=== PATIENT | male | born 1965 | race Caucasian/White ===

== ENCOUNTER 2017-01-03 06:55 | Outpatient (CLI) | payer MEDICARE ==
[~2017-01-03] VITALS: Ht 175.3 cm; Wt 95.7 kg
[2017-01-03] VITALS (10 sets, daily range): BP systolic 66–115; BP diastolic 39–63
[~2017-01-03 06:55] MED LIST: AMIT100T PO; AMIT150T PO; BACL20TA PO; EXEN10PE3 SQ; GABA600T2 PO; HYDR-971 PO; INSU100I27 SQ; INSU100V8 SQ; METF-620 PO; METO100T11 PO; METO25TA4 PO; OMEP20CA9 PO; PRED2.5T PO; PRED5TAB PO; PREG50CA PO; SULF1TAB24 PO; TRAZ100T12 PO
[2017-01-03 07:24] LABS: BASO % 1 % (0-3); EOS % 3 % (0-3); HEMATOCRIT 35.8 % (39.0-53.0); HEMOGLOBIN 11.7 g/dL (13.0-17.5); LYMPH # 0.6 x10^3/uL (1.0-4.8); LYMPH % 13 % (24-48); MEAN CORPUSCULAR HEMOGLOBIN 32 pg (25-35); MEAN CORPUSCULAR HGB CONC 33 g/dL (31-37); MEAN CORPUSCULAR VOLUME 97 fL (79-100); MONO % 9 % (0-9); NEUT % 74 % (31-73); PLATELET COUNT 90 x10^3/uL (140-400); RED BLOOD COUNT 3.71 x10^6/uL (4.30-5.70); RED CELL DISTRIBUTION WIDTH 15.2 % (11.5-14.5); WHITE BLOOD COUNT 4.7 x10^3/uL (4.0-11.0)
[2017-01-03] MEDS ORDERED: OXYC15TA PO (07:31)
[2017-01-03] MEDS ORDERED: DIPH25CA58 PO (07:31)
[2017-01-03] MEDS ORDERED: POTA20TA82 PO (07:31)
[2017-01-03] MEDS ORDERED: APRE30TA2 PO (07:31)
[2017-01-03] MEDS ORDERED: LISI40TA PO (07:31)
[2017-01-03] MEDS ORDERED: CRAN450C PO (07:31)
[2017-01-03] MEDS ORDERED: OXYC30TA PO (07:31)
[2017-01-03] MEDS ORDERED: INSU100I17 SQ (07:31)
[2017-01-03] MEDS ORDERED: HYDR25TA9 PO (07:31)
[2017-01-03] MEDS ORDERED: GRIS500T5 PO (07:31)
[2017-01-03] MEDS ORDERED: RANI150T6 PO (07:31)
[2017-01-03] MEDS ORDERED: MULT-496 PO (07:31)
[2017-01-03] MEDS ORDERED: LEXAPRO20 MG PO (07:31)
[2017-01-03] MEDS ORDERED: CARV6.252 PO (07:31)
[2017-01-03 07:42] LABS: INR 1.1 (0.8-1.1); PROTHROMBIN TIME PATIENT 13.7 SEC (11.7-14.0)
[2017-01-03] MEDS ORDERED: LIDOCAINE 1% / SOD BICARB 8.4% 20 ML VIAL. IJ ONE ×2 (08:20→09:00)
[2017-01-03] MEDS ORDERED: ONDANSETRON PF 4 MG/2 ML VIAL. ONE (08:21)
[2017-01-03] MEDS ORDERED: MIDAZOLAM HCL/PF 5 MG/5 ML VIAL. ONE (08:21)
[2017-01-03] MEDS ORDERED: fentaNYL PF VIAL 250 MCG/5 ML VIAL ONE (08:21)
[2017-01-03] MEDS ORDERED: fentaNYL PF VIAL 250 MCG/5 ML VIAL IV ONE (09:00)
[2017-01-03] MEDS ORDERED: MIDAZOLAM HCL/PF 5 MG/5 ML VIAL. IV ONE (09:00)
[2017-01-03] MEDS ORDERED: ONDANSETRON PF 4 MG/2 ML VIAL. IV ONE (09:00)
--- NOTE | 2017-01-03 10:12 | RAD ---
CT-guided bone marrow biopsy. 01/03/2017 Indication: Splenomegaly Discussion: The risks and benefits of the procedure, including but not limited to, bleeding and infection were discussed patient. Informed consent was obtained. The patient was brought to the CT scanner and placed in the prone position. A timeout procedure was performed. [employer] CT imaging of the pelvis demonstrated left ilium amenable to bone marrow biopsy. The overlying soft tissues were prepped and draped using maximum sterile barrier technique. 1% lidocaine without epinephrine was administered for local anesthesia. An OncControl needle was advanced into the bone marrow of the left iliac crest. 2 Aspirates and 1 core biopsy samples were obtained. Samples were delivered to pathology was present at the time of procedure. The needle was removed and manual pressure held to achieve hemostasis. No immediate complications were identified. The procedure was performed under conscious sedation including continuous cardiopulmonary monitoring via dedicated sedation nurse. Sedation time: 20 minutes Impression: Successful CT-guided bone marrow biopsy of the left iliac crest PQRS Compliance Statement: One or more of the following individualized dose reduction techniques were utilized for this examination: 1. Automated exposure control 2. Adjustment of the mA and/or kV according to patient size 3. Use of iterative reconstruction technique
[2017-01-03] MEDS ORDERED: IV 1/2 NORMAL SALINE 1,000 ML IV ONE (10:15)
== END 2017-01-03 10:45 ==
LOC: INTRAD 06:55
PROVIDERS: ATTEND Internal Medicine Hematology & Oncology
DX: D61.818 Other pancytopenia (principal); E78.00 Pure hypercholesterolemia, unspecified; I10 Essential (primary) hypertension; J44.9 Chronic obstructive pulmonary disease, unspecified; E66.9 Obesity, unspecified; Z68.43 Body mass index [BMI] 50.0-59.9, adult; M19.90 Unspecified osteoarthritis, unspecified site; E11.9 Type 2 diabetes mellitus without complications; F32.9 Major depressive disorder, single episode, unspecified; Z79.01 Long term (current) use of anticoagulants; Z86.69 Personal history of other diseases of the nervous system and sense organs; Z87.442 Personal history of urinary calculi; Z86.39 Personal history of other endocrine, nutritional and metabolic disease; Z72.0 Tobacco use; Z88.3 Allergy status to other anti-infective agents
CPT/HCPCS: 36415; 38221; 77012; 85027; 85610; 88184; 88185; 88237; 99152; G0364; J2250; J2405; J3010; 99153

== ENCOUNTER → 2018-04-03 | Outpatient (CLI) | payer MEDICARE, OTHER ==
[2017-01-03 10:30] VITALS: BP 94/56
[~2018-04-03] MED LIST changes: +APRE30TA2 PO; +CARV6.252 PO; +CRAN450C PO; +DIPH25CA58 PO; +GRIS500T5 PO; +HYDR25TA9 PO; +INSU100I17 SQ; +LEXAPRO20 MG PO; +LISI-130 PO; -METF-620 PO; +METF10007 PO; +METO-247 PO; -METO100T11 PO; +MULT-496 PO; +OXYC15TA PO; +OXYC30TA PO; +POTA20TA82 PO; +RANI150T21 PO; +TRAZ-86 PO; -TRAZ100T12 PO
--- NOTE | 2018-04-03 13:53 | RAD ---
Single AP abdomen 04/03/2018 Clinical indications: Kidney stone follow-up. COMPARISON: CT 05/16/2014 FINDINGS: Examination is markedly limited due to body habitus and overlying bowel contents. No definitive urolithiasis. IMPRESSION: Markedly limited examination due to body habitus. If there is concern for urolithiasis, CT is recommended as it is more sensitive. Electronically signed by: Hermilo Hernández MD (04/03/2018 1:50 PM) [id number]
== END | disposition home or self-care (01) ==
LOC: RAD 10:06
PROVIDERS: ATTEND Urology
DX: Z09 Encounter for follow-up examination after completed treatment for conditions other than malignant neoplasm (principal); Z87.442 Personal history of urinary calculi
CPT/HCPCS: 74018

== ENCOUNTER 2019-08-07 16:44 | Emergency (ER) | payer MEDICARE, OTHER ==
[~2019-08-07] VITALS: Ht 175.3 cm; Wt 100.0 kg
[~2019-08-07 16:44] MED LIST changes: +ARIP1SOL2 PO; +BUSP10TA PO; +CARV6.2511 PO; -CARV6.252 PO; +CITA20TA6 PO; +DULO60CA45 PO; -GABA600T2 PO; +GABA600T7 PO; +HYDR-2145 PO; +HYDR-3164 PO; -HYDR-971 PO; -HYDR25TA9 PO; +LORA0.5T96 PO; +OMEP20CA16 PO; -OMEP20CA9 PO; -OXYC30TA PO; +OXYC30TA3 PO; +PANT40TA77 PO; +POTA20TA4 PO; -POTA20TA82 PO; +RANI-376 PO; -RANI150T21 PO; +TAMS0.4C97 PO; +TRAZ-123 PO; -TRAZ-86 PO
[2019-08-07 16:45] VITALS: BP 180/86
[2019-08-07] MEDS ORDERED: IV NORMAL SALINE 1000ML BAG 1,000 ML IV ONE (17:00)
--- NOTE | 2019-08-07 17:03 | PHYS DOC ---
Past Medical History Past Medical History: Arthritis, Fibromyalgia Additional Past Medical Histor: RA, sleep apnea Past Surgical History: Tonsillectomy, Other Smoking Status: Never Smoker Alcohol Use: Occasionally Drug Use: None Adult General Chief Complaint Chief Complaint: DRUG ABUSE [facility] HPI Patient is a 54 year old male who was brought here by EMS from home with concern that he took too much of it pain medications. His home health nurse checked on him today at his house and found that there were large amount of narcotic missing from his bottles. Patient was acting confused. He said he cannot remember much. Patient denied suicidal ideation or homicidal ideation. Patient said he is on narcotics due to chronic arthritis and fibromyalgia. There are two bottles of narcotics with him. One is 15 mg oxycodone, take 1 by mouth every six hours as needed for pain, filled on 07/29/19, total of 112 tablets was dispensed. There are only 22 tablets left in the bottle. Another bottle labelled as 30 mg oxycodone, take one pill daily as needed for pain, filled on 07/29/19, total of 30 tablets dispensed but all gone. At this time patient denies any chest pain, no abdominal pain, no nausea or vomiting, no headache. Patient felt very foggy right now. Review of Systems Review of Systems Constitutional: Denies fever or chills [] Eyes: Denies change in visual acuity, redness, or eye pain [] HENT: Denies nasal congestion or sore throat [] Respiratory: Denies cough or shortness of breath [] Cardiovascular: No additional information not addressed in HPI [] GI: Denies abdominal pain, nausea, vomiting, bloody stools or diarrhea [] : Denies dysuria or hematuria [] Musculoskeletal: Denies back pain or joint pain [] Integument: Denies rash or skin lesions [] Neurologic: Denies headache, focal weakness or sensory changes [] Endocrine: Denies polyuria or polydipsia [] All other systems were reviewed and found to be within normal limits, except as documented in this note. Current Medications Current Medications Current Medications Medications (Trade) Dose Ordered Sig/Sb Start Time Stop Time Status Last Admin Dose Admin Magnesium Sulfate 50 ml @ 25 mls/hr 1X ONCE 08/07/19 18:00 08/07/19 19:59 Sodium Chloride 1,000 ml @ 1,000 mls/hr 1X ONCE 08/07/19 17:00 08/07/19 17:59 08/07/19 17:00 1,000 MLS/HR Allergies Allergies Allergies Coded Allergies Type Severity Reaction Last Updated Verified povidone-iodine Allergy Intermediate Rash 01/23/15 Yes pregabalin Allergy Intermediate bullae 01/24/15 Yes Physical Exam Physical Exam Constitutional: Well developed, well nourished, no acute distress, non-toxic appearance. [] HENT: Normocephalic, atraumatic, bilateral external ears normal, oropharynx moist, no oral exudates, nose normal. [] Eyes: PERRLA, EOMI, conjunctiva normal, no discharge. [] Neck: Normal range of motion, no tenderness, supple, no stridor. [] Cardiovascular:Heart rate regular rhythm, no murmur [] Lungs & Thorax: Bilateral breath sounds clear to auscultation [] Abdomen: Bowel sounds normal, soft, no tenderness, no masses, no pulsatile masses. [] Skin: Warm, dry, no erythema, no rash. [] Back: No tenderness, no CVA tenderness. [] Extremities: No tenderness, no cyanosis, no clubbing, ROM intact, no edema. [] Neurologic: Alert and oriented X 3, normal motor function, normal sensory function, no focal deficits noted. [] Psychologic: Affect normal, judgement normal, mood normal. [] Current Patient Data Lab Values Laboratory Tests Test 08/07/19 17:00 08/07/19 17:20 White Blood Count 3.1 x10^3/uL (4.0-11.0) L Red Blood Count 4.32 x10^6/uL (4.30-5.70) Hemoglobin 12.3 g/dL (13.0-17.5) L Hematocrit 37.7 % (39.0-53.0) L Mean Corpuscular Volume 87 fL (79-100) Mean Corpuscular Hemoglobin 28 pg (25-35) Mean Corpuscular Hemoglobin Concent 33 g/dL (31-37) Red Cell Distribution Width 16.1 % (11.5-14.5) H Platelet Count 60 x10^3/uL (140-400) L Neutrophils (%) (Auto) 66 % (31-73) Lymphocytes (%) (Auto) 21 % (24-48) L Monocytes (%) (Auto) 7 % (0-9) Eosinophils (%) (Auto) 5 % (0-3) H Basophils (%) (Auto) 1 % (0-3) Neutrophils # (Auto) 2.0 x10^3/uL (1.8-7.7) Lymphocytes # (Auto) 0.7 x10^3/uL (1.0-4.8) L Monocytes # (Auto) 0.2 x10^3/uL (0.0-1.1) Eosinophils # (Auto) 0.2 x10^3/uL (0.0-0.7) Basophils # (Auto) 0.0 x10^3/uL (0.0-0.2) Prothrombin Time 14.4 SEC (11.7-14.0) H Prothrombin Time INR 1.2 (0.8-1.1) H Activated Partial Thromboplast Time 31 SEC (24-38) Sodium Level 143 mmol/L (136-145) Potassium Level 4.7 mmol/L (3.5-5.1) Chloride Level 105 mmol/L (98-107) Carbon Dioxide Level 30 mmol/L (21-32) Anion Gap 8 (6-14) Blood Urea Nitrogen 10 mg/dL (8-26) Creatinine 1.1 mg/dL (0.7-1.3) Estimated GFR (Cockcroft-Gault) 69.2 BUN/Creatinine Ratio 9 (6-20) Glucose Level 316 mg/dL (70-99) H Calcium Level 8.9 mg/dL (8.5-10.1) Magnesium Level 1.4 mg/dL (1.8-2.4) L Total Bilirubin 1.0 mg/dL (0.2-1.0) Aspartate Amino Transferase (AST) 52 U/L (15-37) H Alanine Aminotransferase (ALT) 49 U/L (16-63) Alkaline Phosphatase 129 U/L (46-116) H Total Protein 6.8 g/dL (6.4-8.2) Albumin 3.4 g/dL (3.4-5.0) Albumin/Globulin Ratio 1.0 (1.0-1.7) Salicylates Level < 2.8 mg/dL (2.8-20.0) L Salicylate Last Dose Date Unknown Salicylate Last Dose Time Unknown Acetaminophen Level < 2 mcg/ml (10-30) L Acetaminophen Last Dose Date Unknown Acetaminophen Last Dose Time Unknown Ethyl Alcohol Level < 10 mg/dL (0-10) Urine Opiates Screen Pos (NEG) Urine Methadone Screen Neg (NEG) Urine Barbiturates Neg (NEG) Urine Phencyclidine Screen Neg (NEG) Urine Amphetamine/Methamphetamine Neg (NEG) Urine Benzodiazepines Screen Neg (NEG) Urine Cocaine Screen Neg (NEG) Urine Cannabinoids Screen Neg (NEG) Urine Ethyl Alcohol Neg (NEG) Laboratory Tests 08/07/19 17:00 Laboratory Tests 08/07/19 17:00 EKG EKG [] Radiology/Procedures Radiology/Procedures [] Course & Med Decision Making Course & Med Decision Making Pertinent Labs and Imaging studies reviewed. (See chart for details) [Patient is a 54-year-old male who was evaluated in the ER due to narcotic abuse. Patient was awake alert oriented, oxygen saturation is 100% on room air., his GCS was 15. His blood pressure was elevated. Patient denies any headache, no chest pain, no abdominal pain. Patient would like to go home. His blood work showed that his magnesium level was low, patient was given 2 g of magnesium IV in the ER, patient will be checked discharge home. Patient was instructed not to take more narcotics than he prescribed for. Dragon Disclaimer Dragon Disclaimer This electronic medical record was generated, in whole or in part, using a voice recognition dictation system. Departure Departure Impression: Primary Impression: Hypomagnesemia syndrome Additional Impression: Narcotic dependence Disposition: 01 HOME, SELF-CARE Condition: STABLE Referrals: ALY OLIVARES MD (PCP) PLEASE FOLLOW UP WITH YOUR DOCTOR NEXT WEEK. Patient Instructions: Hypomagnesemia, Narcotic Overdose Additional Instructions: Thank you for visiting our Emergency Department. We appreciate you trusting us with your care. If any additional problems come up don't hesitate to return to visit us. Please follow up with your primary care provider so they can plan additional care if needed and know about the problem that you had. If symptoms worsen come back to the Emergency Department. Any concerning symptoms that start such as chest pain, shortness of air, weakness or numbness on one side of the body, running high fevers or any other concerning symptoms return to the ER. Problem Qualifiers ARCHIE OAKES DO Aug 07, 2019 17:03
[2019-08-07 17:07] LABS: BASO % 1 % (0-3); EOS # 0.2 x10^3/uL (0.0-0.7); EOS % 5 % (0-3); HEMATOCRIT 37.7 % (39.0-53.0); HEMOGLOBIN 12.3 g/dL (13.0-17.5); LYMPH # 0.7 x10^3/uL (1.0-4.8); LYMPH % 21 % (24-48); MEAN CORPUSCULAR HEMOGLOBIN 28 pg (25-35); MEAN CORPUSCULAR HGB CONC 33 g/dL (31-37); MEAN CORPUSCULAR VOLUME 87 fL (79-100); MONO # 0.2 x10^3/uL (0.0-1.1); MONO % 7 % (0-9); NEUT % 66 % (31-73); PLATELET COUNT 60 x10^3/uL (140-400); RED BLOOD COUNT 4.32 x10^6/uL (4.30-5.70); RED CELL DISTRIBUTION WIDTH 16.1 % (11.5-14.5); WHITE BLOOD COUNT 3.1 x10^3/uL (4.0-11.0)
[2019-08-07 17:16] LABS: CALCIUM 8.9 mg/dL (8.5-10.1); CREATININE 1.1 mg/dL (0.7-1.3); GFR 69.2; POTASSIUM 4.7 mmol/L (3.5-5.1)
[2019-08-07 17:19] LABS: PROTHROMBIN TIME PATIENT 14.4 SEC (11.7-14.0)
[2019-08-07 17:29] LABS: ALBUMIN 3.4 g/dL (3.4-5.0); MAGNESIUM 1.4 mg/dL (1.8-2.4); TOTAL PROTEIN 6.8 g/dL (6.4-8.2)
[2019-08-07 17:31] LABS: ACETAMIN < 2 mcg/ml (10-30); ETHANOL < 10 mg/dL (0-10); SALIC < 2.8 mg/dL (2.8-20.0)
[2019-08-07 17:36] LABS: AMPHETAMINE/METHAMPHETAMINE NEG (NEG); BARBITURATES NEG (NEG); BENZODIAZEPINES NEG (NEG); CANNABINOIDS NEG (NEG); COCAINE NEG (NEG); METHADONE NEG (NEG); OPIATES POS (NEG); PHENCYCLIDINE NEG (NEG)
[2019-08-07] MEDS ORDERED: MAGNESIUM SULFATE 2GM 50 ML IV ONE (18:00)
== END 2019-08-07 18:40 | disposition home or self-care (01) ==
LOC: ER 16:44
DX: E83.42 Hypomagnesemia (principal); F11.20 Opioid dependence, uncomplicated; R41.0 Disorientation, unspecified; Z88.8 Allergy status to other drugs, medicaments and biological substances
CPT/HCPCS: 36415; 80053; 80307; 80329; 83735; 85025; 85610; 85730; 96361; 96365; 99284; G0480; J3475; J7030

== ENCOUNTER 2019-10-03 13:09 | Emergency (ER) | payer MEDICARE, OTHER ==
[~2019-10-03] VITALS: Ht 175.3 cm; Wt 96.0 kg
[~2019-10-03 13:09] MED LIST changes: -OXYC15TA PO; +OXYC15TA3 PO; -PREG50CA PO; +PREG50CA91 PO
--- NOTE | 2019-10-03 13:40 | EKG ---
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
[2019-10-03 13:58] LABS: BASO % 1 % (0-3); EOS # 0.1 x10^3/uL (0.0-0.7); EOS % 4 % (0-3); HEMATOCRIT 37.6 % (39.0-53.0); HEMOGLOBIN 12.2 g/dL (13.0-17.5); LYMPH # 0.7 x10^3/uL (1.0-4.8); LYMPH % 19 % (24-48); MEAN CORPUSCULAR HEMOGLOBIN 29 pg (25-35); MEAN CORPUSCULAR HGB CONC 32 g/dL (31-37); MEAN CORPUSCULAR VOLUME 90 fL (79-100); MONO # 0.2 x10^3/uL (0.0-1.1); MONO % 7 % (0-9); NEUT # 2.5 x10^3/uL (1.8-7.7); NEUT % 71 % (31-73); PLATELET COUNT 65 x10^3/uL (140-400); RED CELL DISTRIBUTION WIDTH 17.4 % (11.5-14.5); WHITE BLOOD COUNT 3.5 x10^3/uL (4.0-11.0)
[2019-10-03 14:07] LABS: CALCIUM 9.1 mg/dL (8.5-10.1); GFR 77.3
[2019-10-03 14:10] LABS: PROTHROMBIN TIME PATIENT 14.6 SEC (11.7-14.0)
[2019-10-03 14:14] LABS: ALBUMIN 3.1 g/dL (3.4-5.0); ALBUMIN/GLOBULIN RATIO 0.9 (1.0-1.7); MAGNESIUM 1.3 mg/dL (1.8-2.4); TOTAL PROTEIN 6.6 g/dL (6.4-8.2)
[2019-10-03 14:19] LABS: PLT ESTIMATE DECREASED (ADEQUATE)
[2019-10-03 14:20] LABS: ANISOCYTOSIS SLIGHT
--- NOTE | 2019-10-03 15:16 | RAD ---
EXAM: CT HEAD WITHOUT IV CONTRAST CLINICAL HISTORY: Trauma, head injury COMPARISON: None. TECHNIQUE: Routine CT of the head without contrast. Soft tissues and bone windows were reviewed. PQRS compliance statement - One or more of the following individualized dose reduction techniques were utilized for this study: 1. Automated exposure control 2. Adjustment of the mA and/or kV according to patient size 3. Use of iterative reconstruction technique FINDINGS: A right subdural hematoma is seen measuring up to 7 mm in thickness. In addition there is a left subdural hematoma measuring approximately 6 mm in thickness. Trace right subarachnoid hemorrhage is seen in the bilateral frontal region. There is no mass effect or shift of the intracranial structures. Bailey-white differentiation is maintained with no evidence of edema. The ventricles, basilar cisterns and cortical sulci are normal in size and configuration for the patients stated age. The cerebellum and brainstem are unremarkable. The calvarium demonstrates no evidence of fracture or focal lesion. Mild thickening left maxillary sinus. Nodular thickening right maxillary sinus. Mastoid air cells are clear. The visualized portions of the orbits are normal. Atherosclerotic calcifications of the intracranial internal carotid and vertebral arteries is seen. IMPRESSION: 1. Bilateral subdural hematomas are seen without significant mass effect or midline shift. 2. Small foci of subarachnoid hemorrhage in the bilateral frontal regions. 3. Multifocal paranasal sinus disease. EXAM: CT CERVICAL SPINE WITHOUT IV CONTRAST CLINICAL HISTORY: COMPARISON: None available. TECHNIQUE: Helical CT of the cervical spine was performed. Axial, coronal and sagittal reformatted images were also performed. PQRS compliance statement - One or more of the following individualized dose reduction techniques were utilized for this study: 1. Automated exposure control 2. Adjustment of the mA and/or kV according to patient size 3. Use of iterative reconstruction technique FINDINGS: Vertebral body heights are preserved. Mild C2-3 and C6-7 disc height loss. No spondylolisthesis. Small anterior posterior endplate osteophytes are seen. Atlantodental degenerative changes are seen. Bilateral TMJ degenerative changes are also partially profiled. No acute fracture. IMPRESSION: 1. Multilevel spondylosis as above 2. Negative acute fracture or subluxation. Findings of bilateral subarachnoid and subdural hematomas discussed with JAYMIE BROCK at 10/03/2019 3:11 PM. FOR INTERNAL CODING PURPOSES RESULT CODE: (C) Electronically signed by: Noé Wilde MD (10/03/2019 3:13 PM) WILLIAMSHIREN
[2019-10-03] MEDS ORDERED: ONDANSETRON PF 4 MG/2 ML VIAL. ONE (15:24)
--- NOTE | 2019-10-03 15:24 | PHYS DOC ---
Past Medical History Past Medical History: COPD, Dementia, Diabetes-Type II, Heart Disease, [place], Unknown Additional Past Medical Histor: RA, sleep apnea Past Surgical History: Tonsillectomy, Other Additional Past Surgical Histo: vasectomy Smoking Status: Never Smoker Alcohol Use: None Drug Use: None General Adult EDM: Chief Complaint: MECHANICAL FALL HPI: HPI: Patient is a 54-year-old male with multiple medical problems who presents via EMS with altered mental status today. Patient states that he was walking in the street yesterday a car was coming so he tried to get up over the curb he tripped fell backwards and hit his head. A bystander called the ambulance at that time and they took him to [facility]. At that time he had a CT scan of his head that was reportedly negative he also had 3 nav placed. Today he was complaining of a severe headache, nausea and some altered mental status and EMS again was called and brought him here for further evaluation. Patient states other than the back of his head and neck he has no other injuries or pain. He has not had any upper respiratory symptoms such as a cough or congestion. No f ever chills or sweats. He does not know of being around anybody with COVID 19 [] Review of Systems: Review of Systems: Constitutional: Denies fever or chills. [] Eyes: Denies change in visual acuity. [] HENT: Denies nasal congestion or sore throat. [] Respiratory: Denies cough or shortness of breath. [] Cardiovascular: Denies chest pain or edema. [] GI: Reports nausea and vomiting. [] : Denies dysuria. [] Musculoskeletal: Reports upper back and neck pain. [] Integument: Denies rash. [] Neurologic: Reports headache [] Endocrine: Denies polyuria or polydipsia. [] Lymphatic: Denies swollen glands. [] Psychiatric: Denies depression or anxiety. [] Heart Score: Risk Factors: Risk Factors: DM, Current or recent (<one month) smoker, HTN, HLP, family history of CAD, obesity. Risk Scores: Score 0 - 3: 2.5% MACE over next 6 weeks - Discharge Home Score 4 - 6: 20.3% MACE over next 6 weeks - Admit for Clinical Observation Score 7 - 10: 72.7% MACE over next 6 weeks - Early Invasive Strategies Allergies: Allergies: Allergies Coded Allergies Type Severity Reaction Last Updated Verified povidone-iodine Allergy Intermediate Rash 01/23/15 Yes pregabalin Allergy Intermediate bullae 01/24/15 Yes Physical Exam: PE: Constitutional: Well developed, well nourished, moderate distress, non-toxic appearance. [] HENT: Normocephalic, atraumatic, bilateral external ears normal, oropharynx moist, no oral exudates, nose normal. [] Eyes: PERRLA, EOMI, conjunctiva normal, no discharge. [] Neck: Some paraspinal muscle spasm no midline vertebral tenderness [] Cardiovascular:Heart rate regular rhythm, no murmur [] Lungs & Thorax: Bilateral breath sounds clear to auscultation [] Abdomen: Bowel sounds normal, soft, no tenderness, no masses, no pulsatile masses. [] Skin: Has a wound that is been repaired to the posterior scalp it looks as if there are [address] [] Back: No tenderness, no CVA tenderness. [] Extremities: No tenderness, no cyanosis, no clubbing, ROM intact, no edema. [] Neurologic: Alert but confused to events over the last 24 hours, normal motor function, normal sensory function, no focal deficits noted. [] Psychologic: Anxious and uncomfortable. [] Current Patient Data: Labs: Laboratory Tests Test 10/03/19 13:20 White Blood Count 3.5 x10^3/uL (4.0-11.0) L Red Blood Count 4.20 x10^6/uL (4.30-5.70) L Hemoglobin 12.2 g/dL (13.0-17.5) L Hematocrit 37.6 % (39.0-53.0) L Mean Corpuscular Volume 90 fL (79-100) Mean Corpuscular Hemoglobin 29 pg (25-35) Mean Corpuscular Hemoglobin Concent 32 g/dL (31-37) Red Cell Distribution Width 17.4 % (11.5-14.5) H Platelet Count 65 x10^3/uL (140-400) L Neutrophils (%) (Auto) 71 % (31-73) Lymphocytes (%) (Auto) 19 % (24-48) L Monocytes (%) (Auto) 7 % (0-9) Eosinophils (%) (Auto) 4 % (0-3) H Basophils (%) (Auto) 1 % (0-3) Neutrophils # (Auto) 2.5 x10^3/uL (1.8-7.7) Lymphocytes # (Auto) 0.7 x10^3/uL (1.0-4.8) L Monocytes # (Auto) 0.2 x10^3/uL (0.0-1.1) Eosinophils # (Auto) 0.1 x10^3/uL (0.0-0.7) Basophils # (Auto) 0.0 x10^3/uL (0.0-0.2) Platelet Estimate Decreased (ADEQUATE) Anisocytosis Slight Prothrombin Time 14.6 SEC (11.7-14.0) H Prothrombin Time INR 1.2 (0.8-1.1) H Sodium Level 139 mmol/L (136-145) Potassium Level 5.0 mmol/L (3.5-5.1) Chloride Level 105 mmol/L (98-107) Carbon Dioxide Level 29 mmol/L (21-32) Anion Gap 5 (6-14) L Blood Urea Nitrogen 15 mg/dL (8-26) Creatinine 1.0 mg/dL (0.7-1.3) Estimated GFR (Cockcroft-Gault) 77.3 BUN/Creatinine Ratio 15 (6-20) Glucose Level 165 mg/dL (70-99) H Calcium Level 9.1 mg/dL (8.5-10.1) Magnesium Level 1.3 mg/dL (1.8-2.4) L Total Bilirubin 1.0 mg/dL (0.2-1.0) Aspartate Amino Transferase (AST) 52 U/L (15-37) H Alanine Aminotransferase (ALT) 44 U/L (16-63) Alkaline Phosphatase 125 U/L (46-116) H Creatine Kinase 195 U/L (39-308) Troponin I Quantitative < 0.017 ng/mL (0.000-0.055) Total Protein 6.6 g/dL (6.4-8.2) Albumin 3.1 g/dL (3.4-5.0) L Albumin/Globulin Ratio 0.9 (1.0-1.7) L Ethyl Alcohol Level < 10 mg/dL (0-10) Laboratory Tests 10/03/19 13:20 Laboratory Tests 10/03/19 13:20 Vital Signs: Vital Signs Date Time Temp Pulse Resp B/P (MAP) Pulse Ox O2 Delivery O2 Flow Rate FiO2 10/03/19 14:55 72 98 10/03/19 13:13 98.4 16 164/62 (96) Room Air 98.4 EKG: EKG: [] Radiology/Procedures: Radiology/Procedures: [] Impression: CLINICAL HISTORY: Trauma, head injury COMPARISON: None. TECHNIQUE: Routine CT of the head without contrast. Soft tissues and bone windows were reviewed. PQRS compliance statement - One or more of the following individualized dose reduction techniques were utilized for this study: 1. Automated exposure control 2. Adjustment of the mA and/or kV according to patient size 3. Use of iterative reconstruction technique FINDINGS: A right subdural hematoma is seen measuring up to 7 mm in thickness. In addition there is a left subdural hematoma measuring approximately 6 mm in thickness. Trace right subarachnoid hemorrhage is seen in the bilateral frontal region. There is no mass effect or shift of the intracranial structures. Bailey-white differentiation is maintained with no evidence of edema. The ventricles, basilar cisterns and cortical sulci are normal in size and configuration for the patients stated age. The cerebellum and brainstem are unremarkable. The calvarium demonstrates no evidence of fracture or focal lesion. Mild thickening left maxillary sinus. Nodular thickening right maxillary sinus. Mastoid air cells are clear. The visualized portions of the orbits are normal. Atherosclerotic calcifications of the intracranial internal carotid and vertebral arteries is seen. IMPRESSION: 1. Bilateral subdural hematomas are seen without significant mass effect or midline shift. 2. Small foci of subarachnoid hemorrhage in the bilateral frontal regions. 3. Multifocal paranasal sinus disease. Course & Med Decision Making: Course & Med Decision Making Pertinent Labs and Imaging studies reviewed. (See chart for details) [ED course: Evaluation reveals a 54-year-old male with a head injury that has worsened over the last 24 hours. I am really unable to get good information around exactly what happened today to cause him to come back into the hospital. Nonetheless, he has had severe headache and nausea while he has been here and it was determined that he has both subdural and a subarachnoid hemorrhage. We do not have neurosurgical coverage at this time so he will be transferred to [facility].] CRITICAL CARE: Time spent was 35 minutes. This includes medical management, evaluation, reevaluation, discussion with consultants and family. Critical Care does NOT include time spent on separately billed procedures. Dragon Disclaimer: Dragon Disclaimer: This electronic medical record was generated, in whole or in part, using a voice recognition dictation system. Departure Departure Impression: Primary Impression: Bilateral subdural hematomas Additional Impression: Subarachnoid hemorrhage Disposition: 05 TRANSFER OTHER Condition: GUARDED Referrals: ALY OLIVARES MD (PCP) JAYMIE BROCK DO October 03, 2019 15:24
[2019-10-03] MEDS ORDERED: ONDANSETRON PF 4 MG/2 ML VIAL. IV ONE (15:30)
[2019-10-03 15:40] VITALS: BP 166/68
[2019-10-03] MEDS ORDERED: fentaNYL PF VIAL 100 MCG/2 ML VIAL IV ONE (15:45)
[2019-10-03 15:47] LABS: BILIRUBIN,URINE SMALL (NEG); CLARITY,URINE CLEAR; COLOR,URINE YELLOW; NITRITE,URINE NEGATIVE (NEG); PROTEIN,URINE NEGATIVE (NEG-TRACE)
[2019-10-03 15:53] LABS: BARBITURATES NEG (NEG); BENZODIAZEPINES NEG (NEG); CANNABINOIDS NEG (NEG); COCAINE NEG (NEG); METHADONE NEG (NEG); OPIATES POS (NEG); PHENCYCLIDINE NEG (NEG)
[2019-10-03 15:55] LABS: AMPHETAMINE/METHAMPHETAMINE NEG (NEG)
[2019-10-03 15:56] LABS: RBC,URINE RARE /HPF (0-2)
[2019-10-03 15:57] LABS: AMORPHOUS SEDIMENT,UR PRESENT /HPF; BACTERIA,URINE 0 /HPF (0-FEW); SQUAMOUS EPITHELIAL CELL,UR MOD /LPF
== END 2019-10-03 16:10 | disposition short-term general hospital (02) ==
LOC: ER 13:09
DX: S06.6X9A Traumatic subarachnoid hemorrhage with loss of consciousness of unspecified duration, initial encounter (principal); S06.5X9A Traumatic subdural hemorrhage with loss of consciousness of unspecified duration, initial encounter; J44.9 Chronic obstructive pulmonary disease, unspecified; F03.90 Unspecified dementia, unspecified severity, without behavioral disturbance, psychotic disturbance, mood disturbance, and anxiety; E11.9 Type 2 diabetes mellitus without complications; I25.2 Old myocardial infarction; Z86.79 Personal history of other diseases of the circulatory system; Z88.8 Allergy status to other drugs, medicaments and biological substances; W01.198A Fall on same level from slipping, tripping and stumbling with subsequent striking against other object, initial encounter; Y93.89 Activity, other specified; Y92.89 Other specified places as the place of occurrence of the external cause; Y99.8 Other external cause status
CPT/HCPCS: 36415; 70450; 72125; 80053; 80307; 81001; 82550; 83735; 84484; 85025; 85610; 87086; 93005; 96374; 99291; G0480; J2405; P9612

== ENCOUNTER 2019-10-26 08:09 | Emergency (ER) | payer MEDICARE, OTHER ==
[~2019-10-26] VITALS: Ht 182.9 cm; Wt 110.0 kg
[~2019-10-26 08:09] MED LIST changes: -GRIS500T5 PO; +GRIS500T6 PO
--- NOTE | 2019-10-26 08:38 | PHYS DOC ---
Past Medical History Past Medical History: COPD, Dementia, Diabetes-Type II, Heart Disease, [place], Unknown Additional Past Medical Histor: RA, sleep apnea, SUBDURAL HEMATOMA 10/03/19 Past Surgical History: Tonsillectomy, Other Additional Past Surgical Histo: vasectomy Smoking Status: Never Smoker Alcohol Use: None Drug Use: None General Adult EDM: Chief Complaint: MECHANICAL FALL HPI: HPI: Patient is a 54 year old male presenting to the ED with a chief complaint of multiple falls. Patient was recently seen and on 03 Oct 2019 when he was found to have a subdural hematoma and was transferred to [facility]. Patient states that he was recently discharged home but had 2 falls in the last 2 days. Patient had repeatedly called EMS about 5 times to help him for various complaints. This morning EMS state that they noticed that patient was more confused than usual and so they brought him into the ER. Patient was also seen in July 30, 2019 altered mental status and at that time was found to have opiate toxicity. This morning patient states that he did not take his blood pressure medication. Review of Systems: Review of Systems: Constitutional: Denies fever or chills. [] Eyes: Denies change in visual acuity. [] HENT: Denies nasal congestion or sore throat. [] Respiratory: Denies cough or shortness of breath. [] Cardiovascular: Denies chest pain or edema. [] GI: Denies abdominal pain, nausea : Denies dysuria. [] Musculoskeletal: Planes of bilateral paraspinal thoracic pain Neurologic: Denies headache, focal weakness or sensory changes. [] Heart Score: Risk Factors: Risk Factors: DM, Current or recent (<one month) smoker, HTN, HLP, family history of CAD, obesity. Risk Scores: Score 0 - 3: 2.5% MACE over next 6 weeks - Discharge Home Score 4 - 6: 20.3% MACE over next 6 weeks - Admit for Clinical Observation Score 7 - 10: 72.7% MACE over next 6 weeks - Early Invasive Strategies Allergies: Allergies: Allergies Coded Allergies Type Severity Reaction Last Updated Verified povidone-iodine Allergy Intermediate Rash 01/23/15 Yes pregabalin Allergy Intermediate bullae 01/24/15 Yes Physical Exam: PE: Constitutional: Well developed, well nourished, no acute distress, non-toxic appearance. [] HENT: Normocephalic, atraumatic Eyes: EOMI Neck: Normal range of motion, Supple Cardiovascular:Heart rate regular rhythm Lungs & Thorax: Bilateral breath sounds clear to auscultation [] Abdomen: Bowel sounds normal, soft, no tenderness Extremities: No tenderness, ROM intact Neurologic: Alert and oriented X 2 Current Patient Data: Vital Signs: Vital Signs Date Time Temp Pulse Resp B/P (MAP) Pulse Ox O2 Delivery O2 Flow Rate FiO2 10/26/19 08:12 98.0 99 18 194/95 (128) 97 Room Air 98.0 EKG: EKG: EKG interpretation: 8: 21 on 10/26/2019 HR: 83 Sinus rhythm Regular intervals Left axis deviation Nonspecific ST changes [] Radiology/Procedures: Radiology/Procedures: [] Impression: CT Head Impression: 1. Evolving small chronic bilateral subdural hematomas, decreased compared to prior. No new hemorrhage. 2. Retained skin staple within the right posterior scalp soft tissues. 3. Interval apparent coil embolization. Recommend correlation with surgical history. CXR Impression: No acute radiographic abnormality is seen. Course & Med Decision Making: Course & Med Decision Making Pertinent Labs and Imaging studies reviewed. (See chart for details) Ordered CT head, chest x-ray, labs, UA, EKG, troponin, UDS. EKG does not show any acute changes. CT head did not show any new hemorrhages. They do show resolving subdural hematomas which was seen in the prior images. Labs are within normal limits. Ammonia is mildly elevated at 45. Patient does have a history of altered mental status and patient is at baseline today. Patient would like to be discharged home. During the coronavirus pandemic, it is best that patient is now admitted to the hospital and can be followed up as an outpatient. Patient was to be discharged home Patient can be followed up as an outpatient. Discussed results and plan of care with patient. Patient is instructed to follow up with PCP in one to 2 days. Appropriate discharge instructions given to patient to return to the ED or to seek immediate medical evaluation. Patient is instructed to return to the ED if symptoms worsen or if any concerns. Dragon Disclaimer: Dragon Disclaimer: This electronic medical record was generated, in whole or in part, using a voice recognition dictation system. Departure Departure Impression: Primary Impression: Back pain Disposition: HOME, SELF-CARE Condition: STABLE Referrals: ALY OLIVARES MD (PCP) Patient Instructions: Back Pain, Adult Additional Instructions: Please return to the ED if symptoms worsen or any concerns. Please follow-up with your PCP in 1 to 2 days. ELOY PANDEY DO October 26, 2019 08:38
[2019-10-26 08:40] LABS: BASO % 1 % (0-3); EOS # 0.2 x10^3/uL (0.0-0.7); EOS % 3 % (0-3); HEMATOCRIT 40.6 % (39.0-53.0); HEMOGLOBIN 13.4 g/dL (13.0-17.5); LYMPH # 1.2 x10^3/uL (1.0-4.8); LYMPH % 21 % (24-48); MEAN CORPUSCULAR HEMOGLOBIN 29 pg (25-35); MEAN CORPUSCULAR HGB CONC 33 g/dL (31-37); MEAN CORPUSCULAR VOLUME 88 fL (79-100); MONO # 0.4 x10^3/uL (0.0-1.1); MONO % 8 % (0-9); NEUT % 68 % (31-73); PLATELET COUNT 112 x10^3/uL (140-400); RED CELL DISTRIBUTION WIDTH 16.1 % (11.5-14.5); WHITE BLOOD COUNT 5.9 x10^3/uL (4.0-11.0)
[2019-10-26] MEDS ORDERED: HYDROcodone/APAP 5/325MG 1 TAB TABLET PO ONE (08:45)
[2019-10-26 08:49] LABS: GFR 77.3; POTASSIUM 4.4 mmol/L (3.5-5.1)
[2019-10-26 08:55] LABS: ALBUMIN 3.7 g/dL (3.4-5.0); ALBUMIN/GLOBULIN RATIO 0.9 (1.0-1.7); TOTAL BILIRUBIN 1.7 mg/dL (0.2-1.0); TOTAL PROTEIN 7.6 g/dL (6.4-8.2)
--- NOTE | 2019-10-26 09:15 | RAD ---
CT HEAD WO CONTRAST History: Pain. Reason: trauma / Spl. Instructions: / History: Comparison: October 03, 2019 Technique: Noncontrast CT imaging was performed of the head. Exposure: One or more of the following individualized dose reduction techniques were utilized for this examination: 1. Automated exposure control 2. Adjustment of the mA and/or kV according to patient size 3. Use of iterative reconstruction technique. Findings: Evolving chronic small bilateral subdural hematomas, decreased compared to prior. Resolved subarachnoid hemorrhage. No new hemorrhage. Minimal mass effect. No midline shift. No hydrocephalus. Stable appears retained within the right posterior scalp soft tissues. Interval apparent placement of embolization coils noted within the bilateral middle cranial fossa. Mild foci of decreased attenuation within the hemispheric white matter, most often due to chronic microvascular ischemia, unchanged. Imaged orbits are unremarkable. Right maxillary sinus because retention cyst or polyp. Mild scattered paranasal sinus because of thickening. Mastoid air cells are clear. TMJ arthropathy. No acute calvarial fracture. Impression: 1. Evolving small chronic bilateral subdural hematomas, decreased compared to prior. No new hemorrhage. 2. Retained skin staple within the right posterior scalp soft tissues. 3. Interval apparent coil embolization. Recommend correlation with surgical history. Electronically signed by: Nick Lees DO (10/26/2019 9:12 AM) [id number]
[2019-10-26 09:22] LABS: BILIRUBIN,URINE NEGATIVE (NEG); CLARITY,URINE CLEAR; COLOR,URINE AMBER; NITRITE,URINE NEGATIVE (NEG); PROTEIN,URINE 100 mg/dL (NEG-TRACE); UROBILINOGEN,URINE 0.2 mg/dL (0.2 mg/dL)
--- NOTE | 2019-10-26 09:25 | RAD ---
CHEST AP ONLY Clinical indications: Chest pain. COMPARISON: July 30, 2019. Findings: No acute lung infiltrate or pleural effusion or pulmonary edema or lung mass or pneumothorax is seen. Heart size is prominent but stable. The pulmonary vasculature, mediastinum and both franck are stable. Impression: No acute radiographic abnormality is seen. Electronically signed by: Raymundo Gonzáles MD (10/26/2019 9:22 AM) [id number]
[2019-10-26 09:29] LABS: BARBITURATES NEG (NEG); BENZODIAZEPINES NEG (NEG); CANNABINOIDS NEG (NEG); COCAINE NEG (NEG); METHADONE NEG (NEG); OPIATES POS (NEG); PHENCYCLIDINE NEG (NEG)
[2019-10-26 09:30] LABS: AMPHETAMINE/METHAMPHETAMINE NEG (NEG)
[2019-10-26 09:34] LABS: AMORPHOUS SEDIMENT,UR PRESENT /HPF; BACTERIA,URINE FEW /HPF (0-FEW); HYALINE CASTS, URINE MODERATE /HPF; RBC,URINE OCC /HPF (0-2); SQUAMOUS EPITHELIAL CELL,UR MANY /LPF
[2019-10-26 10:00] VITALS: BP 136/79
--- NOTE | 2019-10-27 07:24 | EKG ---
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
== END 2019-10-26 10:24 | disposition home or self-care (01) ==
LOC: ER 08:09
DX: M54.6 Pain in thoracic spine (principal); R41.0 Disorientation, unspecified; R51 Headache; R07.89 Other chest pain; J44.9 Chronic obstructive pulmonary disease, unspecified; F03.90 Unspecified dementia, unspecified severity, without behavioral disturbance, psychotic disturbance, mood disturbance, and anxiety; E11.9 Type 2 diabetes mellitus without complications; I25.2 Old myocardial infarction; Z86.79 Personal history of other diseases of the circulatory system
CPT/HCPCS: 36415; 70450; 71045; 80053; 80307; 81001; 82140; 82962; 83605; 84443; 84484; 85025; 87086; 93005; 99285-25

== ENCOUNTER 2019-12-15 15:33 | Inpatient (IN) | payer MEDICARE, OTHER ==
[~2019-12-15] VITALS: Ht 175.3 cm; Wt 101.0 kg
[2019-12-15] MEDS ORDERED: ONDANSETRON PF 4 MG/2 ML VIAL. IV ONE (16:45)
[2019-12-15] MEDS ORDERED: fentaNYL PF VIAL 100 MCG/2 ML VIAL IV ONE (16:45)
--- NOTE | 2019-12-15 17:11 | PHYS DOC ---
Past Medical History Past Medical History: COPD, Dementia, Diabetes-Type II, Heart Disease, [place], Unknown Additional Past Medical Histor: RA, sleep apnea, SUBDURAL HEMATOMA 10/03/19 (JAYMIE BROCK DO) Past Surgical History: Tonsillectomy, Other Additional Past Surgical Histo: vasectomy (JAYMIE BROCK DO) Smoking Status: Never Smoker Alcohol Use: None Drug Use: None (JAYMIE BROCK DO) General Adult EDM: Chief Complaint: ABDOMINAL PAIN HPI: HPI: Patient is a 54-year-old male who presents to the emergency department secondary to increasing abdominal swelling/distention and associated severe pain. He denies any fever chills or sweats. He denies any nausea or vomiting. 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 Today he states the pain is so severe and the abdomen is so swollen that he just could not take it any longer. He states that he does drink some but he says a sixpack may last him a month. He has not been an IV drug user he does not know of any infectious hepatitis diagnosis.] (JAYMIE BROCK DO) Review of Systems: Review of Systems: Constitutional: Denies fever or chills. [] Eyes: Denies change in visual acuity. [] HENT: Denies nasal congestion or sore throat. [] Respiratory: Denies cough or shortness of breath. [] Cardiovascular: Denies chest pain or edema. [] GI: Per HPI [] : Denies dysuria. [] Musculoskeletal: Denies back pain or joint pain. [] Integument: Denies rash. [] Neurologic: Denies headache, focal weakness or sensory changes. [] Endocrine: Denies polyuria or polydipsia. [] Lymphatic: Denies swollen glands. [] Psychiatric: Denies depression or anxiety. [] (JAYMIE BROCK DO) Heart Score: Risk Factors: Risk Factors: DM, Current or recent (<one month) smoker, HTN, HLP, family history of CAD, obesity. Risk Scores: Score 0 - 3: 2.5% MACE over next 6 weeks - Discharge Home Score 4 - 6: 20.3% MACE over next 6 weeks - Admit for Clinical Observation Score 7 - 10: 72.7% MACE over next 6 weeks - Early Invasive Strategies (JAYMIE BROCK DO) Current Medications: Current Medications Medications (Trade) Dose Ordered Sig/Sb Start Time Stop Time Status Last Admin Dose Admin Fentanyl Citrate (Fentanyl 2ml Vial) 50 mcg 1X ONCE 12/15/19 16:45 12/15/19 16:46 DC Ondansetron HCl (Zofran) 4 mg 1X ONCE 12/15/19 16:45 12/15/19 16:46 DC (JAYMIE BROCK DO) Allergies: Allergies: Allergies Coded Allergies Type Severity Reaction Last Updated Verified povidone-iodine Allergy Intermediate Rash 01/23/15 Yes pregabalin Allergy Intermediate bullae 01/24/15 Yes (JAYMIE BROCK DO) Physical Exam: PE: Constitutional: Well developed, well nourished, appears acute on chronically ill [] HENT: Normocephalic, atraumatic, bilateral external ears normal, oropharynx moist, no oral exudates, nose normal. [] Eyes: PERRLA, EOMI, no obvious scleral icterus [] Neck: Normal range of motion, no tenderness, supple, no stridor. [] Cardiovascular:Heart rate regular rhythm, no murmur [] Lungs & Thorax: Bilateral breath sounds clear to auscultation [] Abdomen: Abdomen is significantly distended diffusely tender with a positive fluid wave. [] Skin: Warm, dry, no erythema, no rash. [] Back: No tenderness, no CVA tenderness. [] Extremities: No tenderness, no cyanosis, no clubbing, ROM intact, no edema. [] Neurologic: Alert and oriented X 3, normal motor function, normal sensory function, no focal deficits noted. [] Psychologic: Anxious [] (JAYMIE BROCK DO) PE: Abdomen distended with diffuse tenderness to palpation (LIANE CHAVIRA MD) Current Patient Data: Vital Signs: Vital Signs Date Time Temp Pulse Resp B/P (MAP) Pulse Ox O2 Delivery O2 Flow Rate FiO2 12/15/19 16:43 97.8 78 22 168/79 (108) 96 Room Air 97.8 (JAYMIE BROCK DO) Labs: Laboratory Tests Test 12/15/19 17:25 12/15/19 17:32 White Blood Count 3.7 x10^3/uL Red Blood Count 3.95 x10^6/uL Hemoglobin 11.9 g/dL Hematocrit 35.8 % Mean Corpuscular Volume 91 fL Mean Corpuscular Hemoglobin 30 pg Mean Corpuscular Hemoglobin Concent 33 g/dL Red Cell Distribution Width 16.2 % Platelet Count 78 x10^3/uL Neutrophils (%) (Auto) 73 % Lymphocytes (%) (Auto) 16 % Monocytes (%) (Auto) 6 % Eosinophils (%) (Auto) 4 % Basophils (%) (Auto) 1 % Neutrophils # (Auto) 2.7 x10^3/uL Lymphocytes # (Auto) 0.6 x10^3/uL Monocytes # (Auto) 0.2 x10^3/uL Eosinophils # (Auto) 0.2 x10^3/uL Basophils # (Auto) 0.0 x10^3/uL Sodium Level 144 mmol/L Potassium Level 3.5 mmol/L Chloride Level 107 mmol/L Carbon Dioxide Level 25 mmol/L Anion Gap 12 Blood Urea Nitrogen 12 mg/dL Creatinine 1.0 mg/dL Estimated GFR (Cockcroft-Gault) 77.3 BUN/Creatinine Ratio 12 Glucose Level 241 mg/dL Calcium Level 8.4 mg/dL Magnesium Level 1.4 mg/dL Total Bilirubin 0.7 mg/dL Aspartate Amino Transf (AST/SGOT) 43 U/L Alanine Aminotransferase (ALT/SGPT) 36 U/L Alkaline Phosphatase 152 U/L Ammonia 50 mcmol/L Total Protein 6.4 g/dL Albumin 2.7 g/dL Albumin/Globulin Ratio 0.7 Lipase 109 U/L Urine Collection Type Unknown Urine Color Zenia Urine Clarity Clear Urine pH 5.5 Urine Specific [place] >=1.030 Urine Protein 30 mg/dL Urine Glucose (UA) 100 mg/dL Urine Ketones (Stick) Trace mg/dL Urine Blood Negative Urine Nitrite Negative Urine Bilirubin Small Urine Urobilinogen Dipstick 0.2 mg/dL Urine Leukocyte Esterase Negative Urine RBC Occ /HPF Urine WBC 1-4 /HPF Urine Squamous Epithelial Cells Few /LPF Urine Bacteria Few /HPF Urine Mucus Marked /LPF Current Medications Medications (Trade) Dose Ordered Sig/Sb Route PRN Reason Start Time Stop Time Status Last Admin Dose Admin Fentanyl Citrate (Fentanyl 2ml Vial) 50 mcg 1X ONCE IV 12/15/19 16:45 12/15/19 16:46 DC 12/15/19 17:42 Ondansetron HCl (Zofran) 4 mg 1X ONCE IV 12/15/19 16:45 12/15/19 16:46 DC 12/15/19 17:37 Laboratory Tests Test 12/15/19 17:25 12/15/19 17:32 White Blood Count 3.7 x10^3/uL Red Blood Count 3.95 x10^6/uL Hemoglobin 11.9 g/dL Hematocrit 35.8 % Mean Corpuscular Volume 91 fL Mean Corpuscular Hemoglobin 30 pg Mean Corpuscular Hemoglobin Concent 33 g/dL Red Cell Distribution Width 16.2 % Platelet Count 78 x10^3/uL Neutrophils (%) (Auto) 73 % Lymphocytes (%) (Auto) 16 % Monocytes (%) (Auto) 6 % Eosinophils (%) (Auto) 4 % Basophils (%) (Auto) 1 % Neutrophils # (Auto) 2.7 x10^3/uL Lymphocytes # (Auto) 0.6 x10^3/uL Monocytes # (Auto) 0.2 x10^3/uL Eosinophils # (Auto) 0.2 x10^3/uL Basophils # (Auto) 0.0 x10^3/uL Sodium Level 144 mmol/L Potassium Level 3.5 mmol/L Chloride Level 107 mmol/L Carbon Dioxide Level 25 mmol/L Anion Gap 12 Blood Urea Nitrogen 12 mg/dL Creatinine 1.0 mg/dL Estimated GFR (Cockcroft-Gault) 77.3 BUN/Creatinine Ratio 12 Glucose Level 241 mg/dL Calcium Level 8.4 mg/dL Magnesium Level Pending Total Bilirubin Pending Aspartate Amino Transf (AST/SGOT) Pending Alanine Aminotransferase (ALT/SGPT) Pending Alkaline Phosphatase Pending Total Protein Pending Albumin Pending Albumin/Globulin Ratio Pending Lipase Pending Urine Collection Type Unknown Urine Color Zenia Urine Clarity Clear Urine pH 5.5 Urine Specific [place] >=1.030 Urine Protein 30 mg/dL Urine Glucose (UA) 100 mg/dL Urine Ketones (Stick) Trace mg/dL Urine Blood Negative Urine Nitrite Negative Urine Bilirubin Small Urine Urobilinogen Dipstick 0.2 mg/dL Urine Leukocyte Esterase Negative Urine RBC Occ /HPF Urine WBC 1-4 /HPF Urine Squamous Epithelial Cells Few /LPF Urine Bacteria Few /HPF Urine Mucus Marked /LPF Current Medications Medications (Trade) Dose Ordered Sig/Sb Route PRN Reason Start Time Stop Time Status Last Admin Dose Admin Fentanyl Citrate (Fentanyl 2ml Vial) 50 mcg 1X ONCE IV 12/15/19 16:45 12/15/19 16:46 DC 12/15/19 17:42 Ondansetron HCl (Zofran) 4 mg 1X ONCE IV 12/15/19 16:45 12/15/19 16:46 DC 12/15/19 17:37 (LIANE CHAVIRA MD) EKG: EKG: EKG: Normal sinus rhythm rate of [address]-T changes [] (JAYMIE BROCK DO) Radiology/Procedures: Radiology/Procedures: []PROCEDURE: ABDOMEN COMPLETE Ultrasound abdomen complete HISTORY: Abdominal pain Sonographic examination of the abdomen was performed and multiple static images were obtained. There is moderate ascites. The majority of the liver is visualized and has a nodular surface and is heterogeneous. There is no solid liver lesion seen. Common bile duct appears normal measures 3 mm in diameter. The gallbladder is contracted and not well evaluated. The right kidney is lobulated but has no hydronephrosis and measures 10.5 cm in length. The left kidney appears normal measures 10.6 cm in length. The spleen is moderately enlarged and measures 19 cm in length. The pancreas abdominal aorta and IVC are not seen due to overlying bowel gas. Impression: 1. Moderate ascites. 2. Cirrhosis of the liver. 3. Splenomegaly likely secondary to portal hypertension. (JAYMIE BROCK DO) Radiology/Procedures: [facility] [address] [place] [address] IMAGING REPORT Signed PATIENT: TERRELL MANJARREZ ACCOUNT: [id number] : 1965 LOCATION: ER AGE: 54 SEX: M EXAM STATUS: REG ER ORD. PHYSICIAN: JAYMIE BROCK DO REASON: abdominal pain - massive ascites PROCEDURE: ABDOMEN COMPLETE Ultrasound abdomen complete HISTORY: Abdominal pain Sonographic examination of the abdomen was performed and multiple static images were obtained. There is moderate ascites. The majority of the liver is visualized and has a nodular surface and is heterogeneous. There is no solid liver lesion seen. Common bile duct appears normal measures 3 mm in diameter. The gallbladder is contracted and not well evaluated. The right kidney is lobulated but has no hydronephrosis and measures 10.5 cm in length. The left kidney appears normal measures 10.6 cm in length. The spleen is moderately enlarged and measures 19 cm in length. The pancreas abdominal aorta and IVC are not seen due to overlying bowel gas. Impression: 1. Moderate ascites. 2. Cirrhosis of the liver. 3. Splenomegaly likely secondary to portal hypertension. Electronically signed by: Iveth Hill III, MD (12/15/2019 5:22 PM) [id number] DICTATED and SIGNED BY: IVETH HILL III, MD DATE: 12/15/191721 (LIANE CHAVIRA MD) Course & Med Decision Making: Course & Med Decision Making Pertinent Labs and Imaging studies reviewed. (See chart for details) [] (JAYMIE BROCK DO) Course & Med Decision Making Received signout from Dr. Almendarez. Patient with new onset cirrhosis and abdominal pain and distention. On exam patient has a distended abdomen. Patient will need a paracentesis. Patient will be admitted. Discussed the case with who will admit (LIANE CHAVIRA MD) Dragon Disclaimer: [place] Disclaimer: This electronic medical record was generated, in whole or in part, using a voice recognition dictation system. (JAYMIE BROCK DO) Departure Departure Impression: Primary Impression: Ascites Additional Impression: Abdominal pain Disposition: ADMITTED INPATIENT Admitting Physician: ALEXIS rivera) (LIANE CHAVIRA MD) Condition: STABLE Referrals: UNKNOWN PCP NAME (PCP) Justicifation of Admission Dx: Justifications for Admission: Justification of Admission Dx: Yes Comments: Abdominal pain with associated massive ascites (JAYMIE BROCK DO) JAYMIE BROCK DO Dec 15, 2019 17:11 LIANE CHAVIRA MD Dec 15, 2019 18:15
--- NOTE | 2019-12-15 17:25 | RAD ---
Ultrasound abdomen complete HISTORY: Abdominal pain Sonographic examination of the abdomen was performed and multiple static images were obtained. There is moderate ascites. The majority of the liver is visualized and has a nodular surface and is heterogeneous. There is no solid liver lesion seen. Common bile duct appears normal measures 3 mm in diameter. The gallbladder is contracted and not well evaluated. The right kidney is lobulated but has no hydronephrosis and measures 10.5 cm in length. The left kidney appears normal measures 10.6 cm in length. The spleen is moderately enlarged and measures 19 cm in length. The pancreas abdominal aorta and IVC are not seen due to overlying bowel gas. Impression: 1. Moderate ascites. 2. Cirrhosis of the liver. 3. Splenomegaly likely secondary to portal hypertension. Electronically signed by: Nilay Pierre III, MD (12/15/2019 5:22 PM) [id number]
[2019-12-15 17:43] LABS: BASO % 1 % (0-3); EOS # 0.2 x10^3/uL (0.0-0.7); EOS % 4 % (0-3); HEMATOCRIT 35.8 % (39.0-53.0); HEMOGLOBIN 11.9 g/dL (13.0-17.5); LYMPH # 0.6 x10^3/uL (1.0-4.8); LYMPH % 16 % (24-48); MEAN CORPUSCULAR HEMOGLOBIN 30 pg (25-35); MEAN CORPUSCULAR HGB CONC 33 g/dL (31-37); MEAN CORPUSCULAR VOLUME 91 fL (79-100); MONO # 0.2 x10^3/uL (0.0-1.1); MONO % 6 % (0-9); NEUT # 2.7 x10^3/uL (1.8-7.7); NEUT % 73 % (31-73); PLATELET COUNT 78 x10^3/uL (140-400); RED BLOOD COUNT 3.95 x10^6/uL (4.30-5.70); RED CELL DISTRIBUTION WIDTH 16.2 % (11.5-14.5); WHITE BLOOD COUNT 3.7 x10^3/uL (4.0-11.0)
[2019-12-15 17:43] LABS: BILIRUBIN,URINE SMALL (NEG); CLARITY,URINE CLEAR; COLOR,URINE AMBER; NITRITE,URINE NEGATIVE (NEG); PH,URINE 5.5 (<5.0-8.0); PROTEIN,URINE 30 mg/dL (NEG-TRACE); UROBILINOGEN,URINE 0.2 mg/dL (0.2 mg/dL)
[2019-12-15 17:58] LABS: BACTERIA,URINE FEW /HPF (0-FEW); RBC,URINE OCC /HPF (0-2); SQUAMOUS EPITHELIAL CELL,UR FEW /LPF
[2019-12-15 18:11] LABS: CALCIUM 8.4 mg/dL (8.5-10.1); GFR 77.3; POTASSIUM 3.5 mmol/L (3.5-5.1)
[2019-12-15 18:21] LABS: ALBUMIN 2.7 g/dL (3.4-5.0); ALBUMIN/GLOBULIN RATIO 0.7 (1.0-1.7); MAGNESIUM 1.4 mg/dL (1.8-2.4); TOTAL BILIRUBIN 0.7 mg/dL (0.2-1.0); TOTAL PROTEIN 6.4 g/dL (6.4-8.2)
[2019-12-15 18:41] LABS: PROTHROMBIN TIME PATIENT 14.8 SEC (11.7-14.0)
[2019-12-15] MEDS ORDERED: IV DEXTROSE 5 %-0.45 % NACL 1,000 ML IV ONE (19:00)
[2019-12-15] MEDS ORDERED: DOCUSATE SODIUM 100 MG CAPSULE. PO PRN (21:15)
[2019-12-15] MEDS ORDERED: ONDANSETRON PF 4 MG/2 ML VIAL. IV PRN (21:15)
[2019-12-15] MEDS ORDERED: DEXTROSE 50% 25 GM / 50ML DISP.SYRIN. IV PRN (21:15)
[2019-12-15] MEDS ORDERED: ACETAMINOPHEN 325 MG TABLET. PO PRN (21:15)
[2019-12-15] MEDS ORDERED: LORazepam 0.5 MG TABLET PO PRN (21:15)
[2019-12-15] MEDS ORDERED: MORPHINE SULFATE 4 MG/ML VIAL. IV ONE (21:30)
[2019-12-15] MEDS: INSULIN GLARGINE SYRINGE. SQ SCH (21:39)
[2019-12-15] MEDS: busPIRone 10 MG TABLET. PO SCH (21:42)
[2019-12-15] MEDS: HEPARIN for SUB-Q USE 5,000 UNIT/ML VIAL. SQ SCH (21:53)
[2019-12-15] MEDS ORDERED: MAGNESIUM SULFATE 4GM 100 ML IV ONE (22:00)
[2019-12-15 22:45] VITALS: BP 132/69
[2019-12-16] VITALS (10 sets, daily range): BP systolic 113–153; BP diastolic 51–72
[2019-12-16] MEDS: MORPHINE SULFATE 2 MG/ML VIAL. IV PRN ×6 (00:58→21:47)
--- NOTE | 2019-12-16 04:32 | EKG ---
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
[2019-12-16] MEDS: HEPARIN for SUB-Q USE 5,000 UNIT/ML VIAL. SQ SCH (05:36)
[2019-12-16 06:50] LABS: BASO % 1 % (0-3); EOS # 0.2 x10^3/uL (0.0-0.7); EOS % 5 % (0-3); HEMATOCRIT 32.3 % (39.0-53.0); HEMOGLOBIN 10.8 g/dL (13.0-17.5); LYMPH # 0.9 x10^3/uL (1.0-4.8); LYMPH % 25 % (24-48); MEAN CORPUSCULAR HEMOGLOBIN 30 pg (25-35); MEAN CORPUSCULAR HGB CONC 33 g/dL (31-37); MEAN CORPUSCULAR VOLUME 91 fL (79-100); MONO # 0.3 x10^3/uL (0.0-1.1); MONO % 8 % (0-9); NEUT # 2.3 x10^3/uL (1.8-7.7); NEUT % 61 % (31-73); PLATELET COUNT 73 x10^3/uL (140-400); RED BLOOD COUNT 3.54 x10^6/uL (4.30-5.70); WHITE BLOOD COUNT 3.8 x10^3/uL (4.0-11.0)
[2019-12-16 07:12] LABS: ALBUMIN 2.4 g/dL (3.4-5.0); ALBUMIN/GLOBULIN RATIO 0.7 (1.0-1.7); CALCIUM 8.1 mg/dL (8.5-10.1); CREATININE 0.8 mg/dL (0.7-1.3); POTASSIUM 3.2 mmol/L (3.5-5.1); TOTAL BILIRUBIN 0.7 mg/dL (0.2-1.0); TOTAL PROTEIN 5.7 g/dL (6.4-8.2)
[2019-12-16] MEDS: INSULIN LISPRO 300 UNITS/3 ML VIAL. SQ SCH ×4 (07:30→21:00)
[2019-12-16] MEDS: PANTOPRAZOLE 40 MG TABLET.DR. PO SCH (08:16)
[2019-12-16] MEDS: busPIRone 10 MG TABLET. PO SCH ×2 (08:17→21:38)
[2019-12-16] MEDS: CITALOPRAM 20 MG TABLET. PO SCH (08:17)
[2019-12-16] MEDS: CARVEDILOL 6.25 MG TABLET. PO SCH ×2 (08:17→16:39)
[2019-12-16] MEDS: TAMSULOSIN 0.4 MG CAP.ER.24H. PO SCH (08:17)
--- NOTE | 2019-12-16 08:21 | PDOC1 ---
History and Physical Date of Admission Date of Admission DATE: 12/16/19 TIME: 08:20 Identification/Chief Complaint Chief Complaint SEEN IN ER WITH ASCITES , 54-year-old male who presents to the emergency department secondary to increasing abdominal swelling/distention and associated severe pain. He denies any fever chills or sweats. He denies any nausea or vomiting. 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 states the pain is so severe and the abdomen is so swollen that he just could not take it any longer. He states that he does drink some but he says a sixpack may last him a month. He has not been an IV drug user he does not know of any infectious hepatitis diagnosis.] Past Medical History Past Medical History Past Medical History Past Medical History: COPD, Dementia, Diabetes-Type II, Heart Disease, [place], Unknown Additional Past Medical Histor: RA, sleep apnea, SUBDURAL HEMATOMA 10/03/19 Past Surgical History: Tonsillectomy, Other Additional Past Surgical Histo: vasectomy Smoking Status: Never Smoker Alcohol Use: None Drug Use: None FHX OBESITY Cardiovascular: HTN, [place] Pulmonary: COPD CENTRAL NERVOUS SYSTEM: Other (hx subdural) GI: GERD Psych: Addictions Musculoskeletal: low back pain, Osteoarthritis, Other Rheumatologic: Rheumatoid arthritis Renal/: Other Endocrine: Diabetes Past Surgical History Past Surgical History: Tonsillectomy, Other Family History Family History: Alcohol Abuse, High Cholestrol, Hypertension, Family History Unknown Social History Smoke: <1 pack per day ALCOHOL: heavy Drugs: None, Other Current Problem List Problem List Problems Medical Problems: (1) Abdominal pain Status: Acute (2) Ascites Status: Acute Current Medications Current Medications Current Medications Fentanyl Citrate (Fentanyl 2ml Vial) 50 mcg 1X ONCE IV Last administered on 12/15/19at 17:42; Start 12/15/19 at 16:45; Stop 12/15/19 at 16:46; Status DC Ondansetron HCl (Zofran) 4 mg 1X ONCE IV Last administered on 12/15/19at 17:37; Start 12/15/19 at 16:45; Stop 12/15/19 at 16:46; Status DC Dextrose/Sodium Chloride 1,000 ml @ 75 mls/hr 1X ONCE IV Last administered on 12/15/19at 19:39; Start 12/15/19 at 19:00; Stop 12/16/19 at 08:19; Status DC Morphine Sulfate (Morphine Sulfate) 4 mg 1X ONCE IV Last administered on 12/15/19at 21:42; Start 12/15/19 at 21:30; Stop 12/15/19 at 21:31; Status DC Ondansetron HCl (Zofran) 4 mg PRN Q4HRS PRN IV NAUSEA/VOMITING; Start 12/15/19 at 21:15 Acetaminophen (Tylenol) 650 mg PRN Q4HRS PRN PO TEMP OVER 100.4F OR MILD PAIN; Start 12/15/19 at 21:15 Docusate Sodium (Colace) 100 mg PRN BID PRN PO HARD STOOLS; Start 12/15/19 at 21:15 Lorazepam (Ativan) 0.5 mg PRN Q4HRS PRN PO ANXIETY / AGITATION; Start 12/15/19 at 21:15 Heparin Sodium (Porcine) (Heparin Sodium) 5,000 unit Q8HRS SQ Last administered on 12/16/19at 05:36; Start 12/15/19 at 22:00 Insulin Human Lispro (HumaLOG) 0-9 UNITS TIDACHC SQ ; Start 12/16/19 at 07:30 Dextrose (Dextrose 50%-Water Syringe) 12.5 gm PRN Q15MIN PRN IV SEE COMMENTS; Start 12/15/19 at 21:15 Buspirone HCl (Buspar) 10 mg BID PO Last administered on 12/16/19at 08:17; Start 12/15/19 at 21:00 Carvedilol (Coreg) 6.25 mg BIDWMEALS PO Last administered on 12/16/19at 08:17; Start 12/16/19 at 08:00 Citalopram Hydrobromide (CeleXA) 20 mg DAILY PO Last administered on 12/16/19at 08:17; Start 12/16/19 at 09:00 Pantoprazole Sodium (Protonix) 40 mg DAILYAC PO Last administered on 12/16/19at 08:16; Start 12/16/19 at 07:30 Tamsulosin HCl (Flomax) 0.8 mg DAILY PO Last administered on 12/16/19at 08:17; Start 12/16/19 at 09:00 Trazodone HCl (Desyrel) 300 mg HS PO ; Start 12/16/19 at 21:00 Insulin Glargine (Lantus Syringe) 20 unit QHS SQ Last administered on 12/15/19at 21:39; Start 12/15/19 at 21:00 Magnesium Sulfate 100 ml @ 25 mls/hr 1X ONCE IV Last administered on 12/15/19at 21:44; Start 12/15/19 at 22:00; Stop 12/16/19 at 01:59; Status DC Morphine Sulfate (Morphine Sulfate) 2 mg PRN Q3HRS PRN IV SEVERE PAIN 7-10 Last administered on 12/16/19at 04:11; Start 12/15/19 at 23:30 Active Scripts Active Levemir Flextouch (Insulin Detemir) 300 Units/3 Ml Insuln.pen 20 Units SQ QHS Reported Duloxetine Hcl 60 Mg Capsule.dr 60 Mg PO DAILY Ativan (Lorazepam) 0.5 Mg Tablet 0.5 Mg PO BID Citalopram Hbr (Citalopram Hydrobromide) 20 Mg Tablet 1 Tab PO DAILY Aripiprazole 1 Mg/1 Ml Solution 15 Ml PO DAILY 30 Days Pantoprazole Sodium (Pantoprazole Sodium) 40 Mg Tablet.dr 40 Mg PO DAILYAC Flomax (Tamsulosin Hcl) 0.4 Mg Cap.er.24h 2 Cap PO DAILY Buspirone Hcl 10 Mg Tablet 1 Tab PO BID Zantac (Ranitidine Hcl) 150 Mg Tablet 150 Mg PO HS Potassium Chloride (Potassium Chloride) 20 Meq Tablet.er 20 Meq PO DAILY Oxycodone Hcl Immed.release (Oxycodone Hcl) 30 Mg Tablet 30 Mg PO HS PRN Oxycodone Hcl Immed.release (Oxycodone Hcl) 15 Mg Tablet 15 Mg PO Q6HRS PRN Otezla (Apremilast) 30 Mg Tablet 30 Mg PO BID Daily Value (Multivitamin) 1 Each Tablet 1 Each PO DAILY Lisinopril 40 Mg Tablet 40 Mg PO DAILY Lexapro (Escitalopram Oxalate) 20 Mg Tablet 20 Mg PO DAILY Novolog Flexpen (Insulin Aspart) 100 Unit/1 Ml Insuln.pen 0-7 Unit SQ QID Hydrochlorothiazide Tablet (Hydrochlorothiazide) 25 Mg Tablet 25 Mg PO DAILY Griseofulvin (Griseofulvin,Microsize) 500 Mg Tablet 500 Mg PO BID Cranberry (Cranberry Fruit Concentrate) 450 Mg Capsule 450 Mg PO DAILY Carvedilol (Carvedilol) 6.25 Mg Tablet 6.25 Mg PO BIDWMEALS Benadryl (Diphenhydramine Hcl) 25 Mg Capsule 25 Mg PO Q6HRS PRN Amitriptyline Hcl 150 Mg Tablet 150 Mg PO HS Baclofen 20 Mg Tablet 30 Mg PO HS Gabapentin 600 Mg Tablet 300 Mg PO TID Trazodone Hcl 100 Mg Tablet 300 Mg PO HS Metformin Hcl 1,000 Mg Tablet 1,000 Mg PO BID Allergies Allergies: Coded Allergies: povidone-iodine (Verified Allergy, Intermediate, Rash, 01/23/15) pregabalin (Verified Allergy, Intermediate, bullae, 01/24/15) blisters ROS Review of System Constitutional: Denies fever or chills. [] Eyes: Denies change in visual acuity. [] HENT: Denies nasal congestion or sore throat. [] Respiratory: Denies cough or shortness of breath. [] Cardiovascular: Denies chest pain or edema. [] GI: Per HPI [] : Denies dysuria. [] Musculoskeletal: Denies back pain or joint pain. [] Integument: Denies rash. [] Neurologic: Denies headache, focal weakness or sensory changes. [] Endocrine: Denies polyuria or polydipsia. [] Lymphatic: Denies swollen glands. [] Psychiatric: Denies depression or anxiety. [] 14 pt ros otherwise normal General: YES: Fatigue PSYCHOLOGICAL ROS: YES: Anxiety, Concentration difficultie Hematological and Lymphatic: No: Bleeding Problems, Blood Clots, Blood Transfusions, Brusing, Night Sweats, Pallor, Swollen Lymph Nodes, Other Respiratory: No: Cough, Hemoptysis, Orthopnea, Pleuritic Pain, Shortness of breath, SOB with excertion, Sputum Changes, Stridor, Tachypnea, Wheezing, Other Cardiovascular: No Chest Pain, No Palpitations, No Orthopnea, No Paroxysmal Noc. Dyspnea, No Edema, No Lt Headedness, No Other Gastrointestinal: Yes Abdominal Pain Physical Exam Physical Exam Constitutional: Well developed, well nourished, appears acute on chronically ill [] HENT: Normocephalic, atraumatic, bilateral external ears normal, oropharynx moist, no oral exudates, nose normal. [] Eyes: PERRLA, EOMI, no obvious scleral icterus [] Neck: Normal range of motion, no tenderness, supple, no stridor. [] Cardiovascular:Heart rate regular rhythm, no murmur [] Lungs & Thorax: Bilateral breath sounds clear to auscultation [] Abdomen: Abdomen is significantly distended diffusely tender with a positive fluid wave. [] Skin: Warm, dry, no erythema, no rash. [] Back: No tenderness, no CVA tenderness. [] Extremities: No tenderness, no cyanosis, no clubbing, ROM intact, no edema. [] Neurologic: Alert and oriented X 3, normal motor function, normal sensory function, no focal deficits noted. [] Psychologic: Anxious [] General: Alert, Oriented X3, Cooperative, No acute distress HEENT: EOMI, Mucous membr. moist/pink Lungs: Clear to auscultation, Normal air movement Heart: RRR Abdomen: Other (ascitic fluid wave) Rectal Exam: not examined PELVIC: Examination not indicated Extremities: No cyanosis Skin: No significant lesion Neuro: Normal speech, Sensation intact, Cranial nerves 3-12 NL Psych/Mental Status: Mental status NL, Mood NL Vitals Vitals Vital Signs Date Time Temp Pulse Resp B/P (MAP) Pulse Ox O2 Delivery O2 Flow Rate FiO2 12/16/19 08:17 72 125/71 12/16/19 07:00 98.2 18 89 Room Air 98.2 Labs Labs Laboratory Tests Test 12/15/19 17:25 12/15/19 17:32 12/15/19 21:37 12/16/19 05:22 White Blood Count 3.7 x10^3/uL (4.0-11.0) 3.8 x10^3/uL (4.0-11.0) Red Blood Count 3.95 x10^6/uL (4.30-5.70) 3.54 x10^6/uL (4.30-5.70) Hemoglobin 11.9 g/dL (13.0-17.5) 10.8 g/dL (13.0-17.5) Hematocrit 35.8 % (39.0-53.0) 32.3 % (39.0-53.0) Mean Corpuscular Volume 91 fL (79-100) 91 fL (79-100) Mean Corpuscular Hemoglobin 30 pg (25-35) 30 pg (25-35) Mean Corpuscular Hemoglobin Concent 33 g/dL (31-37) 33 g/dL (31-37) Red Cell Distribution Width 16.2 % (11.5-14.5) 16.0 % (11.5-14.5) Platelet Count 78 x10^3/uL (140-400) 73 x10^3/uL (140-400) Neutrophils (%) (Auto) 73 % (31-73) 61 % (31-73) Lymphocytes (%) (Auto) 16 % (24-48) 25 % (24-48) Monocytes (%) (Auto) 6 % (0-9) 8 % (0-9) Eosinophils (%) (Auto) 4 % (0-3) 5 % (0-3) Basophils (%) (Auto) 1 % (0-3) 1 % (0-3) Neutrophils # (Auto) 2.7 x10^3/uL (1.8-7.7) 2.3 x10^3/uL (1.8-7.7) Lymphocytes # (Auto) 0.6 x10^3/uL (1.0-4.8) 0.9 x10^3/uL (1.0-4.8) Monocytes # (Auto) 0.2 x10^3/uL (0.0-1.1) 0.3 x10^3/uL (0.0-1.1) Eosinophils # (Auto) 0.2 x10^3/uL (0.0-0.7) 0.2 x10^3/uL (0.0-0.7) Basophils # (Auto) 0.0 x10^3/uL (0.0-0.2) 0.0 x10^3/uL (0.0-0.2) Prothrombin Time 14.8 SEC (11.7-14.0) Prothromb Time International Ratio 1.2 (0.8-1.1) Activated Partial Thromboplast Time 28 SEC (24-38) Sodium Level 144 mmol/L (136-145) 144 mmol/L (136-145) Potassium Level 3.5 mmol/L (3.5-5.1) 3.2 mmol/L (3.5-5.1) Chloride Level 107 mmol/L (98-107) 110 mmol/L (98-107) Carbon Dioxide Level 25 mmol/L (21-32) 28 mmol/L (21-32) Anion Gap 12 (6-14) 6 (6-14) Blood Urea Nitrogen 12 mg/dL (8-26) 9 mg/dL (8-26) Creatinine 1.0 mg/dL (0.7-1.3) 0.8 mg/dL (0.7-1.3) Estimated GFR (Cockcroft-Gault) 77.3 100.0 BUN/Creatinine Ratio 12 (6-20) 11 (6-20) Glucose Level 241 mg/dL (70-99) 167 mg/dL (70-99) Calcium Level 8.4 mg/dL (8.5-10.1) 8.1 mg/dL (8.5-10.1) Magnesium Level 1.4 mg/dL (1.8-2.4) 2.0 mg/dL (1.8-2.4) Total Bilirubin 0.7 mg/dL (0.2-1.0) 0.7 mg/dL (0.2-1.0) Aspartate Amino Transf (AST/SGOT) 43 U/L (15-37) 37 U/L (15-37) Alanine Aminotransferase (ALT/SGPT) 36 U/L (16-63) 32 U/L (16-63) Alkaline Phosphatase 152 U/L (46-116) 123 U/L (46-116) Ammonia 50 mcmol/L (11-34) Total Protein 6.4 g/dL (6.4-8.2) 5.7 g/dL (6.4-8.2) Albumin 2.7 g/dL (3.4-5.0) 2.4 g/dL (3.4-5.0) Albumin/Globulin Ratio 0.7 (1.0-1.7) 0.7 (1.0-1.7) Lipase 109 U/L (73-393) Urine Collection Type Unknown Urine Color Zenia Urine Clarity Clear Urine pH 5.5 (<5.0-8.0) Urine Specific [place] >=1.030 (1.000-1.030) Urine Protein 30 mg/dL (NEG-TRACE) Urine Glucose (UA) 100 mg/dL (NEG) Urine Ketones (Stick) Trace mg/dL (NEG) Urine Blood Negative (NEG) Urine Nitrite Negative (NEG) Urine Bilirubin Small (NEG) Urine Urobilinogen Dipstick 0.2 mg/dL (0.2 mg/dL) Urine Leukocyte Esterase Negative (NEG) Urine RBC Occ /HPF (0-2) Urine WBC 1-4 /HPF (0-4) Urine Squamous Epithelial Cells Few /LPF Urine Bacteria Few /HPF (0-FEW) Urine Mucus Marked /LPF Glucose (Fingerstick) 170 mg/dL (70-99) Test 12/16/19 07:10 Glucose (Fingerstick) 146 mg/dL (70-99) Laboratory Tests Test 12/15/19 17:25 12/15/19 17:32 12/15/19 21:37 12/16/19 05:22 White Blood Count 3.7 x10^3/uL (4.0-11.0) 3.8 x10^3/uL (4.0-11.0) Red Blood Count 3.95 x10^6/uL (4.30-5.70) 3.54 x10^6/uL (4.30-5.70) Hemoglobin 11.9 g/dL (13.0-17.5) 10.8 g/dL (13.0-17.5) Hematocrit 35.8 % (39.0-53.0) 32.3 % (39.0-53.0) Mean Corpuscular Volume 91 fL (79-100) 91 fL (79-100) Mean Corpuscular Hemoglobin 30 pg (25-35) 30 pg (25-35) Mean Corpuscular Hemoglobin Concent 33 g/dL (31-37) 33 g/dL (31-37) Red Cell Distribution Width 16.2 % (11.5-14.5) 16.0 % (11.5-14.5) Platelet Count 78 x10^3/uL (140-400) 73 x10^3/uL (140-400) Neutrophils (%) (Auto) 73 % (31-73) 61 % (31-73) Lymphocytes (%) (Auto) 16 % (24-48) 25 % (24-48) Monocytes (%) (Auto) 6 % (0-9) 8 % (0-9) Eosinophils (%) (Auto) 4 % (0-3) 5 % (0-3) Basophils (%) (Auto) 1 % (0-3) 1 % (0-3) Neutrophils # (Auto) 2.7 x10^3/uL (1.8-7.7) 2.3 x10^3/uL (1.8-7.7) Lymphocytes # (Auto) 0.6 x10^3/uL (1.0-4.8) 0.9 x10^3/uL (1.0-4.8) Monocytes # (Auto) 0.2 x10^3/uL (0.0-1.1) 0.3 x10^3/uL (0.0-1.1) Eosinophils # (Auto) 0.2 x10^3/uL (0.0-0.7) 0.2 x10^3/uL (0.0-0.7) Basophils # (Auto) 0.0 x10^3/uL (0.0-0.2) 0.0 x10^3/uL (0.0-0.2) Prothrombin Time 14.8 SEC (11.7-14.0) Prothromb Time International Ratio 1.2 (0.8-1.1) Activated Partial Thromboplast Time 28 SEC (24-38) Sodium Level 144 mmol/L (136-145) 144 mmol/L (136-145) Potassium Level 3.5 mmol/L (3.5-5.1) 3.2 mmol/L (3.5-5.1) Chloride Level 107 mmol/L (98-107) 110 mmol/L (98-107) Carbon Dioxide Level 25 mmol/L (21-32) 28 mmol/L (21-32) Anion Gap 12 (6-14) 6 (6-14) Blood Urea Nitrogen 12 mg/dL (8-26) 9 mg/dL (8-26) Creatinine 1.0 mg/dL (0.7-1.3) 0.8 mg/dL (0.7-1.3) Estimated GFR (Cockcroft-Gault) 77.3 100.0 BUN/Creatinine Ratio 12 (6-20) 11 (6-20) Glucose Level 241 mg/dL (70-99) 167 mg/dL (70-99) Calcium Level 8.4 mg/dL (8.5-10.1) 8.1 mg/dL (8.5-10.1) Magnesium Level 1.4 mg/dL (1.8-2.4) 2.0 mg/dL (1.8-2.4) Total Bilirubin 0.7 mg/dL (0.2-1.0) 0.7 mg/dL (0.2-1.0) Aspartate Amino Transf (AST/SGOT) 43 U/L (15-37) 37 U/L (15-37) Alanine Aminotransferase (ALT/SGPT) 36 U/L (16-63) 32 U/L (16-63) Alkaline Phosphatase 152 U/L (46-116) 123 U/L (46-116) Ammonia 50 mcmol/L (11-34) Total Protein 6.4 g/dL (6.4-8.2) 5.7 g/dL (6.4-8.2) Albumin 2.7 g/dL (3.4-5.0) 2.4 g/dL (3.4-5.0) Albumin/Globulin Ratio 0.7 (1.0-1.7) 0.7 (1.0-1.7) Lipase 109 U/L (73-393) Urine Collection Type Unknown Urine Color Zenia Urine Clarity Clear Urine pH 5.5 (<5.0-8.0) Urine Specific [place] >=1.030 (1.000-1.030) Urine Protein 30 mg/dL (NEG-TRACE) Urine Glucose (UA) 100 mg/dL (NEG) Urine Ketones (Stick) Trace mg/dL (NEG) Urine Blood Negative (NEG) Urine Nitrite Negative (NEG) Urine Bilirubin Small (NEG) Urine Urobilinogen Dipstick 0.2 mg/dL (0.2 mg/dL) Urine Leukocyte Esterase Negative (NEG) Urine RBC Occ /HPF (0-2) Urine WBC 1-4 /HPF (0-4) Urine Squamous Epithelial Cells Few /LPF Urine Bacteria Few /HPF (0-FEW) Urine Mucus Marked /LPF Glucose (Fingerstick) 170 mg/dL (70-99) Test 12/16/19 07:10 Glucose (Fingerstick) 146 mg/dL (70-99) Images Images PATHOLOGY REPORT * * * * * * * * FINAL DIAGNOSIS: Peripheral smear: - Thrombocytopenia, mild to moderate. - Normocytic normochromic anemia, mild. Bone marrow, aspirate smears, clot section, and core biopsy: - Normocellular to mildly hypercellular marrow showing trilineage hematopoiesis, no significant dyspoiesis, adequate megakaryocytes, and decreased iron stores. COMMENT: The peripheral smear shows mild to moderate thrombocytopenia and mild normocytic normochromic anemia. The bone marrow varies from normocellular to mildly hypercellular and shows trilineage hematopoiesis, no significant dyspoiesis, adequate megakaryocytes, and decreased iron stores. With regard to the thrombocytopenia, the findings are suggestive of increased peripheral destruction and/or utilization. The marrow findings do not meet morphologic criteria for myelodysplastic syndrome. To that end, marrow chromosome studies are normal. Correlate clinically. (JPM:mgr; 01/09/2017) Special Stains Performed: Immunoperoxidase stains on B1 and aspirate smear. REPORT ELECTRONICALLY SIGNED BY: Andrea Gerardo M.D. DATE/TIME: 01/10/2017 08:48 * * * * * * * * MICROSCOPIC DESCRIPTION: Laboratory Data: The CBC results are dated 01/03/17. The WBC count is 4.7 K/CMM, and the automated WBC differential reveals 74% neutrophils, 13% lymphs, 9% monos, 3% eos, and 1% baso. The RBC count is 3.71 M/CMM, hemoglobin 11.7 G/DL, hematocrit 35.8%, MCV 97 FL, MCH 32 PG, MCHC 33 G/DL, and the RDW is 15.2%. The platelet count is 90 K/CMM. Peripheral Smear: EXAM: CT HEAD WITHOUT CONTRAST. HISTORY: Subdural hematoma. TECHNIQUE: Computed tomography of the head was performed without intravenous contrast. One or more of the following individualized dose reduction techniques were utilized for this examination: 1. Automated exposure control. 2. Adjustment of the mA and/or kV according to patient size. 3. Use of iterative reconstruction technique. COMPARISON: 10/26/2019. FINDINGS: Bilateral frontal subdural hematomas have hyperattenuating and hypoattenuating elements. The hyperattenuating elements are new since the prior study. They measure 5 mm in thickness bilaterally. Grubbs-white differentiation is preserved. The ventricles are normal in size and position. There is mild mucosal thickening in the left maxillary sinus. There are changes of bilateral cataract surgery. The temporal bones are unremarkable. The calvarium reveals no suspicious lesions. Small metallic foreign bodies are noted along both temporal bones at the skull base. There are atherosclerotic calcifications of the internal carotid and vertebral arteries. IMPRESSION: 1. Bilateral frontal subdural hematomas measure 5 mm in thickness. They contain clot of varying ages, including some new hemorrhage since 10/26/2019. Electronically signed by: Gurjit Harris MD (12/16/2019 12:00 PM) [id number] DICTATED and SIGNED BY: JONES HARRIS MD DATE: 12/16/19 1200 POST EXERCISE Reason for Termination: Infusion complete Max HR: 87 bpm 60% of Maximum Predicted HR: 143 bpm Max Blood Pressure: 141/50mmHg Chest Pain: No. Arrhythmia: No. ST Change: No. INTERPRETATION Stress EKG Conclusion: No acute changes were noted. Imaging Protocol IMAGE PROTOCOL: Rest Tc-99m/stress Tc-99m 1 day Rest: Stress: Viability: Radiopharm. Tc99m Sestamibi Tc99m Sestamibi Dose 13mCi 32mCi Img Date 01/25/2015 01/25/2015 Inj-Img Time 60min. 60min. Rest Admin Site: IV - Right Forearm Wool Hanker: OCTAVIO Nichole Stress Admin Site: IV - Right Forearm Wool Hanker: Michael Avila RT (R)(N) STRESS DATA End Diast. Vol. 161.0ml Av. Heart Rate 64.0bpm LVEDV index BSA 3.0ml Cardiac Output 0.1L/min End Syst. Vol. 67.0ml CO Index BSA 6.0L/min LVESV index BSA 1.0ml Myocardial Mass 176.0g Eject. Fraction 58.0% Stress Rates Pk. Fill Rate 2.67EDV/sec LVtime Pk. Fill 200.56msec Pk. Empty Rate 3.19ESV/sec LVtime Pk. Eject 272.11msec /3 Pk. Fill 0.96EDV/sec Stress Scores Regional WT 0.00 Summed WT 2.00 Regional WM 0.00 Summed WM 2.00 Study quality was fair. Left Ventricular size was Normal at Rest and Stress. The rest and stress images show normal perfusion, normal contraction and thickening. LV Perfusion 1 TCD/TID: 1.05 LV Perf. Quant 17 Seg. SSS 3.00 17 Seg. SRS 0.00 17 Seg. SDS 3.00 Stress Defect Extent (% LAD) 0.00 Rest Defect Extent (% LAD) 0.00 Rev. Defect Extent (% LAD) 0.00 Stress Defect Extent (% LCX) 18.80 Rest Defect Extent (% LCX) 8.80 Rev. Defect Extent (% LCX) 10.00 Stress Defect Extent (% RCA) 0.00 Rest Defect Extent (% RCA) 0.00 Rev. Defect Extent (% RCA) 0.00 Stress Defect Extent (% EDWIGE) 3.30 Rest Defect Extent (% EDWIGE) 1.50 Rev. Defect Extent (% EDWIGE) 1.70 IMPRESSION Normal Myocardial Perfusion exercise stress study Conclusion 1. No evidence of stress induced EKG changes. 2. No evidence of stress induced myocardial perfusion abnormalities. 3. Normal EF at stress 4. Low risk stress test. DICTATED and SIGNED BY: DANYELLE DURAN MD DATE: 01/25/15 1443 CC: JANEL MORRIS MD; PABLO MACHADO MD ~ CT HEAD WO CONTRAST History: Pain. Reason: trauma / Spl. Instructions: / History: Comparison: October 03, 2019 Technique: Noncontrast CT imaging was performed of the head. Exposure: One or more of the following individualized dose reduction techniques were utilized for this examination: 1. Automated exposure control 2. Adjustment of the mA and/or kV according to patient size 3. Use of iterative reconstruction technique. Findings: Evolving chronic small bilateral subdural hematomas, decreased compared to prior. Resolved subarachnoid hemorrhage. No new hemorrhage. Minimal mass effect. No midline shift. No hydrocephalus. Stable appears retained within the right posterior scalp soft tissues. Interval apparent placement of embolization coils noted within the bilateral middle cranial fossa. Mild foci of decreased attenuation within the hemispheric white matter, most often due to chronic microvascular ischemia, unchanged. Imaged orbits are unremarkable. Right maxillary sinus because retention cyst or polyp. Mild scattered paranasal sinus because of thickening. Mastoid air cells are clear. TMJ arthropathy. No acute calvarial fracture. Impression: 1. Evolving small chronic bilateral subdural hematomas, decreased compared to prior. No new hemorrhage. 2. Retained skin staple within the right posterior scalp soft tissues. 3. Interval apparent coil embolization. Recommend correlation with surgical history. Electronically signed by: Nick Lees DO (10/26/2019 9:12 AM) [id number] Ultrasound abdomen complete HISTORY: Abdominal pain Sonographic examination of the abdomen was performed and multiple static images were obtained. There is moderate ascites. The majority of the liver is visualized and has a nodular surface and is heterogeneous. There is no solid liver lesion seen. Common bile duct appears normal measures 3 mm in diameter. The gallbladder is contracted and not well evaluated. The right kidney is lobulated but has no hydronephrosis and measures 10.5 cm in length. The left kidney appears normal measures 10.6 cm in length. The spleen is moderately enlarged and measures 19 cm in length. The pancreas abdominal aorta and IVC are not seen due to overlying bowel gas. Impression: 1. Moderate ascites. 2. Cirrhosis of the liver. 3. Splenomegaly likely secondary to portal hypertension. Electronically signed by: Iveth Hill III, MD (12/15/2019 5:22 PM) [id number] DICTATED and SIGNED BY: IVETH HILL III, MD DATE: 12/15/19 172 VTE Prophylaxis Ordered VTE Prophylaxis Devices: Yes VTE Pharmacological Prophylaxi: Contraindicated Assessment/Plan Assessment/Plan Impression: 1. Moderate ascites. 2. Cirrhosis of the liver. 3. Splenomegaly likely secondary to portal hypertension. 4. MORBID OBESITY 5, Chronic bilateral subdural hematomas, 6. Interval apparent coil embolization. 7. SEVERE ALCOHOL ABUSE HX 8. Noncompliance 9. normocytic anemia 10. transaminitis 11. CHRONIC THROMBOCYTOPENIA 12. ELEVATED AMMONIA, SERUM PLAN ADMIT CT ABDOMEN/ PELVIS GI CONSULT CONSIDER PARACENTESIS CT HEAD dvt prophylaxis GI PROPHYLAXIS HEME CONSULT LACTULOSE SERUM IMMUNOELECTROPHORESIS CONSULT NEUROSURGERY 74 min pt exam, chart review, > 50% of time spent with exam, chart review, pt care coordination Justicifation of Admission Dx: Justifications for Admission: Justification of Admission Dx: Yes KEITH DOOLEY MD Dec 16, 2019 08:21
--- NOTE | 2019-12-16 09:35 | PDOC2 ---
GI CONSULT Reason For Consult: new ascites HPI: HPI: Pleasant 54 y/o male sent to ER from [place]. Reports 3-4 weeks of increasing abdominal distention and discomfort. "There's water in there." Imaging shows ascites, cirrhosis, and splenomegaly. Says he was told he had "fatty liver" about 10 years ago and saw a liver specialist @ [facility]. Denies h/o heavy alcohol use ("at most I would have a 6 pack each month"), Hepatitis, blood transfusions, tattoos, etc. No FH of liver problems. No h/o paracentesis. H/o psoriasis and RA - on many medications in the past; currently Otezla per rheumatology. Food hasn't tasted good for 3-4 weeks. Has lost ~60 pounds in 3-4 months he thinks. Notes some leg swelling - left more than right. H/o GERD - untreated (though summary list shows ranitidine and pantoprazole). No dysphagia. Occasional nausea. Vomited once about 3 days ago "while I was eating." Stools a bit looser recently. No hematochezia or melena. No previous EGD. Reports normal colonoscopy >10 years ago - can't remember where. Previously had negative Hepatitis markers @ [facility]. KRISTIE negative here in the past. Low-normal B12 in the past. H/o thrombocytopenia. No MDS per bone marrow biopsy report. No GB, pancreas, or PUD history. No NSAIDs. PMH: PMH: HTN, LINO, GERD, DM, RA, psoriasis, fibromyalgia, subdural hematoma, nephrolithiasis, thrombocytopenia bone marrow biopsy, LP, vasectomy, tonsillectomy, cataract extraction Social History: Smoke: No ALCOHOL: none ROS: GEN: Denies fevers, chills, sweats HEENT: Denies blurred vision, sore throat CV: Denies chest pain RESP: Denies shortness of air, cough GI: Per HPI : Denies hematuria, dysuria ENDO: +weight loss NEURO: Denies confusion, dizziness MSK: +chronic pain SKIN: +psoriasis Vitals: Vitals: Vital Signs Date Time Temp Pulse Resp B/P (MAP) Pulse Ox O2 Delivery O2 Flow Rate FiO2 12/16/19 09:30 16 Room Air 12/16/19 08:17 72 125/71 12/16/19 07:00 98.2 89 98.2 Labs: Labs: Laboratory Tests Test 12/15/19 17:25 12/15/19 17:32 12/15/19 21:37 12/16/19 05:22 White Blood Count 3.7 x10^3/uL (4.0-11.0) 3.8 x10^3/uL (4.0-11.0) Red Blood Count 3.95 x10^6/uL (4.30-5.70) 3.54 x10^6/uL (4.30-5.70) Hemoglobin 11.9 g/dL (13.0-17.5) 10.8 g/dL (13.0-17.5) Hematocrit 35.8 % (39.0-53.0) 32.3 % (39.0-53.0) Mean Corpuscular Volume 91 fL (79-100) 91 fL (79-100) Mean Corpuscular Hemoglobin 30 pg (25-35) 30 pg (25-35) Mean Corpuscular Hemoglobin Concent 33 g/dL (31-37) 33 g/dL (31-37) Red Cell Distribution Width 16.2 % (11.5-14.5) 16.0 % (11.5-14.5) Platelet Count 78 x10^3/uL (140-400) 73 x10^3/uL (140-400) Neutrophils (%) (Auto) 73 % (31-73) 61 % (31-73) Lymphocytes (%) (Auto) 16 % (24-48) 25 % (24-48) Monocytes (%) (Auto) 6 % (0-9) 8 % (0-9) Eosinophils (%) (Auto) 4 % (0-3) 5 % (0-3) Basophils (%) (Auto) 1 % (0-3) 1 % (0-3) Neutrophils # (Auto) 2.7 x10^3/uL (1.8-7.7) 2.3 x10^3/uL (1.8-7.7) Lymphocytes # (Auto) 0.6 x10^3/uL (1.0-4.8) 0.9 x10^3/uL (1.0-4.8) Monocytes # (Auto) 0.2 x10^3/uL (0.0-1.1) 0.3 x10^3/uL (0.0-1.1) Eosinophils # (Auto) 0.2 x10^3/uL (0.0-0.7) 0.2 x10^3/uL (0.0-0.7) Basophils # (Auto) 0.0 x10^3/uL (0.0-0.2) 0.0 x10^3/uL (0.0-0.2) Prothrombin Time 14.8 SEC (11.7-14.0) Prothromb Time International Ratio 1.2 (0.8-1.1) Activated Partial Thromboplast Time 28 SEC (24-38) Sodium Level 144 mmol/L (136-145) 144 mmol/L (136-145) Potassium Level 3.5 mmol/L (3.5-5.1) 3.2 mmol/L (3.5-5.1) Chloride Level 107 mmol/L (98-107) 110 mmol/L (98-107) Carbon Dioxide Level 25 mmol/L (21-32) 28 mmol/L (21-32) Anion Gap 12 (6-14) 6 (6-14) Blood Urea Nitrogen 12 mg/dL (8-26) 9 mg/dL (8-26) Creatinine 1.0 mg/dL (0.7-1.3) 0.8 mg/dL (0.7-1.3) Estimated GFR (Cockcroft-Gault) 77.3 100.0 BUN/Creatinine Ratio 12 (6-20) 11 (6-20) Glucose Level 241 mg/dL (70-99) 167 mg/dL (70-99) Calcium Level 8.4 mg/dL (8.5-10.1) 8.1 mg/dL (8.5-10.1) Magnesium Level 1.4 mg/dL (1.8-2.4) 2.0 mg/dL (1.8-2.4) Total Bilirubin 0.7 mg/dL (0.2-1.0) 0.7 mg/dL (0.2-1.0) Aspartate Amino Transf (AST/SGOT) 43 U/L (15-37) 37 U/L (15-37) Alanine Aminotransferase (ALT/SGPT) 36 U/L (16-63) 32 U/L (16-63) Alkaline Phosphatase 152 U/L (46-116) 123 U/L (46-116) Ammonia 50 mcmol/L (11-34) Total Protein 6.4 g/dL (6.4-8.2) 5.7 g/dL (6.4-8.2) Albumin 2.7 g/dL (3.4-5.0) 2.4 g/dL (3.4-5.0) Albumin/Globulin Ratio 0.7 (1.0-1.7) 0.7 (1.0-1.7) Lipase 109 U/L (73-393) Urine Collection Type Unknown Urine Color Zenia Urine Clarity Clear Urine pH 5.5 (<5.0-8.0) Urine Specific [place] >=1.030 (1.000-1.030) Urine Protein 30 mg/dL (NEG-TRACE) Urine Glucose (UA) 100 mg/dL (NEG) Urine Ketones (Stick) Trace mg/dL (NEG) Urine Blood Negative (NEG) Urine Nitrite Negative (NEG) Urine Bilirubin Small (NEG) Urine Urobilinogen Dipstick 0.2 mg/dL (0.2 mg/dL) Urine Leukocyte Esterase Negative (NEG) Urine RBC Occ /HPF (0-2) Urine WBC 1-4 /HPF (0-4) Urine Squamous Epithelial Cells Few /LPF Urine Bacteria Few /HPF (0-FEW) Urine Mucus Marked /LPF Glucose (Fingerstick) 170 mg/dL (70-99) Test 12/16/19 07:10 Glucose (Fingerstick) 146 mg/dL (70-99) Allergies: Coded Allergies: povidone-iodine (Verified Allergy, Intermediate, Rash, 01/23/15) pregabalin (Verified Allergy, Intermediate, bullae, 01/24/15) blisters Medications: Current Medications Medications (Trade) Dose Ordered Sig/Sb Route PRN Reason Start Time Stop Time Status Last Admin Dose Admin Fentanyl Citrate (Fentanyl 2ml Vial) 50 mcg 1X ONCE IV 12/15/19 16:45 12/15/19 16:46 DC 12/15/19 17:42 Ondansetron HCl (Zofran) 4 mg 1X ONCE IV 12/15/19 16:45 12/15/19 16:46 DC 12/15/19 17:37 Dextrose/Sodium Chloride 1,000 ml @ 75 mls/hr 1X ONCE IV 12/15/19 19:00 12/16/19 08:19 DC 12/15/19 19:39 Morphine Sulfate (Morphine Sulfate) 4 mg 1X ONCE IV 12/15/19 21:30 12/15/19 21:31 DC 12/15/19 21:42 Heparin Sodium (Porcine) (Heparin Sodium) 5,000 unit Q8HRS SQ 12/15/19 22:00 12/16/19 05:36 Buspirone HCl (Buspar) 10 mg BID PO 12/15/19 21:00 12/16/19 08:17 Carvedilol (Coreg) 6.25 mg BIDWMEALS PO 12/16/19 08:00 12/16/19 08:17 Citalopram Hydrobromide (CeleXA) 20 mg DAILY PO 12/16/19 09:00 12/16/19 08:17 Pantoprazole Sodium (Protonix) 40 mg DAILYAC PO 12/16/19 07:30 12/16/19 08:16 Tamsulosin HCl (Flomax) 0.8 mg DAILY PO 12/16/19 09:00 12/16/19 08:17 Insulin Glargine (Lantus Syringe) 20 unit QHS SQ 12/15/19 21:00 12/15/19 21:39 Magnesium Sulfate 100 ml @ 25 mls/hr 1X ONCE IV 12/15/19 22:00 12/16/19 01:59 DC 12/15/19 21:44 Morphine Sulfate (Morphine Sulfate) 2 mg PRN Q3HRS PRN IV SEVERE PAIN 7-12/15/19 23:30 12/16/19 09:30 Imaging: Imaging: Abd US 1. Moderate ascites. 2. Cirrhosis of the liver. 3. Splenomegaly likely secondary to portal hypertension. PE: GEN: NAD HEENT: Atraumatic, PERRL LUNGS: CTAB HEART: RRR ABD: significantly distended/tight, ascites EXTREMITY: trace edema left ankle SKIN: +psoriasis NEURO/PSYCH: A & O 3 A/P: A/P: Cirrhosis, ascites Pancytopenia/chronic thrombocytopenia - h/o bone marrow biopsy (no MDS) Anorexia, weight loss, loose stools GERD - ?treated, no previous EGD CRC screen - reports normal colonoscopy >10 years ago H/o psoriasis - on Otezla -- Will ask for paracentesis w/ fluid studies. Check iron and AAT. Agree w/ PPI. Check stool studies if indicated. Other per Dr. Ernandez. ANGLE MORALES Dec 16, 2019 09:34
--- NOTE | 2019-12-16 09:41 | NUR ---
SW following. Discussed with RN. 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 DERRELL will continue to follow.
[2019-12-16] MEDS ORDERED: POTASSIUM CHLORIDE 20 MEQ TABLET.ER. PO ONE (11:15)
--- NOTE | 2019-12-16 12:04 | RAD ---
EXAM: CT HEAD WITHOUT CONTRAST. HISTORY: Subdural hematoma. TECHNIQUE: Computed tomography of the head was performed without intravenous contrast. One or more of the following individualized dose reduction techniques were utilized for this examination: 1. Automated exposure control. 2. Adjustment of the mA and/or kV according to patient size. 3. Use of iterative reconstruction technique. COMPARISON: 10/26/2019. FINDINGS: Bilateral frontal subdural hematomas have hyperattenuating and hypoattenuating elements. The hyperattenuating elements are new since the prior study. They measure 5 mm in thickness bilaterally. Grubbs-white differentiation is preserved. The ventricles are normal in size and position. There is mild mucosal thickening in the left maxillary sinus. There are changes of bilateral cataract surgery. The temporal bones are unremarkable. The calvarium reveals no suspicious lesions. Small metallic foreign bodies are noted along both temporal bones at the skull base. There are atherosclerotic calcifications of the internal carotid and vertebral arteries. IMPRESSION: 1. Bilateral frontal subdural hematomas measure 5 mm in thickness. They contain clot of varying ages, including some new hemorrhage since 10/26/2019. Electronically signed by: Gurjit Harris MD (12/16/2019 12:00 PM) [id number]
[2019-12-16] MEDS: SPIRONOLACTONE 25 MG TABLET PO SCH (12:54)
--- NOTE | 2019-12-16 13:20 | RAD ---
Examination: CT of the abdomen pelvis without contrast HISTORY: History of ascites COMPARISON: 05/16/2014 TECHNIQUE: Axial CT images of the abdomen pelvis were performed without contrast. Coronal and sagittal reformats performed Exposure: One or more of the following individualized dose reduction techniques were utilized for this examination: 1. Automated exposure control 2. Adjustment of the mA and/or kV according to patient size 3. Use of iterative reconstruction technique FINDINGS: Patchy bibasilar lung airspace opacities likely atelectasis or infiltrates. No evidence of free air identified in the abdomen. The evaluation of the solid organs is limited due to lack of IV contrast. The evaluation of bowel is limited due to lack of oral contrast. Cirrhosis of the liver. The spleen measures 20 cm in length. Gallbladder is mildly distended with some density within probably sludge. The stomach is mildly distended. The visualized pancreas grossly appears unremarkable the small bowel is nondilated. Feces and gas noted in the colon. Large ascites. Urinary bladder is mildly distended 3 mm calculus left kidney. No evidence of hydronephrosis. Mild degenerative changes thoracal lumbar spine. IMPRESSION: 1. Large ascites. 2. Liver cirrhosis with splenomegaly likely changes of portal hypertension. 3. Punctate 2 mm calculus left kidney. 4. Mild distended gallbladder with probable sludge within. Electronically signed by: Emmett Lacey MD (12/16/2019 1:17 PM) [id number]
[2019-12-16] MEDS ORDERED: LIDOCAINE WITH 8.4% SOD BICARB 3 ML DISP.SYRIN. ONE (13:31)
[2019-12-16] MEDS ORDERED: LIDOCAINE WITH 8.4% SOD BICARB 3 ML DISP.SYRIN. IJ ONE (13:45)
[2019-12-16] MEDS ORDERED: ALBUMIN HUMAN 25% 100 ML IV ONE ×5 (14:14→14:45)
--- NOTE | 2019-12-16 16:28 | RAD ---
CHEST PA LATERAL History: Reason: HYPOXIA / Spl. Instructions: / History: Comparison: October 26, 2019 Findings: Patchy bibasilar opacities, left greater than right. No consolidation. No pleural effusion. Normal heart size. No pneumothorax. Impression: 1. Patchy bibasilar opacities, likely atelectasis Electronically signed by: Nick Lees DO (12/16/2019 4:25 PM) [id number]
[2019-12-16] MEDS: IPRATRPIUM/ALBUTEROL 0.5/2.5MG 3 ML NEBU. NEB SCH ×2 (16:40→19:36)
--- NOTE | 2019-12-16 17:25 | PDOC2 ---
CONSULT Date of Consult Date of Consult DATE: 12/16/19 TIME: 17:20 Reason for Consult Reason for Consult: Thrombocytopenia Referring Physician Referring Physician: Dr. Boyce Identification/Chief Complaint Chief Complaint Abdominal pain and distention Problems: (1) Thrombocytopenia Source Source: Chart review, Patient History of Present Illness Reason for Visit: Blaze Bridges is a 54-year-old male with history of cirrhosis secondary to alcohol use who has been admitted to the hospital with abdominal pain and distention. Patient has been admitted for further evaluation and management. Gastroenterology has been consulted and therapeutic paracentesis is being considered. Hematology has been consulted due to thrombocytopenia and for further evaluation. Of note, I review of the patient's prior CBC shows stable thrombocytopenia that dates back to several years. He reports no new symptoms at this time. Past Medical History Cardiovascular: HTN, [place] Pulmonary: COPD CENTRAL NERVOUS SYSTEM: Other (hx subdural) GI: GERD Psych: Addictions Musculoskeletal: low back pain, Osteoarthritis, Other Rheumatologic: Rheumatoid arthritis Renal/: Other Endocrine: Diabetes Past Surgical History Past Surgical History: Tonsillectomy, Other Family History Family History: Alcohol Abuse, High Cholestrol, Hypertension, Family History Unknown Social History <1 pack per day ALCOHOL: heavy Drugs: None, Other Current Problem List Problem List Problems Medical Problems: (1) Abdominal pain Status: Acute (2) Ascites Status: Acute Current Medications Current Medications Current Medications Fentanyl Citrate (Fentanyl 2ml Vial) 50 mcg 1X ONCE IV Last administered on 12/15/19at 17:42; Start 12/15/19 at 16:45; Stop 12/15/19 at 16:46; Status DC Ondansetron HCl (Zofran) 4 mg 1X ONCE IV Last administered on 12/15/19at 17:37; Start 12/15/19 at 16:45; Stop 12/15/19 at 16:46; Status DC Dextrose/Sodium Chloride 1,000 ml @ 75 mls/hr 1X ONCE IV Last administered on 12/15/19at 19:39; Start 12/15/19 at 19:00; Stop 12/16/19 at 08:19; Status DC Morphine Sulfate (Morphine Sulfate) 4 mg 1X ONCE IV Last administered on 12/15/19at 21:42; Start 12/15/19 at 21:30; Stop 12/15/19 at 21:31; Status DC Ondansetron HCl (Zofran) 4 mg PRN Q4HRS PRN IV NAUSEA/VOMITING; Start 12/15/19 at 21:15 Acetaminophen (Tylenol) 650 mg PRN Q4HRS PRN PO TEMP OVER 100.4F OR MILD PAIN; Start 12/15/19 at 21:15 Docusate Sodium (Colace) 100 mg PRN BID PRN PO HARD STOOLS; Start 12/15/19 at 21:15 Lorazepam (Ativan) 0.5 mg PRN Q4HRS PRN PO ANXIETY / AGITATION; Start 12/15/19 at 21:15 Heparin Sodium (Porcine) (Heparin Sodium) 5,000 unit Q8HRS SQ Last administered on 12/16/19at 05:36; Start 12/15/19 at 22:00; Stop 12/16/19 at 12:59; Status DC Insulin Human Lispro (HumaLOG) 0-9 UNITS TIDACHC SQ ; Start 12/16/19 at 07:30 Dextrose (Dextrose 50%-Water Syringe) 12.5 gm PRN Q15MIN PRN IV SEE COMMENTS; Start 12/15/19 at 21:15 Buspirone HCl (Buspar) 10 mg BID PO Last administered on 12/16/19at 08:17; Start 12/15/19 at 21:00 Carvedilol (Coreg) 6.25 mg BIDWMEALS PO Last administered on 12/16/19at 16:39; Start 12/16/19 at 08:00 Citalopram Hydrobromide (CeleXA) 20 mg DAILY PO Last administered on 12/16/19at 08:17; Start 12/16/19 at 09:00 Pantoprazole Sodium (Protonix) 40 mg DAILYAC PO Last administered on 12/16/19at 08:16; Start 12/16/19 at 07:30 Tamsulosin HCl (Flomax) 0.8 mg DAILY PO Last administered on 12/16/19at 08:17; Start 12/16/19 at 09:00 Trazodone HCl (Desyrel) 300 mg HS PO ; Start 12/16/19 at 21:00 Insulin Glargine (Lantus Syringe) 20 unit QHS SQ Last administered on 12/15/19at 21:39; Start 12/15/19 at 21:00 Magnesium Sulfate 100 ml @ 25 mls/hr 1X ONCE IV Last administered on 12/15/19at 21:44; Start 12/15/19 at 22:00; Stop 12/16/19 at 01:59; Status DC Morphine Sulfate (Morphine Sulfate) 2 mg PRN Q3HRS PRN IV SEVERE PAIN 7-10 Last administered on 12/16/19at 16:39; Start 12/15/19 at 23:30 Potassium Chloride (Klor-Con) 40 meq 1X ONCE PO Last administered on 12/16/19at 12:04; Start 12/16/19 at 11:15; Stop 12/16/19 at 11:19; Status DC Potassium Chloride (Klor-Con) 20 meq DAILYWBKFT PO ; Start 12/17/19 at 08:00; Stop 12/16/19 at 12:00; Status DC Lactulose (Lactulose) 20 gm BID PO ; Start 12/16/19 at 21:00 Spironolactone (Aldactone) 100 mg DAILY PO Last administered on 12/16/19at 12:54; Start 12/16/19 at 12:30 Albuterol/ Ipratropium (Duoneb) 3 ml RTQID NEB Last administered on 12/16/19at 16:40; Start 12/16/19 at 16:00 Lidocaine HCl (Buffered Lidocaine 1%) 3 ml STK-MED ONCE .ROUTE ; Start 12/16/19 at 13:31; Stop 12/16/19 at 13:31; Status DC Lidocaine HCl (Buffered Lidocaine 1%) 3 ml 1X ONCE IJ Last administered on 12/16/19at 13:51; Start 12/16/19 at 13:45; Stop 12/16/19 at 13:46; Status DC Albumin Human 100 ml @ 100 mls/hr 1X ONCE IV Last administered on 12/16/19at 14:15; Start 12/16/19 at 14:15; Stop 12/16/19 at 15:14; Status DC Albumin Human 100 ml @ As Directed STK-MED ONCE IV ; Start 12/16/19 at 14:14; Stop 12/16/19 at 14:14; Status DC Albumin Human 100 ml @ 100 mls/hr 1X ONCE IV Last administered on 12/16/19at 14:30; Start 12/16/19 at 14:30; Stop 12/16/19 at 15:29; Status DC Albumin Human 100 ml @ As Directed STK-MED ONCE IV ; Start 12/16/19 at 14:33; Stop 12/16/19 at 14:33; Status DC Albumin Human 100 ml @ 100 mls/hr 1X ONCE IV Last administered on 12/16/19at 15:58; Start 12/16/19 at 14:45; Stop 12/16/19 at 15:44; Status DC Active Scripts Active Levemir Flextouch (Insulin Detemir) 300 Units/3 Ml Insuln.pen 20 Units SQ QHS Reported Duloxetine Hcl 60 Mg Capsule.dr 60 Mg PO DAILY Ativan (Lorazepam) 0.5 Mg Tablet 0.5 Mg PO BID Citalopram Hbr (Citalopram Hydrobromide) 20 Mg Tablet 1 Tab PO DAILY Aripiprazole 1 Mg/1 Ml Solution 15 Ml PO DAILY 30 Days Pantoprazole Sodium (Pantoprazole Sodium) 40 Mg Tablet.dr 40 Mg PO DAILYAC Flomax (Tamsulosin Hcl) 0.4 Mg Cap.er.24h 2 Cap PO DAILY Buspirone Hcl 10 Mg Tablet 1 Tab PO BID Zantac (Ranitidine Hcl) 150 Mg Tablet 150 Mg PO HS Potassium Chloride (Potassium Chloride) 20 Meq Tablet.er 20 Meq PO DAILY Oxycodone Hcl Immed.release (Oxycodone Hcl) 30 Mg Tablet 30 Mg PO HS PRN Oxycodone Hcl Immed.release (Oxycodone Hcl) 15 Mg Tablet 15 Mg PO Q6HRS PRN Otezla (Apremilast) 30 Mg Tablet 30 Mg PO BID Daily Value (Multivitamin) 1 Each Tablet 1 Each PO DAILY Lisinopril 40 Mg Tablet 40 Mg PO DAILY Lexapro (Escitalopram Oxalate) 20 Mg Tablet 20 Mg PO DAILY Novolog Flexpen (Insulin Aspart) 100 Unit/1 Ml Insuln.pen 0-7 Unit SQ QID Hydrochlorothiazide Tablet (Hydrochlorothiazide) 25 Mg Tablet 25 Mg PO DAILY Griseofulvin (Griseofulvin,Microsize) 500 Mg Tablet 500 Mg PO BID Cranberry (Cranberry Fruit Concentrate) 450 Mg Capsule 450 Mg PO DAILY Carvedilol (Carvedilol) 6.25 Mg Tablet 6.25 Mg PO BIDWMEALS Benadryl (Diphenhydramine Hcl) 25 Mg Capsule 25 Mg PO Q6HRS PRN Amitriptyline Hcl 150 Mg Tablet 150 Mg PO HS Baclofen 20 Mg Tablet 30 Mg PO HS Gabapentin 600 Mg Tablet 300 Mg PO TID Trazodone Hcl 100 Mg Tablet 300 Mg PO HS Metformin Hcl 1,000 Mg Tablet 1,000 Mg PO BID Allergies Allergies: Coded Allergies: povidone-iodine (Verified Allergy, Intermediate, Rash, 01/23/15) pregabalin (Verified Allergy, Intermediate, bullae, 01/24/15) blisters ROS General: No: Chills, Night Sweats PSYCHOLOGICAL ROS: No: Anxiety, Behavioral Disorder Eyes: No Blurry vision, No Decreased vision HEENT: No: Heacaches ALLERGY AND IMMUNOLOGY: No: Hives, Insect Bite Sensitivity Hematological and Lymphatic: No: Bleeding Problems, Blood Clots Respiratory: No: Cough, Hemoptysis Cardiovascular: No Chest Pain, No Palpitations Gastrointestinal: No Nausea, No Vomiting, No Melena, No Hematochezia Genitourinary: No Dysuria, No Frequency Musculoskeletal: No Gait Disturbance Neurological: No Behavorial Changes Skin: No Dry Skin Physical Exam General: Alert, Oriented X3 HEENT: Atraumatic, PERRLA Lungs: Clear to auscultation Heart: Regular rate Abdomen: Normal bowel sounds, Soft Extremities: No clubbing Skin: No rashes Neuro: Normal gait Psych/Mental Status: Mental status NL MUSCULOSKELETAL: No deformity, No swelling Vitals VITALS Vital Signs Date Time Temp Pulse Resp B/P (MAP) Pulse Ox O2 Delivery O2 Flow Rate FiO2 12/16/19 16:43 93 Room Air 12/16/19 16:39 16 12/16/19 16:39 78 139/56 12/16/19 10:26 97.9 97.9 Labs Labs Laboratory Tests Test 12/15/19 17:25 12/15/19 17:32 12/15/19 21:37 12/16/19 05:22 White Blood Count 3.7 x10^3/uL (4.0-11.0) 3.8 x10^3/uL (4.0-11.0) Red Blood Count 3.95 x10^6/uL (4.30-5.70) 3.54 x10^6/uL (4.30-5.70) Hemoglobin 11.9 g/dL (13.0-17.5) 10.8 g/dL (13.0-17.5) Hematocrit 35.8 % (39.0-53.0) 32.3 % (39.0-53.0) Mean Corpuscular Volume 91 fL (79-100) 91 fL (79-100) Mean Corpuscular Hemoglobin 30 pg (25-35) 30 pg (25-35) Mean Corpuscular Hemoglobin Concent 33 g/dL (31-37) 33 g/dL (31-37) Red Cell Distribution Width 16.2 % (11.5-14.5) 16.0 % (11.5-14.5) Platelet Count 78 x10^3/uL (140-400) 73 x10^3/uL (140-400) Neutrophils (%) (Auto) 73 % (31-73) 61 % (31-73) Lymphocytes (%) (Auto) 16 % (24-48) 25 % (24-48) Monocytes (%) (Auto) 6 % (0-9) 8 % (0-9) Eosinophils (%) (Auto) 4 % (0-3) 5 % (0-3) Basophils (%) (Auto) 1 % (0-3) 1 % (0-3) Neutrophils # (Auto) 2.7 x10^3/uL (1.8-7.7) 2.3 x10^3/uL (1.8-7.7) Lymphocytes # (Auto) 0.6 x10^3/uL (1.0-4.8) 0.9 x10^3/uL (1.0-4.8) Monocytes # (Auto) 0.2 x10^3/uL (0.0-1.1) 0.3 x10^3/uL (0.0-1.1) Eosinophils # (Auto) 0.2 x10^3/uL (0.0-0.7) 0.2 x10^3/uL (0.0-0.7) Basophils # (Auto) 0.0 x10^3/uL (0.0-0.2) 0.0 x10^3/uL (0.0-0.2) Prothrombin Time 14.8 SEC (11.7-14.0) Prothromb Time International Ratio 1.2 (0.8-1.1) Activated Partial Thromboplast Time 28 SEC (24-38) Sodium Level 144 mmol/L (136-145) 144 mmol/L (136-145) Potassium Level 3.5 mmol/L (3.5-5.1) 3.2 mmol/L (3.5-5.1) Chloride Level 107 mmol/L (98-107) 110 mmol/L (98-107) Carbon Dioxide Level 25 mmol/L (21-32) 28 mmol/L (21-32) Anion Gap 12 (6-14) 6 (6-14) Blood Urea Nitrogen 12 mg/dL (8-26) 9 mg/dL (8-26) Creatinine 1.0 mg/dL (0.7-1.3) 0.8 mg/dL (0.7-1.3) Estimated GFR (Cockcroft-Gault) 77.3 100.0 BUN/Creatinine Ratio 12 (6-20) 11 (6-20) Glucose Level 241 mg/dL (70-99) 167 mg/dL (70-99) Calcium Level 8.4 mg/dL (8.5-10.1) 8.1 mg/dL (8.5-10.1) Magnesium Level 1.4 mg/dL (1.8-2.4) 2.0 mg/dL (1.8-2.4) Total Bilirubin 0.7 mg/dL (0.2-1.0) 0.7 mg/dL (0.2-1.0) Aspartate Amino Transf (AST/SGOT) 43 U/L (15-37) 37 U/L (15-37) Alanine Aminotransferase (ALT/SGPT) 36 U/L (16-63) 32 U/L (16-63) Alkaline Phosphatase 152 U/L (46-116) 123 U/L (46-116) Ammonia 50 mcmol/L (11-34) Total Protein 6.4 g/dL (6.4-8.2) 5.7 g/dL (6.4-8.2) Albumin 2.7 g/dL (3.4-5.0) 2.4 g/dL (3.4-5.0) Albumin/Globulin Ratio 0.7 (1.0-1.7) 0.7 (1.0-1.7) Lipase 109 U/L (73-393) Hepatitis A IgM Antibody Nonreactive (Nonreactive) Hepatitis B Surface Antigen Nonreactive (Nonreactive) Hepatitis B Core IgM Antibody Nonreactive (Nonreactive) Hepatitis C IgG Antibody Nonreactive (Nonreactive) Urine Collection Type Unknown Urine Color Zenia Urine Clarity Clear Urine pH 5.5 (<5.0-8.0) Urine Specific [place] >=1.030 (1.000-1.030) Urine Protein 30 mg/dL (NEG-TRACE) Urine Glucose (UA) 100 mg/dL (NEG) Urine Ketones (Stick) Trace mg/dL (NEG) Urine Blood Negative (NEG) Urine Nitrite Negative (NEG) Urine Bilirubin Small (NEG) Urine Urobilinogen Dipstick 0.2 mg/dL (0.2 mg/dL) Urine Leukocyte Esterase Negative (NEG) Urine RBC Occ /HPF (0-2) Urine WBC 1-4 /HPF (0-4) Urine Squamous Epithelial Cells Few /LPF Urine Bacteria Few /HPF (0-FEW) Urine Mucus Marked /LPF Glucose (Fingerstick) 170 mg/dL (70-99) Test 12/16/19 07:10 12/16/19 11:07 12/16/19 16:27 Glucose (Fingerstick) 146 mg/dL (70-99) 141 mg/dL (70-99) 144 mg/dL (70-99) Laboratory Tests Test 12/15/19 17:25 12/15/19 17:32 12/15/19 21:37 12/16/19 05:22 White Blood Count 3.7 x10^3/uL (4.0-11.0) 3.8 x10^3/uL (4.0-11.0) Red Blood Count 3.95 x10^6/uL (4.30-5.70) 3.54 x10^6/uL (4.30-5.70) Hemoglobin 11.9 g/dL (13.0-17.5) 10.8 g/dL (13.0-17.5) Hematocrit 35.8 % (39.0-53.0) 32.3 % (39.0-53.0) Mean Corpuscular Volume 91 fL (79-100) 91 fL (79-100) Mean Corpuscular Hemoglobin 30 pg (25-35) 30 pg (25-35) Mean Corpuscular Hemoglobin Concent 33 g/dL (31-37) 33 g/dL (31-37) Red Cell Distribution Width 16.2 % (11.5-14.5) 16.0 % (11.5-14.5) Platelet Count 78 x10^3/uL (140-400) 73 x10^3/uL (140-400) Neutrophils (%) (Auto) 73 % (31-73) 61 % (31-73) Lymphocytes (%) (Auto) 16 % (24-48) 25 % (24-48) Monocytes (%) (Auto) 6 % (0-9) 8 % (0-9) Eosinophils (%) (Auto) 4 % (0-3) 5 % (0-3) Basophils (%) (Auto) 1 % (0-3) 1 % (0-3) Neutrophils # (Auto) 2.7 x10^3/uL (1.8-7.7) 2.3 x10^3/uL (1.8-7.7) Lymphocytes # (Auto) 0.6 x10^3/uL (1.0-4.8) 0.9 x10^3/uL (1.0-4.8) Monocytes # (Auto) 0.2 x10^3/uL (0.0-1.1) 0.3 x10^3/uL (0.0-1.1) Eosinophils # (Auto) 0.2 x10^3/uL (0.0-0.7) 0.2 x10^3/uL (0.0-0.7) Basophils # (Auto) 0.0 x10^3/uL (0.0-0.2) 0.0 x10^3/uL (0.0-0.2) Prothrombin Time 14.8 SEC (11.7-14.0) Prothromb Time International Ratio 1.2 (0.8-1.1) Activated Partial Thromboplast Time 28 SEC (24-38) Sodium Level 144 mmol/L (136-145) 144 mmol/L (136-145) Potassium Level 3.5 mmol/L (3.5-5.1) 3.2 mmol/L (3.5-5.1) Chloride Level 107 mmol/L (98-107) 110 mmol/L (98-107) Carbon Dioxide Level 25 mmol/L (21-32) 28 mmol/L (21-32) Anion Gap 12 (6-14) 6 (6-14) Blood Urea Nitrogen 12 mg/dL (8-26) 9 mg/dL (8-26) Creatinine 1.0 mg/dL (0.7-1.3) 0.8 mg/dL (0.7-1.3) Estimated GFR (Cockcroft-Gault) 77.3 100.0 BUN/Creatinine Ratio 12 (6-20) 11 (6-20) Glucose Level 241 mg/dL (70-99) 167 mg/dL (70-99) Calcium Level 8.4 mg/dL (8.5-10.1) 8.1 mg/dL (8.5-10.1) Magnesium Level 1.4 mg/dL (1.8-2.4) 2.0 mg/dL (1.8-2.4) Total Bilirubin 0.7 mg/dL (0.2-1.0) 0.7 mg/dL (0.2-1.0) Aspartate Amino Transf (AST/SGOT) 43 U/L (15-37) 37 U/L (15-37) Alanine Aminotransferase (ALT/SGPT) 36 U/L (16-63) 32 U/L (16-63) Alkaline Phosphatase 152 U/L (46-116) 123 U/L (46-116) Ammonia 50 mcmol/L (11-34) Total Protein 6.4 g/dL (6.4-8.2) 5.7 g/dL (6.4-8.2) Albumin 2.7 g/dL (3.4-5.0) 2.4 g/dL (3.4-5.0) Albumin/Globulin Ratio 0.7 (1.0-1.7) 0.7 (1.0-1.7) Lipase 109 U/L (73-393) Hepatitis A IgM Antibody Nonreactive (Nonreactive) Hepatitis B Surface Antigen Nonreactive (Nonreactive) Hepatitis B Core IgM Antibody Nonreactive (Nonreactive) Hepatitis C IgG Antibody Nonreactive (Nonreactive) Urine Collection Type Unknown Urine Color [place] Urine Clarity Clear Urine pH 5.5 (<5.0-8.0) Urine Specific [place] >=1.030 (1.000-1.030) Urine Protein 30 mg/dL (NEG-TRACE) Urine Glucose (UA) 100 mg/dL (NEG) Urine Ketones (Stick) Trace mg/dL (NEG) Urine Blood Negative (NEG) Urine Nitrite Negative (NEG) Urine Bilirubin Small (NEG) Urine Urobilinogen Dipstick 0.2 mg/dL (0.2 mg/dL) Urine Leukocyte Esterase Negative (NEG) Urine RBC Occ /HPF (0-2) Urine WBC 1-4 /HPF (0-4) Urine Squamous Epithelial Cells Few /LPF Urine Bacteria Few /HPF (0-FEW) Urine Mucus Marked /LPF Glucose (Fingerstick) 170 mg/dL (70-99) Test 12/16/19 07:10 12/16/19 11:07 12/16/19 16:27 Glucose (Fingerstick) 146 mg/dL (70-99) 141 mg/dL (70-99) 144 mg/dL (70-99) Images Images Reviewed radiology Assessment/Plan Assessment/Plan Assessment: Thrombocytopenia Normocytic anemia Leukopenia Cirrhosis Ascites History of alcohol use Recommendations: I reviewed the patient's presenting history, radiology and pathology. I also reviewed reviewed results from bone marrow biopsy obtained in 2017 which shows no evidence of minor dysplastic syndrome or hematologic process Given the patient's liver disease, history of alcohol use and splenomegaly, I suspect that his pancytopenia is multifactorial and secondary to the aforementioned issues Can check B12 and folate level to determine need for replacement but would not recommend additional hematologic evaluation Continue follow-up with primary care and gastroenterology outpatient Other care per hospitalist service Jean Claude Hernandez MD Medical Oncology/Hematology Ph: [phone] SEBASTIEN HERNANDEZ MD Dec 16, 2019 17:25
[2019-12-16 19:13] LABS: BF COLOR YELLOW; BF SOURCE ASCITES
[2019-12-16 19:14] LABS: BF CLARITY CLEAR; BF MON % 81 %; BF PMN % 14 %; BF RBC COUNT 513 /cmm (Not Established); BF WBC COUNT 123 /cmm (Not Established)
[2019-12-16 19:15] LABS: BF OTHER % 6 %
[2019-12-16] MEDS: LACTULOSE 20 GM/30 ML SOLUTION. PO SCH (21:37)
[2019-12-16] MEDS: traZODone 100 MG TABLET. PO SCH (21:37)
[2019-12-16] MEDS: INSULIN GLARGINE SYRINGE. SQ SCH (21:43)
[2019-12-17 03:00] VITALS: BP 111/54
[2019-12-17 05:58] LABS: CREATININE 0.9 mg/dL (0.7-1.3); GFR 87.3; POTASSIUM 3.8 mmol/L (3.5-5.1)
[2019-12-17 07:00] VITALS: BP 152/67
[2019-12-17] MEDS: IPRATRPIUM/ALBUTEROL 0.5/2.5MG 3 ML NEBU. NEB SCH (07:23)
[2019-12-17] MEDS: INSULIN LISPRO 300 UNITS/3 ML VIAL. SQ SCH ×4 (07:30→21:38)
--- NOTE | 2019-12-17 07:59 | RAD ---
Ultrasound-guided paracentesis 12/17/2019 5:55 AM Procedure: The risks and benefits of the procedure were discussed the patient. Informed consent was obtained. A timeout procedure was performed. Sonographic evaluation of the abdomen was performed demonstrating ascites . The right lower quadrant was prepped and draped using maximum sterile barrier technique. 1% lidocaine without epinephrine was administered for local anesthesia. Real-time ultrasonographic guidance was used in passing a 5 [place] Yueh catheter into the fluid collection. 11 L of serous ascites was removed. The catheter was removed and pressure held to achieve hemostasis. A sterile dressing was applied. Impression: Successful ultrasound-guided paracentesis
[2019-12-17] MEDS ORDERED: POTASSIUM CHLORIDE 20 MEQ TABLET.ER. PO SCH (08:00)
--- NOTE | 2019-12-17 08:49 | PDOC ---
PROGRESS NOTES Chief Complaint Chief Complaint A/P: Moderate ascites. Cirrhosis of the liver - LOCKHART with remote h/o alcohol abuse Splenomegaly likely secondary to portal hypertension. MORBID OBESITY Chronic bilateral subdural hematomas, Interval apparent coil embolization. SEVERE ALCOHOL ABUSE HX - not drinking anymore Noncompliance normocytic anemia transaminitis CHRONIC THROMBOCYTOPENIA ELEVATED AMMONIA, SERUM Leukopenia History of Present Illness History of Present Illness Mr Bridges is a 54yo M w/ PMHx HTN, LINO, GERD, DM, RA, psoriasis, fibromyalgia, s ubdural hematoma (09/2019), nephrolithiasis, thrombocytopenia sent to ED from [facility] for 3-4 weeks of increasing abdominal distention and discomfort. Found on CT with ascites, cirrhosis, and splenomegaly. Previously had negative Hepatitis markers @ [facility]. KRISTIE negative, No MDS per bone marrow biopsy report. s/p 11L paracentesis with some relief. He is not short of breath. Seen by Heme/onc, GI, neurosurgery. He has some memory issues, no headaches Vitals Vitals Vital Signs Date Time Temp Pulse Resp B/P (MAP) Pulse Ox O2 Delivery O2 Flow Rate FiO2 12/17/19 07:24 96 Room Air 12/17/19 07:00 97.9 66 18 152/67 (95) 97.9 Physical Exam General: Alert, Oriented X3 Heart: Regular rate Lungs: Clear Abdomen: Normal bowel sounds, Soft Extremities: No clubbing Skin: No rashes Labs LABS Laboratory Tests Test 12/16/19 11:07 12/16/19 13:50 12/16/19 16:27 12/16/19 21:22 Glucose (Fingerstick) 141 mg/dL (70-99) 144 mg/dL (70-99) 141 mg/dL (70-99) Body Fluid Source Ascites Body Fluid Color Yellow Body Fluid Clarity Clear Body Fluid Nucleated Cells 123 /cmm (Not Established) Body Fluid Mononuclear WBCs (%) 81 % Body Fluid Polymorphonuclear Cells 14 % Body Fluid Total RBCs Counted 513 /cmm (Not Established) Body Fluid Other Cells (%) 6 % Test 12/17/19 05:12 Sodium Level 143 mmol/L (136-145) Potassium Level 3.8 mmol/L (3.5-5.1) Chloride Level 109 mmol/L (98-107) Carbon Dioxide Level 28 mmol/L (21-32) Anion Gap 6 (6-14) Blood Urea Nitrogen 8 mg/dL (8-26) Creatinine 0.9 mg/dL (0.7-1.3) Estimated GFR (Cockcroft-Gault) 87.3 Glucose Level 121 mg/dL (70-99) Calcium Level 8.0 mg/dL (8.5-10.1) Assessment and Plan Assessmemt and Plan Problems Medical Problems: (1) Abdominal pain Status: Acute (2) Ascites Status: Acute Comment Review of Relevant I have reviewed the following items miguel (where applicable) has been applied. Labs Laboratory Tests Test 12/15/19 17:25 12/15/19 17:32 12/15/19 21:37 12/16/19 05:22 White Blood Count 3.7 x10^3/uL (4.0-11.0) 3.8 x10^3/uL (4.0-11.0) Red Blood Count 3.95 x10^6/uL (4.30-5.70) 3.54 x10^6/uL (4.30-5.70) Hemoglobin 11.9 g/dL (13.0-17.5) 10.8 g/dL (13.0-17.5) Hematocrit 35.8 % (39.0-53.0) 32.3 % (39.0-53.0) Mean Corpuscular Volume 91 fL (79-100) 91 fL (79-100) Mean Corpuscular Hemoglobin 30 pg (25-35) 30 pg (25-35) Mean Corpuscular Hemoglobin Concent 33 g/dL (31-37) 33 g/dL (31-37) Red Cell Distribution Width 16.2 % (11.5-14.5) 16.0 % (11.5-14.5) Platelet Count 78 x10^3/uL (140-400) 73 x10^3/uL (140-400) Neutrophils (%) (Auto) 73 % (31-73) 61 % (31-73) Lymphocytes (%) (Auto) 16 % (24-48) 25 % (24-48) Monocytes (%) (Auto) 6 % (0-9) 8 % (0-9) Eosinophils (%) (Auto) 4 % (0-3) 5 % (0-3) Basophils (%) (Auto) 1 % (0-3) 1 % (0-3) Neutrophils # (Auto) 2.7 x10^3/uL (1.8-7.7) 2.3 x10^3/uL (1.8-7.7) Lymphocytes # (Auto) 0.6 x10^3/uL (1.0-4.8) 0.9 x10^3/uL (1.0-4.8) Monocytes # (Auto) 0.2 x10^3/uL (0.0-1.1) 0.3 x10^3/uL (0.0-1.1) Eosinophils # (Auto) 0.2 x10^3/uL (0.0-0.7) 0.2 x10^3/uL (0.0-0.7) Basophils # (Auto) 0.0 x10^3/uL (0.0-0.2) 0.0 x10^3/uL (0.0-0.2) Prothrombin Time 14.8 SEC (11.7-14.0) Prothromb Time International Ratio 1.2 (0.8-1.1) Activated Partial Thromboplast Time 28 SEC (24-38) Sodium Level 144 mmol/L (136-145) 144 mmol/L (136-145) Potassium Level 3.5 mmol/L (3.5-5.1) 3.2 mmol/L (3.5-5.1) Chloride Level 107 mmol/L (98-107) 110 mmol/L (98-107) Carbon Dioxide Level 25 mmol/L (21-32) 28 mmol/L (21-32) Anion Gap 12 (6-14) 6 (6-14) Blood Urea Nitrogen 12 mg/dL (8-26) 9 mg/dL (8-26) Creatinine 1.0 mg/dL (0.7-1.3) 0.8 mg/dL (0.7-1.3) Estimated GFR (Cockcroft-Gault) 77.3 100.0 BUN/Creatinine Ratio 12 (6-20) 11 (6-20) Glucose Level 241 mg/dL (70-99) 167 mg/dL (70-99) Calcium Level 8.4 mg/dL (8.5-10.1) 8.1 mg/dL (8.5-10.1) Magnesium Level 1.4 mg/dL (1.8-2.4) 2.0 mg/dL (1.8-2.4) Total Bilirubin 0.7 mg/dL (0.2-1.0) 0.7 mg/dL (0.2-1.0) Aspartate Amino Transf (AST/SGOT) 43 U/L (15-37) 37 U/L (15-37) Alanine Aminotransferase (ALT/SGPT) 36 U/L (16-63) 32 U/L (16-63) Alkaline Phosphatase 152 U/L (46-116) 123 U/L (46-116) Ammonia 50 mcmol/L (11-34) Total Protein 6.4 g/dL (6.4-8.2) 5.7 g/dL (6.4-8.2) Albumin 2.7 g/dL (3.4-5.0) 2.4 g/dL (3.4-5.0) Albumin/Globulin Ratio 0.7 (1.0-1.7) 0.7 (1.0-1.7) Lipase 109 U/L (73-393) Hepatitis A IgM Antibody Nonreactive (Nonreactive) Hepatitis B Surface Antigen Nonreactive (Nonreactive) Hepatitis B Core IgM Antibody Nonreactive (Nonreactive) Hepatitis C IgG Antibody Nonreactive (Nonreactive) Urine Collection Type Unknown Urine Color [place] Urine Clarity Clear Urine pH 5.5 (<5.0-8.0) Urine Specific [place] >=1.030 (1.000-1.030) Urine Protein 30 mg/dL (NEG-TRACE) Urine Glucose (UA) 100 mg/dL (NEG) Urine Ketones (Stick) Trace mg/dL (NEG) Urine Blood Negative (NEG) Urine Nitrite Negative (NEG) Urine Bilirubin Small (NEG) Urine Urobilinogen Dipstick 0.2 mg/dL (0.2 mg/dL) Urine Leukocyte Esterase Negative (NEG) Urine RBC Occ /HPF (0-2) Urine WBC 1-4 /HPF (0-4) Urine Squamous Epithelial Cells Few /LPF Urine Bacteria Few /HPF (0-FEW) Urine Mucus Marked /LPF Glucose (Fingerstick) 170 mg/dL (70-99) Iron Level 40 ug/dL (65-175) Total Iron Binding Capacity 279 ug/dL (250-450) Iron Saturation 14 % (15-34) Vitamin B12 Level 469 pg/mL (247-911) Test 12/16/19 07:10 12/16/19 11:07 12/16/19 13:50 12/16/19 16:27 Glucose (Fingerstick) 146 mg/dL (70-99) 141 mg/dL (70-99) 144 mg/dL (70-99) Body Fluid Source Ascites Body Fluid Color Yellow Body Fluid Clarity Clear Body Fluid Nucleated Cells 123 /cmm (Not Established) Body Fluid Mononuclear WBCs (%) 81 % Body Fluid Polymorphonuclear Cells 14 % Body Fluid Total RBCs Counted 513 /cmm (Not Established) Body Fluid Other Cells (%) 6 % Test 12/16/19 21:22 12/17/19 05:12 Glucose (Fingerstick) 141 mg/dL (70-99) Sodium Level 143 mmol/L (136-145) Potassium Level 3.8 mmol/L (3.5-5.1) Chloride Level 109 mmol/L (98-107) Carbon Dioxide Level 28 mmol/L (21-32) Anion Gap 6 (6-14) Blood Urea Nitrogen 8 mg/dL (8-26) Creatinine 0.9 mg/dL (0.7-1.3) Estimated GFR (Cockcroft-Gault) 87.3 Glucose Level 121 mg/dL (70-99) Calcium Level 8.0 mg/dL (8.5-10.1) Laboratory Tests Test 12/16/19 11:07 12/16/19 13:50 12/16/19 16:27 12/16/19 21:22 Glucose (Fingerstick) 141 mg/dL (70-99) 144 mg/dL (70-99) 141 mg/dL (70-99) Body Fluid Source Ascites Body Fluid Color Yellow Body Fluid Clarity Clear Body Fluid Nucleated Cells 123 /cmm (Not Established) Body Fluid Mononuclear WBCs (%) 81 % Body Fluid Polymorphonuclear Cells 14 % Body Fluid Total RBCs Counted 513 /cmm (Not Established) Body Fluid Other Cells (%) 6 % Test 12/17/19 05:12 Sodium Level 143 mmol/L (136-145) Potassium Level 3.8 mmol/L (3.5-5.1) Chloride Level 109 mmol/L (98-107) Carbon Dioxide Level 28 mmol/L (21-32) Anion Gap 6 (6-14) Blood Urea Nitrogen 8 mg/dL (8-26) Creatinine 0.9 mg/dL (0.7-1.3) Estimated GFR (Cockcroft-Gault) 87.3 Glucose Level 121 mg/dL (70-99) Calcium Level 8.0 mg/dL (8.5-10.1) Medications Current Medications Fentanyl Citrate (Fentanyl 2ml Vial) 50 mcg 1X ONCE IV Last administered on 12/15/19at 17:42; Start 12/15/19 at 16:45; Stop 12/15/19 at 16:46; Status DC Ondansetron HCl (Zofran) 4 mg 1X ONCE IV Last administered on 12/15/19at 17:37; Start 12/15/19 at 16:45; Stop 12/15/19 at 16:46; Status DC Dextrose/Sodium Chloride 1,000 ml @ 75 mls/hr 1X ONCE IV Last administered on 12/15/19at 19:39; Start 12/15/19 at 19:00; Stop 12/16/19 at 08:19; Status DC Morphine Sulfate (Morphine Sulfate) 4 mg 1X ONCE IV Last administered on 12/15/19at 21:42; Start 12/15/19 at 21:30; Stop 12/15/19 at 21:31; Status DC Ondansetron HCl (Zofran) 4 mg PRN Q4HRS PRN IV NAUSEA/VOMITING; Start 12/15/19 at 21:15 Acetaminophen (Tylenol) 650 mg PRN Q4HRS PRN PO TEMP OVER 100.4F OR MILD PAIN; Start 12/15/19 at 21:15 Docusate Sodium (Colace) 100 mg PRN BID PRN PO HARD STOOLS; Start 12/15/19 at 21:15 Lorazepam (Ativan) 0.5 mg PRN Q4HRS PRN PO ANXIETY / AGITATION; Start 12/15/19 at 21:15 Heparin Sodium (Porcine) (Heparin Sodium) 5,000 unit Q8HRS SQ Last administered on 12/16/19at 05:36; Start 12/15/19 at 22:00; Stop 12/16/19 at 12:59; Status DC Insulin Human Lispro (HumaLOG) 0-9 UNITS TIDACHC SQ ; Start 12/16/19 at 07:30 Dextrose (Dextrose 50%-Water Syringe) 12.5 gm PRN Q15MIN PRN IV SEE COMMENTS; Start 12/15/19 at 21:15 Buspirone HCl (Buspar) 10 mg BID PO Last administered on 12/16/19at 21:38; Start 12/15/19 at 21:00 Carvedilol (Coreg) 6.25 mg BIDWMEALS PO Last administered on 12/16/19at 16:39; Start 12/16/19 at 08:00 Citalopram Hydrobromide (CeleXA) 20 mg DAILY PO Last administered on 12/16/19at 08:17; Start 12/16/19 at 09:00 Pantoprazole Sodium (Protonix) 40 mg DAILYAC PO Last administered on 12/16/19at 08:16; Start 12/16/19 at 07:30 Tamsulosin HCl (Flomax) 0.8 mg DAILY PO Last administered on 12/16/19at 08:17; Start 12/16/19 at 09:00 Trazodone HCl (Desyrel) 300 mg HS PO Last administered on 12/16/19at 21:37; Start 12/16/19 at 21:00 Insulin Glargine (Lantus Syringe) 20 unit QHS SQ Last administered on 12/16/19at 21:43; Start 12/15/19 at 21:00 Magnesium Sulfate 100 ml @ 25 mls/hr 1X ONCE IV Last administered on 12/15/19 at 21:44; Start 12/15/19 at 22:00; Stop 12/16/19 at 01:59; Status DC Morphine Sulfate (Morphine Sulfate) 2 mg PRN Q3HRS PRN IV SEVERE PAIN 7-10 Last administered on 12/16/19at 21:47; Start 12/15/19 at 23:30 Potassium Chloride (Klor-Con) 40 meq 1X ONCE PO Last administered on 12/16/19at 12:04; Start 12/16/19 at 11:15; Stop 12/16/19 at 11:19; Status DC Potassium Chloride (Klor-Con) 20 meq DAILYWBKFT PO ; Start 12/17/19 at 08:00; Stop 12/16/19 at 12:00; Status DC Lactulose (Lactulose) 20 gm BID PO Last administered on 12/16/19at 21:37; Start 12/16/19 at 21:00 Spironolactone (Aldactone) 100 mg DAILY PO Last administered on 12/16/19at 12:54; Start 12/16/19 at 12:30 Albuterol/ Ipratropium (Duoneb) 3 ml RTQID NEB Last administered on 12/17/19at 07:23; Start 12/16/19 at 16:00 Lidocaine HCl (Buffered Lidocaine 1%) 3 ml STK-MED ONCE .ROUTE ; Start 12/16/19 at 13:31; Stop 12/16/19 at 13:31; Status DC Lidocaine HCl (Buffered Lidocaine 1%) 3 ml 1X ONCE IJ Last administered on 12/16/19at 13:51; Start 12/16/19 at 13:45; Stop 12/16/19 at 13:46; Status DC Albumin Human 100 ml @ 100 mls/hr 1X ONCE IV Last administered on 12/16/19at 14:15; Start 12/16/19 at 14:15; Stop 12/16/19 at 15:14; Status DC Albumin Human 100 ml @ As Directed STK-MED ONCE IV ; Start 12/16/19 at 14:14; Stop 12/16/19 at 14:14; Status DC Albumin Human 100 ml @ 100 mls/hr 1X ONCE IV Last administered on 12/16/19at 14:30; Start 12/16/19 at 14:30; Stop 12/16/19 at 15:29; Status DC Albumin Human 100 ml @ As Directed STK-MED ONCE IV ; Start 12/16/19 at 14:33; Stop 12/16/19 at 14:33; Status DC Albumin Human 100 ml @ 100 mls/hr 1X ONCE IV Last administered on 12/16/19at 15:58; Start 12/16/19 at 14:45; Stop 12/16/19 at 15:44; Status DC Active Scripts Active Levemir Flextouch (Insulin Detemir) 300 Units/3 Ml Insuln.pen 20 Units SQ QHS Reported Duloxetine Hcl 60 Mg Capsule.dr 60 Mg PO DAILY Ativan (Lorazepam) 0.5 Mg Tablet 0.5 Mg PO BID Citalopram Hbr (Citalopram Hydrobromide) 20 Mg Tablet 1 Tab PO DAILY Aripiprazole 1 Mg/1 Ml Solution 15 Ml PO DAILY 30 Days Pantoprazole Sodium (Pantoprazole Sodium) 40 Mg Tablet.dr 40 Mg PO DAILYAC Flomax (Tamsulosin Hcl) 0.4 Mg Cap.er.24h 2 Cap PO DAILY Buspirone Hcl 10 Mg Tablet 1 Tab PO BID Zantac (Ranitidine Hcl) 150 Mg Tablet 150 Mg PO HS Potassium Chloride (Potassium Chloride) 20 Meq Tablet.er 20 Meq PO DAILY Oxycodone Hcl Immed.release (Oxycodone Hcl) 30 Mg Tablet 30 Mg PO HS PRN Oxycodone Hcl Immed.release (Oxycodone Hcl) 15 Mg Tablet 15 Mg PO Q6HRS PRN Otezla (Apremilast) 30 Mg Tablet 30 Mg PO BID Daily Value (Multivitamin) 1 Each Tablet 1 Each PO DAILY Lisinopril 40 Mg Tablet 40 Mg PO DAILY Lexapro (Escitalopram Oxalate) 20 Mg Tablet 20 Mg PO DAILY Novolog Flexpen (Insulin Aspart) 100 Unit/1 Ml Insuln.pen 0-7 Unit SQ QID Hydrochlorothiazide Tablet (Hydrochlorothiazide) 25 Mg Tablet 25 Mg PO DAILY Griseofulvin (Griseofulvin,Microsize) 500 Mg Tablet 500 Mg PO BID Cranberry (Cranberry Fruit Concentrate) 450 Mg Capsule 450 Mg PO DAILY Carvedilol (Carvedilol) 6.25 Mg Tablet 6.25 Mg PO BIDWMEALS Benadryl (Diphenhydramine Hcl) 25 Mg Capsule 25 Mg PO Q6HRS PRN Amitriptyline Hcl 150 Mg Tablet 150 Mg PO HS Baclofen 20 Mg Tablet 30 Mg PO HS Gabapentin 600 Mg Tablet 300 Mg PO TID Trazodone Hcl 100 Mg Tablet 300 Mg PO HS Metformin Hcl 1,000 Mg Tablet 1,000 Mg PO BID Vitals/I & O Vital Sign - Last 24 Hours 12/16/19 12/16/19 12/16/19 12/16/19 09:30 10:00 10:26 13:05 Temp 97.9 97.9 Pulse 69 Resp 16 16 18 16 B/P (MAP) 125/66 (85) Pulse Ox 88 O2 Delivery Room Air Room Air Room Air Room Air 12/16/19 12/16/19 12/16/19 12/16/19 13:35 13:49 14:05 14:18 Pulse 72 72 73 Resp 16 19 17 16 B/P (MAP) 150/65 (93) 153/63 (93) 150/64 (92) Pulse Ox 91 94 94 O2 Delivery Room Air Room Air Room Air Room Air 12/16/19 12/16/19 12/16/19 12/16/19 14:28 14:34 16:39 16:39 Pulse 77 78 78 Resp 15 15 16 B/P (MAP) 148/60 (89) 139/56 (83) 139/56 Pulse Ox 94 94 O2 Delivery Room Air Room Air Room Air 12/16/19 12/16/19 12/16/19 12/16/19 16:43 17:33 19:00 20:00 Temp 98.2 98.2 Pulse 90 Resp 16 18 B/P (MAP) 136/72 (93) Pulse Ox 93 92 O2 Delivery Room Air Room Air Room Air Room Air 12/16/19 12/16/19 12/16/19 12/17/19 21:47 22:30 23:00 03:00 Temp 98.2 98.0 98.2 98.0 Pulse 70 70 Resp 18 18 B/P (MAP) 113/51 (71) 111/54 (73) Pulse Ox 93 93 90 94 O2 Delivery Room Air Room Air Room Air Room Air 12/17/19 12/17/19 07:00 07:24 Temp 97.9 97.9 Pulse 66 Resp 18 B/P (MAP) 152/67 (95) Pulse Ox 94 96 O2 Delivery Room Air Room Air Intake and Output 12/16/19 12/16/19 12/17/19 15:00 23:00 07:00 Intake Total 50 ml 150 ml Output Total 97903 ml 300 ml Balance -94321 ml 50 ml -150 ml Justicifation of Admission Dx: Justifications for Admission: Justification of Admission Dx: Yes CAREN SAMPSON MD Dec 17, 2019 08:49
[2019-12-17] MEDS: PANTOPRAZOLE 40 MG TABLET.DR. PO SCH (09:36)
[2019-12-17] MEDS: CITALOPRAM 20 MG TABLET. PO SCH (09:37)
[2019-12-17] MEDS: TAMSULOSIN 0.4 MG CAP.ER.24H. PO SCH (09:37)
[2019-12-17] MEDS: CARVEDILOL 6.25 MG TABLET. PO SCH ×2 (09:37→18:08)
[2019-12-17] MEDS: LACTULOSE 20 GM/30 ML SOLUTION. PO SCH ×2 (09:38→21:32)
[2019-12-17] MEDS: MORPHINE SULFATE 2 MG/ML VIAL. IV PRN (09:38)
[2019-12-17] MEDS: busPIRone 10 MG TABLET. PO SCH ×2 (10:27→21:32)
[2019-12-17] MEDS: SPIRONOLACTONE 25 MG TABLET PO SCH (10:27)
--- NOTE | 2019-12-17 10:51 | PDOC ---
Subjective: Subjective: Feels better after paracentesis. Urinating more. Eating ok. Asking about discharge. Objective: Vital Signs: Vital Signs Date Time Temp Pulse Resp B/P (MAP) Pulse Ox O2 Delivery O2 Flow Rate FiO2 12/17/19 09:37 66 152/67 12/17/19 07:24 96 Room Air 12/17/19 07:00 97.9 18 97.9 Labs: Laboratory Tests Test 12/16/19 11:07 12/16/19 13:50 12/16/19 16:27 12/16/19 21:22 Glucose (Fingerstick) 141 mg/dL 144 mg/dL 141 mg/dL Body Fluid Source Ascites Body Fluid Color Yellow Body Fluid Clarity Clear Body Fluid Nucleated Cells 123 /cmm Body Fluid Mononuclear WBCs (%) 81 % Body Fluid Polymorphonuclear Cells 14 % Body Fluid Total RBCs Counted 513 /cmm Body Fluid Other Cells (%) 6 % Test 12/17/19 05:12 12/17/19 07:46 Sodium Level 143 mmol/L Potassium Level 3.8 mmol/L Chloride Level 109 mmol/L Carbon Dioxide Level 28 mmol/L Anion Gap 6 Blood Urea Nitrogen 8 mg/dL Creatinine 0.9 mg/dL Estimated GFR (Cockcroft-Gault) 87.3 Glucose Level 121 mg/dL Calcium Level 8.0 mg/dL Glucose (Fingerstick) 112 mg/dL Imaging: Paracentesis 11L CT A/P IMPRESSION: 1. Large ascites. 2. Liver cirrhosis with splenomegaly likely changes of portal hypertension. 3. Punctate 2 mm calculus left kidney. 4. Mild distended gallbladder with probable sludge within. Head CT Impression: 1. Patchy bibasilar opacities, likely atelectasis CXR Impression: 1. Patchy bibasilar opacities, likely atelectasis PE: GEN: NAD, up in chair LUNGS: clear HEART: RRR ABD: much less distended NEURO/PSYCH: A & O 3 A/P: Cirrhosis, ascites s/p paracentesis (cx pending) - suspect LOCKHART, gives no significant alcohol history to us Pancytopenia/KARO/chronic thrombocytopenia - past bone marrow biopsy w/o MDS H/o psoriasis, RA - on Otezla -- Continue same per GI. Justicifation of Admission Dx: Justifications for Admission: Justification of Admission Dx: Yes ANGLE MORALES Dec 17, 2019 10:50
[2019-12-17 10:52] VITALS: BP 148/64
--- NOTE | 2019-12-17 11:31 | NUR ---
SW following. Discussed with RN, pt had paracentesis yesterday, doing better. Pt also had a head CT scan which showed bilateral frontal hematoma, RN waiting to determine if this will be addressed in any way. SW to fax clinicals to [facility]. SW will continue to follow.
[2019-12-17] MEDS ORDERED: ALBUTEROL SULFATE 2.5 MG/3 ML NEBU. NEB PRN (11:45)
[2019-12-17] MEDS ORDERED: SPIR25TA PO (13:35)
[2019-12-17] MEDS ORDERED: LACT20SO PO (13:35)
[2019-12-17] MEDS ORDERED: LORA0.5T96 PO (13:35)
[2019-12-17] MEDS ORDERED: FURO20TA3 PO (13:35)
--- NOTE | 2019-12-17 14:48 | RAD ---
CT HEAD WITHOUT CONTRAST 12/17/2019 2:17 PM Indication: Reason: follow up SDH / Spl. Instructions: / History: Comparison: CT head without contrast December 16, 2019 Procedure: Multidetector CT imaging of the head was performed without the administration of contrast. Findings: Redemonstration of bifrontal subdural hematomas acute on chronic appearance. The total amount and distribution of hemorrhage is similar to comparison study. No definitive evidence of significant interval hemorrhage is identified. No new mass effect is identified. Mild mass effect in the bifrontal regions is similar. Ventricles and basilar cisterns have a stable configuration. No evidence of subacute territorial infarct is identified. No acute osseous changes are noted in the interim. Stable radiopaque foreign bodies with respect to comparison study including 2 small metallic bodies abutting the temporal bones bilaterally. Impression: Grossly similar appearance of acute on chronic bifrontal subdural hematoma. No acute changes from yesterday's exam are identified CT DOSING PQRS STATEMENT: One or more of the following individualized dose reduction techniques were utilized for this examination: 1. Automated exposure control 2. Adjustment of the mA and/or kV according to patient size 3. Use of iterative reconstruction technique Electronically signed by: Jayme Ma MD (12/17/2019 2:45 PM) [id number]
[2019-12-17 15:00] VITALS: BP 145/62
--- NOTE | 2019-12-17 15:08 | PATHOLOGY ---
Note [facility] Accession Number: [id number] TESTS RESULT FLAG UNITS REF RANGE LAB Clinician Provided Cytology Information No. of containers..01 Other (Miscellaneous) Source: 01 ASCITES DIAGNOSIS: 02 ASCITES NEGATIVE FOR MALIGNANT CELLS. REACTIVE MESOTHELIAL CELLS PRESENT WITHIN A BACKGROUND OF LYMPHOCYTES AND NEUTROPHILS. THIS INTERPRETATION INCLUDES EVALUATION OF A CELL BLOCK. Signed out by: 02 Andrea Gerardo MD, Pathologist NPI- [id number] Performed by: Katrin Sagastume, Quiller Operator ([facility]) Gross description: 01 30ML, PALE YELLOW, 1 TP 1 CB /LCS 12/16/20191911 Local FLAG LEGEND: L-Low Normal,H-High Normal,LL-Alert Low,HH-Alert High <-Panic Low,>-Panic High,A-Abnormal,AA-Critical Abnormal Performed at: [address] [place] [address] Hardy Malcolm MD, 02 [facility] [address] [place] [address] Andrea Gerardo MD, Specimen Comment: A courtesy copy of this report has been sent to [phone] Specimen Comment: Report sent to Specimen Comment: A duplicate report has been generated due to demographic updates. Performed at: [address], [place], [place] [id number] MD Hardy Malcolm MD Phone: [phone]
--- NOTE | 2019-12-17 16:46 | PDOC ---
Provider Note Provider Note NEUROSURGERY Patient seen and examined at 1430 consulted for SDH neuro intact CT with bilateral chronic SD fluid collections with evidence of hemorrhage over left convexity in subdural space, stable on f/u CT scan will need f/u CT head in a week Justicifation of Admission Dx: Justifications for Admission: Justification of Admission Dx: Yes OTIS GRANDE CERTIFIED MEDICAL RECORDS CODER Dec 17, 2019 16:46
--- NOTE | 2019-12-17 16:51 | SNU/HH DC ---
DISCHARGE ORDERS DISCHARGE INFORMATION: DISCHARGE DATE: Dec 17, 2019 FINAL DIAGNOSIS Problems Medical Problems: (1) Abdominal pain Status: Acute (2) Ascites Status: Acute CONDITION ON DISCHARGE: Stable CODE STATUS: Code Status: Full POST DISCHARGE ORDERS: ACTIVITY ORDERS: Activity as tolerated WEIGHT BEARING STATUS: As tolerated DIET AFTER DISCHARGE: Low Sodium 2 gm WOUND/INCISION CARE: No wound care needed CHECKS AFTER DISCHARGE: CHECKS AFTER DISCHARGE: Check blood sugar, ac/hs FOLLOW-UP: ADDITIONAL FOLLOW-UP: Gastroenterology - Dr. Kyrie Ernandez LAB ORDERS FOR FOLLOW-UP: BMP weekly Additional Instructions: CT with bilateral chronic SD fluid collections with evidence of hemorrhage over left convexity in subdural space, stable on f/u CT scan will need f/u CT head in a week TREATMENT/EQUIPMENT ORDERS: ADAPTIVE EQUIPMENT NEEDED: None Physical Therapy For: Evalulation/Treatment Occupational Therapy For: Evaluation/Treatment DISCHARGE MEDICATIONS: Home Meds Active Scripts Furosemide (FUROSEMIDE) 20 Mg Tablet, 1 TAB PO DAILY for CIrrhosis for 90 Days, #90 TAB 1 Refill Prov:CAREN SAMPSON MD 12/17/19 Lactulose (LACTULOSE) 20 Gm/30 Ml Solution, 20 GM PO BID for Cirrhosis for 30 Days, #1200 MISC 2 Refills Prov:CAREN SAMPSON MD 12/17/19 Spironolactone (ALDACTONE) 25 Mg Tablet, 100 MG PO DAILY for CIrrhosis for 30 Days, #120 TAB 2 Refills Prov:CAREN SAMPSON MD 12/17/19 Lorazepam (ATIVAN) 0.5 Mg Tablet, 0.5 MG PO PRN BID PRN for ANXIETY for 6 Days, #12 TAB Prov:CAREN SAMPSON MD 12/17/19 Insulin Detemir (Levemir Flextouch) 300 Units/3 Ml Insuln.pen, 20 UNITS SQ QHS, #2 SYR 3 Refills Prov:HA EDWARDS MD 01/25/15 Reported Medications Citalopram Hydrobromide (CITALOPRAM HBR) 20 Mg Tablet, 1 TAB PO DAILY for anti- depression, #30 TAB 5 Refills 07/30/19 Aripiprazole (Aripiprazole) 1 Mg/1 Ml Solution, 15 ML PO DAILY for dementia for 30 Days, #150 ML 0 Refills 07/30/19 Pantoprazole Sodium (PANTOPRAZOLE SODIUM ) 40 Mg Tablet.dr, 40 MG PO DAILYAC for GERD, TAB 07/30/19 Tamsulosin Hcl (FLOMAX) 0.4 Mg Cap.er.24h, 2 CAP PO DAILY for BPH, #30 CAP 11 Refills 07/30/19 Buspirone Hcl (BUSPIRONE HCL) 10 Mg Tablet, 1 TAB PO BID for HTN, #60 TAB 1 Re fill 07/30/19 Oxycodone Hcl (OXYCODONE HCL IMMED.RELEASE ) 30 Mg Tablet, 30 MG PO HS PRN for PAIN, TAB 0 Refills 01/03/17 Oxycodone Hcl (OXYCODONE HCL IMMED.RELEASE) 15 Mg Tablet, 15 MG PO Q6HRS PRN for PAIN, TAB 0 Refills 01/03/17 Apremilast (Otezla) 30 Mg Tablet, 30 MG PO BID, TAB 01/03/17 Multivitamin (DAILY VALUE) 1 Each Tablet, 1 EACH PO DAILY, TAB 01/03/17 Insulin Aspart (NOVOLOG FLEXPEN) 100 Unit/1 Ml Insuln.pen, 0-7 UNIT SQ QID, SYR 01/03/17 Cranberry Fruit Concentrate (CRANBERRY) 450 Mg Capsule, 450 MG PO DAILY, CAP 01/03/17 Carvedilol (CARVEDILOL ) 6.25 Mg Tablet, 6.25 MG PO BIDWMEALS, TAB 01/03/17 Gabapentin (GABAPENTIN) 600 Mg Tablet, 300 MG PO TID, CAP 05/16/14 Trazodone Hcl (TRAZODONE HCL) 100 Mg Tablet, 300 MG PO HS, TAB 05/16/14 Metformin Hcl (METFORMIN HCL) 1,000 Mg Tablet, 1000 MG PO BID, TAB 0 Refills 01/29/14 Discontinued Reported Medications Duloxetine Hcl (DULOXETINE HCL) 60 Mg Capsule.dr, 60 MG PO DAILY for depression, CAP 07/30/19 Ranitidine Hcl (ZANTAC) 150 Mg Tablet, 150 MG PO HS, TAB 01/03/17 Potassium Chloride (POTASSIUM CHLORIDE ) 20 Meq Tablet.er, 20 MEQ PO DAILY, TAB.SR 01/03/17 Lisinopril (LISINOPRIL) 40 Mg Tablet, 40 MG PO DAILY for FOR HYPERTENSION, #30 TAB 0 Refills 01/03/17 Escitalopram Oxalate (LEXAPRO) 20 Mg Tablet, 20 MG PO DAILY for ANTI-DEPRESSANT, TAB 0 Refills 01/03/17 Hydrochlorothiazide (HYDROCHLOROTHIAZIDE TABLET ) 25 Mg Tablet, 25 MG PO DAILY for DIURETIC, TAB 0 Refills 01/03/17 Griseofulvin,Microsize (GRISEOFULVIN) 500 Mg Tablet, 500 MG PO BID, TAB 01/03/17 Diphenhydramine Hcl (BENADRYL) 25 Mg Capsule, 25 MG PO Q6HRS PRN for ITCHING, CAP 01/03/17 Amitriptyline Hcl (AMITRIPTYLINE HCL) 150 Mg Tablet, 150 MG PO HS, TAB 05/16/14 Baclofen (BACLOFEN) 20 Mg Tablet, 30 MG PO HS for MUSCLE RELAXER, #30 TAB 0 Refills 05/16/14 CAREN SAMPSON MD Dec 17, 2019 16:51
--- NOTE | 2019-12-17 16:56 | PDOC3 ---
Discharge Summary Visit Information Date of Admission: Dec 16, 2019 Date of Discharge: Dec 17, 2019 Admitting Diagnosis: Abdominal ascites Final Diagnosis Problems Medical Problems: (1) Abdominal pain Status: Acute (2) Ascites Status: Acute Brief Hospital Course Allergies Allergies Coded Allergies Type Severity Reaction Last Updated Verified povidone-iodine Allergy Intermediate Rash 01/23/15 Yes pregabalin Allergy Intermediate bullae 01/24/15 Yes Vital Signs Vital Signs Date Time Temp Pulse Resp B/P (MAP) Pulse Ox O2 Delivery O2 Flow Rate FiO2 12/17/19 15:00 97.8 64 18 145/62 (89) 96 Room Air 97.8 Lab Results Laboratory Tests Test 12/15/19 17:25 12/15/19 17:32 12/15/19 21:37 12/16/19 05:22 White Blood Count 3.7 x10^3/uL (4.0-11.0) 3.8 x10^3/uL (4.0-11.0) Red Blood Count 3.95 x10^6/uL (4.30-5.70) 3.54 x10^6/uL (4.30-5.70) Hemoglobin 11.9 g/dL (13.0-17.5) 10.8 g/dL (13.0-17.5) Hematocrit 35.8 % (39.0-53.0) 32.3 % (39.0-53.0) Mean Corpuscular Volume 91 fL (79-100) 91 fL (79-100) Mean Corpuscular Hemoglobin 30 pg (25-35) 30 pg (25-35) Mean Corpuscular Hemoglobin Concent 33 g/dL (31-37) 33 g/dL (31-37) Red Cell Distribution Width 16.2 % (11.5-14.5) 16.0 % (11.5-14.5) Platelet Count 78 x10^3/uL (140-400) 73 x10^3/uL (140-400) Neutrophils (%) (Auto) 73 % (31-73) 61 % (31-73) Lymphocytes (%) (Auto) 16 % (24-48) 25 % (24-48) Monocytes (%) (Auto) 6 % (0-9) 8 % (0-9) Eosinophils (%) (Auto) 4 % (0-3) 5 % (0-3) Basophils (%) (Auto) 1 % (0-3) 1 % (0-3) Neutrophils # (Auto) 2.7 x10^3/uL (1.8-7.7) 2.3 x10^3/uL (1.8-7.7) Lymphocytes # (Auto) 0.6 x10^3/uL (1.0-4.8) 0.9 x10^3/uL (1.0-4.8) Monocytes # (Auto) 0.2 x10^3/uL (0.0-1.1) 0.3 x10^3/uL (0.0-1.1) Eosinophils # (Auto) 0.2 x10^3/uL (0.0-0.7) 0.2 x10^3/uL (0.0-0.7) Basophils # (Auto) 0.0 x10^3/uL (0.0-0.2) 0.0 x10^3/uL (0.0-0.2) Prothrombin Time 14.8 SEC (11.7-14.0) Prothromb Time International Ratio 1.2 (0.8-1.1) Activated Partial Thromboplast Time 28 SEC (24-38) Sodium Level 144 mmol/L (136-145) 144 mmol/L (136-145) Potassium Level 3.5 mmol/L (3.5-5.1) 3.2 mmol/L (3.5-5.1) Chloride Level 107 mmol/L (98-107) 110 mmol/L (98-107) Carbon Dioxide Level 25 mmol/L (21-32) 28 mmol/L (21-32) Anion Gap 12 (6-14) 6 (6-14) Blood Urea Nitrogen 12 mg/dL (8-26) 9 mg/dL (8-26) Creatinine 1.0 mg/dL (0.7-1.3) 0.8 mg/dL (0.7-1.3) Estimated GFR (Cockcroft-Gault) 77.3 100.0 BUN/Creatinine Ratio 12 (6-20) 11 (6-20) Glucose Level 241 mg/dL (70-99) 167 mg/dL (70-99) Calcium Level 8.4 mg/dL (8.5-10.1) 8.1 mg/dL (8.5-10.1) Magnesium Level 1.4 mg/dL (1.8-2.4) 2.0 mg/dL (1.8-2.4) Total Bilirubin 0.7 mg/dL (0.2-1.0) 0.7 mg/dL (0.2-1.0) Aspartate Amino Transf (AST/SGOT) 43 U/L (15-37) 37 U/L (15-37) Alanine Aminotransferase (ALT/SGPT) 36 U/L (16-63) 32 U/L (16-63) Alkaline Phosphatase 152 U/L (46-116) 123 U/L (46-116) Ammonia 50 mcmol/L (11-34) Total Protein 6.4 g/dL (6.4-8.2) 5.7 g/dL (6.4-8.2) Albumin 2.7 g/dL (3.4-5.0) 2.4 g/dL (3.4-5.0) Albumin/Globulin Ratio 0.7 (1.0-1.7) 0.7 (1.0-1.7) Lipase 109 U/L (73-393) Hepatitis A IgM Antibody Nonreactive (Nonreactive) Hepatitis B Surface Antigen Nonreactive (Nonreactive) Hepatitis B Core IgM Antibody Nonreactive (Nonreactive) Hepatitis C IgG Antibody Nonreactive (Nonreactive) Urine Collection Type Unknown Urine Color Zenia Urine Clarity Clear Urine pH 5.5 (<5.0-8.0) Urine Specific Sterling >=1.030 (1.000-1.030) Urine Protein 30 mg/dL (NEG-TRACE) Urine Glucose (UA) 100 mg/dL (NEG) Urine Ketones (Stick) Trace mg/dL (NEG) Urine Blood Negative (NEG) Urine Nitrite Negative (NEG) Urine Bilirubin Small (NEG) Urine Urobilinogen Dipstick 0.2 mg/dL (0.2 mg/dL) Urine Leukocyte Esterase Negative (NEG) Urine RBC Occ /HPF (0-2) Urine WBC 1-4 /HPF (0-4) Urine Squamous Epithelial Cells Few /LPF Urine Bacteria Few /HPF (0-FEW) Urine Mucus Marked /LPF Glucose (Fingerstick) 170 mg/dL (70-99) Iron Level 40 ug/dL (65-175) Total Iron Binding Capacity 279 ug/dL (250-450) Iron Saturation 14 % (15-34) Vitamin B12 Level 469 pg/mL (247-911) Test 12/16/19 07:10 12/16/19 11:07 12/16/19 13:50 12/16/19 16:27 Glucose (Fingerstick) 146 mg/dL (70-99) 141 mg/dL (70-99) 144 mg/dL (70-99) Body Fluid Source Ascites Body Fluid Color Yellow Body Fluid Clarity Clear Body Fluid Nucleated Cells 123 /cmm (Not Established) Body Fluid Mononuclear WBCs (%) 81 % Body Fluid Polymorphonuclear Cells 14 % Body Fluid Total RBCs Counted 513 /cmm (Not Established) Body Fluid Other Cells (%) 6 % Body Fluid Glucose 165 mg/dL (.) Body Fluid Total Protein 0.9 g/dL (.) Body Fluid Lactate Dehydrogenase 44 IU/L (.) Body Fluid Amylase 8 U/L (.) Test 12/16/19 21:22 12/17/19 05:12 12/17/19 07:46 12/17/19 11:17 Glucose (Fingerstick) 141 mg/dL (70-99) 112 mg/dL (70-99) 167 mg/dL (70-99) Sodium Level 143 mmol/L (136-145) Potassium Level 3.8 mmol/L (3.5-5.1) Chloride Level 109 mmol/L (98-107) Carbon Dioxide Level 28 mmol/L (21-32) Anion Gap 6 (6-14) Blood Urea Nitrogen 8 mg/dL (8-26) Creatinine 0.9 mg/dL (0.7-1.3) Estimated GFR (Cockcroft-Gault) 87.3 Glucose Level 121 mg/dL (70-99) Calcium Level 8.0 mg/dL (8.5-10.1) Kbdsb-1-Sylcxuiwlfd 122 mg/dL (101-187) Laboratory Tests Test 12/16/19 21:22 12/17/19 05:12 12/17/19 07:46 12/17/19 11:17 Glucose (Fingerstick) 141 mg/dL (70-99) 112 mg/dL (70-99) 167 mg/dL (70-99) Sodium Level 143 mmol/L (136-145) Potassium Level 3.8 mmol/L (3.5-5.1) Chloride Level 109 mmol/L (98-107) Carbon Dioxide Level 28 mmol/L (21-32) Anion Gap 6 (6-14) Blood Urea Nitrogen 8 mg/dL (8-26) Creatinine 0.9 mg/dL (0.7-1.3) Estimated GFR (Cockcroft-Gault) 87.3 Glucose Level 121 mg/dL (70-99) Calcium Level 8.0 mg/dL (8.5-10.1) Abgra-4-Hxlpuncoeyo 122 mg/dL (101-187) Brief Hospital Course Mr Bridges is a 54yo M w/ PMHx HTN, LNIO, GERD, DM, RA, psoriasis, fibromyalgia, subdural hematoma (09/2019), nephrolithiasis, thrombocytopenia sent to ED from [facility] for 3-4 weeks of increasing abdominal distention and discomfort. Found on CT with ascites, cirrhosis, and splenomegaly. Previously had negative Hepatitis markers @ [facility]. KRISTIE negative, hepatitis viral panel negative, normal alpha 1 antitrypsin levels. No MDS per bone marrow biopsy report. S/p 11L paracentesis with some relief. He is not short of breath. Seen by Heme/onc, GI, neurosurgery. He has some memory issues, no headaches. Seen by [facility], to have repeat CT head in a week. Started on lactulose BID, aldactone, lasix. Consults: GI, Heme/onc, Neurosurgery Moderate ascites. Cirrhosis of the liver - LOCKHART with remote h/o alcohol abuse Splenomegaly likely secondary to portal hypertension. MORBID OBESITY Chronic bilateral subdural hematomas, Interval apparent coil embolization. SEVERE ALCOHOL ABUSE HX - not drinking anymore Noncompliance normocytic anemia transaminitis CHRONIC THROMBOCYTOPENIA ELEVATED AMMONIA, SERUM Leukopenia Greater than 30 minutes spent on d/c to SNF Discharge Information Condition at Discharge: Improved Follow Up: Weeks (1) Disposition/Orders: D/C to Another Facility Scheduled Apremilast (Otezla) 30 Mg Tablet, 30 MG PO BID, (Reported) Entered as Reported by: MIS SIMMONS on 01/03/17 3909 Aripiprazole (Aripiprazole) 1 Mg/1 Ml Solution, 15 ML PO DAILY for dementia for 30 Days, #150 Ref 0 (Reported) Entered as Reported by: NOHELIA GILLILAND RN on 07/30/191953 Buspirone Hcl (Buspirone Hcl) 10 Mg Tablet, 1 TAB PO BID for HTN, #60 Ref 1 (Reported) Entered as Reported by: NOHELIA GILLILAND RN on 07/30/191946 Last Action: Continued on 12/15/192107 by CAREN SAMPSON MD Carvedilol (Carvedilol ) 6.25 Mg Tablet, 6.25 MG PO BIDWMEALS, (Reported) Entered as Reported by: MIS SIMMONS on 01/03/17730 Last Action: Continued on 12/15/192107 by CAREN SAMPSON MD Citalopram Hydrobromide (Citalopram Hbr) 20 Mg Tablet, 1 TAB PO DAILY for anti- depression, #30 Ref 5 (Reported) Entered as Reported by: NOHELIA GILLILAND RN on 07/30/191953 Last Action: Continued on 12/15/192107 by CAREN SAMPSON MD Cranberry Fruit Concentrate (Cranberry) 450 Mg Capsule, 450 MG PO DAILY, (Reported) Entered as Reported by: MIS SIMMONS on 01/03/17730 Furosemide (Furosemide) 20 Mg Tablet, 1 TAB PO DAILY for CIrrhosis for 90 Days, #90 Ref 1 Prescribed by: CAREN SAMPSON MD on 12/17/19 1335 Gabapentin (Gabapentin) 600 Mg Tablet, 300 MG PO TID, (Reported) Entered as Reported by: SEAN AN on 05/16/14 0939 Insulin Aspart (Novolog Flexpen) 100 Unit/1 Ml Insuln.pen, 0-7 UNIT SQ QID, (Reported) Entered as Reported by: MIS SIMMONS on 01/03/17730 Insulin Detemir (Levemir Flextouch) 300 Units/3 Ml Insuln.pen, 20 UNITS SQ QHS, #2 Ref 3 Prescribed by: HA EDWARDS on 01/25/15 1329 Last Action: Converted on 12/15/192107 by CAREN SAMPSON MD Lactulose (Lactulose) 20 Gm/30 Ml Solution, 20 GM PO BID for Cirrhosis for 30 Days, #1200 Ref 2 Prescribed by: CAREN SAMPSON MD on 12/17/19 1335 Metformin Hcl (Metformin Hcl) 1,000 Mg Tablet, 1,000 MG PO BID, Ref 0 (Reported) Entered as Reported by: DAYLIN COLE on 01/29/14 0105 Multivitamin (Daily Value) 1 Each Tablet, 1 EACH PO DAILY, (Reported) Entered as Reported by: MIS SIMMONS on 01/03/17 0731 Pantoprazole Sodium (Pantoprazole Sodium ) 40 Mg Tablet.dr, 40 MG PO DAILYAC for GERD, (Reported) Entered as Reported by: NOHELIA GILLILAND RN on 07/30/191953 Last Action: Continued on 12/15/192107 by CAREN SAMPSON MD Spironolactone (Aldactone) 25 Mg Tablet, 100 MG PO DAILY for CIrrhosis for 30 Days, #120 Ref 2 Prescribed by: CAREN SAMPSON MD on 12/17/19 1335 Tamsulosin Hcl (Flomax) 0.4 Mg Cap.er.24h, 2 CAP PO DAILY for BPH, #30 Ref 11 (Reported) Entered as Reported by: NOHELIA GILLILAND RN on 07/30/191953 Last Action: Continued on 12/15/192107 by CAREN SAMPSON MD Trazodone Hcl (Trazodone Hcl) 100 Mg Tablet, 300 MG PO HS, (Reported) Entered as Reported by: SEAN AN on 05/16/14 0938 Last Action: Continued on 12/15/192107 by CAREN SAMPSON MD Scheduled PRN Lorazepam (Ativan) 0.5 Mg Tablet, 0.5 MG PO PRN BID PRN for ANXIETY for 6 Days, #12 Prescribed by: CAREN SAMPSON MD on 12/17/19 1335 Oxycodone Hcl (Oxycodone Hcl Immed.release) 15 Mg Tablet, 15 MG PO Q6HRS PRN for PAIN, Ref 0 (Reported) Entered as Reported by: MIS SIMMONS on 01/03/17 0731 Oxycodone Hcl (Oxycodone Hcl Immed.release ) 30 Mg Tablet, 30 MG PO HS PRN for PAIN, Ref 0 (Reported) Entered as Reported by: MIS SIMMONS on 01/03/17730 Discontinued Medications Amitriptyline Hcl (Amitriptyline Hcl) 150 Mg Tablet, 150 MG PO HS, (Reported) Entered as Reported by: SEAN AN on 05/16/14942 Baclofen (Baclofen) 20 Mg Tablet, 30 MG PO HS for MUSCLE RELAXER, #30 Ref 0 (Reported) Entered as Reported by: SEAN AN on 05/16/14940 Diphenhydramine Hcl (Benadryl) 25 Mg Capsule, 25 MG PO Q6HRS PRN for ITCHING, (Reported) Entered as Reported by: MIS SIMMONS on 01/03/17730 Duloxetine Hcl (Duloxetine Hcl) 60 Mg Capsule.dr, 60 MG PO DAILY for depression, (Reported) Entered as Reported by: NOHELIA GILLILAND RN on 07/30/191953 Escitalopram Oxalate (Lexapro) 20 Mg Tablet, 20 MG PO DAILY for ANTI-DEPRESSANT, Ref 0 (Reported) Entered as Reported by: MIS SIMMONS on 01/03/17730 Griseofulvin,Microsize (Griseofulvin) 500 Mg Tablet, 500 MG PO BID, (Reported) Entered as Reported by: MIS SIMMONS on 01/03/17730 Hydrochlorothiazide (Hydrochlorothiazide Tablet ) 25 Mg Tablet, 25 MG PO DAILY for DIURETIC, Ref 0 (Reported) Entered as Reported by: MIS SIMMONS on 01/03/17730 Lisinopril (Lisinopril) 40 Mg Tablet, 40 MG PO DAILY for FOR HYPERTENSION, #30 Ref 0 (Reported) Entered as Reported by: MIS SIMMONS on 01/03/17730 Potassium Chloride (Potassium Chloride ) 20 Meq Tablet.er, 20 MEQ PO DAILY, (Reported) Entered as Reported by: MIS SIMMONS on 01/03/17730 Ranitidine Hcl (Zantac) 150 Mg Tablet, 150 MG PO HS, (Reported) Entered as Reported by: MIS SIMMONS on 01/03/17730 Justicifation of Admission Dx: Justifications for Admission: Justification of Admission Dx: Yes CAREN SAMPSON MD Dec 17, 2019 16:56
--- NOTE | 2019-12-17 17:44 | NUR ---
DERRELL contacted by [facility] stating there are discharge orders on this patient. DERRELL phoned and faxed them to [facility], , [phone] (fax). DERRELL spoke with RN at the facility and they don't have anyone to take this patient back tonight. SW to follow up tomorrow, 12/18/2019.
[2019-12-17 19:31] VITALS: BP 126/64
[2019-12-17] MEDS: INSULIN GLARGINE SYRINGE. SQ SCH (21:36)
[2019-12-17] MEDS: traZODone 100 MG TABLET. PO SCH (21:40)
[2019-12-17 23:11] VITALS: BP 126/68
[2019-12-18 02:42] VITALS: BP 138/66
[2019-12-18] MEDS: INSULIN LISPRO 300 UNITS/3 ML VIAL. SQ SCH (07:30)
[2019-12-18 07:59] VITALS: BP 123/69
[2019-12-18] MEDS: SPIRONOLACTONE 25 MG TABLET PO SCH (08:22)
[2019-12-18] MEDS: CITALOPRAM 20 MG TABLET. PO SCH (08:23)
[2019-12-18] MEDS: CARVEDILOL 6.25 MG TABLET. PO SCH (08:23)
[2019-12-18] MEDS: PANTOPRAZOLE 40 MG TABLET.DR. PO SCH (08:23)
[2019-12-18] MEDS: TAMSULOSIN 0.4 MG CAP.ER.24H. PO SCH (08:24)
[2019-12-18] MEDS: busPIRone 10 MG TABLET. PO SCH (08:24)
[2019-12-18] MEDS: LACTULOSE 20 GM/30 ML SOLUTION. PO SCH (08:24)
--- NOTE | 2019-12-18 09:21 | PDOC ---
PROGRESS NOTES Chief Complaint Chief Complaint A/P: Moderate ascites. Cirrhosis of the liver - LOCKH[place] with remote h/o alcohol abuse Splenomegaly likely secondary to portal hypertension. MORBID OBESITY Chronic bilateral subdural hematomas, Interval apparent coil embolization. SEVERE ALCOHOL ABUSE HX - not drinking anymore Noncompliance normocytic anemia transaminitis CHRONIC THROMBOCYTOPENIA ELEVATED AMMONIA, SERUM Leukopenia History of Present Illness History of Present Illness Mr Bridges is a 54yo M w/ PMHx HTN, LINO, GERD, DM, RA, psoriasis, fibromyalgia, s ubdural hematoma (09/2019), nephrolithiasis, thrombocytopenia sent to ED from [facility] for 3-4 weeks of increasing abdominal distention and discomfort. Found on CT with ascites, cirrhosis, and splenomegaly. Previously had negative Hepatitis markers @ [facility]. KRISTIE negative, No MDS per bone marrow biopsy report. s/p 11L paracentesis with some relief. He is not short of breath. Seen by Heme/onc, GI, neurosurgery. He has some memory issues, no headaches Labs stable. Afebrile. Has some abdominal and bilateral rib pain today, asking for something stronger than tylenol. No SOB or CP. Discharge was delayed due to lack of isolation beds at his SNF, where an isolation policy for [address] Vitals Vitals Vital Signs Date Time Temp Pulse Resp B/P (MAP) Pulse Ox O2 Delivery O2 Flow Rate FiO2 12/18/19 08:23 72 123/69 12/18/19 07:59 97.9 17 96 Room Air 97.9 Physical Exam General: Alert, Oriented X3 Heart: Regular rate Lungs: Clear Abdomen: Normal bowel sounds, Soft Extremities: No clubbing Skin: No rashes Labs LABS Laboratory Tests Test 12/17/19 11:17 12/17/19 16:20 12/17/19 20:23 12/18/19 07:51 Glucose (Fingerstick) 167 mg/dL (70-99) 156 mg/dL (70-99) 182 mg/dL (70-99) 129 mg/dL (70-99) Assessment and Plan Assessmemt and Plan Problems Medical Problems: (1) Abdominal pain Status: Acute (2) Ascites Status: Acute Comment Review of Relevant I have reviewed the following items miguel (where applicable) has been applied. Labs Laboratory Tests Test 12/16/19 11:07 7/21/20 13:50 12/16/19 16:27 12/16/19 21:22 Glucose (Fingerstick) 141 mg/dL (70-99) 144 mg/dL (70-99) 141 mg/dL (70-99) Body Fluid Source Ascites Body Fluid Color Yellow Body Fluid Clarity Clear Body Fluid Nucleated Cells 123 /cmm (Not Established) Body Fluid Mononuclear WBCs (%) 81 % Body Fluid Polymorphonuclear Cells 14 % Body Fluid Total RBCs Counted 513 /cmm (Not Established) Body Fluid Other Cells (%) 6 % Body Fluid Glucose 165 mg/dL (.) Body Fluid Total Protein 0.9 g/dL (.) Body Fluid Lactate Dehydrogenase 44 IU/L (.) Body Fluid Amylase 8 U/L (.) Test 12/17/19 05:12 12/17/19 07:46 12/17/19 11:17 12/17/19 16:20 Sodium Level 143 mmol/L (136-145) Potassium Level 3.8 mmol/L (3.5-5.1) Chloride Level 109 mmol/L (98-107) Carbon Dioxide Level 28 mmol/L (21-32) Anion Gap 6 (6-14) Blood Urea Nitrogen 8 mg/dL (8-26) Creatinine 0.9 mg/dL (0.7-1.3) Estimated GFR (Cockcroft-Gault) 87.3 Glucose Level 121 mg/dL (70-99) Calcium Level 8.0 mg/dL (8.5-10.1) Bouyz-5-Svahrgmsrzv 122 mg/dL (101-187) Glucose (Fingerstick) 112 mg/dL (70-99) 167 mg/dL (70-99) 156 mg/dL (70-99) Test 12/17/19 20:23 12/18/19 07:51 Glucose (Fingerstick) 182 mg/dL (70-99) 129 mg/dL (70-99) Laboratory Tests Test 12/17/19 11:17 12/17/19 16:20 12/17/19 20:23 12/18/19 07:51 Glucose (Fingerstick) 167 mg/dL (70-99) 156 mg/dL (70-99) 182 mg/dL (70-99) 129 mg/dL (70-99) Microbiology 12/16/19 Gram Stain - Final, Resulted 12/16/19 Aerobic and Anaerobic Culture, Resulted Pending Medications Current Medications Fentanyl Citrate (Fentanyl 2ml Vial) 50 mcg 1X ONCE IV Last administered on 12/15/19 17:42; Start 12/15/19 at 16:45; Stop 12/15/19 at 16:46; Status DC Ondansetron HCl (Zofran) 4 mg 1X ONCE IV Last administered on 12/15/19at 17:37; Start 12/15/19 at 16:45; Stop 12/15/19 at 16:46; Status DC Dextrose/Sodium Chloride 1,000 ml @ 75 mls/hr 1X ONCE IV Last administered on 12/15/19at 19:39; Start 12/15/19 at 19:00; Stop 12/16/19 at 08:19; Status DC Morphine Sulfate (Morphine Sulfate) 4 mg 1X ONCE IV Last administered on 12/15/19at 21:42; Start 12/15/19 at 21:30; Stop 12/15/19 at 21:31; Status DC Ondansetron HCl (Zofran) 4 mg PRN Q4HRS PRN IV NAUSEA/VOMITING; Start 12/15/19 at 21:15 Acetaminophen (Tylenol) 650 mg PRN Q4HRS PRN PO TEMP OVER 100.4F OR MILD PAIN Last administered on 12/17/19at 21:32; Start 12/15/19 at 21:15 Docusate Sodium (Colace) 100 mg PRN BID PRN PO HARD STOOLS; Start 12/15/19 at 21:15 Lorazepam (Ativan) 0.5 mg PRN Q4HRS PRN PO ANXIETY / AGITATION Last administered on 12/17/19at 21:32; Start 12/15/19 at 21:15 Heparin Sodium (Porcine) (Heparin Sodium) 5,000 unit Q8HRS SQ Last administered on 12/16/19at 05:36; Start 12/15/19 at 22:00; Stop 12/16/19 at 12:59; Status DC Insulin Human Lispro (HumaLOG) 0-9 UNITS TIDACHC SQ Last administered on 12/17/19at 21:38; Start 12/16/19 at 07:30 Dextrose (Dextrose 50%-Water Syringe) 12.5 gm PRN Q15MIN PRN IV SEE COMMENTS; Start 12/15/19 at 21:15 Buspirone HCl (Buspar) 10 mg BID PO Last administered on 12/18/19 08:24; Start 12/15/19 at 21:00 Carvedilol (Coreg) 6.25 mg BIDWMEALS PO Last administered on 12/18/19 08:23; Start 12/16/19 at 08:00 Citalopram Hydrobromide (CeleXA) 20 mg DAILY PO Last administered on 12/18/19at 08:23; Start 12/16/19 at 09:00 Pantoprazole Sodium (Protonix) 40 mg DAILYAC PO Last administered on 12/18/19 08:23; Start 12/16/19 at 07:30 Tamsulosin HCl (Flomax) 0.8 mg DAILY PO Last administered on 12/18/19 08:24; Start 12/16/19 at 09:00 Trazodone HCl (Desyrel) 300 mg HS PO Last administered on 12/17/19at 21:40; Sta rt 12/16/19 at 21:00 Insulin Glargine (Lantus Syringe) 20 unit QHS SQ Last administered on 12/17/19at 21:36; Start 12/15/19 at 21:00 Magnesium Sulfate 100 ml @ 25 mls/hr 1X ONCE IV Last administered on 12/15/19at 21:44; Start 12/15/19 at 22:00; Stop 12/16/19 at 01:59; Status DC Morphine Sulfate (Morphine Sulfate) 2 mg PRN Q3HRS PRN IV SEVERE PAIN 7-10 Last administered on 12/17/19at 09:38; Start 12/15/19 at 23:30 Potassium Chloride (Klor-Con) 40 meq 1X ONCE PO Last administered on 12/16/19at 12:04; Start 12/16/19 at 11:15; Stop 12/16/19 at 11:19; Status DC Potassium Chloride (Klor-Con) 20 meq DAILYWBKFT PO ; Start 12/17/19 at 08:00; Stop 12/16/19 at 12:00; Status DC Lactulose (Lactulose) 20 gm BID PO Last administered on 12/17/19at 21:32; Start 12/16/19 at 21:00 Spironolactone (Aldactone) 100 mg DAILY PO Last administered on 12/18/19at 08:22; Start 12/16/19 at 12:30 Albuterol/ Ipratropium (Duoneb) 3 ml RTQID NEB Last administered on 12/17/19at 07:23; Start 12/16/19 at 16:00; Stop 12/17/19 at 11:42; Status DC Lidocaine HCl (Buffered Lidocaine 1%) 3 ml STK-MED ONCE .ROUTE ; Start 12/16/19 at 13:31; Stop 12/16/19 at 13:31; Status DC Lidocaine HCl (Buffered Lidocaine 1%) 3 ml 1X ONCE IJ Last administered on 12/16/19at 13:51; Start 12/16/19 at 13:45; Stop 12/16/19 at 13:46; Status DC Albumin Human 100 ml @ 100 mls/hr 1X ONCE IV Last administered on 12/16/19at 14:15; Start 12/16/19 at 14:15; Stop 12/16/19 at 15:14; Status DC Albumin Human 100 ml @ As Directed STK-MED ONCE IV ; Start 12/16/19 at 14:14; Stop 12/16/19 at 14:14; Status DC Albumin Human 100 ml @ 100 mls/hr 1X ONCE IV Last administered on 12/16/19at 14:30; Start 12/16/19 at 14:30; Stop 12/16/19 at 15:29; Status DC Albumin Human 100 ml @ As Directed STK-MED ONCE IV ; Start 12/16/19 at 14:33; Stop 12/16/19 at 14:33; Status DC Albumin Human 100 ml @ 100 mls/hr 1X ONCE IV Last administered on 12/16/19at 15:58; Start 12/16/19 at 14:45; Stop 12/16/19 at 15:44; Status DC Albuterol Sulfate (Ventolin Neb Soln) 2.5 mg PRN Q4HRS PRN NEB SHORTNESS OF BREATH; Start 12/17/19 at 11:45 Active Scripts Active Furosemide 20 Mg Tablet 1 Tab PO DAILY 90 Days Lactulose 20 Gm/30 Ml Solution 20 Gm PO BID 30 Days Aldactone (Spironolactone) 25 Mg Tablet 100 Mg PO DAILY 30 Days Ativan (Lorazepam) 0.5 Mg Tablet 0.5 Mg PO PRN BID PRN 6 Days Levemir Flextouch (Insulin Detemir) 300 Units/3 Ml Insuln.pen 20 Units SQ QHS Reported Duloxetine Hcl 60 Mg Capsule.dr 60 Mg PO DAILY Citalopram Hbr (Citalopram Hydrobromide) 20 Mg Tablet 1 Tab PO DAILY Aripiprazole 1 Mg/1 Ml Solution 15 Ml PO DAILY 30 Days Pantoprazole Sodium (Pantoprazole Sodium) 40 Mg Tablet.dr 40 Mg PO DAILYAC Flomax (Tamsulosin Hcl) 0.4 Mg Cap.er.24h 2 Cap PO DAILY Buspirone Hcl 10 Mg Tablet 1 Tab PO BID Oxycodone Hcl Immed.release (Oxycodone Hcl) 30 Mg Tablet 30 Mg PO HS PRN Oxycodone Hcl Immed.release (Oxycodone Hcl) 15 Mg Tablet 15 Mg PO Q6HRS PRN Otezla (Apremilast) 30 Mg Tablet 30 Mg PO BID Daily Value (Multivitamin) 1 Each Tablet 1 Each PO DAILY Novolog Flexpen (Insulin Aspart) 100 Unit/1 Ml Insuln.pen 0-7 Unit SQ QID Cranberry (Cranberry Fruit Concentrate) 450 Mg Capsule 450 Mg PO DAILY Carvedilol (Carvedilol) 6.25 Mg Tablet 6.25 Mg PO BIDWMEALS Gabapentin 600 Mg Tablet 300 Mg PO TID Trazodone Hcl 100 Mg Tablet 300 Mg PO HS Metformin Hcl 1,000 Mg Tablet 1,000 Mg PO BID Vitals/I & O Vital Sign - Last 24 Hours 12/17/19 12/17/19 12/17/19 12/17/19 09:37 10:52 15:00 18:08 Temp 97.8 97.8 97.8 97.8 Pulse 66 68 64 64 Resp 18 18 B/P (MAP) 152/67 148/64 (92) 145/62 (89) 145/62 Pulse Ox 96 96 O2 Delivery Room Air Room Air 12/17/19 12/17/19 12/17/19 12/18/19 19:31 20:00 23:11 02:42 Temp 98.8 98.1 97.6 98.8 98.1 97.6 Pulse 73 91 67 Resp 18 16 17 B/P (MAP) 126/64 (84) 126/68 (87) 138/66 (90) Pulse Ox 95 95 97 O2 Delivery Room Air Room Air Room Air Room Air 12/18/19 12/18/19 07:59 08:23 Temp 97.9 97.9 Pulse 72 72 Resp 17 B/P (MAP) 123/69 (87) 123/69 Pulse Ox 96 O2 Delivery Room Air Intake and Output 12/17/19 12/17/19 12/18/19 15:00 23:00 07:00 Intake Total 700 ml 300 ml 390 ml Output Total 300 ml 300 ml Balance 400 ml 0 ml 390 ml Justicifation of Admission Dx: Justifications for Admission: Justification of Admission Dx: Yes CAREN SAMPSON MD Dec 18, 2019 09:21
--- NOTE | 2019-12-18 09:43 | NUR ---
DERRELL following. Discussed with RN. DERRELL spoke with [facility], awaiting transportation time for discharge. DERRELL will continue to follow. Addendum: 12/18/19 at 1134 by TATIANA DOVE Transportation arranged for 1130 by [facility]. RN notified.
[2019-12-18 10:41] LABS: ALBUMIN 2.5 g/dL (3.4-5.0); ALBUMIN/GLOBULIN RATIO 0.9 (1.0-1.7); CALCIUM 7.7 mg/dL (8.5-10.1); CREATININE 0.9 mg/dL (0.7-1.3); GFR 87.3; POTASSIUM 3.6 mmol/L (3.5-5.1); TOTAL BILIRUBIN 0.7 mg/dL (0.2-1.0); TOTAL PROTEIN 5.4 g/dL (6.4-8.2)
[2019-12-18 11:22] VITALS: BP 127/65
[2019-12-18] MEDS ORDERED: traMADol 50 MG TABLET PO PRN (11:30)
--- NOTE | 2019-12-18 11:47 | PDOC ---
Subjective: Subjective: Just waiting to leave. Objective: Objective: D/w Dr. Beatty. Vital Signs: Vital Signs Date Time Temp Pulse Resp B/P (MAP) Pulse Ox O2 Delivery O2 Flow Rate FiO2 12/18/19 11:22 98.2 68 17 127/65 (85) 95 Room Air 98.2 Labs: Laboratory Tests Test 12/17/19 16:20 12/17/19 20:23 12/18/19 07:51 12/18/19 10:10 Glucose (Fingerstick) 156 mg/dL 182 mg/dL 129 mg/dL Sodium Level 143 mmol/L Potassium Level 3.6 mmol/L Chloride Level 108 mmol/L Carbon Dioxide Level 28 mmol/L Anion Gap 7 Blood Urea Nitrogen 9 mg/dL Creatinine 0.9 mg/dL Estimated GFR (Cockcroft-Gault) 87.3 BUN/Creatinine Ratio 10 Glucose Level 236 mg/dL Calcium Level 7.7 mg/dL Total Bilirubin 0.7 mg/dL Aspartate Amino Transf (AST/SGOT) 84 U/L Alanine Aminotransferase (ALT/SGPT) 64 U/L Alkaline Phosphatase 152 U/L Total Protein 5.4 g/dL Albumin 2.5 g/dL Albumin/Globulin Ratio 0.9 Test 12/18/19 10:47 Glucose (Fingerstick) 227 mg/dL ABDOMINAL FLUID Procedure Result GRAM STAIN Final Final COMMENTS:CYTOSPIN NO ORGANISMS SEEN. SQUAMOUS EPI CELL:NOT APPLICABLE PMN (WBCs):MODERATE Unless otherwise specified, Testing Performed by: [facility] [address] [place] [address] For Inquires, the Physician may contact the Microbiology department at [phone] ANAEROBIC-AEROBIC CULTURE PENDING Source: ASCITES DIAGNOSIS: 02 ASCITES NEGATIVE FOR MALIGNANT CELLS. REACTIVE MESOTHELIAL CELLS PRESENT WITHIN A BACKGROUND OF LYMPHOCYTES AND NEUTROPHILS. THIS INTERPRETATION INCLUDES EVALUATION OF A CELL BLOCK. Signed out by: 02 Andrea Gerardo MD, Pathologist NPI- [id number] Performed by: Katrin Sagastume, Skein Winding Operator ([facility]) Gross description: 30ML, PALE YELLOW, 1 TP 1 CB /LCS 12/16/20191911 Local PE: GEN: NAD LUNGS: CTAB HEART: RRR ABD: some tenderness to right abdomen, soft, still w/ some ascites NEURO/PSYCH: A & O 3 A/P: Cirrhosis/LOCKHART, ascites s/p paracentesis - started on Aldactone Pancytopenia/KARO/chronic thrombocytopenia H/o psoriasis, RA -- DC plans noted. Can follow-up w/ our office. Justicifation of Admission Dx: Justifications for Admission: Justification of Admission Dx: Yes ANGLE MORALES Dec 18, 2019 11:47
--- NOTE | 2019-12-18 12:02 | NUR ---
Discharge Note: Patient was discharged back to [facility] where patient resides. Patient agreeable with discharge plans. Called [facility] and report was given via phone to ANILA Bangura. Patient was transported to facility via wheelchair van provided by the facility transportation. All paperwork was sent with patient. Patient took all personal belongings with him.
[2019-12-18 14:12] LABS: IMMUNOGLOBULIN A 281 mg/dL (90-386); IMMUNOGLOBULIN G 876 mg/dL (603-1613); IMMUNOGLOBULIN M 143 mg/dL (20-172)
== END 2019-12-18 12:05 | DRG 432 ==
LOC: ER 15:33 → ED HOLD 18:29 → 4 NORTH 19:41 → OBSVTOIN 12-16 10:07 → 5 NORTH 12-16 11:59
PROVIDERS: ADMIT Internal Medicine; ATTEND Internal Medicine
PROC: 0W9G3ZZ Drainage of Peritoneal Cavity, Percutaneous Approach (ICD-10-PCS; principal; 2019-12-17)
DX: K74.60 Unspecified cirrhosis of liver (principal); I62.03 Nontraumatic chronic subdural hemorrhage; D61.818 Other pancytopenia; K76.6 Portal hypertension; R18.8 Other ascites; K75.81 Nonalcoholic steatohepatitis (NASH); E11.9 Type 2 diabetes mellitus without complications; E66.01 Morbid (severe) obesity due to excess calories; F03.90 Unspecified dementia, unspecified severity, without behavioral disturbance, psychotic disturbance, mood disturbance, and anxiety; F17.210 Nicotine dependence, cigarettes, uncomplicated; G47.33 Obstructive sleep apnea (adult) (pediatric); I10 Essential (primary) hypertension; J44.9 Chronic obstructive pulmonary disease, unspecified; K21.9 Gastro-esophageal reflux disease without esophagitis; K82.8 Other specified diseases of gallbladder; L40.9 Psoriasis, unspecified; M06.9 Rheumatoid arthritis, unspecified; M79.7 Fibromyalgia; N20.0 Calculus of kidney; R16.1 Splenomegaly, not elsewhere classified; M19.90 Unspecified osteoarthritis, unspecified site; Z68.32 Body mass index [BMI] 32.0-32.9, adult; Z87.442 Personal history of urinary calculi; Z91.19 Patient's noncompliance with other medical treatment and regimen; Z88.1 Allergy status to other antibiotic agents; Z88.8 Allergy status to other drugs, medicaments and biological substances
CPT/HCPCS: 36415; 49083; 70450; 71046; 74176; 76700; 80048; 80053; 81001; 82103; 82140; 82150; 82607; 82784; 82945; 82962; 83540; 83550; 83615; 83690; 83735; 84157; 85025; 85610; 85730; 86334; 86705; 86709; 86803; 87071; 87075; 87340; 88112; 88305; 89050; 93005; 94640; 94760; C1892; G0378; G0379; J1644; J1815; J2270; J2405; J3010; J3475; J3490; J7042; P9046

== ENCOUNTER 2020-01-06 07:37 | Inpatient (IN) | payer MEDICARE, OTHER ==
[~2020-01-06] VITALS: Ht 175.3 cm; Wt 102.1 kg
[~2020-01-06 07:37] MED LIST changes: +FURO20TA3 PO; +LACT20SO PO; +SPIR25TA PO
--- NOTE | 2020-01-06 07:49 | PHYS DOC ---
Past Medical History Past Medical History: COPD, Dementia, Diabetes-Type II, Heart Disease, [place], Unknown Additional Past Medical Histor: RA, sleep apnea, SUBDURAL HEMATOMA 10/03/19 Past Surgical History: Tonsillectomy, Other Additional Past Surgical Histo: vasectomy Smoking Status: Never Smoker Alcohol Use: None Drug Use: None General Adult EDM: Chief Complaint: ABDOMINAL PAIN HPI: HPI: Patient is a 54 year old male who was brought here from group home due to nausea vomiting and abdominal pain with abdominal distention. Patient also has a cough and a fever. Patient was evaluated here last month for the same problem, he was found to have ascites, had 11 L of fluid removed from his peritoneal area. Patient has history of alcohol abuse. Patient was seen by GI when he was in the hospital, he also was seen by hematology as well. Review of Systems: Review of Systems: Constitutional: Positive for fever and chill Eyes: Denies change in visual acuity. [] HENT: Denies nasal congestion or sore throat. [] Respiratory: Positive for cough, no trouble breathing Cardiovascular: Denies chest pain or edema. [] GI: Positive for abdominal pain, nausea vomiting, no diarrhea. : Denies dysuria. [] Musculoskeletal: Denies back pain or joint pain. [] Integument: Denies rash. [] Neurologic: Denies headache, focal weakness or sensory changes. [] Endocrine: Denies polyuria or polydipsia. [] Lymphatic: Denies swollen glands. [] Psychiatric: Denies depression or anxiety. [] Heart Score: Risk Factors: Risk Factors: DM, Current or recent (<one month) smoker, HTN, HLP, family history of CAD, obesity. Risk Scores: Score 0 - 3: 2.5% MACE over next 6 weeks - Discharge Home Score 4 - 6: 20.3% MACE over next 6 weeks - Admit for Clinical Observation Score 7 - 10: 72.7% MACE over next 6 weeks - Early Invasive Strategies Allergies: Allergies: Allergies Coded Allergies Type Severity Reaction Last Updated Verified povidone-iodine Allergy Intermediate Rash 01/23/15 Yes pregabalin Allergy Intermediate bullae 01/24/15 Yes Physical Exam: PE: Constitutional: Well developed, well nourished, no acute distress, non-toxic appearance. [] HENT: Normocephalic, atraumatic, bilateral external ears normal, oropharynx moist, no oral exudates, nose normal. [] Eyes: PERRLA, EOMI, conjunctiva normal, no discharge. [] Neck: Normal range of motion, no tenderness, supple, no stridor. [] Cardiovascular:Heart rate regular rhythm, no murmur [] Lungs & Thorax: Bilateral breath sounds clear to auscultation [] Abdomen: Bowel sounds normal, moderate abdominal distention, tender to palpation diffusely. No pulsatile mass. Skin: Warm, dry, no erythema, no rash. [] Back: No tenderness, no CVA tenderness. [] Extremities: No tenderness, no cyanosis, no clubbing, ROM intact, no edema. [] Neurologic: Alert and oriented X 3, normal motor function, normal sensory function, no focal deficits noted. [] Psychologic: Affect normal, judgement normal, mood normal. [] Current Patient Data: Labs: Laboratory Tests Test 01/06/20 08:20 01/06/20 08:30 White Blood Count 5.8 x10^3/uL Red Blood Count 4.53 x10^6/uL Hemoglobin 13.5 g/dL Hematocrit 41.6 % Mean Corpuscular Volume 92 fL Mean Corpuscular Hemoglobin 30 pg Mean Corpuscular Hemoglobin Concent 32 g/dL Red Cell Distribution Width 16.4 % Platelet Count 83 x10^3/uL Neutrophils (%) (Auto) 84 % Lymphocytes (%) (Auto) 9 % Monocytes (%) (Auto) 4 % Eosinophils (%) (Auto) 3 % Basophils (%) (Auto) 0 % Neutrophils # (Auto) 4.9 x10^3/uL Lymphocytes # (Auto) 0.5 x10^3/uL Monocytes # (Auto) 0.2 x10^3/uL Eosinophils # (Auto) 0.2 x10^3/uL Basophils # (Auto) 0.0 x10^3/uL Prothrombin Time 14.8 SEC Prothromb Time International Ratio 1.2 Activated Partial Thromboplast Time 28 SEC Urine Collection Type Unknown Urine Color Yellow Urine Clarity Clear Urine pH 5.0 Urine Specific [place] 1.020 Urine Protein Negative mg/dL Urine Glucose (UA) Negative mg/dL Urine Ketones (Stick) Trace mg/dL Urine Blood Negative Urine Nitrite Negative Urine Bilirubin Negative Urine Urobilinogen Dipstick 0.2 mg/dL Urine Leukocyte Esterase Negative Urine RBC 0 /HPF Urine WBC 1-4 /HPF Urine Squamous Epithelial Cells Few /LPF Urine Bacteria Few /HPF Urine Hyaline Casts Occasional /HPF Urine Mucus Mod /LPF Sodium Level 141 mmol/L Potassium Level 4.3 mmol/L Chloride Level 104 mmol/L Carbon Dioxide Level 26 mmol/L Anion Gap 11 Blood Urea Nitrogen 12 mg/dL Creatinine 1.2 mg/dL Estimated GFR (Cockcroft-Gault) 62.6 BUN/Creatinine Ratio 10 Glucose Level 161 mg/dL Calcium Level 8.6 mg/dL Total Bilirubin 1.4 mg/dL Aspartate Amino Transf (AST/SGOT) 60 U/L Alanine Aminotransferase (ALT/SGPT) 45 U/L Alkaline Phosphatase 225 U/L Ammonia 15 mcmol/L Troponin I Quantitative < 0.017 ng/mL Total Protein 6.6 g/dL Albumin 3.0 g/dL Albumin/Globulin Ratio 0.8 Lipase 132 U/L Lactic Acid Level 3.3 mmol/L Current Medications Medications (Trade) Dose Ordered Sig/Sb Route PRN Reason Start Time Stop Time Status Last Admin Dose Admin Ibuprofen (Motrin) 800 mg 1X ONCE PO 01/06/20 08:00 01/06/20 08:01 DC 01/06/20 08:20 Ondansetron HCl (Zofran) 4 mg 1X ONCE IVP 01/06/20 08:00 01/06/20 08:01 DC 01/06/20 08:20 Ceftriaxone Sodium (Rocephin) 1 gm 1X ONCE IVP 01/06/20 08:00 01/06/20 08:01 DC 01/06/20 08:22 Morphine Sulfate (Morphine Sulfate) 4 mg 1X ONCE IV 01/06/20 09:30 01/06/20 09:31 DC 01/06/20 10:17 Sodium Chloride 1,000 ml @ 75 mls/hr 1X ONCE IV 01/06/20 10:30 01/06/20 23:49 EKG: EKG: [] Radiology/Procedures: Radiology/Procedures: [][facility] [address] [place], [place] [id number] IMAGING REPORT Signed PATIENT: TERRELL MANJARREZ ACCOUNT: [id number] : 1965 LOCATION: ER AGE: 54 SEX: M EXAM STATUS: REG ER ORD. PHYSICIAN: ARCHIE OAKES DO REASON: fever, cough PROCEDURE: CHEST AP ONLY EXAM: CHEST 1 VIEW History: Fever, cough COMPARISON: 12/16/2019 TECHNIQUE: Single portable radiograph of the chest FINDINGS: Low lung volumes and technique accentuates heart size and pulmonary vascularity. Mild bibasilar lung airspace opacities likely atelectasis or infiltrates. IMPRESSION: 1. Mild bibasilar lung airspace opacities likely atelectasis or infiltrates. Electronically signed by: Emmett Lacey MD (01/06/2020 9:07 AM) [id number] DICTATED and SIGNED BY: EMMETT LACEY MD DATE: 01/06/20906 [facility] [address] [place] [address] IMAGING REPORT Signed PATIENT: TERRELL MANJARREZ ACCOUNT: [id number] : 1965 LOCATION: [address] [place] [address] AGE: 54 SEX: M EXAM STATUS: ADM IN ORD. PHYSICIAN: ARCHIE OAKES DO REASON: ABDOMINAL PAIN AND DISTENSION PROCEDURE: CT ABDOMEN PELVIS WO CONTRAST EXAM: CT Abdomen and Pelvis without IV contrast INDICATION: Reason: ABDOMINAL PAIN AND DISTENSION / Spl. Instructions: / History: TECHNIQUE: Multi-detector row CT images were acquired from the lung bases through the abdomen and pelvis without the use of IV contrast. Sagittal and coronal images were acquired from the transaxial data. All CT scans performed at this facility utilize dose optimization techniques as appropriate to the exam, including the following: Automated exposure control and adjustment of the mA and/or KV according to patient size (this includes techniques or standardized protocols for targeted exams where dose is indication/reason for exam). ORAL CONTRAST: None COMPARISON: Abdomen pelvis CT without IV contrast 12/16/2019 FINDINGS: The absence of IV contrast limits evaluation of soft tissue pathology. LOWER CHEST: Unremarkable LIVER: Cirrhotic BILIARY SYSTEM: Gallbladder is obscured by large amount of ascites. Bile ducts are not dilated. PANCREAS: Unremarkable SPLEEN: Marked splenomegaly, similar to prior. Spleen measures 18 cm in cranial caudal extent ADRENALS: Unremarkable KIDNEYS & URETERS: Unremarkable BLADDER: Unremarkable REPRODUCTIVE ORGANS: Unremarkable GASTROINTESTINAL: The stomach, small bowel, and colon are unremarkable. Appendix is not well seen. No findings of acute appendicitis are appreciated. MESENTERY/PERITONEUM/RETROPERITONEUM: Large amount of bland ascites is redemonstrated. No free air. VASCULAR: Unremarkable LYMPH NODES: No adenopathy OSSEOUS & SOFT TISSUES: Stranding in the ventral periumbilical soft tissues is present with slightly more apparent skin thickening inferiorly. IMPRESSION: Cirrhosis with large ascites and findings suggesting developing cellulitis in the lower ventral abdominal wall. Electronically signed by: Sherin Zamarripa MD (01/06/2020 10:39 AM) [id number] DICTATED and SIGNED BY: SHERIN ZAMARRIPA MD DATE: 01/06/20 103 Course & Med Decision Making: Course & Med Decision Making Pertinent Labs and Imaging studies reviewed. (See chart for details) Patient is a 54-year-old man who was evaluated in ER due to abdominal pain, fever, abdominal distention, cough. Patient is suspected to have to have COVID19 infection AND suspected of SBP. Patient was given IV fluid and IV Rocephin in the ER. Patient will be admitted to hospital. Patient WILL be consulted by interventional radiologist to have paracentesis done. Discussed with hospitalist on-call Dr. Boyce who agrees TO admit the patient. Paola Disclaimer: Paola Disclaimer: This electronic medical record was generated, in whole or in part, using a voice recognition dictation system. Departure Departure Impression: Primary Impression: Ascites Additional Impressions: Suspected 2019 novel coronavirus infection Fever Abdominal pain Disposition: ADMITTED INPATIENT Admitting Physician: CARLOS (Dr. Boyce) Condition: STABLE Referrals: UNKNOWN PCP NAME (PCP) Justicifation of Admission Dx: Justifications for Admission: Justification of Admission Dx: Yes ARCHIE OAKES DO Jan 06, 2020 07:49
[2020-01-06] MEDS ORDERED: cefTRIAXone IV Push 1 GM VIAL. IVP ONE (08:00)
[2020-01-06] MEDS ORDERED: IBUPROFEN 400 MG TABLET. PO ONE (08:00)
[2020-01-06] MEDS ORDERED: ONDANSETRON PF 4 MG/2 ML VIAL. IVP ONE (08:00)
[2020-01-06 08:45] LABS: BASO % 0 % (0-3); EOS # 0.2 x10^3/uL (0.0-0.7); EOS % 3 % (0-3); HEMATOCRIT 41.6 % (39.0-53.0); HEMOGLOBIN 13.5 g/dL (13.0-17.5); LYMPH # 0.5 x10^3/uL (1.0-4.8); LYMPH % 9 % (24-48); MEAN CORPUSCULAR HEMOGLOBIN 30 pg (25-35); MEAN CORPUSCULAR HGB CONC 32 g/dL (31-37); MEAN CORPUSCULAR VOLUME 92 fL (79-100); MONO # 0.2 x10^3/uL (0.0-1.1); MONO % 4 % (0-9); NEUT # 4.9 x10^3/uL (1.8-7.7); NEUT % 84 % (31-73); PLATELET COUNT 83 x10^3/uL (140-400); RED BLOOD COUNT 4.53 x10^6/uL (4.30-5.70); RED CELL DISTRIBUTION WIDTH 16.4 % (11.5-14.5); WHITE BLOOD COUNT 5.8 x10^3/uL (4.0-11.0)
[2020-01-06 08:46] LABS: BILIRUBIN,URINE NEGATIVE (NEG); CLARITY,URINE CLEAR; COLOR,URINE YELLOW; NITRITE,URINE NEGATIVE (NEG); PROTEIN,URINE NEGATIVE (NEG-TRACE); UROBILINOGEN,URINE 0.2 mg/dL (0.2 mg/dL)
[2020-01-06 08:50] LABS: SQUAMOUS EPITHELIAL CELL,UR FEW /LPF
[2020-01-06 08:51] LABS: BACTERIA,URINE FEW /HPF (0-FEW); HYALINE CASTS, URINE OCCASIONAL /HPF; RBC,URINE 0 /HPF (0-2)
[2020-01-06 08:58] LABS: PROTHROMBIN TIME PATIENT 14.8 SEC (11.7-14.0)
[2020-01-06 08:59] LABS: CALCIUM 8.6 mg/dL (8.5-10.1); CREATININE 1.2 mg/dL (0.7-1.3); GFR 62.6; POTASSIUM 4.3 mmol/L (3.5-5.1)
[2020-01-06 09:06] LABS: ALBUMIN/GLOBULIN RATIO 0.8 (1.0-1.7); TOTAL BILIRUBIN 1.4 mg/dL (0.2-1.0); TOTAL PROTEIN 6.6 g/dL (6.4-8.2)
--- NOTE | 2020-01-06 09:10 | RAD ---
EXAM: CHEST 1 VIEW History: Fever, cough COMPARISON: 12/16/2019 TECHNIQUE: Single portable radiograph of the chest FINDINGS: Low lung volumes and technique accentuates heart size and pulmonary vascularity. Mild bibasilar lung airspace opacities likely atelectasis or infiltrates. IMPRESSION: 1. Mild bibasilar lung airspace opacities likely atelectasis or infiltrates. Electronically signed by: Emmett Lacey MD (01/06/2020 9:07 AM) [id number]
[2020-01-06] MEDS ORDERED: MORPHINE SULFATE 4 MG/ML VIAL. IV ONE ×2 (09:30→12:45)
[2020-01-06] MEDS ORDERED: IV NORMAL SALINE 1000ML BAG 1,000 ML IV ONE ×2 (10:30)
--- NOTE | 2020-01-06 10:42 | RAD ---
EXAM: CT Abdomen and Pelvis without IV contrast INDICATION: Reason: ABDOMINAL PAIN AND DISTENSION / Spl. Instructions: / History: TECHNIQUE: Multi-detector row CT images were acquired from the lung bases through the abdomen and pelvis without the use of IV contrast. Sagittal and coronal images were acquired from the transaxial data. All CT scans performed at this facility utilize dose optimization techniques as appropriate to the exam, including the following: Automated exposure control and adjustment of the mA and/or KV according to patient size (this includes techniques or standardized protocols for targeted exams where dose is indication/reason for exam). ORAL CONTRAST: None COMPARISON: Abdomen pelvis CT without IV contrast 12/16/2019 FINDINGS: The absence of IV contrast limits evaluation of soft tissue pathology. LOWER CHEST: Unremarkable LIVER: Cirrhotic BILIARY SYSTEM: Gallbladder is obscured by large amount of ascites. Bile ducts are not dilated. PANCREAS: Unremarkable SPLEEN: Marked splenomegaly, similar to prior. Spleen measures 18 cm in cranial caudal extent ADRENALS: Unremarkable KIDNEYS & URETERS: Unremarkable BLADDER: Unremarkable REPRODUCTIVE ORGANS: Unremarkable GASTROINTESTINAL: The stomach, small bowel, and colon are unremarkable. Appendix is not well seen. No findings of acute appendicitis are appreciated. MESENTERY/PERITONEUM/RETROPERITONEUM: Large amount of bland ascites is redemonstrated. No free air. VASCULAR: Unremarkable LYMPH NODES: No adenopathy OSSEOUS & SOFT TISSUES: Stranding in the ventral periumbilical soft tissues is present with slightly more apparent skin thickening inferiorly. IMPRESSION: Cirrhosis with large ascites and findings suggesting developing cellulitis in the lower ventral abdominal wall. Electronically signed by: Edilberto Zamarripa MD (01/06/2020 10:39 AM) [id number]
--- NOTE | 2020-01-06 11:02 | PDOC1 ---
History and Physical Date of Admission Date of Admission DATE: 01/06/20 TIME: 10:59 Identification/Chief Complaint Chief Complaint seen in er with fever, cough and ascites 54 year old male who was brought here from [facility] [facility] due to nausea vomiting and abdominal pain with abdominal distention. Patient also has a cough and a fever. Patient was evaluated here last month for the same problem, he was found to have ascites, had 11 L of fluid removed from his abdomen . now has a cough as well history of alcohol abuse, ascites, dementia Past Medical History Past Medical History Past Medical History Past Medical History: COPD, Dementia, Diabetes-Type II, Heart Disease, [place], Unknown Additional Past Medical Histor: RA, sleep apnea, SUBDURAL HEMATOMA 10/03/19 Past Surgical History: Tonsillectomy, Other Additional Past Surgical Histo: vasectomy Smoking Status: Never Smoker Alcohol Use: None Drug Use: None FHX OBESITY Cardiovascular: HTN, MA Pulmonary: COPD CENTRAL NERVOUS SYSTEM: Other GI: GERD Psych: Addictions Musculoskeletal: low back pain, Osteoarthritis, Other Rheumatologic: Rheumatoid arthritis Renal/: Other Endocrine: Diabetes Past Surgical History Past Surgical History: Tonsillectomy, Other Family History Family History: Alcohol Abuse, High Cholestrol, Hypertension, Family History Unknown Social History Smoke: No ALCOHOL: heavy (remote ) Drugs: None, Other Current Problem List Problem List Problems Medical Problems: (1) Abdominal pain Status: Acute (2) Ascites Status: Acute (3) Fever Status: Acute (4) Suspected 2019 novel coronavirus infection Status: Acute Current Medications Current Medications Current Medications Ibuprofen (Motrin) 800 mg 1X ONCE PO Last administered on 01/06/20at 08:20; Start 01/06/20 at 08:00; Stop 01/06/20 at 08:01; Status DC Ondansetron HCl (Zofran) 4 mg 1X ONCE IVP Last administered on 01/06/20at 08:20; Start 01/06/20 at 08:00; Stop 01/06/20 at 08:01; Status DC Ceftriaxone Sodium (Rocephin) 1 gm 1X ONCE IVP Last administered on 01/06/20at 08:22; Start 01/06/20 at 08:00; Stop 01/06/20 at 08:01; Status DC Morphine Sulfate (Morphine Sulfate) 4 mg 1X ONCE IV Last administered on 01/06/20at 10:17; Start 01/06/20 at 09:30; Stop 01/06/20 at 09:31; Status DC Sodium Chloride 1,000 ml @ 75 mls/hr 1X ONCE IV ; Start 01/06/20 at 10:30; Stop 01/06/20 at 23:49 Sodium Chloride 1,000 ml @ 1,000 mls/hr 1X ONCE IV ; Start 01/06/20 at 10:30; Stop 01/06/20 at 11:29 Active Scripts Active Furosemide 20 Mg Tablet 1 Tab PO DAILY 90 Days Lactulose 20 Gm/30 Ml Solution 20 Gm PO BID 30 Days Aldactone (Spironolactone) 25 Mg Tablet 100 Mg PO DAILY 30 Days Ativan (Lorazepam) 0.5 Mg Tablet 0.5 Mg PO PRN BID PRN 6 Days Levemir Flextouch (Insulin Detemir) 300 Units/3 Ml Insuln.pen 20 Units SQ QHS Reported Duloxetine Hcl 60 Mg Capsule.dr 60 Mg PO DAILY Citalopram Hbr (Citalopram Hydrobromide) 20 Mg Tablet 1 Tab PO DAILY Aripiprazole 1 Mg/1 Ml Solution 15 Ml PO DAILY 30 Days Pantoprazole Sodium (Pantoprazole Sodium) 40 Mg Tablet.dr 40 Mg PO DAILYAC Flomax (Tamsulosin Hcl) 0.4 Mg Cap.er.24h 2 Cap PO DAILY Buspirone Hcl 10 Mg Tablet 1 Tab PO BID Oxycodone Hcl Immed.release (Oxycodone Hcl) 30 Mg Tablet 30 Mg PO HS PRN Oxycodone Hcl Immed.release (Oxycodone Hcl) 15 Mg Tablet 15 Mg PO Q6HRS PRN Otezla (Apremilast) 30 Mg Tablet 30 Mg PO BID Daily Value (Multivitamin) 1 Each Tablet 1 Each PO DAILY Novolog Flexpen (Insulin Aspart) 100 Unit/1 Ml Insuln.pen 0-7 Unit SQ QID Cranberry (Cranberry Fruit Concentrate) 450 Mg Capsule 450 Mg PO DAILY Carvedilol (Carvedilol) 6.25 Mg Tablet 6.25 Mg PO BIDWMEALS Gabapentin 600 Mg Tablet 300 Mg PO TID Trazodone Hcl 100 Mg Tablet 300 Mg PO HS Metformin Hcl 1,000 Mg Tablet 1,000 Mg PO BID Allergies Allergies: Coded Allergies: povidone-iodine (Verified Allergy, Intermediate, Rash, 01/23/15) pregabalin (Verified Allergy, Intermediate, bullae, 01/24/15) blisters ROS Review of System Constitutional: Positive for fever and chill Eyes: Denies change in visual acuity. [] HENT: Denies nasal congestion or sore throat. [] Respiratory: Positive for cough, no trouble breathing Cardiovascular: Denies chest pain or edema. [] GI: Positive for abdominal pain, nausea vomiting, no diarrhea. : Denies dysuria. [] Musculoskeletal: Denies back pain or joint pain. [] Integument: Denies rash. [] Neurologic: Denies headache, focal weakness or sensory changes. [] Endocrine: Denies polyuria or polydipsia. [] Lymphatic: Denies swollen glands. [] Psychiatric: Denies depression or anxiety. [] 14 pt ros otherwise neg Physical Exam Physical Exam Constitutional: Well developed, well nourished, no acute distress, non-toxic appearance. [] HENT: Normocephalic, atraumatic, bilateral external ears normal, oropharynx moist, no oral exudates, nose normal. [] Eyes: PERRLA, EOMI, conjunctiva normal, no discharge. [] Neck: Normal range of motion, no tenderness, supple, no stridor. [] Cardiovascular:Heart rate regular rhythm, no murmur [] Lungs & Thorax: Bilateral breath sounds clear to auscultation [] Abdomen: Bowel sounds normal, moderate abdominal distention, tender to palpation diffusely. No pulsatile mass. Skin: Warm, dry, no erythema, no rash. [] Back: No tenderness, no CVA tenderness. [] Extremities: No tenderness, no cyanosis, no clubbing, ROM intact, no edema. [] Neurologic: Alert and oriented X 3, normal motor function, normal sensory function, no focal deficits noted. [] Psychologic: Affect normal,mood normal. [] Vitals Vitals Vital Signs Date Time Temp Pulse Resp B/P (MAP) Pulse Ox O2 Delivery O2 Flow Rate FiO2 01/06/20 10:19 99.4 99.4 01/06/20 10:17 20 91 Room Air 01/06/20 09:14 102 125/61 (82) Labs Labs Laboratory Tests Test 01/06/20 08:20 01/06/20 08:30 White Blood Count 5.8 x10^3/uL (4.0-11.0) Red Blood Count 4.53 x10^6/uL (4.30-5.70) Hemoglobin 13.5 g/dL (13.0-17.5) Hematocrit 41.6 % (39.0-53.0) Mean Corpuscular Volume 92 fL (79-100) Mean Corpuscular Hemoglobin 30 pg (25-35) Mean Corpuscular Hemoglobin Concent 32 g/dL (31-37) Red Cell Distribution Width 16.4 % (11.5-14.5) Platelet Count 83 x10^3/uL (140-400) Neutrophils (%) (Auto) 84 % (31-73) Lymphocytes (%) (Auto) 9 % (24-48) Monocytes (%) (Auto) 4 % (0-9) Eosinophils (%) (Auto) 3 % (0-3) Basophils (%) (Auto) 0 % (0-3) Neutrophils # (Auto) 4.9 x10^3/uL (1.8-7.7) Lymphocytes # (Auto) 0.5 x10^3/uL (1.0-4.8) Monocytes # (Auto) 0.2 x10^3/uL (0.0-1.1) Eosinophils # (Auto) 0.2 x10^3/uL (0.0-0.7) Basophils # (Auto) 0.0 x10^3/uL (0.0-0.2) Prothrombin Time 14.8 SEC (11.7-14.0) Prothromb Time International Ratio 1.2 (0.8-1.1) Activated Partial Thromboplast Time 28 SEC (24-38) Urine Collection Type Unknown Urine Color Yellow Urine Clarity Clear Urine pH 5.0 (<5.0-8.0) Urine Specific [place] 1.020 (1.000-1.030) Urine Protein Negative mg/dL (NEG-TRACE) Urine Glucose (UA) Negative mg/dL (NEG) Urine Ketones (Stick) Trace mg/dL (NEG) Urine Blood Negative (NEG) Urine Nitrite Negative (NEG) Urine Bilirubin Negative (NEG) Urine Urobilinogen Dipstick 0.2 mg/dL (0.2 mg/dL) Urine Leukocyte Esterase Negative (NEG) Urine RBC 0 /HPF (0-2) Urine WBC 1-4 /HPF (0-4) Urine Squamous Epithelial Cells Few /LPF Urine Bacteria Few /HPF (0-FEW) Urine Hyaline Casts Occasional /HPF Urine Mucus Mod /LPF Sodium Level 141 mmol/L (136-145) Potassium Level 4.3 mmol/L (3.5-5.1) Chloride Level 104 mmol/L (98-107) Carbon Dioxide Level 26 mmol/L (21-32) Anion Gap 11 (6-14) Blood Urea Nitrogen 12 mg/dL (8-26) Creatinine 1.2 mg/dL (0.7-1.3) Estimated GFR (Cockcroft-Gault) 62.6 BUN/Creatinine Ratio 10 (6-20) Glucose Level 161 mg/dL (70-99) Calcium Level 8.6 mg/dL (8.5-10.1) Total Bilirubin 1.4 mg/dL (0.2-1.0) Aspartate Amino Transf (AST/SGOT) 60 U/L (15-37) Alanine Aminotransferase (ALT/SGPT) 45 U/L (16-63) Alkaline Phosphatase 225 U/L (46-116) Ammonia 15 mcmol/L (11-34) Troponin I Quantitative < 0.017 ng/mL (0.000-0.055) Total Protein 6.6 g/dL (6.4-8.2) Albumin 3.0 g/dL (3.4-5.0) Albumin/Globulin Ratio 0.8 (1.0-1.7) Lipase 132 U/L (73-393) Lactic Acid Level 3.3 mmol/L (0.4-2.0) Laboratory Tests Test 01/06/20 08:20 01/06/20 08:30 White Blood Count 5.8 x10^3/uL (4.0-11.0) Red Blood Count 4.53 x10^6/uL (4.30-5.70) Hemoglobin 13.5 g/dL (13.0-17.5) Hematocrit 41.6 % (39.0-53.0) Mean Corpuscular Volume 92 fL (79-100) Mean Corpuscular Hemoglobin 30 pg (25-35) Mean Corpuscular Hemoglobin Concent 32 g/dL (31-37) Red Cell Distribution Width 16.4 % (11.5-14.5) Platelet Count 83 x10^3/uL (140-400) Neutrophils (%) (Auto) 84 % (31-73) Lymphocytes (%) (Auto) 9 % (24-48) Monocytes (%) (Auto) 4 % (0-9) Eosinophils (%) (Auto) 3 % (0-3) Basophils (%) (Auto) 0 % (0-3) Neutrophils # (Auto) 4.9 x10^3/uL (1.8-7.7) Lymphocytes # (Auto) 0.5 x10^3/uL (1.0-4.8) Monocytes # (Auto) 0.2 x10^3/uL (0.0-1.1) Eosinophils # (Auto) 0.2 x10^3/uL (0.0-0.7) Basophils # (Auto) 0.0 x10^3/uL (0.0-0.2) Prothrombin Time 14.8 SEC (11.7-14.0) Prothromb Time International Ratio 1.2 (0.8-1.1) Activated Partial Thromboplast Time 28 SEC (24-38) Urine Collection Type Unknown Urine Color Yellow Urine Clarity Clear Urine pH 5.0 (<5.0-8.0) Urine Specific [place] 1.020 (1.000-1.030) Urine Protein Negative mg/dL (NEG-TRACE) Urine Glucose (UA) Negative mg/dL (NEG) Urine Ketones (Stick) Trace mg/dL (NEG) Urine Blood Negative (NEG) Urine Nitrite Negative (NEG) Urine Bilirubin Negative (NEG) Urine Urobilinogen Dipstick 0.2 mg/dL (0.2 mg/dL) Urine Leukocyte Esterase Negative (NEG) Urine RBC 0 /HPF (0-2) Urine WBC 1-4 /HPF (0-4) Urine Squamous Epithelial Cells Few /LPF Urine Bacteria Few /HPF (0-FEW) Urine Hyaline Casts Occasional /HPF Urine Mucus Mod /LPF Sodium Level 141 mmol/L (136-145) Potassium Level 4.3 mmol/L (3.5-5.1) Chloride Level 104 mmol/L (98-107) Carbon Dioxide Level 26 mmol/L (21-32) Anion Gap 11 (6-14) Blood Urea Nitrogen 12 mg/dL (8-26) Creatinine 1.2 mg/dL (0.7-1.3) Estimated GFR (Cockcroft-Gault) 62.6 BUN/Creatinine Ratio 10 (6-20) Glucose Level 161 mg/dL (70-99) Calcium Level 8.6 mg/dL (8.5-10.1) Total Bilirubin 1.4 mg/dL (0.2-1.0) Aspartate Amino Transf (AST/SGOT) 60 U/L (15-37) Alanine Aminotransferase (ALT/SGPT) 45 U/L (16-63) Alkaline Phosphatase 225 U/L (46-116) Ammonia 15 mcmol/L (11-34) Troponin I Quantitative < 0.017 ng/mL (0.000-0.055) Total Protein 6.6 g/dL (6.4-8.2) Albumin 3.0 g/dL (3.4-5.0) Albumin/Globulin Ratio 0.8 (1.0-1.7) Lipase 132 U/L (73-393) Lactic Acid Level 3.3 mmol/L (0.4-2.0) Images Images Note [facility] Accession Number: [id number] TESTS RESULT FLAG UNITS REF RANGE LAB Clinician Provided Cytology Information No. of containers..01 Other (Miscellaneous) Source: 01 ASCITES DIAGNOSIS: 02 ASCITES NEGATIVE FOR MALIGNANT CELLS. REACTIVE MESOTHELIAL CELLS PRESENT WITHIN A BACKGROUND OF LYMPHOCYTES AND NEUTROPHILS. THIS INTERPRETATION INCLUDES EVALUATION OF A CELL BLOCK. Signed out by: 02 Andrea Gerardo MD, Pathologist NPI- [id number] Performed by: 01 Katrin Sagastume, Bookbinder Apprentice ([facility]) Gross description: 01 30ML, PALE YELLOW, 1 TP 1 CB /LCS 12/16/20191911 Local EXAM: CHEST 1 VIEW History: Fever, cough COMPARISON: 12/16/2019 TECHNIQUE: Single portable radiograph of the chest FINDINGS: Low lung volumes and technique accentuates heart size and pulmonary vascularity. Mild bibasilar lung airspace opacities likely atelectasis or infiltrates. IMPRESSION: 1. Mild bibasilar lung airspace opacities likely atelectasis or infiltrates. Electronically signed by: Emmett Lacey MD (01/06/2020 9:07 AM) [id number] DICTATED and SIGNED BY: EMMETT LACEY MD DATE: 01/06/20 0907 INDICATION: Reason: ABDOMINAL PAIN AND DISTENSION / Spl. Instructions: / History: TECHNIQUE: Multi-detector row CT images were acquired from the lung bases through the abdomen and pelvis without the use of IV contrast. Sagittal and coronal images were acquired from the transaxial data. All CT scans performed at this facility utilize dose optimization techniques as appropriate to the exam, including the following: Automated exposure control and adjustment of the mA and/or KV according to patient size (this includes techniques or standardized protocols for targeted exams where dose is indication/reason for exam). ORAL CONTRAST: None COMPARISON: Abdomen pelvis CT without IV contrast 12/16/2019 FINDINGS: The absence of IV contrast limits evaluation of soft tissue pathology. LOWER CHEST: Unremarkable LIVER: Cirrhotic BILIARY SYSTEM: Gallbladder is obscured by large amount of ascites. Bile ducts are not dilated. PANCREAS: Unremarkable SPLEEN: Marked splenomegaly, similar to prior. Spleen measures 18 cm in cranial caudal extent ADRENALS: Unremarkable KIDNEYS & URETERS: Unremarkable BLADDER: Unremarkable REPRODUCTIVE ORGANS: Unremarkable GASTROINTESTINAL: The stomach, small bowel, and colon are unremarkable. Appendix is not well seen. No findings of acute appendicitis are appreciated. MESENTERY/PERITONEUM/RETROPERITONEUM: Large amount of bland ascites is redemonstrated. No free air. VASCULAR: Unremarkable LYMPH NODES: No adenopathy OSSEOUS & SOFT TISSUES: Stranding in the ventral periumbilical soft tissues is present with slightly more apparent skin thickening inferiorly. IMPRESSION: Cirrhosis with large ascites and findings suggesting developing cellulitis in the lower ventral abdominal wall. Electronically signed by: Sherin Zamarripa MD (01/06/2020 10:39 AM) [id number] DICTATED and SIGNED BY: SHERIN ZAMARRIPA MD DATE: 01/06/20 1039 VTE Prophylaxis Ordered VTE Prophylaxis Devices: Yes VTE Pharmacological Prophylaxi: Yes Assessment/Plan Assessment/Plan IMPRESSION: Cirrhosis with large ascites and findings suggesting developing cellulitis in the lower ventral abdominal wall. FEVER mild bibasilar lung airspace opacities likely atelectasis or infiltrates. COVID-19 PUI Cirrhosis of the liver - LOCKHART with remote h/o alcohol abuse Splenomegaly likely secondary to portal hypertension.Marked splenomegaly, similar to prior. Spleen measures 18 cm in cranial caudal extent MORBID OBESITY Chronic bilateral subdural hematomas, Interval apparent coil embolization. SEVERE ALCOHOL ABUSE HX - not drinking anymore Noncompliance normocytic anemia transaminitis CHRONIC THROMBOCYTOPENIA ELEVATED AMMONIA, SERUM HX Leukopenia LACTIC ACIDOSIS SEPSIS ADMIT CONSULT ID CONSULT GI BLOOD CULT X 2 covid-19 screening NH4 D/C METFORMIN EMPERIC IV ZOSYN, FLAGYL PENDING ID CONSULT 35 MIN CC TIME Justicifation of Admission Dx: Justifications for Admission: Justification of Admission Dx: Yes KEITH DOOLEY MD Jan 06, 2020 11:02
[2020-01-06] MEDS ORDERED: SODIUM PHOSPHATES 19/7GM 133 ML ENEMA. PR PRN (11:15)
[2020-01-06] MEDS ORDERED: ACETAMINOPHEN 650 MG SUPP.RECT. PR PRN (11:15)
[2020-01-06] MEDS ORDERED: guaiFENesin ORAL 200 MG/10 ML LIQUID. PO PRN (11:15)
[2020-01-06] MEDS ORDERED: ALBUTEROL SULFATE 2.5 MG/3 ML NEBU. NEB PRN (11:15)
[2020-01-06] MEDS ORDERED: ACETAMINOPHEN 325 MG TABLET. PO PRN (11:15)
[2020-01-06] MEDS ORDERED: 0.9 % SODIUM CHLORIDE 10 ML DISP.SYRIN. IV PRN (11:15)
[2020-01-06] MEDS ORDERED: LORazepam 0.5 MG TABLET PO PRN (11:15)
[2020-01-06] MEDS ORDERED: ONDANSETRON PF 4 MG/2 ML VIAL. IV PRN (11:15)
[2020-01-06] MEDS ORDERED: DEXTROSE 50% 25 GM / 50ML DISP.SYRIN. IV PRN (11:15)
[2020-01-06] MEDS: INSULIN LISPRO 300 UNITS/3 ML VIAL. SQ SCH ×2 (12:00→17:00)
--- NOTE | 2020-01-06 12:05 | PDOC2 ---
GI CONSULT Date of Service: DATE: 01/06/20 TIME: 11:44 Reason For Consult: ascites, fever HPI: HPI: Please 54 y/o male seen this morning in ER. Was sent from [place] w/ chills, fever (102.7 in ER), vomiting, and abdominal distention/pain. Plans to r/o COVID-19. CT notes large ascites w/ possible developing cellulitis. Plans for paracentesis. We saw him last month for abdominal distention and discomfort. Imaging then a lso showed ascites w/ cirrhosis and splenomegaly. Suspected LOCKHART as cause - no alcohol history. Negative Hepatitis panel, KRISTIE, and AAT. S/p paracentesis 12/16/19 (11L) - fluid studies ok. Started on salt restriction and Aldactone which he thinks he continued - "I take everything they give me." Has Lasix 20mg + Aldactone 100mg ordered here. Tells me his abdomen has been filling up since he was discharged. H/o GERD - ?on pantoprazole. Vomited once. Having small stools. No bleeding or dysphagia. No previous EGD. Normal colonoscopy (not sure where) >10 years ago. H/o pancytopenia/chronic thrombocytopenia. Iron deficient w/ normal B12 last month. Past bone marrow biopsy w/o MDS. No GB, pancreas, or PUD history. H/o psoriasis and RA on Otezla. PMH: PMH: HTN, LINO, DM, RA, fibromyalgia, subdural hematoma, nephrolithiasis, thrombocytopenia bone marrow biopsy, LP, vasectomy, tonsillectomy, cataract extraction FH: Family History: No pertinent hx Social History: Smoke: No ALCOHOL: none Drugs: None ROS: GEN: +fever, chills HEENT: Denies blurred vision, sore throat CV: Denies chest pain RESP: +some SOA GI: Per HPI : Denies hematuria, dysuria ENDO: Denies weight changes NEURO: Denies confusion, dizziness MSK: Denies weakness, joint pain/swelling SKIN: Denies jaundice, pruritus Vitals: Vitals: Vital Signs Date Time Temp Pulse Resp B/P (MAP) Pulse Ox O2 Delivery O2 Flow Rate FiO2 01/06/20 10:19 99.4 99.4 01/06/20 10:17 20 91 Room Air 01/06/20 09:14 102 125/61 (82) Labs: Labs: Laboratory Tests Test 01/06/20 08:20 01/06/20 08:30 White Blood Count 5.8 x10^3/uL (4.0-11.0) Red Blood Count 4.53 x10^6/uL (4.30-5.70) Hemoglobin 13.5 g/dL (13.0-17.5) Hematocrit 41.6 % (39.0-53.0) Mean Corpuscular Volume 92 fL (79-100) Mean Corpuscular Hemoglobin 30 pg (25-35) Mean Corpuscular Hemoglobin Concent 32 g/dL (31-37) Red Cell Distribution Width 16.4 % (11.5-14.5) Platelet Count 83 x10^3/uL (140-400) Neutrophils (%) (Auto) 84 % (31-73) Lymphocytes (%) (Auto) 9 % (24-48) Monocytes (%) (Auto) 4 % (0-9) Eosinophils (%) (Auto) 3 % (0-3) Basophils (%) (Auto) 0 % (0-3) Neutrophils # (Auto) 4.9 x10^3/uL (1.8-7.7) Lymphocytes # (Auto) 0.5 x10^3/uL (1.0-4.8) Monocytes # (Auto) 0.2 x10^3/uL (0.0-1.1) Eosinophils # (Auto) 0.2 x10^3/uL (0.0-0.7) Basophils # (Auto) 0.0 x10^3/uL (0.0-0.2) Prothrombin Time 14.8 SEC (11.7-14.0) Prothromb Time International Ratio 1.2 (0.8-1.1) Activated Partial Thromboplast Time 28 SEC (24-38) Urine Collection Type Unknown Urine Color Yellow Urine Clarity Clear Urine pH 5.0 (<5.0-8.0) Urine Specific [place] 1.020 (1.000-1.030) Urine Protein Negative mg/dL (NEG-TRACE) Urine Glucose (UA) Negative mg/dL (NEG) Urine Ketones (Stick) Trace mg/dL (NEG) Urine Blood Negative (NEG) Urine Nitrite Negative (NEG) Urine Bilirubin Negative (NEG) Urine Urobilinogen Dipstick 0.2 mg/dL (0.2 mg/dL) Urine Leukocyte Esterase Negative (NEG) Urine RBC 0 /HPF (0-2) Urine WBC 1-4 /HPF (0-4) Urine Squamous Epithelial Cells Few /LPF Urine Bacteria Few /HPF (0-FEW) Urine Hyaline Casts Occasional /HPF Urine Mucus Mod /LPF Sodium Level 141 mmol/L (136-145) Potassium Level 4.3 mmol/L (3.5-5.1) Chloride Level 104 mmol/L (98-107) Carbon Dioxide Level 26 mmol/L (21-32) Anion Gap 11 (6-14) Blood Urea Nitrogen 12 mg/dL (8-26) Creatinine 1.2 mg/dL (0.7-1.3) Estimated GFR (Cockcroft-Gault) 62.6 BUN/Creatinine Ratio 10 (6-20) Glucose Level 161 mg/dL (70-99) Calcium Level 8.6 mg/dL (8.5-10.1) Total Bilirubin 1.4 mg/dL (0.2-1.0) Aspartate Amino Transf (AST/SGOT) 60 U/L (15-37) Alanine Aminotransferase (ALT/SGPT) 45 U/L (16-63) Alkaline Phosphatase 225 U/L (46-116) Ammonia 15 mcmol/L (11-34) Troponin I Quantitative < 0.017 ng/mL (0.000-0.055) Total Protein 6.6 g/dL (6.4-8.2) Albumin 3.0 g/dL (3.4-5.0) Albumin/Globulin Ratio 0.8 (1.0-1.7) Lipase 132 U/L (73-393) Lactic Acid Level 3.3 mmol/L (0.4-2.0) Allergies: Coded Allergies: povidone-iodine (Verified Allergy, Intermediate, Rash, 01/23/15) pregabalin (Verified Allergy, Intermediate, bullae, 01/24/15) blisters Medications: Current Medications Medications (Trade) Dose Ordered Sig/Sb Route PRN Reason Start Time Stop Time Status Last Admin Dose Admin Ibuprofen (Motrin) 800 mg 1X ONCE PO 01/06/20 08:00 01/06/20 08:01 DC 01/06/20 08:20 Ondansetron HCl (Zofran) 4 mg 1X ONCE IVP 01/06/20 08:00 01/06/20 08:01 DC 01/06/20 08:20 Ceftriaxone Sodium (Rocephin) 1 gm 1X ONCE IVP 01/06/20 08:00 01/06/20 08:01 DC 01/06/20 08:22 Morphine Sulfate (Morphine Sulfate) 4 mg 1X ONCE IV 01/06/20 09:30 01/06/20 09:31 DC 01/06/20 10:17 Imaging: Imaging: CXR IMPRESSION: 1. Mild bibasilar lung airspace opacities likely atelectasis or infiltrates. CT A/P IMPRESSION: Cirrhosis with large ascites and findings suggesting developing cellulitisin the lower ventral abdominal wall. PE: GEN: NAD HEENT: Atraumatic, PERRL LUNGS: diminished HEART: mildly tachycardic ABD: massively distended, discomfort worst in lower abdomen EXTREMITY: trace BLE edema SKIN: +psoriasis NEURO/PSYCH: A & O 3 A/P: A/P: Abdominal distention, vomiting, fever Elevated lactic acid, chronic thrombocytopenia, elevated LFTs H/o cirrhosis (likely LOCKHART), recurrent ascites H/o KARO GERD CRC screen - reportedly normal >10 years ago H/o psoriasis and RA R/o COVID-19 -- Await paracentesis and fluid studies. ANGLE MORALES Jan 06, 2020 12:05
[2020-01-06] MEDS ORDERED: MORPHINE SULFATE 2 MG/ML VIAL. IV ONE (12:45)
[2020-01-06 13:35] VITALS: BP 107/55
--- NOTE | 2020-01-06 14:20 | PDOC ---
Infectious Disease Note Vital Signs: Vital Signs Vital Signs Date Time Temp Pulse Resp B/P (MAP) Pulse Ox O2 Delivery O2 Flow Rate FiO2 01/06/20 13:35 99.6 82 18 107/55 (72) 92 Room Air 99.6 Medications: Inpatient Meds: Current Medications Medications (Trade) Dose Ordered Sig/Sb Start Time Stop Time Status Last Admin Dose Admin Acetaminophen (Tylenol Supp) 650 mg PRN Q4HRS PRN 01/06/20 11:15 Acetaminophen (Tylenol) 650 mg PRN Q4HRS PRN 01/06/20 11:15 Albuterol Sulfate (Ventolin Neb Soln) 2.5 mg PRN Q4HRS PRN 01/06/20 11:15 Aripiprazole (Abilify) 15 mg DAILY 01/07/20 09:00 Buspirone HCl (Buspar) 10 mg BID 01/06/20 11:30 Carvedilol (Coreg) 6.25 mg BIDWMEALS 01/06/20 11:30 Ceftriaxone Sodium (Rocephin) 1 gm 1X ONCE 01/06/20 08:00 01/06/20 08:01 DC 01/06/20 08:22 1 GM Citalopram Hydrobromide (CeleXA) 20 mg DAILY 01/06/20 11:30 Dextrose (Dextrose 50%-Water Syringe) 12.5 gm PRN Q15MIN PRN 01/06/20 11:15 Enoxaparin Sodium (Lovenox 40mg Syringe) 40 mg Q24H 01/06/20 11:15 Furosemide (Lasix) 20 mg DAILY 01/07/20 09:00 Gabapentin (Neurontin) 300 mg TID 01/06/20 14:00 Guaifenesin (Robitussin) 200 mg PRN Q4HRS PRN 01/06/20 11:15 Ibuprofen (Motrin) 800 mg 1X ONCE 01/06/20 08:00 01/06/20 08:01 DC 01/06/20 08:20 800 MG Insulin Glargine (Lantus Syringe) 20 unit QHS 01/06/20 21:00 Insulin Human Lispro (HumaLOG) 0-5 UNITS TIDWMEALS 01/06/20 12:00 Lactulose (Lactulose) 20 gm BID 01/06/20 21:00 Lorazepam (Ativan) 0.5 mg PRN BID PRN 01/06/20 11:15 Metronidazole 100 ml @ 100 mls/hr Q8HRS 01/06/20 14:00 Morphine Sulfate (Morphine Sulfate) 4 mg 1X ONCE 01/06/20 12:45 01/06/20 12:48 DC 01/06/20 13:21 4 MG Multivitamins (Thera M Plus) 1 tab DAILY 01/07/20 09:00 Non-Formulary Medication (Apremilast (Otezla)) 30 mg BID 01/06/20 21:00 UNV Non-Formulary Medication (Cranberry Fruit Concentrate (Cranberry)) 450 mg DAILY 01/07/20 09:00 UNV Ondansetron HCl (Zofran) 4 mg PRN Q4HRS PRN 01/06/20 11:15 Oxycodone HCl (Roxicodone) 30 mg PRN QHS PRN 01/06/20 11:30 Pantoprazole Sodium (Protonix) 40 mg DAILYAC 01/07/20 07:30 Piperacillin Sod/ Tazobactam Sod 3.375 gm/Sodium Chloride 50 ml @ 100 mls/hr Q6HRS 01/06/20 12:00 Sodium Monofluorophosphate (Fleet Adult) 133 ml PRN DAILY PRN 01/06/20 11:15 Sodium Chloride (Normal Saline Flush) 3 ml QSHIFT PRN 01/06/20 11:15 Spironolactone (Aldactone) 100 mg DAILY 01/06/20 11:30 Tamsulosin HCl (Flomax) 0.8 mg DAILY 01/06/20 12:00 Trazodone HCl (Desyrel) 300 mg HS 01/06/20 21:00 Labs: Lab Laboratory Tests Test 01/06/20 08:20 01/06/20 08:30 01/06/20 13:00 01/06/20 13:20 White Blood Count 5.8 x10^3/uL (4.0-11.0) Red Blood Count 4.53 x10^6/uL (4.30-5.70) Hemoglobin 13.5 g/dL (13.0-17.5) Hematocrit 41.6 % (39.0-53.0) Mean Corpuscular Volume 92 fL (79-100) Mean Corpuscular Hemoglobin 30 pg (25-35) Mean Corpuscular Hemoglobin Concent 32 g/dL (31-37) Red Cell Distribution Width 16.4 % (11.5-14.5) Platelet Count 83 x10^3/uL (140-400) Neutrophils (%) (Auto) 84 % (31-73) Lymphocytes (%) (Auto) 9 % (24-48) Monocytes (%) (Auto) 4 % (0-9) Eosinophils (%) (Auto) 3 % (0-3) Basophils (%) (Auto) 0 % (0-3) Neutrophils # (Auto) 4.9 x10^3/uL (1.8-7.7) Lymphocytes # (Auto) 0.5 x10^3/uL (1.0-4.8) Monocytes # (Auto) 0.2 x10^3/uL (0.0-1.1) Eosinophils # (Auto) 0.2 x10^3/uL (0.0-0.7) Basophils # (Auto) 0.0 x10^3/uL (0.0-0.2) Prothrombin Time 14.8 SEC (11.7-14.0) Prothromb Time International Ratio 1.2 (0.8-1.1) Activated Partial Thromboplast Time 28 SEC (24-38) Urine Collection Type Unknown Urine Color Yellow Urine Clarity Clear Urine pH 5.0 (<5.0-8.0) Urine Specific [place] 1.020 (1.000-1.030) Urine Protein Negative mg/dL (NEG-TRACE) Urine Glucose (UA) Negative mg/dL (NEG) Urine Ketones (Stick) Trace mg/dL (NEG) Urine Blood Negative (NEG) Urine Nitrite Negative (NEG) Urine Bilirubin Negative (NEG) Urine Urobilinogen Dipstick 0.2 mg/dL (0.2 mg/dL) Urine Leukocyte Esterase Negative (NEG) Urine RBC 0 /HPF (0-2) Urine WBC 1-4 /HPF (0-4) Urine Squamous Epithelial Cells Few /LPF Urine Bacteria Few /HPF (0-FEW) Urine Hyaline Casts Occasional /HPF Urine Mucus Mod /LPF Sodium Level 141 mmol/L (136-145) Potassium Level 4.3 mmol/L (3.5-5.1) Chloride Level 104 mmol/L (98-107) Carbon Dioxide Level 26 mmol/L (21-32) Anion Gap 11 (6-14) Blood Urea Nitrogen 12 mg/dL (8-26) Creatinine 1.2 mg/dL (0.7-1.3) Estimated GFR (Cockcroft-Gault) 62.6 BUN/Creatinine Ratio 10 (6-20) Glucose Level 161 mg/dL (70-99) Calcium Level 8.6 mg/dL (8.5-10.1) Total Bilirubin 1.4 mg/dL (0.2-1.0) Aspartate Amino Transf (AST/SGOT) 60 U/L (15-37) Alanine Aminotransferase (ALT/SGPT) 45 U/L (16-63) Alkaline Phosphatase 225 U/L (46-116) Ammonia 15 mcmol/L (11-34) Troponin I Quantitative < 0.017 ng/mL (0.000-0.055) Total Protein 6.6 g/dL (6.4-8.2) Albumin 3.0 g/dL (3.4-5.0) Albumin/Globulin Ratio 0.8 (1.0-1.7) Lipase 132 U/L (73-393) Lactic Acid Level 3.3 mmol/L (0.4-2.0) 1.8 mmol/L (0.4-2.0) SARS-CoV-2 Antigen (Rapid) Negative (NEGATIVE) Objective: Assessment: Patient seen and examined ID consult dictated Plan: Plan of Care Thank you [id number] GILLIAN CAMILO MD Jan 06, 2020 14:20
[2020-01-06 15:00] VITALS: BP 110/62
[2020-01-06] MEDS: ENOXAPARIN 40 MG/0.4 ML SYRINGE. SQ SCH (15:23)
[2020-01-06] MEDS: TAMSULOSIN 0.4 MG CAP.ER.24H. PO SCH (15:24)
[2020-01-06] MEDS: CITALOPRAM 20 MG TABLET. PO SCH (15:24)
[2020-01-06] MEDS: SPIRONOLACTONE 25 MG TABLET PO SCH (15:24)
[2020-01-06] MEDS: GABAPENTIN 300 MG CAPSULE. PO SCH ×2 (15:24→21:15)
[2020-01-06] MEDS: PIPERACILLIN/TAZOBACTAM 3.375 GM in IV NORMAL SALINE 50ML 50 ML IV SCH ×2 (15:26→20:55)
[2020-01-06] MEDS: CARVEDILOL 6.25 MG TABLET. PO SCH ×2 (15:26→16:27)
[2020-01-06] MEDS: busPIRone 10 MG TABLET. PO SCH ×2 (15:26→21:15)
--- NOTE | 2020-01-06 16:00 | CONS ---
DATE OF CONSULTATION: 01/06/2020 REFERRING PHYSICIAN: Dr. Boyce. REASON FOR CONSULTATION: Fever, possible abdominal cellulitis. HISTORY OF PRESENT ILLNESS: A 54-year-old male who was brought from the [place] [facility] to [facility] ED on 01/05/2020 with complaints of nausea, vomiting, abdominal discomfort with worsening abdominal distention. The patient also had cough, fever, nasal congestion. He has history of cirrhosis, underwent abdominal paracentesis, last month with 11 liters of fluid removed from the peritoneal area. Upon presentation, his temperature was 102.7 *F. The patient remains on room air. White count was 5.8, platelets of 83. He has chronic thrombocytopenia due to cirrhosis and splenomegaly. UA was negative. He underwent a chest x-ray, which showed mild bibasilar lung airspace opacities, likely atelectasis or infection. Abdominal and pelvic CT showed cirrhosis with large ascites and findings suggestive of developing a cellulitis in the lower ventral abdominal wall. The patient was given IV ceftriaxone and Flagyl. Currently, he is on Zosyn and Flagyl. ID consult has been requested for further evaluation and treatment. COVID-19 is pending. The patient is awaiting paracentesis depending on results of COVID-19 later today. The patient also has history of rheumatoid arthritis and psoriasis on immunosuppression. REVIEW OF SYSTEMS: Fevers, chills, nasal congestion, sneezing. No sore throat or cough. No purulent sputum production, abdominal distention, nausea, vomiting. No diarrhea. No recent antibiotics. No symptoms. PAST MEDICAL HISTORY: Diabetes, rheumatoid arthritis, psoriasis, chronic thrombocytopenia, splenomegaly, nephrolithiasis, history of subdural hematoma, hypertension with a bone marrow biopsy, LP, vasectomy, tonsillectomy, cataract extraction, immunosuppression. FAMILY HISTORY: As per HPI. SOCIAL HISTORY: No smoking, alcohol or drugs. snf resident. CURRENT MEDICATIONS: Zosyn, Flagyl, status post ceftriaxone in ED. Other medications reviewed in medication list. PHYSICAL EXAMINATION: VITAL SIGNS: Temperature 99.6, pulse 82, respiratory rate 18, blood pressure 107/55, oxygen saturation 92% on room air. T-max 102.7. GENERAL: Alert, oriented x 3 male lying in bed comfortably, in no acute distress, nontoxic appearing. HEENT: Normocephalic, atraumatic, anicteric. NECK: Supple, no JVD, no thyromegaly. No neck tenderness. LUNGS: Clear bilaterally. No wheezing. HEART: S1, S2. No gallops, murmurs or rubs. ABDOMEN: Soft, distended. Bowel sounds present. No overlying cellulitis changes noted. EXTREMITIES: Bilateral lower extremity 1+ edema, no cyanosis. DERMATOLOGIC: Warm, dry. No generalized rash. Psoriatic patches present on the lateral aspect of both upper extremities, mild superficial skin abrasions. MUSCULOSKELETAL: No joint swelling seen, DJD changes present. NEUROLOGIC: Alert and oriented x 3, grossly nonfocal. PSYCHIATRIC: Cooperative, appropriate mood and affect. LABORATORY DATA: WBC 5.8, hemoglobin 13.5, hematocrit 41.6, platelets 83. Sodium 141, potassium 4.3, chloride 104, bicarbonate 26, BUN 12, creatinine 1.2, glucose 161. Lactate 3.3, repeat is 1.8, alkaline phosphatase 225, total bilirubin 1.4, AST 60, ALT 45, albumin 3.0. UA negative. MICROBIOLOGY: None. Paracentesis pending. Coronavirus pending. IMAGING: CT abdomen and pelvis as above. Chest x-ray as above. IMPRESSION: 1. Fever. 2. Lactic acidosis. 3. Abdominal distention, nausea, vomiting with underlying ascites. 4. Nausea, vomiting. 5. Cough 6. Suspect COVID. 7. Cirrhosis. 8. Chronic thrombocytopenia. 9. Psoriasis and rheumatoid arthritis, on immunosuppression. RECOMMENDATIONS: 1. Discontinue Flagyl. 2. Continue Zosyn, add daptomycin. Monitor CK. 3. Awaiting COVID-19 test. 4. Paracentesis is planned per GI. Send fluid for routine studies and cultures. 5. Blood cultures were not done in ER. 6. If temperature is greater than 101, repeat blood cultures. 7. Monitor lower abdominal wall closely. No evidence of abdominal wall cellulitis at this time. 8. Follow up cultures and lab. 9. Continue supportive care. Thank you for allowing me to participate in this patient's care. If you have any questions, do not hesitate to contact me. Discussed with nursing staff. GILLIAN CAMILO MD DR: [place]/fei JOB#: [id number] / [id number] MTDDaron
--- NOTE | 2020-01-06 16:27 | NUR ---
1700 carvedilol: non-admin as previous dose just given. Will continue to monitor pt.
[2020-01-06] MEDS: DAPTOmycin (GENERIC) IVPB 510 MG in IV NORMAL SALINE 50ML 50 ML IV SCH (18:20)
[2020-01-06] MEDS ORDERED: MORPHINE SULFATE 4 MG/ML VIAL. IV PRN (18:45)
[2020-01-06 19:00] VITALS: BP 126/61
[2020-01-06] MEDS: NON FORMULARY ITEM (Apremilast (Otezla) 30 MG) PO SCH (21:00)
[2020-01-06] MEDS: LACTULOSE 20 GM/30 ML SOLUTION. PO SCH (21:15)
[2020-01-06] MEDS: oxyCODONE IR 5 MG TABLET PO PRN (21:15)
[2020-01-06] MEDS: traZODone 100 MG TABLET. PO SCH (21:15)
[2020-01-06] MEDS: INSULIN GLARGINE SYRINGE. SQ SCH (21:54)
[2020-01-06 23:00] VITALS: BP 119/57
[2020-01-07] VITALS (10 sets, daily range): BP systolic 102–135; BP diastolic 40–64
[2020-01-07] MEDS: PIPERACILLIN/TAZOBACTAM 3.375 GM in IV NORMAL SALINE 50ML 50 ML IV SCH ×5 (01:35→23:16)
[2020-01-07] MEDS: CARVEDILOL 6.25 MG TABLET. PO SCH ×2 (08:00→17:05)
[2020-01-07] MEDS: INSULIN LISPRO 300 UNITS/3 ML VIAL. SQ SCH ×3 (08:00→17:25)
[2020-01-07] MEDS: PANTOPRAZOLE 40 MG TABLET.DR. PO SCH (08:45)
[2020-01-07] MEDS: NON FORMULARY ITEM (Apremilast (Otezla) 30 MG) PO SCH ×2 (08:45→22:21)
[2020-01-07] MEDS: GABAPENTIN 300 MG CAPSULE. PO SCH ×3 (08:46→22:22)
[2020-01-07] MEDS: ARIPiprazole 5 MG TABLET PO SCH (08:46)
[2020-01-07] MEDS: CITALOPRAM 20 MG TABLET. PO SCH (08:46)
[2020-01-07] MEDS: busPIRone 10 MG TABLET. PO SCH ×2 (08:46→22:22)
[2020-01-07] MEDS: MULTIVITAMIN with MINERAL TABLET. PO SCH (08:47)
[2020-01-07] MEDS: SPIRONOLACTONE 25 MG TABLET PO SCH (08:47)
[2020-01-07] MEDS: FUROSEMIDE 20 MG TABLET PO SCH (08:47)
[2020-01-07] MEDS: TAMSULOSIN 0.4 MG CAP.ER.24H. PO SCH (08:47)
[2020-01-07] MEDS: LACTULOSE 20 GM/30 ML SOLUTION. PO SCH ×2 (08:47→22:23)
[2020-01-07] MEDS ORDERED: CRANBERRY FRUIT 450 MG PO SCH (09:00)
--- NOTE | 2020-01-07 10:27 | PDOC ---
PROGRESS NOTES Date of Service: DATE: 01/07/20 TIME: 10:26 Chief Complaint Chief Complaint VTE Prophylaxis Ordered VTE Prophylaxis Devices: Yes VTE Pharmacological Prophylaxi: Yes Assessment/Plan Assessment/Plan IMPRESSION: Cirrhosis with large ascites and findings suggesting developing cellulitis in the lower ventral abdominal wall. FEVER mild bibasilar lung airspace opacities likely atelectasis or infiltrates. COVID-19 PUI Cirrhosis of the liver - [place] with remote h/o alcohol abuse Splenomegaly likely secondary to portal hypertension.Marked splenomegaly, similar to prior. Spleen measures 18 cm in cranial caudal extent MORBID OBESITY Chronic bilateral subdural hematomas, Interval apparent coil embolization. SEVERE ALCOHOL ABUSE HX - not drinking anymore Noncompliance normocytic anemia transaminitis CHRONIC THROMBOCYTOPENIA ELEVATED AMMONIA, SERUM HX Leukopenia LACTIC ACIDOSIS SEPSIS ADMIT CONSULT ID CONSULT GI BLOOD CULT X 2 covid-19 screening NH4 D/C METFORMIN EMPERIC IV ZOSYN, FLAGYL PENDING ID CONSULT 35 MIN CC TIME Justicifation of Admission Dx: Justicifation of Admission Dx: Justifications for Admission: Justification of Admission Dx: Yes History of Present Illness History of Present Illness Identification/Chief Complaint Chief Complaint seen in er with fever, cough and ascites 54 year old male who was brought here from [facility] due to nausea vomiting and abdominal pain with abdominal distention. Patient also has a cough and a fever. Patient was evaluated here last month for the same problem, he was found to have ascites, had 11 L of fluid removed from his abdomen . now has a cough as well history of alcohol abuse, ascites, dementia Past Medical History Past Medical History Past Medical History Past Medical History: COPD, Dementia, Diabetes-Type II, Heart Disease, [place], Unknown Additional Past Medical Histor: RA, sleep apnea, SUBDURAL HEMATOMA 10/03/19 Past Surgical History: Tonsillectomy, Other Additional Past Surgical Histo: vasectomy Smoking Status: Never Smoker Alcohol Use: None Drug Use: None FHX OBESITY Cardiovascular: HTN, AL Pulmonary: COPD CENTRAL NERVOUS SYSTEM: Other GI: GERD Psych: Addictions Musculoskeletal: low back pain, Osteoarthritis, Other Rheumatologic: Rheumatoid arthritis Renal/: Other Endocrine: Diabetes Past Surgical History Past Surgical History: Tonsillectomy, Other Family History Family History: Alcohol Abuse, High Cholestrol, Hypertension, Family History Unknown Social History Smoke: No ALCOHOL: heavy (remote ) Drugs: None, Other Vitals Vitals Vital Signs Date Time Temp Pulse Resp B/P (MAP) Pulse Ox O2 Delivery O2 Flow Rate FiO2 01/07/20 08:30 Room Air 01/07/20 08:00 58 107/53 01/07/20 07:30 97.5 16 97 2.0 97.5 Physical Exam Lungs: Clear Labs LABS Laboratory Tests Test 01/06/20 13:00 01/06/20 13:20 01/06/20 16:41 01/06/20 21:29 Lactic Acid Level 1.8 mmol/L (0.4-2.0) SARS-CoV-2 Antigen (Rapid) Negative (NEGATIVE) Glucose (Fingerstick) 178 mg/dL (70-99) 178 mg/dL (70-99) Test 01/07/20 03:50 01/07/20 08:16 Creatine Kinase 22 U/L (39-308) Glucose (Fingerstick) 134 mg/dL (70-99) Assessment and Plan Assessmemt and Plan Problems Medical Problems: (1) Abdominal pain Status: Acute (2) Ascites Status: Acute (3) Fever Status: Acute (4) Suspected 2019 novel coronavirus infection Status: Acute Comment Review of Relevant I have reviewed the following items miguel (where applicable) has been applied. Labs Laboratory Tests Test 01/06/20 08:20 01/06/20 08:30 01/06/20 13:00 01/06/20 13:20 White Blood Count 5.8 x10^3/uL (4.0-11.0) Red Blood Count 4.53 x10^6/uL (4.30-5.70) Hemoglobin 13.5 g/dL (13.0-17.5) Hematocrit 41.6 % (39.0-53.0) Mean Corpuscular Volume 92 fL (79-100) Mean Corpuscular Hemoglobin 30 pg (25-35) Mean Corpuscular Hemoglobin Concent 32 g/dL (31-37) Red Cell Distribution Width 16.4 % (11.5-14.5) Platelet Count 83 x10^3/uL (140-400) Neutrophils (%) (Auto) 84 % (31-73) Lymphocytes (%) (Auto) 9 % (24-48) Monocytes (%) (Auto) 4 % (0-9) Eosinophils (%) (Auto) 3 % (0-3) Basophils (%) (Auto) 0 % (0-3) Neutrophils # (Auto) 4.9 x10^3/uL (1.8-7.7) Lymphocytes # (Auto) 0.5 x10^3/uL (1.0-4.8) Monocytes # (Auto) 0.2 x10^3/uL (0.0-1.1) Eosinophils # (Auto) 0.2 x10^3/uL (0.0-0.7) Basophils # (Auto) 0.0 x10^3/uL (0.0-0.2) Prothrombin Time 14.8 SEC (11.7-14.0) Prothromb Time International Ratio 1.2 (0.8-1.1) Activated Partial Thromboplast Time 28 SEC (24-38) Urine Collection Type Unknown Urine Color Yellow Urine Clarity Clear Urine pH 5.0 (<5.0-8.0) Urine Specific [place] 1.020 (1.000-1.030) Urine Protein Negative mg/dL (NEG-TRACE) Urine Glucose (UA) Negative mg/dL (NEG) Urine Ketones (Stick) Trace mg/dL (NEG) Urine Blood Negative (NEG) Urine Nitrite Negative (NEG) Urine Bilirubin Negative (NEG) Urine Urobilinogen Dipstick 0.2 mg/dL (0.2 mg/dL) Urine Leukocyte Esterase Negative (NEG) Urine RBC 0 /HPF (0-2) Urine WBC 1-4 /HPF (0-4) Urine Squamous Epithelial Cells Few /LPF Urine Bacteria Few /HPF (0-FEW) Urine Hyaline Casts Occasional /HPF Urine Mucus Mod /LPF Sodium Level 141 mmol/L (136-145) Potassium Level 4.3 mmol/L (3.5-5.1) Chloride Level 104 mmol/L (98-107) Carbon Dioxide Level 26 mmol/L (21-32) Anion Gap 11 (6-14) Blood Urea Nitrogen 12 mg/dL (8-26) Creatinine 1.2 mg/dL (0.7-1.3) Estimated GFR (Cockcroft-Gault) 62.6 BUN/Creatinine Ratio 10 (6-20) Glucose Level 161 mg/dL (70-99) Calcium Level 8.6 mg/dL (8.5-10.1) Total Bilirubin 1.4 mg/dL (0.2-1.0) Aspartate Amino Transf (AST/SGOT) 60 U/L (15-37) Alanine Aminotransferase (ALT/SGPT) 45 U/L (16-63) Alkaline Phosphatase 225 U/L (46-116) Ammonia 15 mcmol/L (11-34) Troponin I Quantitative < 0.017 ng/mL (0.000-0.055) Total Protein 6.6 g/dL (6.4-8.2) Albumin 3.0 g/dL (3.4-5.0) Albumin/Globulin Ratio 0.8 (1.0-1.7) Lipase 132 U/L (73-393) Lactic Acid Level 3.3 mmol/L (0.4-2.0) 1.8 mmol/L (0.4-2.0) SARS-CoV-2 Antigen (Rapid) Negative (NEGATIVE) Test 01/06/20 16:41 01/06/20 21:29 01/07/20 03:50 01/07/20 08:16 Glucose (Fingerstick) 178 mg/dL (70-99) 178 mg/dL (70-99) 134 mg/dL (70-99) Creatine Kinase 22 U/L (39-308) Laboratory Tests Test 01/06/20 13:00 01/06/20 13:20 01/06/20 16:41 01/06/20 21:29 Lactic Acid Level 1.8 mmol/L (0.4-2.0) SARS-CoV-2 Antigen (Rapid) Negative (NEGATIVE) Glucose (Fingerstick) 178 mg/dL (70-99) 178 mg/dL (70-99) Test 01/07/20 03:50 01/07/20 08:16 Creatine Kinase 22 U/L (39-308) Glucose (Fingerstick) 134 mg/dL (70-99) Medications Current Medications Ibuprofen (Motrin) 800 mg 1X ONCE PO Last administered on 01/06/20at 08:20; Start 01/06/20 at 08:00; Stop 01/06/20 at 08:01; Status DC Ondansetron HCl (Zofran) 4 mg 1X ONCE IVP Last administered on 01/06/20at 08:20; Start 01/06/20 at 08:00; Stop 01/06/20 at 08:01; Status DC Ceftriaxone Sodium (Rocephin) 1 gm 1X ONCE IVP Last administered on 01/06/20at 08:22; Start 01/06/20 at 08:00; Stop 01/06/20 at 08:01; Status DC Morphine Sulfate (Morphine Sulfate) 4 mg 1X ONCE IV Last administered on 01/06/20at 10:17; Start 01/06/20 at 09:30; Stop 01/06/20 at 09:31; Status DC Sodium Chloride 1,000 ml @ 75 mls/hr 1X ONCE IV ; Start 01/06/20 at 10:30; Stop 01/06/20 at 23:49; Status DC Sodium Chloride 1,000 ml @ 1,000 mls/hr 1X ONCE IV ; Start 01/06/20 at 10:30; Stop 01/06/20 at 11:29; Status DC Piperacillin Sod/ Tazobactam Sod 3.375 gm/Sodium Chloride 50 ml @ 100 mls/hr Q6HRS IV Last administered on 01/07/20at 06:27; Start 01/06/20 at 12:00 Buspirone HCl (Buspar) 10 mg BID PO Last administered on 01/07/20at 08:46; Start 01/06/20 at 11:30 Carvedilol (Coreg) 6.25 mg BIDWMEALS PO Last administered on 01/06/20at 15:26; Start 01/06/20 at 11:30 Citalopram Hydrobromide (CeleXA) 20 mg DAILY PO Last administered on 01/07/20at 08:46; Start 01/06/20 at 11:30 Furosemide (Lasix) 20 mg DAILY PO Last administered on 01/07/20at 08:47; Start 01/07/20 at 09:00 Lactulose (Lactulose) 20 gm BID PO Last administered on 01/07/20at 08:47; Start 01/06/20 at 21:00 Lorazepam (Ativan) 0.5 mg PRN BID PRN PO ANXIETY; Start 01/06/20 at 11:15 Oxycodone HCl (Roxicodone) 30 mg PRN QHS PRN PO PAIN Last administered on 01/06/20at 21:15; Start 01/06/20 at 11:30 Pantoprazole Sodium (Protonix) 40 mg DAILYAC PO Last administered on 01/07/20at 08:45; Start 01/07/20 at 07:30 Spironolactone (Aldactone) 100 mg DAILY PO Last administered on 01/07/20at 08:47; Start 01/06/20 at 11:30 Tamsulosin HCl (Flomax) 0.8 mg DAILY PO Last administered on 01/07/20at 08:47; Start 01/06/20 at 12:00 Trazodone HCl (Desyrel) 300 mg HS PO Last administered on 01/06/20at 21:15; Start 01/06/20 at 21:00 Non-Formulary Medication (Apremilast (Otezla)) 30 mg BID PO ; Start 01/06/20 at 21:00; Status UNV Aripiprazole (Abilify) 15 mg DAILY PO Last administered on 01/07/20at 08:46; Start 01/07/20 at 09:00 Non-Formulary Medication (Cranberry Fruit Concentrate (Cranberry)) 450 mg DAILY PO ; Start 01/07/20 at 09:00; Status UNV Gabapentin (Neurontin) 300 mg TID PO Last administered on 01/07/20at 08:46; Start 01/06/20 at 14:00 Insulin Glargine (Lantus Syringe) 20 unit QHS SQ Last administered on 01/06/20at 21:54; Start 01/06/20 at 21:00 Multivitamins (Thera M Plus) 1 tab DAILY PO Last administered on 01/07/20at 08:47; Start 01/07/20 at 09:00 Insulin Human Lispro (HumaLOG) 0-5 UNITS TIDWMEALS SQ ; Start 01/06/20 at 12:00 Dextrose (Dextrose 50%-Water Syringe) 12.5 gm PRN Q15MIN PRN IV SEE COMMENTS; Start 01/06/20 at 11:15 Sodium Chloride (Normal Saline Flush) 3 ml QSHIFT PRN IV AFTER MEDS AND BLOOD DRAWS; Start 01/06/20 at 11:15 Ondansetron HCl (Zofran) 4 mg PRN Q4HRS PRN IV NAUSEA/VOMITING; Start 01/06/20 at 11:15 Acetaminophen (Tylenol) 650 mg PRN Q4HRS PRN PO TEMP OVER 100.4F OR MILD PAIN; Start 01/06/20 at 11:15 Acetaminophen (Tylenol Supp) 650 mg PRN Q4HRS PRN IA TEMP OVER 100.4F OR MILD PAIN; Start 01/06/20 at 11:15 Sodium Monofluorophosphate (Fleet Adult) 133 ml PRN DAILY PRN IA CONSTIPATION; Start 01/06/20 at 11:15 Albuterol Sulfate (Ventolin Neb Soln) 2.5 mg PRN Q4HRS PRN NEB SHORTNESS OF BREATH; Start 01/06/20 at 11:15 Guaifenesin (Robitussin) 200 mg PRN Q4HRS PRN PO COUGH; Start 01/06/20 at 11:15 Enoxaparin Sodium (Lovenox 40mg Syringe) 40 mg Q24H SQ Last administered on 01/06/20at 15:23; Start 01/06/20 at 11:15 Metronidazole 100 ml @ 100 mls/hr Q8HRS IV ; Start 01/06/20 at 14:00; Stop 01/06/20 at 14:11; Status DC Morphine Sulfate (Morphine Sulfate) 2 mg 1X ONCE IV ; Start 01/06/20 at 12:45; Stop 01/06/20 at 12:45; Status DC Morphine Sulfate (Morphine Sulfate) 4 mg 1X ONCE IV Last administered on 01/06/20at 13:21; Start 01/06/20 at 12:45; Stop 01/06/20 at 12:48; Status DC Daptomycin 510 mg/ Sodium Chloride 50 ml @ 100 mls/hr Q24H IV Last administered on 01/06/20at 18:20; Start 01/06/20 at 15:00 Morphine Sulfate (Morphine Sulfate) 4 mg PRN Q2HR PRN IV PAIN; Start 01/06/20 at 18:45 Active Scripts Active Furosemide 20 Mg Tablet 1 Tab PO DAILY 90 Days Lactulose 20 Gm/30 Ml Solution 20 Gm PO BID 30 Days Aldactone (Spironolactone) 25 Mg Tablet 100 Mg PO DAILY 30 Days Ativan (Lorazepam) 0.5 Mg Tablet 0.5 Mg PO PRN BID PRN 6 Days Levemir Flextouch (Insulin Detemir) 300 Units/3 Ml Insuln.pen 20 Units SQ QHS Reported Citalopram Hbr (Citalopram Hydrobromide) 20 Mg Tablet 1 Tab PO DAILY Aripiprazole 1 Mg/1 Ml Solution 15 Ml PO DAILY 30 Days Pantoprazole Sodium (Pantoprazole Sodium) 40 Mg Tablet.dr 40 Mg PO DAILYAC Flomax (Tamsulosin Hcl) 0.4 Mg Cap.er.24h 2 Cap PO DAILY Buspirone Hcl 10 Mg Tablet 1 Tab PO BID Oxycodone Hcl Immed.release (Oxycodone Hcl) 30 Mg Tablet 30 Mg PO HS PRN Oxycodone Hcl Immed.release (Oxycodone Hcl) 15 Mg Tablet 15 Mg PO Q6HRS PRN Otezla (Apremilast) 30 Mg Tablet 30 Mg PO BID Daily Value (Multivitamin) 1 Each Tablet 1 Each PO DAILY Novolog Flexpen (Insulin Aspart) 100 Unit/1 Ml Insuln.pen 0-7 Unit SQ QID Cranberry (Cranberry Fruit Concentrate) 450 Mg Capsule 450 Mg PO DAILY Carvedilol (Carvedilol) 6.25 Mg Tablet 6.25 Mg PO BIDWMEALS Gabapentin 600 Mg Tablet 300 Mg PO TID Trazodone Hcl 100 Mg Tablet 300 Mg PO HS Metformin Hcl 1,000 Mg Tablet 1,000 Mg PO BID Vitals/I & O Vital Sign - Last 24 Hours 01/06/20 01/06/20 01/06/20 01/06/20 10:44 11:14 12:00 13:21 Pulse 94 94 Resp 18 18 B/P (MAP) 117/64 (81) 123/62 (82) Pulse Ox 90 90 90 O2 Delivery Room Air Room Air Room Air 01/06/20 01/06/20 01/06/20 01/06/20 13:35 13:51 15:00 15:26 Temp 99.6 99.0 99.6 99.0 Pulse 82 87 85 Resp 18 18 B/P (MAP) 107/55 (72) 110/62 (78) 145/65 Pulse Ox 92 92 93 O2 Delivery Room Air Room Air 01/06/20 01/06/20 01/06/20 01/07/20 19:00 20:45 23:00 03:00 Temp 99.3 99.1 96.9 99.3 99.1 96.9 Pulse 72 70 66 Resp 18 18 18 B/P (MAP) 126/61 (82) 119/57 (77) 102/55 (71) Pulse Ox 95 95 90 O2 Delivery Room Air Room Air Room Air Room Air 01/07/20 01/07/20 01/07/20 07:30 08:00 08:30 Temp 97.5 97.5 Pulse 58 58 Resp 16 B/P (MAP) 107/53 (71) 107/53 Pulse Ox 97 O2 Delivery Nasal Cannula Room Air O2 Flow Rate 2.0 Intake and Output 01/06/20 01/06/20 01/07/20 15:00 23:00 07:00 Intake Total 350 ml 50 ml Output Total 200 ml Balance 350 ml -150 ml Justicifation of Admission Dx: Justifications for Admission: Justification of Admission Dx: Yes KEITH DOOLEY MD Jan 07, 2020 10:26
--- NOTE | 2020-01-07 10:58 | PDOC ---
Infectious Disease Note Subjective: Subjective Patient continues to feel the same Continues to have abdominal distention and discomfort Some nausea One loose bowel movement No fevers, vomiting, shortness of breath or cough Vital Signs: Vital Signs Vital Signs Date Time Temp Pulse Resp B/P (MAP) Pulse Ox O2 Delivery O2 Flow Rate FiO2 01/07/20 08:30 Room Air 01/07/20 08:00 58 107/53 01/07/20 07:30 97.5 16 97 2.0 97.5 Physical Exam: PHYSICAL EXAM GENERAL: Alert, oriented x 3 male lying in bed comfortably, in no acute distress, nontoxic appearing. HEENT: Normocephalic, atraumatic, anicteric. NECK: Supple, no JVD, no thyromegaly. No neck tenderness. LUNGS: Clear bilaterally. No wheezing. HEART: S1, S2. No gallops, murmurs or rubs. ABDOMEN: Soft, distended. Bowel sounds present. No overlying cellulitis changes noted. EXTREMITIES: Bilateral lower extremity 1+ edema, no cyanosis. DERMATOLOGIC: Warm, dry. No generalized rash. Psoriatic patches present on the lateral aspect of both upper extremities, mild superficial skin abrasions. MUSCULOSKELETAL: No joint swelling seen, DJD changes present. NEUROLOGIC: Alert and oriented x 3, grossly nonfocal. PSYCHIATRIC: Cooperative, appropriate mood and affect. Medications: Inpatient Meds: Current Medications Medications (Trade) Dose Ordered Sig/Sb Start Time Stop Time Status Last Admin Dose Admin Acetaminophen (Tylenol Supp) 650 mg PRN Q4HRS PRN 01/06/20 11:15 Acetaminophen (Tylenol) 650 mg PRN Q4HRS PRN 01/06/20 11:15 Albuterol Sulfate (Ventolin Neb Soln) 2.5 mg PRN Q4HRS PRN 01/06/20 11:15 Aripiprazole (Abilify) 15 mg DAILY 01/07/20 09:00 01/07/20 08:46 15 MG Buspirone HCl (Buspar) 10 mg BID 01/06/20 11:30 01/07/20 08:46 10 MG Carvedilol (Coreg) 6.25 mg BIDWMEALS 01/06/20 11:30 01/06/20 15:26 6.25 MG Ceftriaxone Sodium (Rocephin) 1 gm 1X ONCE 01/06/20 08:00 01/06/20 08:01 DC 01/06/20 08:22 1 GM Citalopram Hydrobromide (CeleXA) 20 mg DAILY 01/06/20 11:30 01/07/20 08:46 20 MG Daptomycin 510 mg/ Sodium Chloride 50 ml @ 100 mls/hr Q24H 01/06/20 15:00 01/06/20 18:20 100 MLS/HR Dextrose (Dextrose 50%-Water Syringe) 12.5 gm PRN Q15MIN PRN 01/06/20 11:15 Enoxaparin Sodium (Lovenox 40mg Syringe) 40 mg Q24H 01/06/20 11:15 01/06/20 15:23 40 MG Furosemide (Lasix) 20 mg DAILY 01/07/20 09:00 01/07/20 08:47 20 MG Gabapentin (Neurontin) 300 mg TID 01/06/20 14:00 01/07/20 08:46 300 MG Guaifenesin (Robitussin) 200 mg PRN Q4HRS PRN 01/06/20 11:15 Ibuprofen (Motrin) 800 mg 1X ONCE 01/06/20 08:00 01/06/20 08:01 DC 01/06/20 08:20 800 MG Insulin Glargine (Lantus Syringe) 20 unit QHS 01/06/20 21:00 01/06/20 21:54 20 UNIT Insulin Human Lispro (HumaLOG) 0-5 UNITS TIDWMEALS 01/06/20 12:00 Lactulose (Lactulose) 20 gm BID 01/06/20 21:00 01/07/20 08:47 20 GM Lorazepam (Ativan) 0.5 mg PRN BID PRN 01/06/20 11:15 Metronidazole 100 ml @ 100 mls/hr Q8HRS 01/06/20 14:00 01/06/20 14:11 DC Morphine Sulfate (Morphine Sulfate) 4 mg PRN Q2HR PRN 01/06/20 18:45 Multivitamins (Thera M Plus) 1 tab DAILY 01/07/20 09:00 01/07/20 08:47 1 TAB Non-Formulary Medication (Apremilast (Otezla)) 30 mg BID 01/06/20 21:00 UNV Non-Formulary Medication (Cranberry Fruit Concentrate (Cranberry)) 450 mg DAILY 01/07/20 09:00 UNV Ondansetron HCl (Zofran) 4 mg PRN Q4HRS PRN 01/06/20 11:15 Oxycodone HCl (Roxicodone) 30 mg PRN QHS PRN 01/06/20 11:30 01/06/20 21:15 30 MG Pantoprazole Sodium (Protonix) 40 mg DAILYAC 01/07/20 07:30 01/07/20 08:45 40 MG Piperacillin Sod/ Tazobactam Sod 3.375 gm/Sodium Chloride 50 ml @ 100 mls/hr Q6HRS 01/06/20 12:00 01/07/20 06:27 100 MLS/HR Sodium Monofluorophosphate (Fleet Adult) 133 ml PRN DAILY PRN 01/06/20 11:15 Sodium Chloride (Normal Saline Flush) 3 ml QSHIFT PRN 01/06/20 11:15 Spironolactone (Aldactone) 100 mg DAILY 01/06/20 11:30 01/07/20 08:47 100 MG Tamsulosin HCl (Flomax) 0.8 mg DAILY 01/06/20 12:00 01/07/20 08:47 0.8 MG Trazodone HCl (Desyrel) 300 mg HS 01/06/20 21:00 01/06/20 21:15 300 MG Labs: Lab Laboratory Tests Test 01/06/20 13:00 01/06/20 13:20 01/06/20 16:41 01/06/20 21:29 Lactic Acid Level 1.8 mmol/L (0.4-2.0) SARS-CoV-2 Antigen (Rapid) Negative (NEGATIVE) Glucose (Fingerstick) 178 mg/dL (70-99) 178 mg/dL (70-99) Test 01/07/20 03:50 01/07/20 08:16 Creatine Kinase 22 U/L (39-308) Glucose (Fingerstick) 134 mg/dL (70-99) Objective: Assessment: 1. Fever. Improving 2. Lactic acidosis. Proving 3. Abdominal distention, nausea, vomiting with underlying ascites. 4. Nausea, vomiting. Resolving 5. Cough 6. Suspect COVID. 7. Cirrhosis. 8. Chronic thrombocytopenia. 9. Psoriasis and rheumatoid arthritis, on immunosuppression. Plan: Plan of Care Continue Zosyn, daptomycin. Awaiting paracentesis today, Send fluid for routine studies and cultures. If temperature is greater than 101, obtain blood cultures. Monitor lower abdominal wall closely. No evidence of abdominal wall cellulitis at this time. Follow up cultures and lab. Continue supportive care. Discussed with nursing staff GILLIAN CAMILO MD Jan 07, 2020 10:58
--- NOTE | 2020-01-07 11:23 | PDOC ---
Date of Service: DATE: 01/07/20 TIME: 11:18 Subjective: Subjective: Awaiting paracentesis. Objective: Objective: Tmax 99.6 Vital Signs: Vital Signs Date Time Temp Pulse Resp B/P (MAP) Pulse Ox O2 Delivery O2 Flow Rate FiO2 01/07/20 08:30 Room Air 01/07/20 08:00 58 107/53 01/07/20 07:30 97.5 16 97 2.0 97.5 Labs: Laboratory Tests Test 01/06/20 13:00 01/06/20 13:20 01/06/20 16:41 01/06/20 21:29 Lactic Acid Level 1.8 mmol/L SARS-CoV-2 Antigen (Rapid) Negative Glucose (Fingerstick) 178 mg/dL 178 mg/dL Test 01/07/20 03:50 01/07/20 08:16 Creatine Kinase 22 U/L Glucose (Fingerstick) 134 mg/dL PE: GEN: NAD LUNGS: CTAB HEART: RRR ABD: distended/ascites, uncomfortable NEURO/PSYCH: A & O 3 A/P: Cirrhosis/LOCKHART, recurrent ascites Fever, rapid COVID test negative -- Await paracentesis and fluid studies. Justicifation of Admission Dx: Justifications for Admission: Justification of Admission Dx: Yes ANGLE MORALES Jan 07, 2020 11:23
[2020-01-07] MEDS: ENOXAPARIN 40 MG/0.4 ML SYRINGE. SQ SCH (12:00)
[2020-01-07] MEDS ORDERED: LIDOCAINE WITH 8.4% SOD BICARB 3 ML DISP.SYRIN. ONE (12:50)
[2020-01-07] MEDS ORDERED: LIDOCAINE WITH 8.4% SOD BICARB 3 ML DISP.SYRIN. INJ ONE (13:00)
[2020-01-07] MEDS ORDERED: ALBUMIN HUMAN 25% 100 ML IV ONE ×3 (13:23→14:00)
[2020-01-07] MEDS ORDERED: ALBUMIN HUMAN 25% 50 ML IV ONE (14:00)
--- NOTE | 2020-01-07 15:21 | RAD ---
Ultrasound-guided paracentesis 01/07/2020 1:17 PM Procedure: The risks and benefits of the procedure were discussed the patient. Informed consent was obtained. A timeout procedure was performed. Sonographic evaluation of the abdomen was performed demonstrating ascites . The right lower quadrant was prepped and draped using maximum sterile barrier technique. 1% lidocaine without epinephrine was administered for local anesthesia. Real-time ultrasonographic guidance was used in passing a 5 Azeri Yueh catheter into the fluid collection. 9 L of serous ascites was removed. The catheter was removed and pressure held to achieve hemostasis. A sterile dressing was applied. Impression: Successful ultrasound-guided paracentesis
[2020-01-07] MEDS: DAPTOmycin (GENERIC) IVPB 510 MG in IV NORMAL SALINE 50ML 50 ML IV SCH (17:05)
--- NOTE | 2020-01-07 17:34 | NUR ---
SW following. Reviewed chart and discussed with RN. Pt from [facility]. Pt on room air and IV dapto. Pt to have a paracentesis done today. Pt on room air. SW to follow.
[2020-01-07] MEDS: LACTOBACILLUS RHAMNOSUS GG 1 CAPSULE. PO SCH (22:22)
[2020-01-07] MEDS: traZODone 100 MG TABLET. PO SCH (22:22)
[2020-01-07] MEDS: oxyCODONE IR 5 MG TABLET PO PRN (22:28)
[2020-01-07] MEDS: INSULIN GLARGINE SYRINGE. SQ SCH (22:33)
[2020-01-08 02:44] VITALS: BP 115/52
[2020-01-08] MEDS: PIPERACILLIN/TAZOBACTAM 3.375 GM in IV NORMAL SALINE 50ML 50 ML IV SCH ×4 (05:31→23:35)
[2020-01-08 07:15] VITALS: BP 109/51
[2020-01-08] MEDS: INSULIN LISPRO 300 UNITS/3 ML VIAL. SQ SCH ×3 (08:00→17:42)
--- NOTE | 2020-01-08 08:13 | PDOC ---
PROGRESS NOTES Date of Service: DATE: 01/08/20 TIME: 08:13 Chief Complaint Chief Complaint VTE Prophylaxis Ordered VTE Prophylaxis Devices: Yes VTE Pharmacological Prophylaxi: Yes Assessment/Plan Assessment/Plan IMPRESSION: Cirrhosis with large ascites and findings suggesting developing cellulitis in the lower ventral abdominal wall. FEVER mild bibasilar lung airspace opacities likely atelectasis or infiltrates. COVID-19 PUI Cirrhosis of the liver - LOCKHART with remote h/o alcohol abuse Splenomegaly likely secondary to portal hypertension.Marked splenomegaly, similar to prior. Spleen measures 18 cm in cranial caudal extent MORBID OBESITY Chronic bilateral subdural hematomas, Interval apparent coil embolization. SEVERE ALCOHOL ABUSE HX - not drinking anymore Noncompliance normocytic anemia transaminitis CHRONIC THROMBOCYTOPENIA ELEVATED AMMONIA, SERUM HX Leukopenia LACTIC ACIDOSIS SEPSIS 01/07 TEMP 101.4 LAST NIGHT ADMIT CONSULT ID CONSULT GI BLOOD CULT X 2 covid-19 screening NEG NH4 D/C METFORMIN EMPERIC IV ZOSYN, Continue Zosyn, daptomycin. 33 MIN CC TIME Justicifation of Admission Dx: Justicifation of Admission Dx: Justifications for Admission: Justification of Admission Dx: Yes History of Present Illness History of Present Illness Identification/Chief Complaint Chief Complaint seen in er with fever, cough and ascites 54 year old male who was brought here from care home due to nausea vomiting and abdominal pain with abdominal distention. Patient also has a cough and a fever. Patient was evaluated here last month for the same problem, he was found to have ascites, had 11 L of fluid removed from his abdomen . now has a cough as well history of alcohol abuse, ascites, dementia Past Medical History Past Medical History Past Medical History Past Medical History: COPD, Dementia, Diabetes-Type II, Heart Disease, [place], Unknown Additional Past Medical Histor: RA, sleep apnea, SUBDURAL HEMATOMA 10/03/19 Past Surgical History: Tonsillectomy, Other Additional Past Surgical Histo: vasectomy Smoking Status: Never Smoker Alcohol Use: None Drug Use: None FHX OBESITY Cardiovascular: HTN, MO Pulmonary: COPD CENTRAL NERVOUS SYSTEM: Other GI: GERD Psych: Addictions Musculoskeletal: low back pain, Osteoarthritis, Other Rheumatologic: Rheumatoid arthritis Renal/: Other Endocrine: Diabetes Past Surgical History Past Surgical History: Tonsillectomy, Other Family History Family History: Alcohol Abuse, High Cholestrol, Hypertension, Family History Unknown Social History Smoke: No ALCOHOL: heavy (remote ) Drugs: None, Other Vitals Vitals Vital Signs Date Time Temp Pulse Resp B/P (MAP) Pulse Ox O2 Delivery O2 Flow Rate FiO2 01/08/20 02:44 97.8 82 24 115/52 (73) 94 Room Air 97.8 01/07/20 07:30 2.0 Physical Exam Physical Exam GENERAL: Alert, oriented x 3 male lying in bed comfortably, in no acute distress, nontoxic appearing. HEENT: Normocephalic, atraumatic, anicteric. NECK: Supple, no JVD, no thyromegaly. No neck tenderness. LUNGS: Clear bilaterally. No wheezing. HEART: S1, S2. No gallops, murmurs or rubs. ABDOMEN: Soft, distended. Bowel sounds present. No overlying cellulitis changes noted. EXTREMITIES: Bilateral lower extremity 1+ edema, no cyanosis. DERMATOLOGIC: Warm, dry. No generalized rash. Psoriatic patches present on the lateral aspect of both upper extremities, mild superficial skin abrasions. MUSCULOSKELETAL: No joint swelling seen, DJD changes present. NEUROLOGIC: Alert and oriented x 3, grossly nonfocal. PSYCHIATRIC: Cooperative, appropriate mood and affect. Lungs: Clear Labs LABS PATIENT: TERRELL MANJARREZ ACCOUNT: [id number] : 1965 LOCATION: [facility] AGE: 54 SEX: M EXAM STATUS: ADM IN ORD. PHYSICIAN: ARCHIE OAKES DO REASON: ABDOMINAL DISTENSION, FEVER PROCEDURE: [id number] PARACENTESIS W/IMAGING Ultrasound-guided paracentesis 01/07/2020 1:17 PM Procedure: The risks and benefits of the procedure were discussed the patient. Informed consent was obtained. A timeout procedure was performed. Sonographic evaluation of the abdomen was performed demonstrating ascites . The right lower quadrant was prepped and draped using maximum sterile barrier technique. 1% lidocaine without epinephrine was administered for local anesthesia. Real-time ultrasonographic guidance was used in passing a 5 Kazakh Yueh catheter into the fluid collection. 9 L of serous ascites was removed. The catheter was removed and pressure held to achieve hemostasis. A sterile dressing was applied. Impression: Successful ultrasound-guided paracentesis DICTATED and SIGNED BY: KOMAL MURO MD DATE: 01/07/20 1517 Laboratory Tests Test 01/07/20 08:16 01/07/20 11:28 01/07/20 17:07 01/07/20 20:49 Glucose (Fingerstick) 134 mg/dL (70-99) 170 mg/dL (70-99) 199 mg/dL (70-99) 184 mg/dL (70-99) Test 01/08/20 07:50 Glucose (Fingerstick) 143 mg/dL (70-99) Assessment and Plan Assessmemt and Plan Problems Medical Problems: (1) Abdominal pain Status: Acute (2) Ascites Status: Acute (3) Fever Status: Acute (4) Suspected 2019 novel coronavirus infection Status: Acute Comment Review of Relevant I have reviewed the following items miguel (where applicable) has been applied. Labs Laboratory Tests Test 01/06/20 08:20 01/06/20 08:30 01/06/20 13:00 01/06/20 13:20 White Blood Count 5.8 x10^3/uL (4.0-11.0) Red Blood Count 4.53 x10^6/uL (4.30-5.70) Hemoglobin 13.5 g/dL (13.0-17.5) Hematocrit 41.6 % (39.0-53.0) Mean Corpuscular Volume 92 fL (79-100) Mean Corpuscular Hemoglobin 30 pg (25-35) Mean Corpuscular Hemoglobin Concent 32 g/dL (31-37) Red Cell Distribution Width 16.4 % (11.5-14.5) Platelet Count 83 x10^3/uL (140-400) Neutrophils (%) (Auto) 84 % (31-73) Lymphocytes (%) (Auto) 9 % (24-48) Monocytes (%) (Auto) 4 % (0-9) Eosinophils (%) (Auto) 3 % (0-3) Basophils (%) (Auto) 0 % (0-3) Neutrophils # (Auto) 4.9 x10^3/uL (1.8-7.7) Lymphocytes # (Auto) 0.5 x10^3/uL (1.0-4.8) Monocytes # (Auto) 0.2 x10^3/uL (0.0-1.1) Eosinophils # (Auto) 0.2 x10^3/uL (0.0-0.7) Basophils # (Auto) 0.0 x10^3/uL (0.0-0.2) Prothrombin Time 14.8 SEC (11.7-14.0) Prothromb Time International Ratio 1.2 (0.8-1.1) Activated Partial Thromboplast Time 28 SEC (24-38) Urine Collection Type Unknown Urine Color Yellow Urine Clarity Clear Urine pH 5.0 (<5.0-8.0) Urine Specific [place] 1.020 (1.000-1.030) Urine Protein Negative mg/dL (NEG-TRACE) Urine Glucose (UA) Negative mg/dL (NEG) Urine Ketones (Stick) Trace mg/dL (NEG) Urine Blood Negative (NEG) Urine Nitrite Negative (NEG) Urine Bilirubin Negative (NEG) Urine Urobilinogen Dipstick 0.2 mg/dL (0.2 mg/dL) Urine Leukocyte Esterase Negative (NEG) Urine RBC 0 /HPF (0-2) Urine WBC 1-4 /HPF (0-4) Urine Squamous Epithelial Cells Few /LPF Urine Bacteria Few /HPF (0-FEW) Urine Hyaline Casts Occasional /HPF Urine Mucus Mod /LPF Sodium Level 141 mmol/L (136-145) Potassium Level 4.3 mmol/L (3.5-5.1) Chloride Level 104 mmol/L (98-107) Carbon Dioxide Level 26 mmol/L (21-32) Anion Gap 11 (6-14) Blood Urea Nitrogen 12 mg/dL (8-26) Creatinine 1.2 mg/dL (0.7-1.3) Estimated GFR (Cockcroft-Gault) 62.6 BUN/Creatinine Ratio 10 (6-20) Glucose Level 161 mg/dL (70-99) Calcium Level 8.6 mg/dL (8.5-10.1) Total Bilirubin 1.4 mg/dL (0.2-1.0) Aspartate Amino Transf (AST/SGOT) 60 U/L (15-37) Alanine Aminotransferase (ALT/SGPT) 45 U/L (16-63) Alkaline Phosphatase 225 U/L (46-116) Ammonia 15 mcmol/L (11-34) Troponin I Quantitative < 0.017 ng/mL (0.000-0.055) Total Protein 6.6 g/dL (6.4-8.2) Albumin 3.0 g/dL (3.4-5.0) Albumin/Globulin Ratio 0.8 (1.0-1.7) Lipase 132 U/L (73-393) Lactic Acid Level 3.3 mmol/L (0.4-2.0) 1.8 mmol/L (0.4-2.0) Coronavirus (PCR) Not detected (Not Detected) SARS-CoV-2 Antigen (Rapid) Negative (NEGATIVE) Test 01/06/20 16:41 01/06/20 21:29 01/07/20 03:50 01/07/20 08:16 Glucose (Fingerstick) 178 mg/dL (70-99) 178 mg/dL (70-99) 134 mg/dL (70-99) Creatine Kinase 22 U/L (39-308) Test 01/07/20 11:28 01/07/20 17:07 01/07/20 20:49 01/08/20 07:50 Glucose (Fingerstick) 170 mg/dL (70-99) 199 mg/dL (70-99) 184 mg/dL (70-99) 143 mg/dL (70-99) Laboratory Tests Test 01/07/20 08:16 01/07/20 11:28 01/07/20 17:07 01/07/20 20:49 Glucose (Fingerstick) 134 mg/dL (70-99) 170 mg/dL (70-99) 199 mg/dL (70-99) 184 mg/dL (70-99) Test 01/08/20 07:50 Glucose (Fingerstick) 143 mg/dL (70-99) Medications Current Medications Ibuprofen (Motrin) 800 mg 1X ONCE PO Last administered on 01/06/20at 08:20; Start 01/06/20 at 08:00; Stop 01/06/20 at 08:01; Status DC Ondansetron HCl (Zofran) 4 mg 1X ONCE IVP Last administered on 01/06/20at 08:20; Start 01/06/20 at 08:00; Stop 01/06/20 at 08:01; Status DC Ceftriaxone Sodium (Rocephin) 1 gm 1X ONCE IVP Last administered on 01/06/20at 08:22; Start 01/06/20 at 08:00; Stop 01/06/20 at 08:01; Status DC Morphine Sulfate (Morphine Sulfate) 4 mg 1X ONCE IV Last administered on 01/06/20at 10:17; Start 01/06/20 at 09:30; Stop 01/06/20 at 09:31; Status DC Sodium Chloride 1,000 ml @ 75 mls/hr 1X ONCE IV ; Start 01/06/20 at 10:30; Stop 01/06/20 at 23:49; Status DC Sodium Chloride 1,000 ml @ 1,000 mls/hr 1X ONCE IV ; Start 01/06/20 at 10:30; Stop 01/06/20 at 11:29; Status DC Piperacillin Sod/ Tazobactam Sod 3.375 gm/Sodium Chloride 50 ml @ 100 mls/hr Q6 HRS IV Last administered on 01/08/20at 05:31; Start 01/06/20 at 12:00 Buspirone HCl (Buspar) 10 mg BID PO Last administered on 01/07/20at 22:22; Start 01/06/20 at 11:30 Carvedilol (Coreg) 6.25 mg BIDWMEALS PO Last administered on 01/07/20at 17:05; Start 01/06/20 at 11:30 Citalopram Hydrobromide (CeleXA) 20 mg DAILY PO Last administered on 01/07/20at 08:46; Start 01/06/20 at 11:30 Furosemide (Lasix) 20 mg DAILY PO Last administered on 01/07/20at 08:47; Start 01/07/20 at 09:00 Lactulose (Lactulose) 20 gm BID PO Last administered on 01/07/20at 22:23; Start 01/06/20 at 21:00 Lorazepam (Ativan) 0.5 mg PRN BID PRN PO ANXIETY; Start 01/06/20 at 11:15 Oxycodone HCl (Roxicodone) 30 mg PRN QHS PRN PO PAIN Last administered on 01/07/20at 22:28; Start 01/06/20 at 11:30 Pantoprazole Sodium (Protonix) 40 mg DAILYAC PO Last administered on 01/07/20at 08:45; Start 01/07/20 at 07:30 Spironolactone (Aldactone) 100 mg DAILY PO Last administered on 01/07/20 08:47; Start 01/06/20 at 11:30 Tamsulosin HCl (Flomax) 0.8 mg DAILY PO Last administered on 01/07/20 08:47; Start 01/06/20 at 12:00 Trazodone HCl (Desyrel) 300 mg HS PO Last administered on 01/07/20 22:22; Start 01/06/20 at 21:00 Non-Formulary Medication (Apremilast (Otezla)) 30 mg BID PO ; Start 01/06/20 at 21:00; Status UNV Aripiprazole (Abilify) 15 mg DAILY PO Last administered on 01/07/20 08:46; Start 01/07/20 at 09:00 Non-Formulary Medication (Cranberry Fruit Concentrate (Cranberry)) 450 mg DAILY PO ; Start 01/07/20 at 09:00; Status UNV Gabapentin (Neurontin) 300 mg TID PO Last administered on 01/07/20 22:22; Start 01/06/20 at 14:00 Insulin Glargine (Lantus Syringe) 20 unit QHS SQ Last administered on 01/07/20 22:33; Start 01/06/20 at 21:00 Multivitamins (Thera M Plus) 1 tab DAILY PO Last administered on 01/07/20 08:47; Start 01/07/20 at 09:00 Insulin Human Lispro (HumaLOG) 0-5 UNITS TIDWMEALS SQ Last administered on 01/07/20at 17:25; Start 01/06/20 at 12:00 Dextrose (Dextrose 50%-Water Syringe) 12.5 gm PRN Q15MIN PRN IV SEE COMMENTS; Start 01/06/20 at 11:15 Sodium Chloride (Normal Saline Flush) 3 ml QSHIFT PRN IV AFTER MEDS AND BLOOD DRAWS; Start 01/06/20 at 11:15 Ondansetron HCl (Zofran) 4 mg PRN Q4HRS PRN IV NAUSEA/VOMITING; Start 01/06/20 at 11:15 Acetaminophen (Tylenol) 650 mg PRN Q4HRS PRN PO TEMP OVER 100.4F OR MILD PAIN; Start 01/06/20 at 11:15 Acetaminophen (Tylenol Supp) 650 mg PRN Q4HRS PRN HI TEMP OVER 100.4F OR MILD PAIN; Start 01/06/20 at 11:15 Sodium Monofluorophosphate (Fleet Adult) 133 ml PRN DAILY PRN HI CONSTIPATION; Start 01/06/20 at 11:15 Albuterol Sulfate (Ventolin Neb Soln) 2.5 mg PRN Q4HRS PRN NEB SHORTNESS OF BREATH; Start 01/06/20 at 11:15 Guaifenesin (Robitussin) 200 mg PRN Q4HRS PRN PO COUGH; Start 01/06/20 at 11:15 Enoxaparin Sodium (Lovenox 40mg Syringe) 40 mg Q24H SQ Last administered on 01/07/20at 12:00; Start 01/06/20 at 11:15 Metronidazole 100 ml @ 100 mls/hr Q8HRS IV ; Start 01/06/20 at 14:00; Stop 01/06/20 at 14:11; Status DC Morphine Sulfate (Morphine Sulfate) 2 mg 1X ONCE IV ; Start 01/06/20 at 12:45; Stop 01/06/20 at 12:45; Status DC Morphine Sulfate (Morphine Sulfate) 4 mg 1X ONCE IV Last administered on 01/06/20at 13:21; Start 01/06/20 at 12:45; Stop 01/06/20 at 12:48; Status DC Daptomycin 510 mg/ Sodium Chloride 50 ml @ 100 mls/hr Q24H IV Last administered on 01/07/20at 17:05; Start 01/06/20 at 15:00 Morphine Sulfate (Morphine Sulfate) 4 mg PRN Q2HR PRN IV PAIN; Start 01/06/20 at 18:45 Lidocaine HCl (Buffered Lidocaine 1%) 3 ml STK-MED ONCE .ROUTE ; Start 01/07/20 at 12:50; Stop 01/07/20 at 12:50; Status DC Lidocaine HCl (Buffered Lidocaine 1%) 6 ml 1X ONCE INJ Last administered on 01/07/20at 13:08; Start 01/07/20 at 13:00; Stop 01/07/20 at 13:31; Status DC Albumin Human 100 ml @ As Directed STK-MED ONCE IV ; Start 01/07/20 at 13:23; Stop 01/07/20 at 13:24; Status DC Albumin Human 100 ml @ 100 mls/hr 1X ONCE IV Last administered on 01/07/20at 13:30; Start 01/07/20 at 13:30; Stop 01/07/20 at 14:29; Status DC Albumin Human 100 ml @ 100 mls/hr 1X ONCE IV Last administered on 01/07/20at 13:55; Start 01/07/20 at 14:00; Stop 01/07/20 at 14:59; Status DC Albumin Human 50 ml @ 50 mls/hr 1X ONCE IV Last administered on 01/07/20at 1 5:27; Start 01/07/20 at 14:00; Stop 01/07/20 at 14:59; Status DC Lactobacillus Rhamnosus (Culturelle) 1 cap BID PO Last administered on 01/07/20at 22:22; Start 01/07/20 at 21:00 Active Scripts Active Furosemide 20 Mg Tablet 1 Tab PO DAILY 90 Days Lactulose 20 Gm/30 Ml Solution 20 Gm PO BID 30 Days Aldactone (Spironolactone) 25 Mg Tablet 100 Mg PO DAILY 30 Days Ativan (Lorazepam) 0.5 Mg Tablet 0.5 Mg PO PRN BID PRN 6 Days Levemir Flextouch (Insulin Detemir) 300 Units/3 Ml Insuln.pen 20 Units SQ QHS Reported Citalopram Hbr (Citalopram Hydrobromide) 20 Mg Tablet 1 Tab PO DAILY Aripiprazole 1 Mg/1 Ml Solution 15 Ml PO DAILY 30 Days Pantoprazole Sodium (Pantoprazole Sodium) 40 Mg Tablet.dr 40 Mg PO DAILYAC Flomax (Tamsulosin Hcl) 0.4 Mg Cap.er.24h 2 Cap PO DAILY Buspirone Hcl 10 Mg Tablet 1 Tab PO BID Oxycodone Hcl Immed.release (Oxycodone Hcl) 30 Mg Tablet 30 Mg PO HS PRN Oxycodone Hcl Immed.release (Oxycodone Hcl) 15 Mg Tablet 15 Mg PO Q6HRS PRN Otezla (Apremilast) 30 Mg Tablet 30 Mg PO BID Daily Value (Multivitamin) 1 Each Tablet 1 Each PO DAILY Novolog Flexpen (Insulin Aspart) 100 Unit/1 Ml Insuln.pen 0-7 Unit SQ QID Cranberry (Cranberry Fruit Concentrate) 450 Mg Capsule 450 Mg PO DAILY Carvedilol (Carvedilol) 6.25 Mg Tablet 6.25 Mg PO BIDWMEALS Gabapentin 600 Mg Tablet 300 Mg PO TID Trazodone Hcl 100 Mg Tablet 300 Mg PO HS Metformin Hcl 1,000 Mg Tablet 1,000 Mg PO BID Vitals/I & O Vital Sign - Last 24 Hours 01/07/20 01/07/20 01/07/20 01/07/20 08:30 11:00 13:11 13:21 Temp 98.5 98.5 Pulse 72 77 71 Resp 18 20 20 B/P (MAP) 118/56 (76) 135/54 (81) 128/45 (72) Pulse Ox 92 96 94 O2 Delivery Room Air Room Air Room Air Room Air 01/07/20 01/07/20 01/07/20 01/07/20 13:31 13:41 15:00 17:05 Temp 99.8 99.8 Pulse 71 74 90 90 Resp 20 20 18 B/P (MAP) 117/40 (65) 104/49 (67) 113/56 (75) 113/56 Pulse Ox 94 95 95 O2 Delivery Room Air Room Air Room Air 01/07/20 01/07/20 01/07/20 01/07/20 19:00 22:49 23:00 23:27 Temp 101.4 99.4 101.4 99.4 Pulse 88 89 Resp 16 20 16 B/P (MAP) 116/58 (77) 121/64 (83) Pulse Ox 91 97 O2 Delivery Room Air Room Air Room Air Room Air 01/08/20 02:44 Temp 97.8 97.8 Pulse 82 Resp 24 B/P (MAP) 115/52 (73) Pulse Ox 94 O2 Delivery Room Air Intake and Output 01/07/20 01/07/20 01/08/20 15:00 23:00 07:00 Intake Total 290 ml 650 ml 340 ml Output Total 9300 ml 300 ml Balance -9010 ml 350 ml 340 ml Justicifation of Admission Dx: Justifications for Admission: Justification of Admission Dx: Yes KEITH DOOLEY MD Jan 08, 2020 08:13
[2020-01-08] MEDS: LACTULOSE 20 GM/30 ML SOLUTION. PO SCH ×2 (09:00→20:57)
[2020-01-08] MEDS: NON FORMULARY ITEM (Apremilast (Otezla) 30 MG) PO SCH ×2 (09:00→20:56)
[2020-01-08] MEDS: LACTOBACILLUS RHAMNOSUS GG 1 CAPSULE. PO SCH ×2 (09:20→20:57)
[2020-01-08] MEDS: TAMSULOSIN 0.4 MG CAP.ER.24H. PO SCH (09:21)
[2020-01-08] MEDS: CITALOPRAM 20 MG TABLET. PO SCH (09:22)
[2020-01-08] MEDS: GABAPENTIN 300 MG CAPSULE. PO SCH ×3 (09:22→20:57)
[2020-01-08] MEDS: MULTIVITAMIN with MINERAL TABLET. PO SCH (09:22)
[2020-01-08] MEDS: PANTOPRAZOLE 40 MG TABLET.DR. PO SCH (09:22)
[2020-01-08] MEDS: SPIRONOLACTONE 25 MG TABLET PO SCH ×2 (09:22→12:58)
[2020-01-08] MEDS: FUROSEMIDE 20 MG TABLET PO SCH (09:23)
[2020-01-08] MEDS: busPIRone 10 MG TABLET. PO SCH ×2 (09:23→20:57)
[2020-01-08] MEDS: CARVEDILOL 6.25 MG TABLET. PO SCH ×2 (09:27→17:36)
[2020-01-08 11:00] VITALS: BP 113/54
[2020-01-08] MEDS: ENOXAPARIN 40 MG/0.4 ML SYRINGE. SQ SCH (11:15)
--- NOTE | 2020-01-08 11:32 | EKG ---
[facility] [address] [place] [address] Test Date: 2020-01-06 Test Time: 07:55:02 Pat Name: TERRELL MANJARREZ Department: Room: Gender: M Community Development Technician: : 1965 Requested By: ARCHIE OAKES Order Number: [id number] Reading MD: Measurements Intervals [place] Rate: P: [place]: QRS: QRSD: T: QT: QTc: Interpretive Statements
[2020-01-08 11:46] LABS: BASO % 1 % (0-3); EOS # 0.1 x10^3/uL (0.0-0.7); EOS % 4 % (0-3); HEMOGLOBIN 10.5 g/dL (13.0-17.5); LYMPH # 0.5 x10^3/uL (1.0-4.8); LYMPH % 16 % (24-48); MEAN CORPUSCULAR HEMOGLOBIN 29 pg (25-35); MEAN CORPUSCULAR HGB CONC 32 g/dL (31-37); MEAN CORPUSCULAR VOLUME 92 fL (79-100); MONO # 0.2 x10^3/uL (0.0-1.1); MONO % 6 % (0-9); NEUT # 2.4 x10^3/uL (1.8-7.7); NEUT % 74 % (31-73); PLATELET COUNT 63 x10^3/uL (140-400); RED BLOOD COUNT 3.57 x10^6/uL (4.30-5.70); RED CELL DISTRIBUTION WIDTH 16.4 % (11.5-14.5); WHITE BLOOD COUNT 3.2 x10^3/uL (4.0-11.0)
[2020-01-08 11:51] LABS: ALBUMIN 2.6 g/dL (3.4-5.0); ALBUMIN/GLOBULIN RATIO 0.9 (1.0-1.7); CALCIUM 8.1 mg/dL (8.5-10.1); CREATININE 1.7 mg/dL (0.7-1.3); GFR 41.9; POTASSIUM 4.1 mmol/L (3.5-5.1); TOTAL BILIRUBIN 0.7 mg/dL (0.2-1.0); TOTAL PROTEIN 5.5 g/dL (6.4-8.2)
--- NOTE | 2020-01-08 12:14 | PDOC ---
Infectious Disease Note Subjective: Subjective Patient feels better after undergoing paracentesis yesterday Had temperature of 101 yesterday none today Some nausea Occasional loose bowel movements No vomiting, shortness of breath or cough Vital Signs: Vital Signs Vital Signs Date Time Temp Pulse Resp B/P (MAP) Pulse Ox O2 Delivery O2 Flow Rate FiO2 01/08/20 09:27 59 109/51 01/08/20 07:15 97.4 16 95 Room Air 97.4 01/07/20 07:30 2.0 Physical Exam: PHYSICAL EXAM GENERAL: Alert, oriented x 3 male lying in bed comfortably, in no acute distress, nontoxic appearing. HEENT: Normocephalic, atraumatic, anicteric. NECK: Supple, no JVD, no thyromegaly. No neck tenderness. LUNGS: Clear bilaterally. No wheezing. HEART: S1, S2. No gallops, murmurs or rubs. ABDOMEN: Soft, distended. Bowel sounds present. No overlying cellulitis changes noted. EXTREMITIES: Bilateral lower extremity 1+ edema, no cyanosis. DERMATOLOGIC: Warm, dry. No generalized rash. Psoriatic patches present on the lateral aspect of both upper extremities, mild superficial skin abrasions. MUSCULOSKELETAL: No joint swelling seen, DJD changes present. NEUROLOGIC: Alert and oriented x 3, grossly nonfocal. PSYCHIATRIC: Cooperative, appropriate mood and affect. Medications: Inpatient Meds: Current Medications Medications (Trade) Dose Ordered Sig/Sb Start Time Stop Time Status Last Admin Dose Admin Acetaminophen (Tylenol Supp) 650 mg PRN Q4HRS PRN 01/06/20 11:15 Acetaminophen (Tylenol) 650 mg PRN Q4HRS PRN 01/06/20 11:15 Albumin Human 50 ml @ 50 mls/hr 1X ONCE 01/07/20 14:00 01/07/20 14:59 DC 01/07/20 15:27 50 MLS/HR Albuterol Sulfate (Ventolin Neb Soln) 2.5 mg PRN Q4HRS PRN 01/06/20 11:15 Aripiprazole (Abilify) 15 mg DAILY 01/07/20 09:00 01/07/20 08:46 15 MG Buspirone HCl (Buspar) 10 mg BID 01/06/20 11:30 01/08/20 09:23 10 MG Carvedilol (Coreg) 6.25 mg BIDWMEALS 01/06/20 11:30 01/08/20 09:27 6.25 MG Ceftriaxone Sodium (Rocephin) 1 gm 1X ONCE 01/06/20 08:00 01/06/20 08:01 DC 01/06/20 08:22 1 GM Citalopram Hydrobromide (CeleXA) 20 mg DAILY 01/06/20 11:30 01/08/20 09:22 20 MG Daptomycin 510 mg/ Sodium Chloride 50 ml @ 100 mls/hr Q24H 01/06/20 15:00 01/07/20 17:05 100 MLS/HR Dextrose (Dextrose 50%-Water Syringe) 12.5 gm PRN Q15MIN PRN 01/06/20 11:15 Enoxaparin Sodium (Lovenox 40mg Syringe) 40 mg Q24H 01/06/20 11:15 01/07/20 12:00 40 MG Furosemide (Lasix) 20 mg DAILY 01/07/20 09:00 01/08/20 09:23 20 MG Gabapentin (Neurontin) 300 mg TID 01/06/20 14:00 01/08/20 09:22 300 MG Guaifenesin (Robitussin) 200 mg PRN Q4HRS PRN 01/06/20 11:15 Ibuprofen (Motrin) 800 mg 1X ONCE 01/06/20 08:00 01/06/20 08:01 DC 01/06/20 08:20 800 MG Insulin Glargine (Lantus Syringe) 20 unit QHS 01/06/20 21:00 01/07/20 22:33 20 UNIT Insulin Human Lispro (HumaLOG) 0-5 UNITS TIDWMEALS 01/06/20 12:00 01/07/20 17:25 2 UNITS Lactobacillus Rhamnosus (Culturelle) 1 cap BID 01/07/20 21:00 01/08/20 09:20 1 CAP Lactulose (Lactulose) 20 gm BID 01/06/20 21:00 01/07/20 22:23 20 GM Lidocaine HCl (Buffered Lidocaine 1%) 6 ml 1X ONCE 01/07/20 13:00 01/07/20 13:31 DC 01/07/20 13:08 6 ML Lorazepam (Ativan) 0.5 mg PRN BID PRN 01/06/20 11:15 Metronidazole 100 ml @ 100 mls/hr Q8HRS 01/06/20 14:00 01/06/20 14:11 DC Morphine Sulfate (Morphine Sulfate) 4 mg PRN Q2HR PRN 01/06/20 18:45 Multivitamins (Thera M Plus) 1 tab DAILY 01/07/20 09:00 01/08/20 09:22 1 TAB Non-Formulary Medication (Apremilast (Otezla)) 30 mg BID 01/06/20 21:00 UNV Non-Formulary Medication (Cranberry Fruit Concentrate (Cranberry)) 450 mg DAILY 01/07/20 09:00 UNV Ondansetron HCl (Zofran) 4 mg PRN Q4HRS PRN 01/06/20 11:15 Oxycodone HCl (Roxicodone) 30 mg PRN QHS PRN 01/06/20 11:30 01/07/20 22:28 30 MG Pantoprazole Sodium (Protonix) 40 mg DAILYAC 01/07/20 07:30 01/08/20 09:22 40 MG Piperacillin Sod/ Tazobactam Sod 3.375 gm/Sodium Chloride 50 ml @ 100 mls/hr Q6HRS 01/06/20 12:00 01/08/20 05:31 100 MLS/HR Sodium Monofluorophosphate (Fleet Adult) 133 ml PRN DAILY PRN 01/06/20 11:15 Sodium Chloride (Normal Saline Flush) 3 ml QSHIFT PRN 01/06/20 11:15 Spironolactone (Aldactone) 100 mg DAILY 01/06/20 11:30 01/07/20 08:47 100 MG Tamsulosin HCl (Flomax) 0.8 mg DAILY 01/06/20 12:00 01/08/20 09:21 0.8 MG Trazodone HCl (Desyrel) 300 mg HS 01/06/20 21:00 01/07/20 22:22 300 MG Labs: Lab Laboratory Tests Test 01/07/20 17:07 01/07/20 20:49 01/08/20 07:50 01/08/20 10:15 Glucose (Fingerstick) 199 mg/dL (70-99) 184 mg/dL (70-99) 143 mg/dL (70-99) White Blood Count 3.2 x10^3/uL (4.0-11.0) Red Blood Count 3.57 x10^6/uL (4.30-5.70) Hemoglobin 10.5 g/dL (13.0-17.5) Hematocrit 33.0 % (39.0-53.0) Mean Corpuscular Volume 92 fL (79-100) Mean Corpuscular Hemoglobin 29 pg (25-35) Mean Corpuscular Hemoglobin Concent 32 g/dL (31-37) Red Cell Distribution Width 16.4 % (11.5-14.5) Platelet Count 63 x10^3/uL (140-400) Neutrophils (%) (Auto) 74 % (31-73) Lymphocytes (%) (Auto) 16 % (24-48) Monocytes (%) (Auto) 6 % (0-9) Eosinophils (%) (Auto) 4 % (0-3) Basophils (%) (Auto) 1 % (0-3) Neutrophils # (Auto) 2.4 x10^3/uL (1.8-7.7) Lymphocytes # (Auto) 0.5 x10^3/uL (1.0-4.8) Monocytes # (Auto) 0.2 x10^3/uL (0.0-1.1) Eosinophils # (Auto) 0.1 x10^3/uL (0.0-0.7) Basophils # (Auto) 0.0 x10^3/uL (0.0-0.2) Sodium Level 142 mmol/L (136-145) Potassium Level 4.1 mmol/L (3.5-5.1) Chloride Level 105 mmol/L (98-107) Carbon Dioxide Level 30 mmol/L (21-32) Anion Gap 7 (6-14) Blood Urea Nitrogen 23 mg/dL (8-26) Creatinine 1.7 mg/dL (0.7-1.3) Estimated GFR (Cockcroft-Gault) 41.9 BUN/Creatinine Ratio 14 (6-20) Glucose Level 196 mg/dL (70-99) Calcium Level 8.1 mg/dL (8.5-10.1) Total Bilirubin 0.7 mg/dL (0.2-1.0) Aspartate Amino Transf (AST/SGOT) 25 U/L (15-37) Alanine Aminotransferase (ALT/SGPT) 27 U/L (16-63) Alkaline Phosphatase 112 U/L (46-116) Total Protein 5.5 g/dL (6.4-8.2) Albumin 2.6 g/dL (3.4-5.0) Albumin/Globulin Ratio 0.9 (1.0-1.7) Test 01/08/20 11:56 Glucose (Fingerstick) 185 mg/dL (70-99) Objective: Assessment: 1. Fever 2. Lactic acidosis. Improving 3. Abdominal distention, nausea, vomiting with underlying ascites. Status post paracentesis 4. Nausea, vomiting. Intermittent 5. Cough 6. Negative COVID. 7. Cirrhosis. 8. Chronic thrombocytopenia. 9. Psoriasis and rheumatoid arthritis, on immunosuppression. Plan: Plan of Care Continue Zosyn, daptomycin. Blood cultures today Follow-up cultures. Monitor lab. Continue supportive care. GILLIAN CAMILO MD Jan 08, 2020 12:14
--- NOTE | 2020-01-08 12:45 | PDOC ---
Date of Service: DATE: 01/08/20 TIME: 12:42 Subjective: Subjective: Feels better after paracenteseis. Wants to follow-up with our office as outpt. Objective: Vital Signs: Vital Signs Date Time Temp Pulse Resp B/P (MAP) Pulse Ox O2 Delivery O2 Flow Rate FiO2 01/08/20 11:00 98.4 54 16 113/54 (73) 95 Room Air 98.4 01/07/20 07:30 2.0 Labs: Laboratory Tests Test 01/07/20 17:07 01/07/20 20:49 01/08/20 07:50 01/08/20 10:15 Glucose (Fingerstick) 199 mg/dL 184 mg/dL 143 mg/dL White Blood Count 3.2 x10^3/uL Red Blood Count 3.57 x10^6/uL Hemoglobin 10.5 g/dL Hematocrit 33.0 % Mean Corpuscular Volume 92 fL Mean Corpuscular Hemoglobin 29 pg Mean Corpuscular Hemoglobin Concent 32 g/dL Red Cell Distribution Width 16.4 % Platelet Count 63 x10^3/uL Neutrophils (%) (Auto) 74 % Lymphocytes (%) (Auto) 16 % Monocytes (%) (Auto) 6 % Eosinophils (%) (Auto) 4 % Basophils (%) (Auto) 1 % Neutrophils # (Auto) 2.4 x10^3/uL Lymphocytes # (Auto) 0.5 x10^3/uL Monocytes # (Auto) 0.2 x10^3/uL Eosinophils # (Auto) 0.1 x10^3/uL Basophils # (Auto) 0.0 x10^3/uL Sodium Level 142 mmol/L Potassium Level 4.1 mmol/L Chloride Level 105 mmol/L Carbon Dioxide Level 30 mmol/L Anion Gap 7 Blood Urea Nitrogen 23 mg/dL Creatinine 1.7 mg/dL Estimated GFR (Cockcroft-Gault) 41.9 BUN/Creatinine Ratio 14 Glucose Level 196 mg/dL Calcium Level 8.1 mg/dL Total Bilirubin 0.7 mg/dL Aspartate Amino Transf (AST/SGOT) 25 U/L Alanine Aminotransferase (ALT/SGPT) 27 U/L Alkaline Phosphatase 112 U/L Total Protein 5.5 g/dL Albumin 2.6 g/dL Albumin/Globulin Ratio 0.9 Test 01/08/20 11:56 Glucose (Fingerstick) 185 mg/dL Imaging: Paracentesis 02/06 9L PE: GEN: NAD LUNGS: CTAB HEART: RRR ABD: less distended NEURO/PSYCH: A & O 3 A/P: Cirrhosis/[place], recurrent ascites KARO, chronic thrombocytopenia -- Fluid studies pending. Continue diuretics, salt restriction. Outpt 'scopes. Justicifation of Admission Dx: Justifications for Admission: Justification of Admission Dx: Yes ANGLE MORALES Jan 08, 2020 12:45
[2020-01-08] MEDS: oxyCODONE IR 5 MG TABLET PO PRN ×2 (12:57→21:03)
[2020-01-08] MEDS: ARIPiprazole 5 MG TABLET PO SCH (12:57)
[2020-01-08 15:00] VITALS: BP 118/51
[2020-01-08] MEDS: DAPTOmycin (GENERIC) IVPB 510 MG in IV NORMAL SALINE 50ML 50 ML IV SCH (15:48)
--- NOTE | 2020-01-08 17:12 | NUR ---
SW following. Reviewed chart and discussed with RN. Pt from [facility]. Pt to return to SNU when stable. Pt will not discharge today per temperature of 101.4. SW to follow.
[2020-01-08 19:00] VITALS: BP 103/54
[2020-01-08] MEDS: traZODone 100 MG TABLET. PO SCH (20:58)
[2020-01-08] MEDS: INSULIN GLARGINE SYRINGE. SQ SCH (21:02)
[2020-01-08 23:00] VITALS: BP 106/58
[2020-01-09 03:00] VITALS: BP 122/58
[2020-01-09 04:55] LABS: CALCIUM 7.8 mg/dL (8.5-10.1); CREATININE 1.6 mg/dL (0.7-1.3); GFR 44.9
[2020-01-09] MEDS: PIPERACILLIN/TAZOBACTAM 3.375 GM in IV NORMAL SALINE 50ML 50 ML IV SCH ×2 (05:34→12:31)
[2020-01-09 07:15] VITALS: BP 143/52
--- NOTE | 2020-01-09 08:47 | PDOC ---
PROGRESS NOTES Date of Service: DATE: 01/09/20 TIME: 08:47 Chief Complaint Chief Complaint VTE Prophylaxis Ordered VTE Prophylaxis Devices: Yes VTE Pharmacological Prophylaxi: Yes DISCHARGE DX Assessment/Plan IMPRESSION: Cirrhosis with large ascites and findings suggesting developing cellulitis in the lower ventral abdominal wall. FEVER mild bibasilar lung airspace opacities likely atelectasis or infiltrates. COVID-19 PUI Cirrhosis of the liver - [place] with remote h/o alcohol abuse Splenomegaly likely secondary to portal hypertension.Marked splenomegaly, similar to prior. Spleen measures 18 cm in cranial caudal extent MORBID OBESITY Chronic bilateral subdural hematomas, Interval apparent coil embolization. SEVERE ALCOHOL ABUSE HX - not drinking anymore Noncompliance normocytic anemia transaminitis CHRONIC THROMBOCYTOPENIA ELEVATED AMMONIA, SERUM HX Leukopenia LACTIC ACIDOSIS SEPSIS 01/07 TEMP 101.4 LAST NIGHT 01/08 Augmentin and doxycycline for 5 days starting tomorrow f/u Blood cultures negative so far ? peritoneal fluid g/s or cults Follow-up with PCP in 1 week ADMIT CONSULT ID CONSULT GI BLOOD CULT X 2 covid-19 screening NEG NH4 D/C METFORMIN EMPERIC IV ZOSYN, Continue Zosyn, daptomycin. D/C 01/08 33 MIN D/C PLANNING TIME Justicifation of Admission Dx: Justicifation of Admission Dx: Justifications for Admission: Justification of Admission Dx: Yes History of Present Illness History of Present Illness Identification/Chief Complaint Chief Complaint seen in er with fever, cough and ascites 54 year old male who was brought here from [facility] due to nausea vomiting and abdominal pain with abdominal distention. Patient also has a cough and a fever. Patient was evaluated here last month for the same problem, he was found to have ascites, had 11 L of fluid removed from his abdomen . now has a cough as well history of alcohol abuse, ascites, dementia Past Medical History Past Medical History Past Medical History Past Medical History: COPD, Dementia, Diabetes-Type II, Heart Disease, HI, Unkn own Additional Past Medical Histor: RA, sleep apnea, SUBDURAL HEMATOMA 10/03/19 Past Surgical History: Tonsillectomy, Other Additional Past Surgical Histo: vasectomy Smoking Status: Never Smoker Alcohol Use: None Drug Use: None FHX OBESITY Cardiovascular: HTN, HI Pulmonary: COPD CENTRAL NERVOUS SYSTEM: Other GI: GERD Psych: Addictions Musculoskeletal: low back pain, Osteoarthritis, Other Rheumatologic: Rheumatoid arthritis Renal/: Other Endocrine: Diabetes Past Surgical History Past Surgical History: Tonsillectomy, Other Family History Family History: Alcohol Abuse, High Cholestrol, Hypertension, Family History Unknown Social History Smoke: No ALCOHOL: heavy (remote ) Drugs: None, Other Vitals Vitals Vital Signs Date Time Temp Pulse Resp B/P (MAP) Pulse Ox O2 Delivery O2 Flow Rate FiO2 01/09/20 07:15 97.8 63 16 143/52 (82) 98 Room Air 97.8 Physical Exam Physical Exam GENERAL: Alert, oriented x 3 male lying in bed comfortably, in no acute distress, nontoxic appearing. HEENT: Normocephalic, atraumatic, anicteric. NECK: Supple, no JVD, no thyromegaly. No neck tenderness. LUNGS: Clear bilaterally. No wheezing. HEART: S1, S2. No gallops, murmurs or rubs. ABDOMEN: Soft, distended. Bowel sounds present. No overlying cellulitis changes noted. EXTREMITIES: Bilateral lower extremity 1+ edema, no cyanosis. DERMATOLOGIC: Warm, dry. No generalized rash. Psoriatic patches present on the lateral aspect of both upper extremities, mild superficial skin abrasions. MUSCULOSKELETAL: No joint swelling seen, DJD changes present. NEUROLOGIC: Alert and oriented x 3, grossly nonfocal. PSYCHIATRIC: Cooperative, appropriate mood and affect. General: Alert, Oriented X3, Cooperative, No acute distress Heart: Regular rate Lungs: Clear Abdomen: Normal bowel sounds, Soft, No tenderness Extremities: No cyanosis, No edema Skin: No significant lesion Labs LABS Laboratory Tests Test 01/08/20 10:15 01/08/20 11:56 01/08/20 16:33 01/08/20 20:36 White Blood Count 3.2 x10^3/uL (4.0-11.0) Red Blood Count 3.57 x10^6/uL (4.30-5.70) Hemoglobin 10.5 g/dL (13.0-17.5) Hematocrit 33.0 % (39.0-53.0) Mean Corpuscular Volume 92 fL (79-100) Mean Corpuscular Hemoglobin 29 pg (25-35) Mean Corpuscular Hemoglobin Concent 32 g/dL (31-37) Red Cell Distribution Width 16.4 % (11.5-14.5) Platelet Count 63 x10^3/uL (140-400) Neutrophils (%) (Auto) 74 % (31-73) Lymphocytes (%) (Auto) 16 % (24-48) Monocytes (%) (Auto) 6 % (0-9) Eosinophils (%) (Auto) 4 % (0-3) Basophils (%) (Auto) 1 % (0-3) Neutrophils # (Auto) 2.4 x10^3/uL (1.8-7.7) Lymphocytes # (Auto) 0.5 x10^3/uL (1.0-4.8) Monocytes # (Auto) 0.2 x10^3/uL (0.0-1.1) Eosinophils # (Auto) 0.1 x10^3/uL (0.0-0.7) Basophils # (Auto) 0.0 x10^3/uL (0.0-0.2) Sodium Level 142 mmol/L (136-145) Potassium Level 4.1 mmol/L (3.5-5.1) Chloride Level 105 mmol/L (98-107) Carbon Dioxide Level 30 mmol/L (21-32) Anion Gap 7 (6-14) Blood Urea Nitrogen 23 mg/dL (8-26) Creatinine 1.7 mg/dL (0.7-1.3) Estimated GFR (Cockcroft-Gault) 41.9 BUN/Creatinine Ratio 14 (6-20) Glucose Level 196 mg/dL (70-99) Calcium Level 8.1 mg/dL (8.5-10.1) Total Bilirubin 0.7 mg/dL (0.2-1.0) Aspartate Amino Transf (AST/SGOT) 25 U/L (15-37) Alanine Aminotransferase (ALT/SGPT) 27 U/L (16-63) Alkaline Phosphatase 112 U/L (46-116) Total Protein 5.5 g/dL (6.4-8.2) Albumin 2.6 g/dL (3.4-5.0) Albumin/Globulin Ratio 0.9 (1.0-1.7) Glucose (Fingerstick) 185 mg/dL (70-99) 207 mg/dL (70-99) 202 mg/dL (70-99) Test 01/09/20 04:15 01/09/20 08:07 Sodium Level 142 mmol/L (136-145) Potassium Level 4.0 mmol/L (3.5-5.1) Chloride Level 108 mmol/L (98-107) Carbon Dioxide Level 28 mmol/L (21-32) Anion Gap 6 (6-14) Blood Urea Nitrogen 23 mg/dL (8-26) Creatinine 1.6 mg/dL (0.7-1.3) Estimated GFR (Cockcroft-Gault) 44.9 Glucose Level 198 mg/dL (70-99) Calcium Level 7.8 mg/dL (8.5-10.1) Glucose (Fingerstick) 154 mg/dL (70-99) Assessment and Plan Assessmemt and Plan Problems Medical Problems: (1) Abdominal pain Status: Acute (2) Ascites Status: Acute (3) Fever Status: Acute (4) Suspected 2019 novel coronavirus infection Status: Acute Comment Review of Relevant I have reviewed the following items miguel (where applicable) has been applied. Labs Laboratory Tests Test 01/07/20 11:28 01/07/20 17:07 01/07/20 20:49 01/08/20 07:50 Glucose (Fingerstick) 170 mg/dL (70-99) 199 mg/dL (70-99) 184 mg/dL (70-99) 143 mg/dL (70-99) Test 01/08/20 10:15 01/08/20 11:56 01/08/20 16:33 01/08/20 20:36 White Blood Count 3.2 x10^3/uL (4.0-11.0) Red Blood Count 3.57 x10^6/uL (4.30-5.70) Hemoglobin 10.5 g/dL (13.0-17.5) Hematocrit 33.0 % (39.0-53.0) Mean Corpuscular Volume 92 fL (79-100) Mean Corpuscular Hemoglobin 29 pg (25-35) Mean Corpuscular Hemoglobin Concent 32 g/dL (31-37) Red Cell Distribution Width 16.4 % (11.5-14.5) Platelet Count 63 x10^3/uL (140-400) Neutrophils (%) (Auto) 74 % (31-73) Lymphocytes (%) (Auto) 16 % (24-48) Monocytes (%) (Auto) 6 % (0-9) Eosinophils (%) (Auto) 4 % (0-3) Basophils (%) (Auto) 1 % (0-3) Neutrophils # (Auto) 2.4 x10^3/uL (1.8-7.7) Lymphocytes # (Auto) 0.5 x10^3/uL (1.0-4.8) Monocytes # (Auto) 0.2 x10^3/uL (0.0-1.1) Eosinophils # (Auto) 0.1 x10^3/uL (0.0-0.7) Basophils # (Auto) 0.0 x10^3/uL (0.0-0.2) Sodium Level 142 mmol/L (136-145) Potassium Level 4.1 mmol/L (3.5-5.1) Chloride Level 105 mmol/L (98-107) Carbon Dioxide Level 30 mmol/L (21-32) Anion Gap 7 (6-14) Blood Urea Nitrogen 23 mg/dL (8-26) Creatinine 1.7 mg/dL (0.7-1.3) Estimated GFR (Cockcroft-Gault) 41.9 BUN/Creatinine Ratio 14 (6-20) Glucose Level 196 mg/dL (70-99) Calcium Level 8.1 mg/dL (8.5-10.1) Total Bilirubin 0.7 mg/dL (0.2-1.0) Aspartate Amino Transf (AST/SGOT) 25 U/L (15-37) Alanine Aminotransferase (ALT/SGPT) 27 U/L (16-63) Alkaline Phosphatase 112 U/L (46-116) Total Protein 5.5 g/dL (6.4-8.2) Albumin 2.6 g/dL (3.4-5.0) Albumin/Globulin Ratio 0.9 (1.0-1.7) Glucose (Fingerstick) 185 mg/dL (70-99) 207 mg/dL (70-99) 202 mg/dL (70-99) Test 01/09/20 04:15 01/09/20 08:07 Sodium Level 142 mmol/L (136-145) Potassium Level 4.0 mmol/L (3.5-5.1) Chloride Level 108 mmol/L (98-107) Carbon Dioxide Level 28 mmol/L (21-32) Anion Gap 6 (6-14) Blood Urea Nitrogen 23 mg/dL (8-26) Creatinine 1.6 mg/dL (0.7-1.3) Estimated GFR (Cockcroft-Gault) 44.9 Glucose Level 198 mg/dL (70-99) Calcium Level 7.8 mg/dL (8.5-10.1) Glucose (Fingerstick) 154 mg/dL (70-99) Laboratory Tests Test 01/08/20 10:15 01/08/20 11:56 01/08/20 16:33 01/08/20 20:36 White Blood Count 3.2 x10^3/uL (4.0-11.0) Red Blood Count 3.57 x10^6/uL (4.30-5.70) Hemoglobin 10.5 g/dL (13.0-17.5) Hematocrit 33.0 % (39.0-53.0) Mean Corpuscular Volume 92 fL (79-100) Mean Corpuscular Hemoglobin 29 pg (25-35) Mean Corpuscular Hemoglobin Concent 32 g/dL (31-37) Red Cell Distribution Width 16.4 % (11.5-14.5) Platelet Count 63 x10^3/uL (140-400) Neutrophils (%) (Auto) 74 % (31-73) Lymphocytes (%) (Auto) 16 % (24-48) Monocytes (%) (Auto) 6 % (0-9) Eosinophils (%) (Auto) 4 % (0-3) Basophils (%) (Auto) 1 % (0-3) Neutrophils # (Auto) 2.4 x10^3/uL (1.8-7.7) Lymphocytes # (Auto) 0.5 x10^3/uL (1.0-4.8) Monocytes # (Auto) 0.2 x10^3/uL (0.0-1.1) Eosinophils # (Auto) 0.1 x10^3/uL (0.0-0.7) Basophils # (Auto) 0.0 x10^3/uL (0.0-0.2) Sodium Level 142 mmol/L (136-145) Potassium Level 4.1 mmol/L (3.5-5.1) Chloride Level 105 mmol/L (98-107) Carbon Dioxide Level 30 mmol/L (21-32) Anion Gap 7 (6-14) Blood Urea Nitrogen 23 mg/dL (8-26) Creatinine 1.7 mg/dL (0.7-1.3) Estimated GFR (Cockcroft-Gault) 41.9 BUN/Creatinine Ratio 14 (6-20) Glucose Level 196 mg/dL (70-99) Calcium Level 8.1 mg/dL (8.5-10.1) Total Bilirubin 0.7 mg/dL (0.2-1.0) Aspartate Amino Transf (AST/SGOT) 25 U/L (15-37) Alanine Aminotransferase (ALT/SGPT) 27 U/L (16-63) Alkaline Phosphatase 112 U/L (46-116) Total Protein 5.5 g/dL (6.4-8.2) Albumin 2.6 g/dL (3.4-5.0) Albumin/Globulin Ratio 0.9 (1.0-1.7) Glucose (Fingerstick) 185 mg/dL (70-99) 207 mg/dL (70-99) 202 mg/dL (70-99) Test 01/09/20 04:15 01/09/20 08:07 Sodium Level 142 mmol/L (136-145) Potassium Level 4.0 mmol/L (3.5-5.1) Chloride Level 108 mmol/L (98-107) Carbon Dioxide Level 28 mmol/L (21-32) Anion Gap 6 (6-14) Blood Urea Nitrogen 23 mg/dL (8-26) Creatinine 1.6 mg/dL (0.7-1.3) Estimated GFR (Cockcroft-Gault) 44.9 Glucose Level 198 mg/dL (70-99) Calcium Level 7.8 mg/dL (8.5-10.1) Glucose (Fingerstick) 154 mg/dL (70-99) Medications Current Medications Ibuprofen (Motrin) 800 mg 1X ONCE PO Last administered on 01/06/20at 08:20; Start 01/06/20 at 08:00; Stop 01/06/20 at 08:01; Status DC Ondansetron HCl (Zofran) 4 mg 1X ONCE IVP Last administered on 01/06/20at 08:20; Start 01/06/20 at 08:00; Stop 01/06/20 at 08:01; Status DC Ceftriaxone Sodium (Rocephin) 1 gm 1X ONCE IVP Last administered on 01/06/20at 08:22; Start 01/06/20 at 08:00; Stop 01/06/20 at 08:01; Status DC Morphine Sulfate (Morphine Sulfate) 4 mg 1X ONCE IV Last administered on 01/06/20at 10:17; Start 01/06/20 at 09:30; Stop 01/06/20 at 09:31; Status DC Sodium Chloride 1,000 ml @ 75 mls/hr 1X ONCE IV ; Start 01/06/20 at 10:30; Stop 01/06/20 at 23:49; Status DC Sodium Chloride 1,000 ml @ 1,000 mls/hr 1X ONCE IV ; Start 01/06/20 at 10:30; Stop 01/06/20 at 11:29; Status DC Piperacillin Sod/ Tazobactam Sod 3.375 gm/Sodium Chloride 50 ml @ 100 mls/hr Q6HRS IV Last administered on 01/09/20at 05:34; Start 01/06/20 at 12:00 Buspirone HCl (Buspar) 10 mg BID PO Last administered on 01/08/20at 20:57; Start 01/06/20 at 11:30 Carvedilol (Coreg) 6.25 mg BIDWMEALS PO Last administered on 01/08/20at 17:36; Start 01/06/20 at 11:30 Citalopram Hydrobromide (CeleXA) 20 mg DAILY PO Last administered on 01/08/20at 09:22; Start 01/06/20 at 11:30 Furosemide (Lasix) 20 mg DAILY PO Last administered on 01/08/20at 09:23; Start 01/07/20 at 09:00 Lactulose (Lactulose) 20 gm BID PO Last administered on 01/08/20at 20:57; Start 01/06/20 at 21:00 Lorazepam (Ativan) 0.5 mg PRN BID PRN PO ANXIETY; Start 01/06/20 at 11:15 Oxycodone HCl (Roxicodone) 30 mg PRN QHS PRN PO PAIN Last administered on 01/08/20 21:03; Start 01/06/20 at 11:30 Pantoprazole Sodium (Protonix) 40 mg DAILYAC PO Last administered on 01/08/20 09:22; Start 01/07/20 at 07:30 Spironolactone (Aldactone) 100 mg DAILY PO Last administered on 01/08/20 12:5 8; Start 01/06/20 at 11:30 Tamsulosin HCl (Flomax) 0.8 mg DAILY PO Last administered on 01/08/20 09:21; Start 01/06/20 at 12:00 Trazodone HCl (Desyrel) 300 mg HS PO Last administered on 01/08/20 20:58; Start 01/06/20 at 21:00 Non-Formulary Medication (Apremilast (Otezla)) 30 mg BID PO ; Start 01/06/20 at 21:00; Status UNV Aripiprazole (Abilify) 15 mg DAILY PO Last administered on 01/08/20 12:57; Start 01/07/20 at 09:00 Non-Formulary Medication (Cranberry Fruit Concentrate (Cranberry)) 450 mg DAILY PO ; Start 01/07/20 at 09:00; Status UNV Gabapentin (Neurontin) 300 mg TID PO Last administered on 01/08/20 20:57; Start 01/06/20 at 14:00 Insulin Glargine (Lantus Syringe) 20 unit QHS SQ Last administered on 01/08/20 21:02; Start 01/06/20 at 21:00 Multivitamins (Thera M Plus) 1 tab DAILY PO Last administered on 01/08/20 09:22; Start 01/07/20 at 09:00 Insulin Human Lispro (HumaLOG) 0-5 UNITS TIDWMEALS SQ Last administered on 01/08/20 17:42; Start 01/06/20 at 12:00 Dextrose (Dextrose 50%-Water Syringe) 12.5 gm PRN Q15MIN PRN IV SEE COMMENTS; Start 01/06/20 at 11:15 Sodium Chloride (Normal Saline Flush) 3 ml QSHIFT PRN IV AFTER MEDS AND BLOOD DRAWS; Start 01/06/20 at 11:15 Ondansetron HCl (Zofran) 4 mg PRN Q4HRS PRN IV NAUSEA/VOMITING; Start 01/06/20 at 11:15 Acetaminophen (Tylenol) 650 mg PRN Q4HRS PRN PO TEMP OVER 100.4F OR MILD PAIN; Start 01/06/20 at 11:15 Acetaminophen (Tylenol Supp) 650 mg PRN Q4HRS PRN AK TEMP OVER 100.4F OR MILD PAIN; Start 01/06/20 at 11:15 Sodium Monofluorophosphate (Fleet Adult) 133 ml PRN DAILY PRN AK CONSTIPATION; Start 01/06/20 at 11:15 Albuterol Sulfate (Ventolin Neb Soln) 2.5 mg PRN Q4HRS PRN NEB SHORTNESS OF BREATH; Start 01/06/20 at 11:15 Guaifenesin (Robitussin) 200 mg PRN Q4HRS PRN PO COUGH; Start 01/06/20 at 11:15 Enoxaparin Sodium (Lovenox 40mg Syringe) 40 mg Q24H SQ Last administered on 01/07/20at 12:00; Start 01/06/20 at 11:15; Stop 01/08/20 at 16:54; Status DC Metronidazole 100 ml @ 100 mls/hr Q8HRS IV ; Start 01/06/20 at 14:00; Stop 01/06/20 at 14:11; Status DC Morphine Sulfate (Morphine Sulfate) 2 mg 1X ONCE IV ; Start 01/06/20 at 12:45; Stop 01/06/20 at 12:45; Status DC Morphine Sulfate (Morphine Sulfate) 4 mg 1X ONCE IV Last administered on 01/06/20at 13:21; Start 01/06/20 at 12:45; Stop 01/06/20 at 12:48; Status DC Daptomycin 510 mg/ Sodium Chloride 50 ml @ 100 mls/hr Q24H IV Last administered on 01/08/20at 15:48; Start 01/06/20 at 15:00 Morphine Sulfate (Morphine Sulfate) 4 mg PRN Q2HR PRN IV PAIN; Start 01/06/20 at 18:45 Lidocaine HCl (Buffered Lidocaine 1%) 3 ml STK-MED ONCE .ROUTE ; Start 01/07/20 at 12:50; Stop 01/07/20 at 12:50; Status DC Lidocaine HCl (Buffered Lidocaine 1%) 6 ml 1X ONCE INJ Last administered on 01/07/20at 13:08; Start 01/07/20 at 13:00; Stop 01/07/20 at 13:31; Status DC Albumin Human 100 ml @ As Directed STK-MED ONCE IV ; Start 01/07/20 at 13:23; Stop 01/07/20 at 13:24; Status DC Albumin Human 100 ml @ 100 mls/hr 1X ONCE IV Last administered on 01/07/20at 13:30; Start 01/07/20 at 13:30; Stop 01/07/20 at 14:29; Status DC Albumin Human 100 ml @ 100 mls/hr 1X ONCE IV Last administered on 01/07/20at 13:55; Start 01/07/20 at 14:00; Stop 01/07/20 at 14:59; Status DC Albumin Human 50 ml @ 50 mls/hr 1X ONCE IV Last administered on 01/07/20at 15:27; Start 01/07/20 at 14:00; Stop 01/07/20 at 14:59; Status DC Lactobacillus Rhamnosus (Culturelle) 1 cap BID PO Last administered on 01/08/20at 20:57; Start 01/07/20 at 21:00 Active Scripts Active Furosemide 20 Mg Tablet 1 Tab PO DAILY 90 Days Lactulose 20 Gm/30 Ml Solution 20 Gm PO BID 30 Days Aldactone (Spironolactone) 25 Mg Tablet 100 Mg PO DAILY 30 Days Ativan (Lorazepam) 0.5 Mg Tablet 0.5 Mg PO PRN BID PRN 6 Days Levemir Flextouch (Insulin Detemir) 300 Units/3 Ml Insuln.pen 20 Units SQ QHS Reported Citalopram Hbr (Citalopram Hydrobromide) 20 Mg Tablet 1 Tab PO DAILY Aripiprazole 1 Mg/1 Ml Solution 15 Ml PO DAILY 30 Days Pantoprazole Sodium (Pantoprazole Sodium) 40 Mg Tablet.dr 40 Mg PO DAILYAC Flomax (Tamsulosin Hcl) 0.4 Mg Cap.er.24h 2 Cap PO DAILY Buspirone Hcl 10 Mg Tablet 1 Tab PO BID Oxycodone Hcl Immed.release (Oxycodone Hcl) 30 Mg Tablet 30 Mg PO HS PRN Oxycodone Hcl Immed.release (Oxycodone Hcl) 15 Mg Tablet 15 Mg PO Q6HRS PRN Otezla (Apremilast) 30 Mg Tablet 30 Mg PO BID Daily Value (Multivitamin) 1 Each Tablet 1 Each PO DAILY Novolog Flexpen (Insulin Aspart) 100 Unit/1 Ml Insuln.pen 0-7 Unit SQ QID Cranberry (Cranberry Fruit Concentrate) 450 Mg Capsule 450 Mg PO DAILY Carvedilol (Carvedilol) 6.25 Mg Tablet 6.25 Mg PO BIDWMEALS Gabapentin 600 Mg Tablet 300 Mg PO TID Trazodone Hcl 100 Mg Tablet 300 Mg PO HS Metformin Hcl 1,000 Mg Tablet 1,000 Mg PO BID Vitals/I & O Vital Sign - Last 24 Hours 01/08/20 01/08/20 01/08/20 01/08/20 09:27 11:00 12:57 14:09 Temp 98.4 98.4 Pulse 59 54 Resp 16 B/P (MAP) 109/51 113/54 (73) Pulse Ox 95 O2 Delivery Room Air Room Air Room Air 01/08/20 01/08/20 01/08/20 01/08/20 15:00 17:36 19:00 19:20 Temp 98.0 98.6 98.0 98.6 Pulse 57 66 58 Resp 16 18 B/P (MAP) 118/51 (73) 111/57 103/54 (70) Pulse Ox 97 95 O2 Delivery Room Air Room Air 01/08/20 01/08/20 01/08/20 01/09/20 21:03 22:00 23:00 03:00 Temp 98.4 97.5 98.4 97.5 Pulse 58 63 Resp 18 18 16 16 B/P (MAP) 106/58 (74) 122/58 (79) Pulse Ox 96 94 O2 Delivery Room Air Room Air 01/09/20 07:15 Temp 97.8 97.8 Pulse 63 Resp 16 B/P (MAP) 143/52 (82) Pulse Ox 98 O2 Delivery Room Air Intake and Output 01/08/20 01/08/20 01/09/20 15:00 23:00 07:00 Intake Total 460 ml Output Total 500 ml Balance -500 ml 460 ml Nutrition Consultation Dietary Evaluation: Recommendations by RD: Dietary education by RD Comments: continue with cardiac ( low Na ) diet provided diet education on Cirrhosis Nutrition Therapy handout provided to pt to use at d/c Expected Outcomes/Goals: diet compliance Malnutrition Findings: Food and Nutrition Intake (Sev: <50% est energy req 5days Fluid Accumulation (Severe): Severe Justicifation of Admission Dx: Justifications for Admission: Justification of Admission Dx: Yes KEITH DOOLEY MD Jan 09, 2020 08:47
[2020-01-09] MEDS: LACTULOSE 20 GM/30 ML SOLUTION. PO SCH (09:00)
[2020-01-09] MEDS: NON FORMULARY ITEM (Apremilast (Otezla) 30 MG) PO SCH (09:00)
[2020-01-09] MEDS: SPIRONOLACTONE 25 MG TABLET PO SCH (09:15)
[2020-01-09] MEDS: TAMSULOSIN 0.4 MG CAP.ER.24H. PO SCH (09:16)
[2020-01-09] MEDS: ARIPiprazole 5 MG TABLET PO SCH (09:16)
[2020-01-09] MEDS: CITALOPRAM 20 MG TABLET. PO SCH (09:16)
[2020-01-09] MEDS: FUROSEMIDE 20 MG TABLET PO SCH (09:16)
[2020-01-09] MEDS: CARVEDILOL 6.25 MG TABLET. PO SCH ×2 (09:17→17:00)
[2020-01-09] MEDS: busPIRone 10 MG TABLET. PO SCH (09:17)
[2020-01-09] MEDS: PANTOPRAZOLE 40 MG TABLET.DR. PO SCH (09:17)
[2020-01-09] MEDS: GABAPENTIN 300 MG CAPSULE. PO SCH ×2 (09:17→14:27)
[2020-01-09] MEDS: MULTIVITAMIN with MINERAL TABLET. PO SCH (09:17)
[2020-01-09] MEDS: LACTOBACILLUS RHAMNOSUS GG 1 CAPSULE. PO SCH (09:18)
[2020-01-09] MEDS: INSULIN LISPRO 300 UNITS/3 ML VIAL. SQ SCH ×3 (09:24→17:19)
[2020-01-09] MEDS: oxyCODONE IR 5 MG TABLET PO PRN (09:58)
--- NOTE | 2020-01-09 10:59 | PDOC ---
Infectious Disease Note Subjective: Subjective Patient feels better No fevers/nausea, vomiting, abdominal pain shortness of breath or cough Occasional loose bowel movements from stool softener Eager for discharge home today Vital Signs: Vital Signs Vital Signs Date Time Temp Pulse Resp B/P (MAP) Pulse Ox O2 Delivery O2 Flow Rate FiO2 01/09/20 09:58 Room Air 01/09/20 09:17 63 143/52 01/09/20 07:15 97.8 16 98 97.8 Physical Exam: PHYSICAL EXAM GENERAL: Alert, oriented x 3 male lying in bed comfortably, in no acute distress, nontoxic appearing. HEENT: Normocephalic, atraumatic, anicteric. NECK: Supple, no JVD, no thyromegaly. No neck tenderness. LUNGS: Clear bilaterally. No wheezing. HEART: S1, S2. No gallops, murmurs or rubs. ABDOMEN: Soft, less distended. Bowel sounds present. No overlying cellulitis changes noted. No clinical evidence of abscess EXTREMITIES: Bilateral lower extremity 1+ edema, no cyanosis. DERMATOLOGIC: Warm, dry. No generalized rash. Psoriatic patches present on the lateral aspect of both upper extremities, mild superficial skin abrasions. MUSCULOSKELETAL: No joint swelling seen, DJD changes present. NEUROLOGIC: Alert and oriented x 3, grossly nonfocal. PSYCHIATRIC: Cooperative, appropriate mood and affect. Medications: Inpatient Meds: Current Medications Medications (Trade) Dose Ordered Sig/Sb Start Time Stop Time Status Last Admin Dose Admin Acetaminophen (Tylenol Supp) 650 mg PRN Q4HRS PRN 01/06/20 11:15 Acetaminophen (Tylenol) 650 mg PRN Q4HRS PRN 01/06/20 11:15 Albumin Human 50 ml @ 50 mls/hr 1X ONCE 01/07/20 14:00 01/07/20 14:59 DC 01/07/20 15:27 50 MLS/HR Albuterol Sulfate (Ventolin Neb Soln) 2.5 mg PRN Q4HRS PRN 01/06/20 11:15 Aripiprazole (Abilify) 15 mg DAILY 01/07/20 09:00 01/09/20 09:16 15 MG Buspirone HCl (Buspar) 10 mg BID 01/06/20 11:30 01/09/20 09:17 10 MG Carvedilol (Coreg) 6.25 mg BIDWMEALS 01/06/20 11:30 01/09/20 09:17 6.25 MG Ceftriaxone Sodium (Rocephin) 1 gm 1X ONCE 01/06/20 08:00 01/06/20 08:01 DC 01/06/20 08:22 1 GM Citalopram Hydrobromide (CeleXA) 20 mg DAILY 01/06/20 11:30 01/09/20 09:16 20 MG Daptomycin 510 mg/ Sodium Chloride 50 ml @ 100 mls/hr Q24H 01/06/20 15:00 01/08/20 15:48 100 MLS/HR Dextrose (Dextrose 50%-Water Syringe) 12.5 gm PRN Q15MIN PRN 01/06/20 11:15 Enoxaparin Sodium (Lovenox 40mg Syringe) 40 mg Q24H 01/06/20 11:15 01/08/20 16:54 DC 01/07/20 12:00 40 MG Furosemide (Lasix) 20 mg DAILY 01/07/20 09:00 01/09/20 09:16 20 MG Gabapentin (Neurontin) 300 mg TID 01/06/20 14:00 01/09/20 09:17 300 MG Guaifenesin (Robitussin) 200 mg PRN Q4HRS PRN 01/06/20 11:15 Ibuprofen (Motrin) 800 mg 1X ONCE 01/06/20 08:00 01/06/20 08:01 DC 01/06/20 08:20 800 MG Insulin Glargine (Lantus Syringe) 20 unit QHS 01/06/20 21:00 01/08/20 21:02 20 UNIT Insulin Human Lispro (HumaLOG) 0-5 UNITS TIDWMEALS 01/06/20 12:00 01/09/20 09:24 2 UNITS Lactobacillus Rhamnosus (Culturelle) 1 cap BID 01/07/20 21:00 01/09/20 09:18 1 CAP Lactulose (Lactulose) 20 gm BID 01/06/20 21:00 01/08/20 20:57 20 GM Lidocaine HCl (Buffered Lidocaine 1%) 6 ml 1X ONCE 01/07/20 13:00 01/07/20 13:31 DC 01/07/20 13:08 6 ML Lorazepam (Ativan) 0.5 mg PRN BID PRN 01/06/20 11:15 Metronidazole 100 ml @ 100 mls/hr Q8HRS 01/06/20 14:00 01/06/20 14:11 DC Morphine Sulfate (Morphine Sulfate) 4 mg PRN Q2HR PRN 01/06/20 18:45 Multivitamins (Thera M Plus) 1 tab DAILY 01/07/20 09:00 01/09/20 09:17 1 TAB Non-Formulary Medication (Apremilast (Otezla)) 30 mg BID 01/06/20 21:00 UNV Non-Formulary Medication (Cranberry Fruit Concentrate (Cranberry)) 450 mg DAILY 01/07/20 09:00 UNV Ondansetron HCl (Zofran) 4 mg PRN Q4HRS PRN 01/06/20 11:15 Oxycodone HCl (Roxicodone) 30 mg PRN QHS PRN 01/06/20 11:30 01/09/20 09:58 30 MG Pantoprazole Sodium (Protonix) 40 mg DAILYAC 01/07/20 07:30 01/09/20 09:17 40 MG Piperacillin Sod/ Tazobactam Sod 3.375 gm/Sodium Chloride 50 ml @ 100 mls/hr Q6HRS 01/06/20 12:00 01/09/20 05:34 100 MLS/HR Sodium Monofluorophosphate (Fleet Adult) 133 ml PRN DAILY PRN 01/06/20 11:15 Sodium Chloride (Normal Saline Flush) 3 ml QSHIFT PRN 01/06/20 11:15 Spironolactone (Aldactone) 100 mg DAILY 01/06/20 11:30 01/09/20 09:15 100 MG Tamsulosin HCl (Flomax) 0.8 mg DAILY 01/06/20 12:00 01/09/20 09:16 0.8 MG Trazodone HCl (Desyrel) 300 mg HS 01/06/20 21:00 01/08/20 20:58 300 MG Labs: Lab Laboratory Tests Test 01/08/20 11:56 01/08/20 16:33 01/08/20 20:36 01/09/20 04:15 Glucose (Fingerstick) 185 mg/dL (70-99) 207 mg/dL (70-99) 202 mg/dL (70-99) Sodium Level 142 mmol/L (136-145) Potassium Level 4.0 mmol/L (3.5-5.1) Chloride Level 108 mmol/L (98-107) Carbon Dioxide Level 28 mmol/L (21-32) Anion Gap 6 (6-14) Blood Urea Nitrogen 23 mg/dL (8-26) Creatinine 1.6 mg/dL (0.7-1.3) Estimated GFR (Cockcroft-Gault) 44.9 Glucose Level 198 mg/dL (70-99) Calcium Level 7.8 mg/dL (8.5-10.1) Test 01/09/20 08:07 Glucose (Fingerstick) 154 mg/dL (70-99) Objective: Assessment: 1. Fever 2. Lactic acidosis. Improving 3. Abdominal distention, nausea, vomiting with underlying ascites. Status post paracentesis 4. Nausea, vomiting. Intermittent 5. Cough 6. Negative COVID. 7. Cirrhosis. 8. Pancytopenia 9. Chronic thrombocytopenia. 10. Psoriasis and rheumatoid arthritis, on immunosuppression. Plan: Plan of Care And is ready for discharge per primary team dose Dapto today before discharge Augmentin and doxycycline for 5 days starting tomorrow f/u Blood cultures negative so far ? peritoneal fluid g/s or cults Follow-up with PCP in 1 week Discussed with nursing staff GILLIAN CAMILO MD Jan 09, 2020 10:59
[2020-01-09 11:15] VITALS: BP 114/47
--- NOTE | 2020-01-09 12:25 | PDOC ---
Date of Service: DATE: 01/09/20 TIME: 12:23 Subjective: Subjective: Doing okay. Filling up again but not uncomfortable. Again says wants to follow up in our office as outpt. Objective: Vital Signs: Vital Signs Date Time Temp Pulse Resp B/P (MAP) Pulse Ox O2 Delivery O2 Flow Rate FiO2 01/09/20 12:03 Room Air 01/09/20 09:17 63 143/52 01/09/20 07:15 97.8 16 98 97.8 Labs: Laboratory Tests Test 01/08/20 16:33 01/08/20 20:36 01/09/20 04:15 01/09/20 08:07 Glucose (Fingerstick) 207 mg/dL 202 mg/dL 154 mg/dL Sodium Level 142 mmol/L Potassium Level 4.0 mmol/L Chloride Level 108 mmol/L Carbon Dioxide Level 28 mmol/L Anion Gap 6 Blood Urea Nitrogen 23 mg/dL Creatinine 1.6 mg/dL Estimated GFR (Cockcroft-Gault) 44.9 Glucose Level 198 mg/dL Calcium Level 7.8 mg/dL Test 01/09/20 11:43 Glucose (Fingerstick) 316 mg/dL BLOOD CULTURE Preliminary NO GROWTH AFTER 1 DAY PE: GEN: NAD - up in chair LUNGS: CTAB HEART: RRR ABD: filling up again? NEURO/PSYCH: A & O 3 A/P: Cirrhosis/LOCKHART, recurrent ascites - on Lasix and Aldactone KARO, chronic thrombocytopenia ZACHERY -- Fluid studies pending. Repeat paracentesis PRN. Justicifation of Admission Dx: Justifications for Admission: Justification of Admission Dx: Yes ANGLE MORALES Jan 09, 2020 12:25
--- NOTE | 2020-01-09 13:02 | PDOC3 ---
Discharge Summary Date of Admission: Jan 06, 2020 Date of Discharge: Jan 09, 2020 Follow-Up: 3-5 days Admitting Diagnosis comment: DISCHARGE DX Assessment/Plan IMPRESSION: Cirrhosis with large ascites and findings suggesting developing cellulitis in the lower ventral abdominal wall. FEVER mild bibasilar lung airspace opacities likely atelectasis or infiltrates. COVID-19 PUI NEG Cirrhosis of the liver - LOCKHART with remote h/o alcohol abuse Splenomegaly likely secondary to portal hypertension.Marked splenomegaly, similar to prior. Spleen measures 18 cm in cranial caudal extent MORBID OBESITY Chronic bilateral subdural hematomas, Interval apparent coil embolization. SEVERE ALCOHOL ABUSE HX - not drinking anymore Noncompliance normocytic anemia transaminitis CHRONIC THROMBOCYTOPENIA ELEVATED AMMONIA, SERUM HX Leukopenia LACTIC ACIDOSIS SEPSIS 01/07 TEMP 101.4 LAST NIGHT 01/08 Augmentin and doxycycline for 5 days starting tomorrow f/u Blood cultures negative so far ? peritoneal fluid g/s or cults Follow-up with PCP in 1 week ADMIT CONSULT ID CONSULT GI BLOOD CULT X 2 NEG TO DATE covid-19 screening NEG NH4 D/C METFORMIN EMPERIC IV ZOSYN, Continue Zosyn, daptomycin. D/C 01/08 33 MIN D/C PLANNING TIME Justicifation of Admission Dx: Justicifation of Admission Dx: Justifications for Admission: Justification of Admission Dx: Yes History of Present Illness History of Present Illness Identification/Chief Complaint Chief Complaint seen in er with fever, cough and ascites 54 year old male who [facility] due to nausea vomiting and abdominal pain with abdominal distention. Patient also has a cough and a fever. Patient was evaluated here last month for the same problem, he was found to have ascites, had 11 L of fluid removed from his abdomen . now has a cough as well history of alcohol abuse, ascites, dementia Past Medical History Past Medical History Past Medical History Past Medical History: COPD, Dementia, Diabetes-Type II, Heart Disease, [place], Unknown Additional Past Medical Histor: RA, sleep apnea, SUBDURAL HEMATOMA 10/03/19 Past Surgical History: Tonsillectomy, Other Additional Past Surgical Histo: vasectomy Smoking Status: Never Smoker Alcohol Use: None Drug Use: None FHX OBESITY Cardiovascular: HTN, UT Pulmonary: COPD CENTRAL NERVOUS SYSTEM: Other GI: GERD Psych: Addictions Musculoskeletal: low back pain, Osteoarthritis, Other Rheumatologic: Rheumatoid arthritis Renal/: Other Endocrine: Diabetes Past Surgical History Past Surgical History: Tonsillectomy, Other Family History Family History: Alcohol Abuse, High Cholestrol, Hypertension, Family History Unknown Social History Smoke: No ALCOHOL: heavy (remote ) Drugs: None, Other Vitals Vitals Vital Signs Date Time Temp Pulse Resp B/P (MAP) Pulse Ox O2 Delivery O2 Flow Rate FiO2 01/09/20 07:15 97.8 63 16 143/52 (82) 98 Room Air 97.8 Physical Exam Physical Exam GENERAL: Alert, oriented x 3 male lying in bed comfortably, in no acute distress, nontoxic appearing. HEENT: Normocephalic, atraumatic, anicteric. NECK: Supple, no JVD, no thyromegaly. No neck tenderness. LUNGS: Clear bilaterally. No wheezing. HEART: S1, S2. No gallops, murmurs or rubs. ABDOMEN: Soft, distended. Bowel sounds present. No overlying cellulitis changes noted. EXTREMITIES: Bilateral lower extremity 1+ edema, no cyanosis. DERMATOLOGIC: Warm, dry. No generalized rash. Psoriatic patches present on the lateral aspect of both upper extremities, mild superficial skin abrasions. MUSCULOSKELETAL: No joint swelling seen, DJD changes present. NEUROLOGIC: Alert and oriented x 3, grossly nonfocal. PSYCHIATRIC: Cooperative, appropriate mood and affect. General: Alert, Oriented X3, Cooperative, No acute distress Heart: Regular rate Lungs: Clear Abdomen: Normal bowel sounds, Soft, No tenderness Extremities: No cyanosis, No edema Skin: No significant lesion FINAL DIAGNOSIS Problems Medical Problems: (1) Abdominal pain Status: Acute (2) Ascites Status: Acute (3) Fever Status: Acute (4) Suspected 2019 novel coronavirus infection Status: Acute Brief Hospital Course Mr. Bridges is a 54 old [sex] who presented with [ ASCITES ] CONDITION AT DISCHARGE: Improved Discharge Medications Current Medications Ibuprofen (Motrin) 800 mg 1X ONCE PO Last administered on 01/06/20at 08:20; Start 01/06/20 at 08:00; Stop 01/06/20 at 08:01; Status DC Ondansetron HCl (Zofran) 4 mg 1X ONCE IVP Last administered on 01/06/20at 08:20; Start 01/06/20 at 08:00; Stop 01/06/20 at 08:01; Status DC Ceftriaxone Sodium (Rocephin) 1 gm 1X ONCE IVP Last administered on 01/06/20at 08:22; Start 01/06/20 at 08:00; Stop 01/06/20 at 08:01; Status DC Morphine Sulfate (Morphine Sulfate) 4 mg 1X ONCE IV Last administered on 01/06/20at 10:17; Start 01/06/20 at 09:30; Stop 01/06/20 at 09:31; Status DC Sodium Chloride 1,000 ml @ 75 mls/hr 1X ONCE IV ; Start 01/06/20 at 10:30; Stop 01/06/20 at 23:49; Status DC Sodium Chloride 1,000 ml @ 1,000 mls/hr 1X ONCE IV ; Start 01/06/20 at 10:30; Stop 01/06/20 at 11:29; Status DC Piperacillin Sod/ Tazobactam Sod 3.375 gm/Sodium Chloride 50 ml @ 100 mls/hr Q6HRS IV Last administered on 01/09/20at 12:31; Start 01/06/20 at 12:00 Buspirone HCl (Buspar) 10 mg BID PO Last administered on 01/09/20 09:17; Start 01/06/20 at 11:30 Carvedilol (Coreg) 6.25 mg BIDWMEALS PO Last administered on 01/09/20at 09:17; Start 01/06/20 at 11:30 Citalopram Hydrobromide (CeleXA) 20 mg DAILY PO Last administered on 01/09/20 09:16; Start 01/06/20 at 11:30 Furosemide (Lasix) 20 mg DAILY PO Last administered on 01/09/20 09:16; Start 01/07/20 at 09:00 Lactulose (Lactulose) 20 gm BID PO Last administered on 01/08/20at 20:57; Start 01/06/20 at 21:00 Lorazepam (Ativan) 0.5 mg PRN BID PRN PO ANXIETY; Start 01/06/20 at 11:15 Oxycodone HCl (Roxicodone) 30 mg PRN QHS PRN PO PAIN Last administered on 01/09/20 09:58; Start 01/06/20 at 11:30 Pantoprazole Sodium (Protonix) 40 mg DAILYAC PO Last administered on 01/09/20 09:17; Start 01/07/20 at 07:30 Spironolactone (Aldactone) 100 mg DAILY PO Last administered on 01/09/20 09:15; Start 01/06/20 at 11:30 Tamsulosin HCl (Flomax) 0.8 mg DAILY PO Last administered on 01/09/20 09:16; Start 01/06/20 at 12:00 Trazodone HCl (Desyrel) 300 mg HS PO Last administered on 01/08/20 20:58; Start 01/06/20 at 21:00 Non-Formulary Medication (Apremilast (Otezla)) 30 mg BID PO ; Start 01/06/20 at 21:00; Stop 01/09/20 at 11:24; Status DC Aripiprazole (Abilify) 15 mg DAILY PO Last administered on 01/09/20 09:16; Start 01/07/20 at 09:00 Non-Formulary Medication (Cranberry Fruit Concentrate (Cranberry)) 450 mg DAILY PO ; Start 01/07/20 at 09:00; Status UNV Gabapentin (Neurontin) 300 mg TID PO Last administered on 01/09/20 09:17; Start 01/06/20 at 14:00 Insulin Glargine (Lantus Syringe) 20 unit QHS SQ Last administered on 01/08/20 21:02; Start 01/06/20 at 21:00 Multivitamins (Thera M Plus) 1 tab DAILY PO Last administered on 01/09/20 09:17; Start 01/07/20 at 09:00 Insulin Human Lispro (HumaLOG) 0-5 UNITS TIDWMEALS SQ Last administered on 01/09/20at 12:33; Start 01/06/20 at 12:00 Dextrose (Dextrose 50%-Water Syringe) 12.5 gm PRN Q15MIN PRN IV SEE COMMENTS; Start 01/06/20 at 11:15 Sodium Chloride (Normal Saline Flush) 3 ml QSHIFT PRN IV AFTER MEDS AND BLOOD DRAWS; Start 01/06/20 at 11:15 Ondansetron HCl (Zofran) 4 mg PRN Q4HRS PRN IV NAUSEA/VOMITING; Start 01/06/20 at 11:15 Acetaminophen (Tylenol) 650 mg PRN Q4HRS PRN PO TEMP OVER 100.4F OR MILD PAIN; Start 01/06/20 at 11:15 Acetaminophen (Tylenol Supp) 650 mg PRN Q4HRS PRN MT TEMP OVER 100.4F OR MILD PAIN; Start 01/06/20 at 11:15 Sodium Monofluorophosphate (Fleet Adult) 133 ml PRN DAILY PRN MT CONSTIPATION; Start 01/06/20 at 11:15 Albuterol Sulfate (Ventolin Neb Soln) 2.5 mg PRN Q4HRS PRN NEB SHORTNESS OF BREATH; Start 01/06/20 at 11:15 Guaifenesin (Robitussin) 200 mg PRN Q4HRS PRN PO COUGH; Start 01/06/20 at 11:15 Enoxaparin Sodium (Lovenox 40mg Syringe) 40 mg Q24H SQ Last administered on 01/07/20at 12:00; Start 01/06/20 at 11:15; Stop 01/08/20 at 16:54; Status DC Metronidazole 100 ml @ 100 mls/hr Q8HRS IV ; Start 01/06/20 at 14:00; Stop 01/06/20 at 14:11; Status DC Morphine Sulfate (Morphine Sulfate) 2 mg 1X ONCE IV ; Start 01/06/20 at 12:45; Stop 01/06/20 at 12:45; Status DC Morphine Sulfate (Morphine Sulfate) 4 mg 1X ONCE IV Last administered on 01/06/20at 13:21; Start 01/06/20 at 12:45; Stop 01/06/20 at 12:48; Status DC Daptomycin 510 mg/ Sodium Chloride 50 ml @ 100 mls/hr Q24H IV Last administered on 01/08/20at 15:48; Start 01/06/20 at 15:00 Morphine Sulfate (Morphine Sulfate) 4 mg PRN Q2HR PRN IV PAIN; Start 01/06/20 at 18:45 Lidocaine HCl (Buffered Lidocaine 1%) 3 ml STK-MED ONCE .ROUTE ; Start 01/07/20 at 12:50; Stop 01/07/20 at 12:50; Status DC Lidocaine HCl (Buffered Lidocaine 1%) 6 ml 1X ONCE INJ Last administered on 01/07/20at 13:08; Start 01/07/20 at 13:00; Stop 01/07/20 at 13:31; Status DC Albumin Human 100 ml @ As Directed STK-MED ONCE IV ; Start 01/07/20 at 13:23; Stop 01/07/20 at 13:24; Status DC Albumin Human 100 ml @ 100 mls/hr 1X ONCE IV Last administered on 01/07/20at 13:30; Start 01/07/20 at 13:30; Stop 01/07/20 at 14:29; Status DC Albumin Human 100 ml @ 100 mls/hr 1X ONCE IV Last administered on 01/07/20at 13:55; Start 01/07/20 at 14:00; Stop 01/07/20 at 14:59; Status DC Albumin Human 50 ml @ 50 mls/hr 1X ONCE IV Last administered on 01/07/20at 15:27; Start 01/07/20 at 14:00; Stop 01/07/20 at 14:59; Status DC Lactobacillus Rhamnosus (Culturelle) 1 cap BID PO Last administered on 01/09/20at 09:18; Start 01/07/20 at 21:00 Active Scripts Active Furosemide 20 Mg Tablet 1 Tab PO DAILY 90 Days Lactulose 20 Gm/30 Ml Solution 20 Gm PO BID 30 Days Aldactone (Spironolactone) 25 Mg Tablet 100 Mg PO DAILY 30 Days Ativan (Lorazepam) 0.5 Mg Tablet 0.5 Mg PO PRN BID PRN 6 Days Levemir Flextouch (Insulin Detemir) 300 Units/3 Ml Insuln.pen 20 Units SQ QHS Reported Citalopram Hbr (Citalopram Hydrobromide) 20 Mg Tablet 1 Tab PO DAILY Aripiprazole 1 Mg/1 Ml Solution 15 Ml PO DAILY 30 Days Pantoprazole Sodium (Pantoprazole Sodium) 40 Mg Tablet.dr 40 Mg PO DAILYAC Flomax (Tamsulosin Hcl) 0.4 Mg Cap.er.24h 2 Cap PO DAILY Buspirone Hcl 10 Mg Tablet 1 Tab PO BID Oxycodone Hcl Immed.release (Oxycodone Hcl) 30 Mg Tablet 30 Mg PO HS PRN Oxycodone Hcl Immed.release (Oxycodone Hcl) 15 Mg Tablet 15 Mg PO Q6HRS PRN Otezla (Apremilast) 30 Mg Tablet 30 Mg PO BID Daily Value (Multivitamin) 1 Each Tablet 1 Each PO DAILY Novolog Flexpen (Insulin Aspart) 100 Unit/1 Ml Insuln.pen 0-7 Unit SQ QID Cranberry (Cranberry Fruit Concentrate) 450 Mg Capsule 450 Mg PO DAILY Carvedilol (Carvedilol) 6.25 Mg Tablet 6.25 Mg PO BIDWMEALS Gabapentin 600 Mg Tablet 300 Mg PO TID Trazodone Hcl 100 Mg Tablet 300 Mg PO HS Metformin Hcl 1,000 Mg Tablet 1,000 Mg PO BID Vital Signs Vital Signs Date Time Temp Pulse Resp B/P (MAP) Pulse Ox O2 Delivery O2 Flow Rate FiO2 01/09/20 12:03 Room Air 01/09/20 11:15 98.5 60 16 114/47 (69) 95 98.5 Labs Laboratory Tests Test 01/07/20 17:07 01/07/20 20:49 01/08/20 07:50 01/08/20 10:15 Glucose (Fingerstick) 199 mg/dL (70-99) 184 mg/dL (70-99) 143 mg/dL (70-99) White Blood Count 3.2 x10^3/uL (4.0-11.0) Red Blood Count 3.57 x10^6/uL (4.30-5.70) Hemoglobin 10.5 g/dL (13.0-17.5) Hematocrit 33.0 % (39.0-53.0) Mean Corpuscular Volume 92 fL (79-100) Mean Corpuscular Hemoglobin 29 pg (25-35) Mean Corpuscular Hemoglobin Concent 32 g/dL (31-37) Red Cell Distribution Width 16.4 % (11.5-14.5) Platelet Count 63 x10^3/uL (140-400) Neutrophils (%) (Auto) 74 % (31-73) Lymphocytes (%) (Auto) 16 % (24-48) Monocytes (%) (Auto) 6 % (0-9) Eosinophils (%) (Auto) 4 % (0-3) Basophils (%) (Auto) 1 % (0-3) Neutrophils # (Auto) 2.4 x10^3/uL (1.8-7.7) Lymphocytes # (Auto) 0.5 x10^3/uL (1.0-4.8) Monocytes # (Auto) 0.2 x10^3/uL (0.0-1.1) Eosinophils # (Auto) 0.1 x10^3/uL (0.0-0.7) Basophils # (Auto) 0.0 x10^3/uL (0.0-0.2) Sodium Level 142 mmol/L (136-145) Potassium Level 4.1 mmol/L (3.5-5.1) Chloride Level 105 mmol/L (98-107) Carbon Dioxide Level 30 mmol/L (21-32) Anion Gap 7 (6-14) Blood Urea Nitrogen 23 mg/dL (8-26) Creatinine 1.7 mg/dL (0.7-1.3) Estimated GFR (Cockcroft-Gault) 41.9 BUN/Creatinine Ratio 14 (6-20) Glucose Level 196 mg/dL (70-99) Calcium Level 8.1 mg/dL (8.5-10.1) Total Bilirubin 0.7 mg/dL (0.2-1.0) Aspartate Amino Transf (AST/SGOT) 25 U/L (15-37) Alanine Aminotransferase (ALT/SGPT) 27 U/L (16-63) Alkaline Phosphatase 112 U/L (46-116) Total Protein 5.5 g/dL (6.4-8.2) Albumin 2.6 g/dL (3.4-5.0) Albumin/Globulin Ratio 0.9 (1.0-1.7) Test 01/08/20 11:56 01/08/20 16:33 01/08/20 20:36 01/09/20 04:15 Glucose (Fingerstick) 185 mg/dL (70-99) 207 mg/dL (70-99) 202 mg/dL (70-99) Sodium Level 142 mmol/L (136-145) Potassium Level 4.0 mmol/L (3.5-5.1) Chloride Level 108 mmol/L (98-107) Carbon Dioxide Level 28 mmol/L (21-32) Anion Gap 6 (6-14) Blood Urea Nitrogen 23 mg/dL (8-26) Creatinine 1.6 mg/dL (0.7-1.3) Estimated GFR (Cockcroft-Gault) 44.9 Glucose Level 198 mg/dL (70-99) Calcium Level 7.8 mg/dL (8.5-10.1) Test 01/09/20 08:07 01/09/20 11:43 Glucose (Fingerstick) 154 mg/dL (70-99) 316 mg/dL (70-99) Laboratory Tests Test 01/08/20 16:33 01/08/20 20:36 01/09/20 04:15 01/09/20 08:07 Glucose (Fingerstick) 207 mg/dL (70-99) 202 mg/dL (70-99) 154 mg/dL (70-99) Sodium Level 142 mmol/L (136-145) Potassium Level 4.0 mmol/L (3.5-5.1) Chloride Level 108 mmol/L (98-107) Carbon Dioxide Level 28 mmol/L (21-32) Anion Gap 6 (6-14) Blood Urea Nitrogen 23 mg/dL (8-26) Creatinine 1.6 mg/dL (0.7-1.3) Estimated GFR (Cockcroft-Gault) 44.9 Glucose Level 198 mg/dL (70-99) Calcium Level 7.8 mg/dL (8.5-10.1) Test 01/09/20 11:43 Glucose (Fingerstick) 316 mg/dL (70-99) Allergies Allergies Coded Allergies Type Severity Reaction Last Updated Verified povidone-iodine Allergy Intermediate Rash 01/23/15 Yes pregabalin Allergy Intermediate bullae 01/24/15 Yes Disposition/Orders: D/C to Home Justicifation of Admission Dx: Justifications for Admission: Justification of Admission Dx: Yes KEITH DOOLEY MD Jan 09, 2020 13:02
[2020-01-09] MEDS ORDERED: ALBU2.5V8 NEB (13:06)
[2020-01-09] MEDS ORDERED: AMOX1TAB58 PO (13:06)
[2020-01-09] MEDS ORDERED: ACET325T9 PO (13:06)
[2020-01-09] MEDS ORDERED: DOXY100C2 PO (13:06)
[2020-01-09] MEDS ORDERED: LACT1CAP19 PO (13:06)
--- NOTE | 2020-01-09 13:07 | DISCH ---
DISCHARGE INSTRUCTIONS Condition on Discharge Condition on Discharge: Stable Activity After Discharge Activity Instructions for Disc: Activity as tolerated Lifting Instructions after Dis: No heavy lifting Driving Instructions after Dis: Do not drive, Do not drive today Weight Bearing Status after Di: As tolerated Diet after Discharge Diet after Discharge: No Added Salt, No Added Sugar Diet Texture: Regular Liquid Texture: Thin Liquid Swallowing Supervision: None needed Wound Incision Care Wound/Incision Care: No wound care needed Checks after Discharge Checks after discharge: Check blood press - daily, Check blood sugar, ac/hs, Weigh Yourself Daily Contacting the DR. after DC Call your doctor for: If your condition worsens Treatment/Equipment after DC Adaptive Equipment Issued: None KEITH DOOLEY MD Jan 09, 2020 13:07
--- NOTE | 2020-01-09 13:38 | SNU/HH DC ---
DISCHARGE ORDERS DISCHARGE INFORMATION: FINAL DIAGNOSIS Problems Medical Problems: (1) Abdominal pain Status: Acute (2) Ascites Status: Acute (3) Fever Status: Acute (4) Suspected 2019 novel coronavirus infection Status: Acute CONDITION ON DISCHARGE: Stable CODE STATUS: Code Status: Full INTERMEDIATE: SNF STAY <30 DAYS: Yes HOSPICE: HOSPICE: No HOSPICE EVAL & TREAT: No LTAC: ADMIT TO LTAC: No POST DISCHARGE ORDERS: ACTIVITY ORDERS: Activity as tolerated WEIGHT BEARING STATUS: As tolerated DIET AFTER DISCHARGE: Low Sodium 2 gm WOUND/INCISION CARE: No wound care needed CHECKS AFTER DISCHARGE: CHECKS AFTER DISCHARGE: Check blood press - daily, Check blood sugar, ac/hs, Weigh Yourself Daily FOLLOW-UP: LAB ORDERS FOR FOLLOW-UP: BMP weekly TREATMENT/EQUIPMENT ORDERS: ADAPTIVE EQUIPMENT NEEDED: None Physical Therapy For: Evalulation/Treatment Occupational Therapy For: Evaluation/Treatment DISCHARGE MEDICATIONS: Home Meds Active Scripts Amoxicillin/Potassium Clav (AUGMENTIN 500-125 TABLET) 1 Each Tablet, 1 TAB PO BID for INFECTION for 7 Days, #14 TAB 0 Refills Prov:KEITH DOOLEY MD 01/09/20 Doxycycline Hyclate (DOXYCYCLINE HYCLATE) 100 Mg Capsule, 1 CAP PO BID for INFECTION for 7 Days, #14 CAP Prov:KEITH DOOLEY MD 01/09/20 Lactobacillus Rhamnosus Gg (CULTURELLE) 1 Each Cap.sprink, 1 CAP PO BID for SUPPLEMENT for 30 Days, #60 CAP Prov:KEITH DOOLEY MD 01/09/20 Acetaminophen (TYLENOL) 325 Mg Tablet, 650 MG PO PRN Q4HRS PRN for TEMP OVER 100.4F OR MILD PAIN for 14 Days, #30 TAB Prov:KEITH DOOLEY MD 01/09/20 Albuterol Sulfate (Proair Hfa) 8.5 Gm Hfa.aer.ad, 2.5 MG NEB PRN Q4HRS PRN for SHORTNESS OF BREATH for 30 Days, #2 INHALER Prov:KEITH DOOLEY MD 01/09/20 Furosemide (FUROSEMIDE) 20 Mg Tablet, 1 TAB PO DAILY for CIrrhosis for 90 Days, #90 TAB 1 Refill Prov:CAREN SAMPSON MD 12/17/19 Lactulose (LACTULOSE) 20 Gm/30 Ml Solution, 20 GM PO BID for Cirrhosis for 30 Days, #1200 MISC 2 Refills Prov:CAREN SAMPSON MD 12/17/19 Spironolactone (ALDACTONE) 25 Mg Tablet, 100 MG PO DAILY for CIrrhosis for 30 Days, #120 TAB 2 Refills Prov:CAREN SAMPSON MD 12/17/19 Lorazepam (ATIVAN) 0.5 Mg Tablet, 0.5 MG PO PRN BID PRN for ANXIETY for 6 Days, #12 TAB Prov:CAREN SAMPSON MD 12/17/19 Insulin Detemir (Levemir Flextouch) 300 Units/3 Ml Insuln.pen, 20 UNITS SQ QHS, #2 SYR 3 Refills Prov:HA EDWARDS MD 01/25/15 Reported Medications Citalopram Hydrobromide (CITALOPRAM HBR) 20 Mg Tablet, 1 TAB PO DAILY for anti- depression, #30 TAB 5 Refills 07/30/19 Aripiprazole (Aripiprazole) 1 Mg/1 Ml Solution, 15 ML PO DAILY for dementia for 30 Days, #150 ML 0 Refills 07/30/19 Pantoprazole Sodium (PANTOPRAZOLE SODIUM ) 40 Mg Tablet.dr, 40 MG PO DAILYAC for GERD, TAB 07/30/19 Tamsulosin Hcl (FLOMAX) 0.4 Mg Cap.er.24h, 2 CAP PO DAILY for BPH, #30 CAP 11 Refills 07/30/19 Buspirone Hcl (BUSPIRONE HCL) 10 Mg Tablet, 1 TAB PO BID for HTN, #60 TAB 1 Refill 07/30/19 Oxycodone Hcl (OXYCODONE HCL IMMED.RELEASE ) 30 Mg Tablet, 30 MG PO HS PRN for PAIN, TAB 0 Refills 01/03/17 Apremilast (Otezla) 30 Mg Tablet, 30 MG PO BID, TAB 01/03/17 Multivitamin (DAILY VALUE) 1 Each Tablet, 1 EACH PO DAILY, TAB 01/03/17 Insulin Aspart (NOVOLOG FLEXPEN) 100 Unit/1 Ml Insuln.pen, 0-7 UNIT SQ QID, SYR 01/03/17 Carvedilol (CARVEDILOL ) 6.25 Mg Tablet, 6.25 MG PO BIDWMEALS, TAB 01/03/17 Gabapentin (GABAPENTIN) 600 Mg Tablet, 300 MG PO TID, CAP 12/20/14 Trazodone Hcl (TRAZODONE HCL) 100 Mg Tablet, 300 MG PO HS, TAB 05/16/14 Discontinued Reported Medications Oxycodone Hcl (OXYCODONE HCL IMMED.RELEASE) 15 Mg Tablet, 15 MG PO Q6HRS PRN for PAIN, TAB 0 Refills 01/03/17 Cranberry Fruit Concentrate (CRANBERRY) 450 Mg Capsule, 450 MG PO DAILY, CAP 01/03/17 Metformin Hcl (METFORMIN HCL) 1,000 Mg Tablet, 1000 MG PO BID, TAB 0 Refills 01/29/14 KEITH DOOLEY MD Jan 09, 2020 13:37
[2020-01-09] MEDS: DAPTOmycin (GENERIC) IVPB 510 MG in IV NORMAL SALINE 50ML 50 ML IV SCH (14:27)
[2020-01-09 15:00] VITALS: BP 121/51
--- NOTE | 2020-01-09 17:02 | NUR ---
SW following. Reviewed chart and discussed with RN. [facility] Pt to discharge today per Dr. Boyce. DERRELL phoned and faxed discharge orders and scripts to Sergio at [facility], , (fax). Sergio arranged for wc transport at 1630. Pt on room air and oral medications. Packet of clinicals updated and will be sent with pt. RN to call report. No further SW needs at this time.
--- NOTE | 2020-01-09 18:44 | NUR ---
Discharge Note: PT DISCHARGED TO [facility]. PT LEFT FACILITY VIA [facility] TRANSPORT AT 1720. PT STABLE AND ALERT UPON DISCHARGE. PT PIV REMOVED FROM [facility] WITHOUT COMPLICATIONS, BANDAGE APPLIE. REPORT CALL[facility] TO KE[facility]AN HIGH [facility], DISCHARGE INSTRUCTIONS, DISCHARGE MEDICATIONS, AND FOLLOW-UP CARE INSTRUCTIONS. NO CONCERNS VOICED AT THIS TIME. PT WAS GIVEN EVENING DOSE OF HUMALOG UPON DISCHARGE FOR A BLOOD SUGAR OF 201, PT REFUSED TO TAKE THE COREG BECAUSE HIS HR WAS 52. PT VOICED NO CONCERNS ABOUT DISCHARGE INSTRUCTIONS, DISCHARGE MEDICATIONS, AND FOLLOW-UP CARE. FACILITY INFORMED OF PT CONTINUING ATB THERAPY FOR THE NEXT 5 DAYS. PT LEFT WITH ALL PERSONAL BELONGINGS. TERRELL MANJARREZ Discharge instructions and discharge home medications reviewed with Patient and a copy given. All questions have been answered and understanding verbalized.
[2020-02-13] MEDS ORDERED: FAMO1TAB3 PO (19:19)
[2020-02-13] MEDS ORDERED: FLUT9.9S NS (19:19)
[2020-02-13] MEDS ORDERED: ASCO500C PO (19:19)
[2020-02-13] MEDS ORDERED: CETI10TA74 PO (19:19)
[2020-02-13] MEDS ORDERED: MELA5TAB20 PO (19:19)
[2020-02-13] MEDS ORDERED: COAL21.2 TP (19:19)
[2020-02-13] MEDS ORDERED: OMEP20TA63 PO (19:19)
[2020-02-13] MEDS ORDERED: GABA600T7 PO (19:19)
[2020-02-13] MEDS ORDERED: FERR325T14 PO (19:19)
[2020-02-13] MEDS ORDERED: LIDO700A21 TP (19:19)
[2020-02-13] MEDS ORDERED: DOCU100C28 PO (19:19)
== END 2020-01-09 17:20 | DRG 871 ==
LOC: ER 07:37 → 6 SOUTH 09:21 → 5 NORTH 01-07 22:56
PROVIDERS: ADMIT Family Medicine; ATTEND Family Medicine
PROC: 0W9G3ZZ Drainage of Peritoneal Cavity, Percutaneous Approach (ICD-10-PCS; principal; 2020-01-07)
DX: A41.9 Sepsis, unspecified organism (principal); I62.03 Nontraumatic chronic subdural hemorrhage; D61.818 Other pancytopenia; R18.8 Other ascites; K76.6 Portal hypertension; N17.9 Acute kidney failure, unspecified; J98.11 Atelectasis; L03.311 Cellulitis of abdominal wall; J44.9 Chronic obstructive pulmonary disease, unspecified; L40.9 Psoriasis, unspecified; M79.7 Fibromyalgia; M06.9 Rheumatoid arthritis, unspecified; K21.9 Gastro-esophageal reflux disease without esophagitis; R23.4 Changes in skin texture; K75.81 Nonalcoholic steatohepatitis (NASH); R16.1 Splenomegaly, not elsewhere classified; K74.60 Unspecified cirrhosis of liver; Z20.828 Contact with and (suspected) exposure to other viral communicable diseases; D69.59 Other secondary thrombocytopenia; E11.9 Type 2 diabetes mellitus without complications; E66.01 Morbid (severe) obesity due to excess calories; F03.90 Unspecified dementia, unspecified severity, without behavioral disturbance, psychotic disturbance, mood disturbance, and anxiety; G47.33 Obstructive sleep apnea (adult) (pediatric); I10 Essential (primary) hypertension; Z87.442 Personal history of urinary calculi; Z98.52 Vasectomy status; Z98.49 Cataract extraction status, unspecified eye; Z68.33 Body mass index [BMI] 33.0-33.9, adult; I25.2 Old myocardial infarction; Z83.49 Family history of other endocrine, nutritional and metabolic diseases
CPT/HCPCS: 36415; 49083; 71045; 74176; 80048; 80053; 81001; 82140; 82550; 82962; 83605; 83690; 84484; 85025; 85610; 85730; 87040; 87426; 93005; 96374; 96375; 99285; C1892; J0696; J0878; J1650; J1815; J2270; J2405; J2543; J3490; P9046; 92523-GN; 97110-GP; 97112-GP; 97116-GP; 97530-GP; G0378; U0003-CS

== ENCOUNTER 2020-02-03 09:05 | Emergency (ER) | payer MEDICARE, OTHER ==
[~2020-02-03] VITALS: Ht 175.3 cm; Wt 110.0 kg
[~2020-02-03 09:05] MED LIST changes: +ACET325T9 PO; +ALBU2.5V8 NEB; +AMOX1TAB58 PO; +DOXY100C2 PO; +LACT1CAP19 PO
[2020-02-03 09:49] LABS: BASO % 1 % (0-3); EOS # 0.2 x10^3/uL (0.0-0.7); EOS % 5 % (0-3); HEMATOCRIT 38.5 % (39.0-53.0); HEMOGLOBIN 12.6 g/dL (13.0-17.5); LYMPH # 0.6 x10^3/uL (1.0-4.8); LYMPH % 14 % (24-48); MEAN CORPUSCULAR HEMOGLOBIN 30 pg (25-35); MEAN CORPUSCULAR HGB CONC 33 g/dL (31-37); MEAN CORPUSCULAR VOLUME 90 fL (79-100); MONO # 0.3 x10^3/uL (0.0-1.1); MONO % 6 % (0-9); NEUT # 3.2 x10^3/uL (1.8-7.7); NEUT % 74 % (31-73); PLATELET COUNT 84 x10^3/uL (140-400); RED BLOOD COUNT 4.26 x10^6/uL (4.30-5.70); RED CELL DISTRIBUTION WIDTH 16.3 % (11.5-14.5); WHITE BLOOD COUNT 4.3 x10^3/uL (4.0-11.0)
[2020-02-03 09:58] LABS: PROTHROMBIN TIME PATIENT 13.5 SEC (11.7-14.0)
[2020-02-03 09:59] LABS: CREATININE 1.2 mg/dL (0.7-1.3); GFR 62.6; POTASSIUM 4.1 mmol/L (3.5-5.1)
[2020-02-03 10:05] LABS: ALBUMIN 2.9 g/dL (3.4-5.0); ALBUMIN/GLOBULIN RATIO 0.7 (1.0-1.7); MAGNESIUM 1.9 mg/dL (1.8-2.4); TOTAL BILIRUBIN 1.3 mg/dL (0.2-1.0); TOTAL PROTEIN 6.9 g/dL (6.4-8.2)
[2020-02-03] MEDS ORDERED: fentaNYL PF VIAL 100 MCG/2 ML VIAL IVP ONE (11:00)
[2020-02-03] MEDS ORDERED: LIDOCAINE WITH 8.4% SOD BICARB 3 ML DISP.SYRIN. ONE (11:14)
[2020-02-03 11:25] LABS: BILIRUBIN,URINE NEGATIVE (NEG); CLARITY,URINE CLEAR; COLOR,URINE YELLOW; NITRITE,URINE NEGATIVE (NEG); PROTEIN,URINE NEGATIVE (NEG-TRACE)
[2020-02-03] MEDS ORDERED: ALBUMIN HUMAN 25% 300 ML IV ONE (11:25)
[2020-02-03 11:35] LABS: BACTERIA,URINE FEW /HPF (0-FEW); RBC,URINE 0 /HPF (0-2)
[2020-02-03 11:36] LABS: HYALINE CASTS, URINE OCCASIONAL /HPF; SQUAMOUS EPITHELIAL CELL,UR OCC /LPF
[2020-02-03 11:43] VITALS: BP 149/67
[2020-02-03 11:59] VITALS: BP 115/56
[2020-02-03 12:12] VITALS: BP 126/60
[2020-02-03] MEDS ORDERED: LIDOCAINE WITH 8.4% SOD BICARB 3 ML DISP.SYRIN. INJ ONE (12:15)
[2020-02-03 12:25] VITALS: BP 130/59
[2020-02-03 12:39] VITALS: BP 126/56
[2020-02-03] MEDS ORDERED: ALBUMIN HUMAN 25% 100 ML IV ONE ×3 (12:45)
[2020-02-03] MEDS ORDERED: ALBUMIN HUMAN 25% 50 ML IV ONE (13:00)
--- NOTE | 2020-02-03 13:22 | PHYS DOC ---
Past Medical History Past Medical History: COPD, Dementia, Diabetes-Type II, Heart Disease, [place], Unknown Additional Past Medical Histor: RA, sleep apnea, SUBDURAL HEMATOMA 10/03/19, DECREASED LIVER FX, CIRR, ASCITS Past Surgical History: Tonsillectomy, Other Additional Past Surgical Histo: vasectomy, PERICENTESIS Smoking Status: Never Smoker Alcohol Use: None Drug Use: None General Adult EDM: Chief Complaint: ABDOMINAL PAIN HPI: HPI: Patient is a 54 year old male who was brought here from [facility] due to abdominal distention. Patient has history of cirrhosis, had ascites. Patient had paracentesis done here last month, 9 liters of peritoneal fluid was removed, and before that there was 11 L removed. Patient denies any fever, no cough, no chest pain. Review of Systems: Review of Systems: Constitutional: Denies fever or chills. [] Eyes: Denies change in visual acuity. [] HENT: Denies nasal congestion or sore throat. [] Respiratory: Denies cough or shortness of breath. [] Cardiovascular: Denies chest pain or edema. [] GI: Positive for abdominal distention : Denies dysuria. [] Musculoskeletal: Denies back pain or joint pain. [] Integument: Denies rash. [] Neurologic: Denies headache, focal weakness or sensory changes. [] Endocrine: Denies polyuria or polydipsia. [] Lymphatic: Denies swollen glands. [] Psychiatric: Denies depression or anxiety. [] Heart Score: Risk Factors: Risk Factors: DM, Current or recent (<one month) smoker, HTN, HLP, family history of CAD, obesity. Risk Scores: Score 0 - 3: 2.5% MACE over next 6 weeks - Discharge Home Score 4 - 6: 20.3% MACE over next 6 weeks - Admit for Clinical Observation Score 7 - 10: 72.7% MACE over next 6 weeks - Early Invasive Strategies Current Medications: Current Medications Medications (Trade) Dose Ordered Sig/Sb Start Time Stop Time Status Last Admin Dose Admin Albumin Human 50 ml @ 50 mls/hr 1X ONCE 02/03/20 13:00 02/03/20 13:59 Fentanyl Citrate (Fentanyl 2ml Vial) 50 mcg 1X ONCE 02/03/20 11:00 02/03/20 11:01 DC 02/03/20 11:00 50 MCG Lidocaine HCl (Buffered Lidocaine 1%) 6 ml 1X ONCE 02/03/20 12:15 02/03/20 12:16 DC 02/03/20 11:44 4 ML Allergies: Allergies: Allergies Coded Allergies Type Severity Reaction Last Updated Verified povidone-iodine Allergy Intermediate Rash 01/23/15 Yes pregabalin Allergy Intermediate bullae 01/24/15 Yes morphine Allergy Unknown 02/03/20 Yes Physical Exam: PE: Constitutional: Well developed, well nourished, no acute distress, non-toxic ap pearance. [] HENT: Normocephalic, atraumatic, bilateral external ears normal, oropharynx moist, no oral exudates, nose normal. [] Eyes: PERRLA, EOMI, conjunctiva normal, no discharge. [] Neck: Normal range of motion, no tenderness, supple, no stridor. [] Cardiovascular:Heart rate regular rhythm, no murmur [] Lungs & Thorax: Bilateral breath sounds clear to auscultation [] Abdomen: Bowel sounds normal, soft, severe abdominal distention, no pulsatile masses. [] Skin: Warm, dry, no erythema, no rash. [] Back: No tenderness, no CVA tenderness. [] Extremities: No tenderness, no cyanosis, no clubbing, ROM intact, no edema. [] Neurologic: Alert and oriented X 3, normal motor function, normal sensory function, no focal deficits noted. [] Psychologic: Affect normal, judgement normal, mood normal. [] Current Patient Data: Labs: Laboratory Tests Test 02/03/20 09:35 02/03/20 09:37 02/03/20 09:38 02/03/20 11:16 Sodium Level 141 mmol/L Potassium Level 4.1 mmol/L Chloride Level 104 mmol/L Carbon Dioxide Level 30 mmol/L Anion Gap 7 Blood Urea Nitrogen 14 mg/dL Creatinine 1.2 mg/dL Estimated GFR (Cockcroft-Gault) 62.6 BUN/Creatinine Ratio 12 Glucose Level 148 mg/dL Calcium Level 9.0 mg/dL Magnesium Level 1.9 mg/dL Total Bilirubin 1.3 mg/dL Aspartate Amino Transf (AST/SGOT) 55 U/L Alanine Aminotransferase (ALT/SGPT) 44 U/L Alkaline Phosphatase 333 U/L Ammonia < 10 mcmol/L Total Protein 6.9 g/dL Albumin 2.9 g/dL Albumin/Globulin Ratio 0.7 Lipase 67 U/L Prothrombin Time 13.5 SEC Prothromb Time International Ratio 1.1 Activated Partial Thromboplast Time 31 SEC White Blood Count 4.3 x10^3/uL Red Blood Count 4.26 x10^6/uL Hemoglobin 12.6 g/dL Hematocrit 38.5 % Mean Corpuscular Volume 90 fL Mean Corpuscular Hemoglobin 30 pg Mean Corpuscular Hemoglobin Concent 33 g/dL Red Cell Distribution Width 16.3 % Platelet Count 84 x10^3/uL Neutrophils (%) (Auto) 74 % Lymphocytes (%) (Auto) 14 % Monocytes (%) (Auto) 6 % Eosinophils (%) (Auto) 5 % Basophils (%) (Auto) 1 % Neutrophils # (Auto) 3.2 x10^3/uL Lymphocytes # (Auto) 0.6 x10^3/uL Monocytes # (Auto) 0.3 x10^3/uL Eosinophils # (Auto) 0.2 x10^3/uL Basophils # (Auto) 0.0 x10^3/uL Urine Collection Type Unknown Urine Color Yellow Urine Clarity Clear Urine pH 5.0 Urine Specific Lyons 1.015 Urine Protein Negative mg/dL Urine Glucose (UA) Negative mg/dL Urine Ketones (Stick) Negative mg/dL Urine Blood Negative Urine Nitrite Negative Urine Bilirubin Negative Urine Urobilinogen Dipstick 1.0 mg/dL Urine Leukocyte Esterase Trace Urine RBC 0 /HPF Urine WBC 5-10 /HPF Urine Squamous Epithelial Cells Occ /LPF Urine Bacteria Few /HPF Urine Hyaline Casts Occasional /HPF Urine Mucus Slight /LPF Current Medications Medications (Trade) Dose Ordered Sig/Sb Route PRN Reason Start Time Stop Time Status Last Admin Dose Admin Fentanyl Citrate (Fentanyl 2ml Vial) 50 mcg 1X ONCE IVP 02/03/20 11:00 02/03/20 11:01 DC 02/03/20 11:00 Lidocaine HCl (Buffered Lidocaine 1%) 3 ml STK-MED ONCE .ROUTE 02/03/20 11:14 02/03/20 11:14 DC Albumin Human 300 ml @ As Directed STK-MED ONCE IV 02/03/20 11:25 02/03/20 11:25 DC Lidocaine HCl (Buffered Lidocaine 1%) 6 ml 1X ONCE INJ 02/03/20 12:15 02/03/20 12:16 DC 02/03/20 11:44 Albumin Human 100 ml @ 100 mls/hr 1X ONCE IV 02/03/20 12:45 02/03/20 13:44 02/03/20 12:30 Albumin Human 100 ml @ 100 mls/hr 1X ONCE IV 02/03/20 12:45 02/03/20 13:44 02/03/20 12:51 Albumin Human 100 ml @ 100 mls/hr 1X ONCE IV 02/03/20 12:45 02/03/20 13:44 Albumin Human 50 ml @ 50 mls/hr 1X ONCE IV 02/03/20 13:00 02/03/20 13:59 Laboratory Tests Test 02/03/20 09:35 02/03/20 09:37 02/03/20 09:38 02/03/20 11:16 Sodium Level 141 mmol/L (136-145) Potassium Level 4.1 mmol/L (3.5-5.1) Chloride Level 104 mmol/L (98-107) Carbon Dioxide Level 30 mmol/L (21-32) Anion Gap 7 (6-14) Blood Urea Nitrogen 14 mg/dL (8-26) Creatinine 1.2 mg/dL (0.7-1.3) Estimated GFR (Cockcroft-Gault) 62.6 BUN/Creatinine Ratio 12 (6-20) Glucose Level 148 mg/dL (70-99) H Calcium Level 9.0 mg/dL (8.5-10.1) Magnesium Level 1.9 mg/dL (1.8-2.4) Total Bilirubin 1.3 mg/dL (0.2-1.0) H Aspartate Amino Transferase (AST) 55 U/L (15-37) H Alanine Aminotransferase (ALT) 44 U/L (16-63) Alkaline Phosphatase 333 U/L (46-116) H Ammonia < 10 mcmol/L (11-34) L Total Protein 6.9 g/dL (6.4-8.2) Albumin 2.9 g/dL (3.4-5.0) L Albumin/Globulin Ratio 0.7 (1.0-1.7) L Lipase 67 U/L (73-393) L Prothrombin Time 13.5 SEC (11.7-14.0) Prothrombin Time INR 1.1 (0.8-1.1) Activated Partial Thromboplast Time 31 SEC (24-38) White Blood Count 4.3 x10^3/uL (4.0-11.0) Red Blood Count 4.26 x10^6/uL (4.30-5.70) L Hemoglobin 12.6 g/dL (13.0-17.5) L Hematocrit 38.5 % (39.0-53.0) L Mean Corpuscular Volume 90 fL (79-100) Mean Corpuscular Hemoglobin 30 pg (25-35) Mean Corpuscular Hemoglobin Concent 33 g/dL (31-37) Red Cell Distribution Width 16.3 % (11.5-14.5) H Platelet Count 84 x10^3/uL (140-400) L Neutrophils (%) (Auto) 74 % (31-73) H Lymphocytes (%) (Auto) 14 % (24-48) L Monocytes (%) (Auto) 6 % (0-9) Eosinophils (%) (Auto) 5 % (0-3) H Basophils (%) (Auto) 1 % (0-3) Neutrophils # (Auto) 3.2 x10^3/uL (1.8-7.7) Lymphocytes # (Auto) 0.6 x10^3/uL (1.0-4.8) L Monocytes # (Auto) 0.3 x10^3/uL (0.0-1.1) Eosinophils # (Auto) 0.2 x10^3/uL (0.0-0.7) Basophils # (Auto) 0.0 x10^3/uL (0.0-0.2) Urine Collection Type Unknown Urine Color Yellow Urine Clarity Clear Urine pH 5.0 (<5.0-8.0) Urine Specific Lyons 1.015 (1.000-1.030) Urine Protein Negative mg/dL (NEG-TRACE) Urine Glucose (UA) Negative mg/dL (NEG) Urine Ketones (Stick) Negative mg/dL (NEG) Urine Blood Negative (NEG) Urine Nitrite Negative (NEG) Urine Bilirubin Negative (NEG) Urine Urobilinogen Dipstick 1.0 mg/dL (0.2 mg/dL) Urine Leukocyte Esterase Trace (NEG) Urine RBC 0 /HPF (0-2) Urine WBC 5-10 /HPF (0-4) Urine Squamous Epithelial Cells Occ /LPF Urine Bacteria Few /HPF (0-FEW) Urine Hyaline Casts Occasional /HPF Urine Mucus Slight /LPF Laboratory Tests 02/03/20 09:38 Laboratory Tests 02/03/20 09:35 Vital Signs: Vital Signs Date Time Temp Pulse Resp B/P (MAP) Pulse Ox O2 Delivery O2 Flow Rate FiO2 02/03/20 12:39 98 126/56 (79) 97 Room Air 02/03/20 11:00 20 02/03/20 09:17 98.5 98.5 EKG: EKG: [] Radiology/Procedures: Radiology/Procedures: [] Course & Med Decision Making: Course & Med Decision Making Pertinent Labs and Imaging studies reviewed. (See chart for details) Patient is a 54-year-old male with history of cirrhosis, presented to ER today due to abdominal distention due to ascites, patient was evaluated by interventional radiologist Dr. Monaco who did paracentesis, he removed 14L peritoneal fluid. Patient was replaced with albumin. Patient was doing much better, he was in stable condition, he was discharged home, advised to schedule outpatient paracentesis in the future. [employer] Disclaimer: [employer] Disclaimer: This electronic medical record was generated, in whole or in part, using a voice recognition dictation system. Departure Departure Impression: Primary Impression: Ascites Disposition: 01 HOME, SELF-CARE Condition: IMPROVED Referrals: WESLEY RED DO (PCP) please follow up with your doctor as needed this week Patient Instructions: Ascites, Paracentesis Additional Instructions: Thank you for visiting our Emergency Department. We appreciate you trusting us with your care. If any additional problems come up don't hesitate to return to visit us. Please follow up with your primary care provider so they can plan additional care if needed and know about the problem that you had. If symptoms worsen come back to the Emergency Department. Any concerning symptoms that start such as chest pain, shortness of air, weakness or numbness on one side of the body, running high fevers or any other concerning symptoms return to the ER. Justicifation of Admission Dx: Justifications for Admission: Justification of Admission Dx: N/A ARCHIE OAKES DO Feb 03, 2020 13:22
[2020-02-03 15:05] VITALS: BP 136/63
--- NOTE | 2020-02-03 16:06 | RAD ---
Procedure: Ultrasound guided paracentesis Clinical Indication: Adult male with recurrent abdominal ascites Sedation: Local anesthesia only Antibiotics: None Fluoro Time: None Contrast: Not applicable Sterility: The procedure was performed in its entirety using appropriate elements of sterile technique. Consent: The procedure was explained in its entirety to the patient or the patients designated roofing sales representative by a member of the treatment team, including a discussion of the risks, benefits and commonly accepted alternatives to the procedure, as well as the expected consequences of no therapy whatsoever. Discussion of the risks included, but was not limited to, those that are most frequent and those that are rare but possibly severe or life-threatening, as well as the possibility of unforeseen complications. Technique and Findings: Following informed consent, the patient was prepped and draped in the usual sterile fashion. Ultrasound interrogation of the abdomen revealed abdominal ascites. A hard copy ultrasound image was recorded. 1% Lidocaine was used to achieve local anesthesia over the area of interest, and a 6 Slovak [id number] catheter was advanced into the peritoneal cavity under ultrasound guidance. 11478 cc of thin yellow ascites was then withdrawn. The catheter was removed and hemostasis was achieved with manual compression. Complications: No immediate Impression: 1. Ultrasound-guided paracentesis as described
--- NOTE | 2020-02-04 05:56 | EKG ---
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
--- NOTE | 2020-02-10 15:29 | EKG ---
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
[2020-02-13] MEDS ORDERED: FLUT9.9S NS (19:19)
[2020-02-13] MEDS ORDERED: FERR325T14 PO (19:19)
[2020-02-13] MEDS ORDERED: FAMO1TAB3 PO (19:19)
[2020-02-13] MEDS ORDERED: OMEP20TA63 PO (19:19)
[2020-02-13] MEDS ORDERED: LIDO700A21 TP (19:19)
[2020-02-13] MEDS ORDERED: MELA5TAB20 PO (19:19)
[2020-02-13] MEDS ORDERED: DOCU100C28 PO (19:19)
[2020-02-13] MEDS ORDERED: CETI10TA74 PO (19:19)
[2020-02-13] MEDS ORDERED: COAL21.2 TP (19:19)
[2020-02-13] MEDS ORDERED: ASCO500C PO (19:19)
[2020-02-13] MEDS ORDERED: GABA600T7 PO (19:19)
== END 2020-02-03 15:10 | disposition home or self-care (01) ==
LOC: ER 09:05
DX: R14.0 Abdominal distension (gaseous) (principal); R18.8 Other ascites; J44.9 Chronic obstructive pulmonary disease, unspecified; E11.9 Type 2 diabetes mellitus without complications; I25.2 Old myocardial infarction; I51.9 Heart disease, unspecified; Z90.89 Acquired absence of other organs; Z98.890 Other specified postprocedural states; Z88.6 Allergy status to analgesic agent; Z88.8 Allergy status to other drugs, medicaments and biological substances
CPT/HCPCS: 36415; 49083; 80053; 81001; 82140; 83690; 83735; 85025; 85610; 85730; 87077; 87086; 87186; 93005; 96365; 96366; 96375; 99285; C1892; J3010; J3490; P9046

== ENCOUNTER 2020-03-05 08:19 | Outpatient (CLI) | payer MEDICARE, OTHER ==
[2020-03-05] VITALS (8 sets, daily range): BP systolic 111–132; BP diastolic 50–62
[~2020-03-05] VITALS: Ht 175.3 cm; Wt 108.9 kg
[~2020-03-05 08:19] MED LIST changes: +ASCO500C PO; +CETI10TA74 PO; +COAL21.2 TP; +DOCU100C28 PO; +FAMO1TAB3 PO; +FERR325T14 PO; +FLUT9.9S NS; +LIDO700A21 TP; +MELA5TAB20 PO; +OMEP20TA63 PO
[2020-03-05 09:13] LABS: BASO % 1 % (0-3); EOS # 0.1 x10^3/uL (0.0-0.7); EOS % 3 % (0-3); HEMATOCRIT 33.6 % (39.0-53.0); HEMOGLOBIN 10.9 g/dL (13.0-17.5); LYMPH # 0.5 x10^3/uL (1.0-4.8); LYMPH % 16 % (24-48); MEAN CORPUSCULAR HEMOGLOBIN 29 pg (25-35); MEAN CORPUSCULAR HGB CONC 32 g/dL (31-37); MEAN CORPUSCULAR VOLUME 91 fL (79-100); MONO # 0.3 x10^3/uL (0.0-1.1); MONO % 8 % (0-9); NEUT # 2.3 x10^3/uL (1.8-7.7); NEUT % 72 % (31-73); PLATELET COUNT 62 x10^3/uL (140-400); RED CELL DISTRIBUTION WIDTH 16.6 % (11.5-14.5); WHITE BLOOD COUNT 3.2 x10^3/uL (4.0-11.0)
[2020-03-05 09:22] LABS: PROTHROMBIN TIME PATIENT 14.5 SEC (11.7-14.0)
[2020-03-05 09:27] LABS: CALCIUM 8.5 mg/dL (8.5-10.1); CREATININE 1.1 mg/dL (0.7-1.3); POTASSIUM 4.1 mmol/L (3.5-5.1)
[2020-03-05] MEDS ORDERED: LIDOCAINE WITH 8.4% SOD BICARB 3 ML DISP.SYRIN. ONE (09:58)
[2020-03-05] MEDS ORDERED: LIDOCAINE WITH 8.4% SOD BICARB 3 ML DISP.SYRIN. INJ ONE (10:15)
[2020-03-05] MEDS ORDERED: ALBUMIN HUMAN 25% 200 ML IV ONE (10:17)
[2020-03-05] MEDS ORDERED: ALBUMIN HUMAN 25% 100 ML IV ONE ×4 (10:30→11:00)
--- NOTE | 2020-03-05 11:02 | NUR ---
pt's paracentesis fluid is very cloudy Addendum: 03/05/20 at 1103 by JHONY CURTIS RN Amended: Links added.
--- NOTE | 2020-03-05 12:07 | RAD ---
Ultrasound-guided paracentesis 01/07/2020 1:17 PM Procedure: The risks and benefits of the procedure were discussed the patient. Informed consent was obtained. A timeout procedure was performed. Sonographic evaluation of the abdomen was performed demonstrating ascites . The right lower quadrant was prepped and draped using maximum sterile barrier technique. 1% lidocaine without epinephrine was administered for local anesthesia. Real-time ultrasonographic guidance was used in passing a 5 Japanese Yueh catheter into the fluid collection. 13L of serous ascites was removed. The catheter was removed and pressure held to achieve hemostasis. A sterile dressing was applied. Impression: Successful ultrasound-guided paracentesis
--- NOTE | 2020-03-05 12:24 | NUR ---
Discharge Note: TERRELL MANJARREZ Discharge instructions and discharge home medications reviewed with Patient and a copy given. All questions have been answered and understanding verbalized. Patient ate breakfast with no difficulties. The following instructions and handouts were given:Paracentesis. Discontinued lines and drains: right forearm, PIV dressing clean dry intact. Patient discharged to home to [facility] and rehab with patient transporter via wheelchair to transport van.
== END 2020-03-05 12:05 | disposition home or self-care (01) ==
LOC: INTRAD 08:19
PROVIDERS: ATTEND Internal Medicine Gastroenterology
DX: R18.8 Other ascites (principal); I10 Essential (primary) hypertension; E11.9 Type 2 diabetes mellitus without complications; K21.9 Gastro-esophageal reflux disease without esophagitis; J44.9 Chronic obstructive pulmonary disease, unspecified; G47.33 Obstructive sleep apnea (adult) (pediatric); Z98.890 Other specified postprocedural states; Z79.899 Other long term (current) drug therapy
CPT/HCPCS: 36415; 49083; 80048; 85025; 85610; C1892; J3490; P9046

== ENCOUNTER → 2020-03-15 | Outpatient (CLI) | payer MEDICARE, OTHER ==
[~2020-03-15] VITALS: Ht 175.3 cm; Wt 104.3 kg
[2020-03-15] VITALS (10 sets, daily range): BP systolic 110–127; BP diastolic 46–64
[~2020-03-15] MED LIST changes: +ALBUMIN HUMAN 25% 100 ML IV ONE; +ALBUMIN HUMAN 25% 200 ML IV ONE; +LIDOCAINE WITH 8.4% SOD BICARB 3 ML DISP.SYRIN. INJ ONE; +LIDOCAINE WITH 8.4% SOD BICARB 3 ML DISP.SYRIN. ONE
--- NOTE | 2020-03-15 10:42 | NUR ---
Discharge Note: TERRELL MANJARREZ Discharge instructions and discharge home medications reviewed with Patient and a copy given. All questions have been answered and understanding verbalized. The following instructions and handouts were given: paracentesis Discontinued lines and drains: Peripheral IV intact. [facility]
--- NOTE | 2020-03-15 15:11 | RAD ---
Ultrasound-guided paracentesis 03/15/2020 1:07 PM Procedure: The risks and benefits of the procedure were discussed the patient. Informed consent was obtained. A timeout procedure was performed. Sonographic evaluation of the abdomen was performed demonstrating ascites . The right lower quadrant was prepped and draped using maximum sterile barrier technique. 1% lidocaine without epinephrine was administered for local anesthesia. Real-time ultrasonographic guidance was used in passing a 5 Hebrew Yueh catheter into the fluid collection. 13 L of serous ascites was removed. The catheter was removed and pressure held to achieve hemostasis. A sterile dressing was applied. Impression: Successful ultrasound-guided paracentesis
== END ==
LOC: INTRAD 07:09
PROVIDERS: ATTEND Internal Medicine Gastroenterology
DX: R18.8 Other ascites (principal); K74.60 Unspecified cirrhosis of liver; E11.9 Type 2 diabetes mellitus without complications; I10 Essential (primary) hypertension; K21.9 Gastro-esophageal reflux disease without esophagitis; Z88.8 Allergy status to other drugs, medicaments and biological substances; Z79.899 Other long term (current) drug therapy; Z79.84 Long term (current) use of oral hypoglycemic drugs
CPT/HCPCS: 49083; C1892; J3490; P9046

== ENCOUNTER 2020-03-22 06:36 | Outpatient (CLI) | payer MEDICARE, OTHER ==
[~2020-03-22] VITALS: Ht 175.3 cm; Wt 104.3 kg
[2020-03-22] VITALS (9 sets, daily range): BP systolic 105–124; BP diastolic 50–62
[~2020-03-22 06:36] MED LIST changes: -ALBUMIN HUMAN 25% 100 ML IV ONE; -ALBUMIN HUMAN 25% 200 ML IV ONE; -LIDOCAINE WITH 8.4% SOD BICARB 3 ML DISP.SYRIN. INJ ONE; -LIDOCAINE WITH 8.4% SOD BICARB 3 ML DISP.SYRIN. ONE
[2020-03-22] MEDS ORDERED: LIDOCAINE WITH 8.4% SOD BICARB 3 ML DISP.SYRIN. ONE (08:10)
[2020-03-22] MEDS ORDERED: LIDOCAINE WITH 8.4% SOD BICARB 3 ML DISP.SYRIN. INJ ONE (08:15)
[2020-03-22] MEDS ORDERED: ALBUMIN HUMAN 25% 200 ML IV ONE (08:54)
[2020-03-22] MEDS ORDERED: ALBUMIN HUMAN 25% 100 ML IV ONE ×2 (09:00)
--- NOTE | 2020-03-22 10:15 | RAD ---
Ultrasound-guided paracentesis 03/22/2020 8:01 AM Procedure: The risks and benefits of the procedure were discussed the patient. Informed consent was obtained. A timeout procedure was performed. Sonographic evaluation of the abdomen was performed demonstrating ascites . The right lower quadrant was prepped and draped using maximum sterile barrier technique. 1% lidocaine without epinephrine was administered for local anesthesia. Real-time ultrasonographic guidance was used in passing a 5 Latvian Yueh catheter into the fluid collection. 8.5 L of serous ascites was removed. The catheter was removed and pressure held to achieve hemostasis. A sterile dressing was applied. Impression: Successful ultrasound-guided paracentesis
--- NOTE | 2020-03-22 10:38 | NUR ---
Discharge Note: TERRELL MANJARREZ Discharge instructions and discharge home medications reviewed with Patient and a copy given. All questions have been answered and understanding verbalized. The following instructions and handouts were given: paracentesis Discontinued lines and drains: Peripheral IV intact. [facility] to [facility] with[facility] Wheelchair. Wrote on patient's discharge that his next appointment is Apr.02.
== END 2020-03-22 10:40 ==
LOC: INTRAD 06:36
PROVIDERS: ATTEND Internal Medicine Gastroenterology
DX: R18.8 Other ascites (principal); K74.60 Unspecified cirrhosis of liver; Z88.8 Allergy status to other drugs, medicaments and biological substances; Z79.899 Other long term (current) drug therapy
CPT/HCPCS: 49083; C1892; J3490; P9046

== ENCOUNTER 2020-04-02 06:44 | Outpatient (CLI) | payer MEDICARE, OTHER ==
[2020-04-02] VITALS (8 sets, daily range): BP systolic 103–135; BP diastolic 47–59
[~2020-04-02] VITALS: Ht 175.3 cm; Wt 104.3 kg
[2020-04-02] MEDS ORDERED: LIDOCAINE WITH 8.4% SOD BICARB 3 ML DISP.SYRIN. ONE (08:36)
[2020-04-02] MEDS ORDERED: ALBUMIN HUMAN 25% 200 ML IV ONE (08:43)
[2020-04-02] MEDS ORDERED: LIDOCAINE WITH 8.4% SOD BICARB 3 ML DISP.SYRIN. INJ ONE (08:45)
[2020-04-02] MEDS ORDERED: ALBUMIN HUMAN 25% 100 ML IV ONE ×4 (09:15→10:00)
--- NOTE | 2020-04-02 09:20 | RAD ---
Procedure: Ultrasound guided paracentesis Clinical Indication: Adult male with recurrent abdominal ascites Sedation: Local anesthesia only Antibiotics: None Fluoro Time: None Contrast: Not applicable Sterility: The procedure was performed in its entirety using appropriate elements of sterile technique. Consent: The procedure was explained in its entirety to the patient or the patients designated desk representative by a member of the treatment team, including a discussion of the risks, benefits and commonly accepted alternatives to the procedure, as well as the expected consequences of no therapy whatsoever. Discussion of the risks included, but was not limited to, those that are most frequent and those that are rare but possibly severe or life-threatening, as well as the possibility of unforeseen complications. Technique and Findings: Following informed consent, the patient was prepped and draped in the usual sterile fashion. Ultrasound interrogation of the abdomen revealed abdominal ascites. A hard copy ultrasound image was recorded. 1% Lidocaine was used to achieve local anesthesia over the area of interest, and a 6 Latvian [id number]-K-[id number] catheter was advanced into the peritoneal cavity under ultrasound guidance. 8400 cc of thin roland ascites was then withdrawn. The catheter was removed and hemostasis was achieved with manual compression. Complications: No immediate Impression: 1. Ultrasound-guided paracentesis as described
--- NOTE | 2020-04-02 09:24 | NUR ---
ascites drainage is very cloudy but still yellow Addendum: 04/02/20 at 5739 by JHONY CURTIS RN Amended: Links added.
--- NOTE | 2020-04-02 10:15 | NUR ---
Discharge Note: TERRELL MANJARREZ Discharge instructions and discharge home medications reviewed with Patient and a copy given. All questions have been answered and understanding verbalized. The following instructions and handouts were given: paracentesis Discontinued lines and drains: Peripheral IV intact. [facility] to [facility] with[facility] Wheelchair
== END 2020-04-02 10:20 ==
LOC: INTRAD 06:44
PROVIDERS: ATTEND Internal Medicine Gastroenterology
DX: R18.8 Other ascites (principal); I25.10 Atherosclerotic heart disease of native coronary artery without angina pectoris; J44.9 Chronic obstructive pulmonary disease, unspecified; I10 Essential (primary) hypertension; E78.00 Pure hypercholesterolemia, unspecified; G47.30 Sleep apnea, unspecified; E66.9 Obesity, unspecified; K21.9 Gastro-esophageal reflux disease without esophagitis; M06.9 Rheumatoid arthritis, unspecified; F41.9 Anxiety disorder, unspecified; F32.9 Major depressive disorder, single episode, unspecified; Z87.891 Personal history of nicotine dependence; Z90.49 Acquired absence of other specified parts of digestive tract; Z98.890 Other specified postprocedural states; Z79.899 Other long term (current) drug therapy; Z88.8 Allergy status to other drugs, medicaments and biological substances; Z82.49 Family history of ischemic heart disease and other diseases of the circulatory system
CPT/HCPCS: 49083; C1892; J3490; P9046

== ENCOUNTER 2020-04-13 07:00 | Outpatient (CLI) | payer MEDICARE, OTHER ==
[~2020-04-13] VITALS: Ht 175.3 cm; Wt 104.3 kg
[2020-04-13] VITALS (7 sets, daily range): BP systolic 119–149; BP diastolic 47–68
[2020-04-13 08:32] LABS: BASO % 0 % (0-3); EOS # 0.1 x10^3/uL (0.0-0.7); EOS % 4 % (0-3); HEMATOCRIT 40.1 % (39.0-53.0); HEMOGLOBIN 13.2 g/dL (13.0-17.5); LYMPH # 0.5 x10^3/uL (1.0-4.8); LYMPH % 17 % (24-48); MEAN CORPUSCULAR HEMOGLOBIN 30 pg (25-35); MEAN CORPUSCULAR HGB CONC 33 g/dL (31-37); MEAN CORPUSCULAR VOLUME 93 fL (79-100); MONO # 0.2 x10^3/uL (0.0-1.1); MONO % 7 % (0-9); NEUT # 2.1 x10^3/uL (1.8-7.7); NEUT % 72 % (31-73); PLATELET COUNT 51 x10^3/uL (140-400); RED BLOOD COUNT 4.34 x10^6/uL (4.30-5.70); RED CELL DISTRIBUTION WIDTH 16.8 % (11.5-14.5)
[2020-04-13] MEDS ORDERED: LIDOCAINE WITH 8.4% SOD BICARB 3 ML DISP.SYRIN. ONE (08:32)
[2020-04-13] MEDS ORDERED: LIDOCAINE WITH 8.4% SOD BICARB 3 ML DISP.SYRIN. INJ ONE (08:45)
[2020-04-13 08:51] LABS: PROTHROMBIN TIME PATIENT 14.9 SEC (11.7-14.0)
[2020-04-13] MEDS ORDERED: ALBUMIN HUMAN 25% 100 ML IV ONE ×6 (08:59→09:47)
--- NOTE | 2020-04-13 10:26 | NUR ---
pt discharged to home. PIV dc'd
--- NOTE | 2020-04-13 11:17 | RAD ---
Ultrasound-guided paracentesis 04/13/2020 9:14 AM Procedure: The risks and benefits of the procedure were discussed the patient. Informed consent was obtained. A timeout procedure was performed. Sonographic evaluation of the abdomen was performed demonstrating ascites . The right lower quadrant was prepped and draped using maximum sterile barrier technique. 1% lidocaine without epinephrine was administered for local anesthesia. Real-time ultrasonographic guidance was used in passing a 5 Japanese Yueh catheter into the fluid collection. 11 L of serous ascites was removed. The catheter was removed and pressure held to achieve hemostasis. A sterile dressing was applied. Impression: Successful ultrasound-guided paracentesis
== END 2020-04-13 10:28 | disposition home or self-care (01) ==
LOC: INTRAD 07:00
PROVIDERS: ATTEND Internal Medicine Gastroenterology
DX: R18.8 Other ascites (principal); I25.10 Atherosclerotic heart disease of native coronary artery without angina pectoris; I10 Essential (primary) hypertension; E78.00 Pure hypercholesterolemia, unspecified; E66.9 Obesity, unspecified; G47.30 Sleep apnea, unspecified; J44.9 Chronic obstructive pulmonary disease, unspecified; K21.9 Gastro-esophageal reflux disease without esophagitis; E11.9 Type 2 diabetes mellitus without complications; M19.90 Unspecified osteoarthritis, unspecified site; F41.9 Anxiety disorder, unspecified; F32.9 Major depressive disorder, single episode, unspecified; Z87.890 Personal history of sex reassignment; Z79.82 Long term (current) use of aspirin; Z79.84 Long term (current) use of oral hypoglycemic drugs; Z79.899 Other long term (current) drug therapy; Z88.8 Allergy status to other drugs, medicaments and biological substances; Z91.041 Radiographic dye allergy status; Z98.890 Other specified postprocedural states
CPT/HCPCS: 36415; 49083; 85025; 85610; C1892; J3490; P9046

== ENCOUNTER → 2020-04-19 | Day surgery (SDC) | payer MEDICARE, OTHER ==
[~2020-04-19] MED LIST changes: +HYDROmorphone 2 MG/ML VIAL IV PRN; +IV RINGERS,LACTATED 1000ML 1,000 ML IV SCH; +LIDOCAINE 1% PF 2 ML VIAL. ID PRN; +LIDOCAINE 2% PF 5 ML VIAL. ONE; +MORPHINE SULFATE 2 MG/ML VIAL. IV PRN; +PROCHLORPERAZINE 10 MG/2 ML VIAL. IV PRN; +PROPOFOL 10 MG/ML (20ML) VIAL. IV ONE; +fentaNYL PF VIAL 100 MCG/2 ML VIAL IV PRN
--- NOTE | 2020-04-19 12:57 | PDOC1 ---
History and Physical Date of Admission Date of Admission DATE: 04/19/20 TIME: 12:50 Identification/Chief Complaint Chief Complaint Variceal screening Source Source: Chart review, Patient History of Present Illness History of Present Illness 55 y/o male with cirrhosis, presumed LOCK[place] after w/u. No h/o bleeding; exam to screen for varices. Already on COREG. Cirrhosis mostly complicated by ascites; having paracentesis ~q 2 weeks. No complaints otherwise. Remote (>10 years) colonoscopy negative. Past Medical History Cardiovascular: HTN, [place] Pulmonary: COPD, Other (LINO) Psych: Depression Musculoskeletal: low back pain, Osteoarthritis Endocrine: Diabetes Past Surgical History Past Surgical History: Cataract Removal, Tonsillectomy Family History Family History: Alcohol Abuse, High Cholestrol, Hypertension Social History Smoke: No ALCOHOL: none Drugs: None Current Medications Current Medications Current Medications Fentanyl Citrate (Fentanyl 2ml Vial) 25 mcg PRN Q5MIN PRN IV MILD PAIN 1-3; Start 04/19/20 at 07:00; Stop 04/20/20 at 06:59 Fentanyl Citrate (Fentanyl 2ml Vial) 50 mcg PRN Q5MIN PRN IV MODERATE TO SEVERE PAIN; Start 04/19/20 at 07:00; Stop 04/20/20 at 06:59 Morphine Sulfate (Morphine Sulfate) 1 mg PRN Q10MIN PRN IV SEVERE PAIN 7-10; Start 04/19/20 at 07:00; Stop 04/20/20 at 06:59 Ringer's Solution 1,000 ml @ 30 mls/hr Q24H IV ; Start 04/19/20 at 07:00; Stop 04/19/20 at 18:59 Lidocaine HCl (Xylocaine-Mpf 1% 2ml Vial) 2 ml PRN 1X PRN ID PRIOR TO IV START; Start 04/19/20 at 07:00; Stop 04/20/20 at 06:59 Hydromorphone HCl (Dilaudid) 0.5 mg PRN Q10MIN PRN IV SEV PAIN, Second choice; Start 04/19/20 at 07:00; Stop 04/20/20 at 06:59 Prochlorperazine Edisylate (Compazine) 5 mg PACU PRN PRN IV NAUSEA, MRX1; Start 04/19/20 at 07:00; Stop 04/20/20 at 06:59 Propofol (Diprivan) 200 mg STK-MED ONCE IV ; Start 04/19/20 at 12:16; Stop 04/19/20 at 12:17; Status DC Lidocaine HCl (Lidocaine Pf 2% Vial) 5 ml STK-MED ONCE .ROUTE ; Start 04/19/20 at 12:16; Stop 04/19/20 at 12:17; Status DC Active Scripts Active Tylenol (Acetaminophen) 325 Mg Tablet 650 Mg PO PRN Q4HRS PRN 14 Days Proair Hfa (Albuterol Sulfate) 8.5 Gm Hfa.aer.ad 2.5 Mg NEB PRN Q4HRS PRN 30 Days Furosemide 20 Mg Tablet 1 Tab PO DAILY 90 Days Aldactone (Spironolactone) 25 Mg Tablet 100 Mg PO DAILY 30 Days Ativan (Lorazepam) 0.5 Mg Tablet 0.5 Mg PO PRN BID PRN 6 Days Levemir Flextouch (Insulin Detemir) 300 Units/3 Ml Insuln.pen 20 Units SQ QHS Reported Zyrtec (Cetirizine Hcl) 10 Mg Tablet 5 Mg PO DAILY Tums Dual Action Tablet Chew (Famotidine/Ca Carb/Mag Hydrox) 1 Each Tab.chew 2 Each PO TID Psoriasin (Acadia Tar) 21.25 Gm Gel..gram. 21.25 Gm TP TID Prilosec Otc (Omeprazole Magnesium) 20 Mg Tablet. 20 Mg PO DAILY Melatonin 5 Mg Tab.rapdis 1 Tab PO QHS 30 Days Lidocaine PATCH (Lidocaine) 1 Each Adh..patch 1 Each TP DAILY REMOVE AFTER 12 HOURS Gabapentin 600 Mg Tablet 600 Mg PO TID Flonase Allergy Relief (Fluticasone Propionate) 9.9 Ml [place].susp 2 Sprays NS DAILY Ferrous Sulfate 325 Mg Tablet 1 Tab PO DAILY Docusate Sodium 100 Mg Capsule 1 Cap PO DAILY 30 Days Vitamin C (Ascorbic Acid) 500 Mg Capsule.er 1 Cap PO DAILY 30 Days Citalopram Hbr (Citalopram Hydrobromide) 20 Mg Tablet 1 Tab PO DAILY Aripiprazole 1 Mg/1 Ml Solution 15 Ml PO DAILY 30 Days Pantoprazole Sodium (Pantoprazole Sodium) 40 Mg Tablet.dr 40 Mg PO DAILYAC Flomax (Tamsulosin Hcl) 0.4 Mg Cap.er.24h 2 Cap PO DAILY Buspirone Hcl 10 Mg Tablet 1 Tab PO BID Oxycodone Hcl Immed.release (Oxycodone Hcl) 30 Mg Tablet 30 Mg PO HS PRN Otezla (Apremilast) 30 Mg Tablet 30 Mg PO BID Daily Value (Multivitamin) 1 Each Tablet 1 Each PO DAILY Novolog Flexpen (Insulin Aspart) 100 Unit/1 Ml Insuln.pen 0-7 Unit SQ QID Carvedilol (Carvedilol) 6.25 Mg Tablet 6.25 Mg PO BIDWMEALS Allergies Allergies: Coded Allergies: povidone-iodine (Verified Allergy, Intermediate, Rash, 04/19/20) ROS Review of System Otherwise negative. Physical Exam General: Alert, Oriented X3, Cooperative, No acute distress Lungs: Clear to auscultation Heart: S1S2, RRR, no gallops, no murmurs Abdomen: Normal bowel sounds, Soft, No tenderness, No hepatosplenomegaly, No masses, Other (ascites present) Rectal Exam: not examined Extremities: No clubbing, No cyanosis Skin: No significant lesion Neuro: Normal speech, Strength at 5/5 X4 ext, Normal tone, Sensation intact, Cranial nerves 3-12 NL, Reflexes 2+ Psych/Mental Status: Mental status NL, Mood NL Vitals Vitals Vital Signs Date Time Temp Pulse Resp B/P (MAP) Pulse Ox O2 Delivery O2 Flow Rate FiO2 04/19/20 12:25 97 55 18 97 97.0 VTE Prophylaxis Ordered VTE Prophylaxis Devices: No VTE Pharmacological Prophylaxi: No Assessment/Plan Assessment/Plan IMP: Cirrhosis; needs screening for varices. PLAN: EGD PIERCE WILLETT MD Apr 19, 2020 12:57
--- NOTE | 2020-04-19 13:18 | PDOC4 ---
PROCEDURE Procedure EGD/biopsies Indication: Variceal screening in cirrhotic Meds: per anesthesia Findings: E--NO VARICES. Healed reflux at 40 cm. G--Mild diffuse portal gastropathy with small amount intraluminal blood. No gastric varices seen. Multiple, probably inflammatory, polyps in antrum. Biopsies to document. D--Normal to second portion. Daniele. well. IMP: Healed GERD Portal hypertensive gastropathy. Antral polyips. No gastric or esophageal varices. REC: Continue current diet and meds. Await biopsies. F/u in 2 weeks. PIERCE WILLETT MD Apr 19, 2020 13:18
[2020-04-19 13:45] VITALS: BP 147/65
--- NOTE | 2020-04-23 18:06 | PATHOLOGY ---
[facility] Accession Number: [id number] . 01 Material submitted: . stomach - ANTRAL POLYPS BIOPSY . 01 Clinical history: . SCREENING FOR VARICES . 02 Diagnosis: Gastric biopsy, antral polyp: - Hyperplastic polyp, showing mild acute inflammation. . (JPM:mml; 04/23/2020) [facility] 04/23/2020 1545 Local . 02 Comment: Sections of the gastric antral polyp biopsy reveal a segment of gastric antral mucosa showing congestion and foveolar hyperplasia consistent with hyperplastic polyp. The polyp shows focal acute inflammation. There are no adenomatous changes or evidence of malignancy. . (JPM:mml; 04/23/2020) . 02 Electronically signed: . Andrea Gerardo MD, Pathologist NPI- [id number] . 01 Gross description: . The specimen is received in formalin, labeled "Bridges, Blaze, antral polyps BX" and consists of a fragment of pink-alarcon tissue measuring 0.6 x 0.2 cm which is entirely submitted in A1. (SDY; 04/21/2020) SYU/SYU 04/21/2020 1136 Local . 02 Pathologist provided ICD-10: K31.7, K29.00 . 02 CPT . 869506 Specimen Comment: A courtesy copy of this report has been sent to [phone], [phone] Specimen Comment: 2014 Specimen Comment: Report sent to / DR RED Performed at: 01 [facility] [address], [place] [id number] MD Juaquin Young MD Phone: [phone] Performed at: 02 [facility] [address] [place], [place] [id number] MD Andrea Gerardo MD Phone: [phone]
== END | disposition home or self-care (01) ==
LOC: SURG 12:05
PROVIDERS: ATTEND Internal Medicine Gastroenterology
DX: K74.60 Unspecified cirrhosis of liver (principal); K21.00 Gastro-esophageal reflux disease with esophagitis, without bleeding; K76.6 Portal hypertension; K31.7 Polyp of stomach and duodenum; K31.89 Other diseases of stomach and duodenum; K29.00 Acute gastritis without bleeding; I25.10 Atherosclerotic heart disease of native coronary artery without angina pectoris; I10 Essential (primary) hypertension; E78.00 Pure hypercholesterolemia, unspecified; J44.9 Chronic obstructive pulmonary disease, unspecified; E66.9 Obesity, unspecified; E11.9 Type 2 diabetes mellitus without complications; F32.9 Major depressive disorder, single episode, unspecified; F41.9 Anxiety disorder, unspecified; M06.9 Rheumatoid arthritis, unspecified; Z87.440 Personal history of urinary (tract) infections; Z79.899 Other long term (current) drug therapy; Z79.82 Long term (current) use of aspirin; Z79.84 Long term (current) use of oral hypoglycemic drugs; Z98.890 Other specified postprocedural states; Z82.49 Family history of ischemic heart disease and other diseases of the circulatory system; Z91.041 Radiographic dye allergy status
CPT/HCPCS: 43239; J2704

== ENCOUNTER 2020-04-26 08:21 | Outpatient (CLI) | payer MEDICARE, OTHER ==
[~2020-04-26] VITALS: Ht 175.3 cm; Wt 99.8 kg
[2020-04-26] VITALS (8 sets, daily range): BP systolic 116–140; BP diastolic 48–73
[~2020-04-26 08:21] MED LIST changes: -HYDROmorphone 2 MG/ML VIAL IV PRN; -IV RINGERS,LACTATED 1000ML 1,000 ML IV SCH; -LIDOCAINE 1% PF 2 ML VIAL. ID PRN; -LIDOCAINE 2% PF 5 ML VIAL. ONE; +LIDOCAINE WITH 8.4% SOD BICARB 3 ML DISP.SYRIN. ONE; -MORPHINE SULFATE 2 MG/ML VIAL. IV PRN; -PROCHLORPERAZINE 10 MG/2 ML VIAL. IV PRN; -PROPOFOL 10 MG/ML (20ML) VIAL. IV ONE; -fentaNYL PF VIAL 100 MCG/2 ML VIAL IV PRN
[2020-04-26] MEDS ORDERED: LIDOCAINE WITH 8.4% SOD BICARB 3 ML DISP.SYRIN. INJ ONE (08:45)
[2020-04-26] MEDS ORDERED: ALBUMIN HUMAN 25% 100 ML IV ONE ×5 (09:29→10:06)
[2020-04-26] MEDS ORDERED: ALBUMIN HUMAN 25% 50 ML IV ONE (10:00)
--- NOTE | 2020-04-26 10:01 | RAD ---
Ultrasound-guided paracentesis 04/13/2020 9:14 AM Procedure: The risks and benefits of the procedure were discussed the patient. Informed consent was obtained. A timeout procedure was performed. Sonographic evaluation of the abdomen was performed demonstrating ascites . The left lower quadrant was prepped and draped using maximum sterile barrier technique. 1% lidocaine without epinephrine was administered for local anesthesia. Real-time ultrasonographic guidance was used in passing a 5 Arabic Yueh catheter into the fluid collection. 9 L of serous ascites was removed. The catheter was removed and pressure held to achieve hemostasis. A sterile dressing was applied. Impression: Successful ultrasound-guided paracentesis
--- NOTE | 2020-04-26 11:11 | NUR ---
pt discharged to home with limo driver. discharge instructions reviewed with patient
== END 2020-04-26 11:15 | disposition home or self-care (01) ==
LOC: INTRAD 08:21
PROVIDERS: ATTEND Internal Medicine Gastroenterology
DX: R18.8 Other ascites (principal); I25.10 Atherosclerotic heart disease of native coronary artery without angina pectoris; I10 Essential (primary) hypertension; E78.00 Pure hypercholesterolemia, unspecified; K21.9 Gastro-esophageal reflux disease without esophagitis; J44.9 Chronic obstructive pulmonary disease, unspecified; G47.30 Sleep apnea, unspecified; E66.9 Obesity, unspecified; E11.9 Type 2 diabetes mellitus without complications; M19.90 Unspecified osteoarthritis, unspecified site; F41.9 Anxiety disorder, unspecified; F32.9 Major depressive disorder, single episode, unspecified; Z87.440 Personal history of urinary (tract) infections; Z79.899 Other long term (current) drug therapy; Z98.890 Other specified postprocedural states; Z91.041 Radiographic dye allergy status
CPT/HCPCS: 49083; C1892; J3490; P9046

== ENCOUNTER 2020-05-05 06:48 | Outpatient (CLI) | payer MEDICARE, OTHER ==
[2020-05-05] VITALS (9 sets, daily range): BP systolic 102–130; BP diastolic 42–58
[~2020-05-05] VITALS: Ht 175.3 cm; Wt 99.3 kg
[~2020-05-05 06:48] MED LIST changes: -LIDOCAINE WITH 8.4% SOD BICARB 3 ML DISP.SYRIN. ONE
[2020-05-05] MEDS ORDERED: LIDOCAINE WITH 8.4% SOD BICARB 3 ML DISP.SYRIN. ONE (07:54)
[2020-05-05] MEDS ORDERED: LIDOCAINE WITH 8.4% SOD BICARB 3 ML DISP.SYRIN. INJ ONE (08:15)
[2020-05-05] MEDS ORDERED: ALBUMIN HUMAN 25% 200 ML IV ONE (08:30)
--- NOTE | 2020-05-05 08:50 | RAD ---
Ultrasound-guided paracentesis 05.04.20 Procedure: The risks and benefits of the procedure were discussed the patient. Informed consent was obtained. A timeout procedure was performed. Sonographic evaluation of the abdomen was performed demonstrating ascites . The left lower quadrant was prepped and draped using maximum sterile barrier technique. 1% lidocaine without epinephrine was administered for local anesthesia. Real-time ultrasonographic guidance was used in passing a 5 Maltese Yueh catheter into the fluid collection. 8 L of serous ascites was removed. The catheter was removed and pressure held to achieve hemostasis. A sterile dressing was applied. Impression: Successful ultrasound-guided paracentesis
[2020-05-05] MEDS ORDERED: ALBUMIN HUMAN 25% 100 ML IV ONE ×2 (09:00)
--- NOTE | 2020-05-05 09:55 | NUR ---
Discharge Note: TERRELL MANJARREZ Discharge instructions and discharge home medications reviewed with Patient and a copy given. All questions have been answered and understanding verbalized. The following instructions and handouts were given: paracentesis Discontinued lines and drains: Peripheral IV intact. [facility] Patient's transport van picked him up in outpatient to return to his facility. Written instructions regarding medications and his next appointment dates were written on his discharge papers.
== END 2020-05-05 10:00 ==
LOC: INTRAD 06:48
PROVIDERS: ATTEND Internal Medicine Gastroenterology
DX: R18.8 Other ascites (principal); I25.10 Atherosclerotic heart disease of native coronary artery without angina pectoris; I10 Essential (primary) hypertension; E78.00 Pure hypercholesterolemia, unspecified; K21.9 Gastro-esophageal reflux disease without esophagitis; G47.30 Sleep apnea, unspecified; E11.42 Type 2 diabetes mellitus with diabetic polyneuropathy; J44.9 Chronic obstructive pulmonary disease, unspecified; E66.9 Obesity, unspecified; M19.90 Unspecified osteoarthritis, unspecified site; F41.9 Anxiety disorder, unspecified; F32.9 Major depressive disorder, single episode, unspecified; Z87.440 Personal history of urinary (tract) infections; Z98.890 Other specified postprocedural states; Z79.82 Long term (current) use of aspirin; Z79.4 Long term (current) use of insulin; Z79.899 Other long term (current) drug therapy; Z72.89 Other problems related to lifestyle; Z91.041 Radiographic dye allergy status; Z82.49 Family history of ischemic heart disease and other diseases of the circulatory system
CPT/HCPCS: 49083; C1892; J3490; P9046

== ENCOUNTER 2020-05-17 16:57 | Inpatient (IN) | payer MEDICARE, OTHER ==
[~2020-05-17] VITALS: Ht 175.3 cm; Wt 98.3 kg
[~2020-05-17 16:57] MED LIST changes: +CEPH500C PO
--- NOTE | 2020-05-17 17:45 | EKG ---
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
[2020-05-17 17:52] LABS: BASO % 0 % (0-3); EOS # 0.1 x10^3/uL (0.0-0.7); EOS % 3 % (0-3); HEMATOCRIT 41.4 % (39.0-53.0); HEMOGLOBIN 13.5 g/dL (13.0-17.5); LYMPH # 0.5 x10^3/uL (1.0-4.8); LYMPH % 26 % (24-48); MEAN CORPUSCULAR HEMOGLOBIN 30 pg (25-35); MEAN CORPUSCULAR HGB CONC 33 g/dL (31-37); MEAN CORPUSCULAR VOLUME 92 fL (79-100); MONO # 0.2 x10^3/uL (0.0-1.1); MONO % 10 % (0-9); NEUT # 1.2 x10^3/uL (1.8-7.7); NEUT % 61 % (31-73); PLATELET COUNT 49 x10^3/uL (140-400); RED BLOOD COUNT 4.52 x10^6/uL (4.30-5.70); RED CELL DISTRIBUTION WIDTH 16.6 % (11.5-14.5)
--- NOTE | 2020-05-17 17:54 | PHYS DOC ---
Past Medical History Past Medical History: COPD, Dementia, Diabetes-Type II, Heart Disease, OR, Unknown Additional Past Medical Histor: RA, sleep apnea, SUBDURAL HEMATOMA 10/03/19, DECREASED LIVER FX, CIRR, ASCITS Past Surgical History: Tonsillectomy, Other Additional Past Surgical Histo: vasectomy, PERICENTESIS Smoking Status: Never Smoker Alcohol Use: None Drug Use: None General Adult EDM: Chief Complaint: OTHER COMPLAINTS HPI: HPI: Patient is a 55 year old man with a history of COPD, dementia, diabetes type 2, heart disease, OR, liver disease with ascites, paracentesis, who presents the ED today stating he needs to be drained/paracentisis. Patient states is currently at rehab after having a head injury. He states he tested positive for COVID-19 and this complicated with routine of paracentesis. He states he has been short of air on exertion Review of Systems: Review of Systems: Constitutional: Denies fever or chills. [] Eyes: Denies change in visual acuity. [] HENT: Denies nasal congestion or sore throat. [] Respiratory: Reports short of breath on exertion, need for paracentesis, denies coughing Cardiovascular: Denies chest pain or edema. [] GI: Denies abdominal pain, nausea, vomiting, bloody stools or diarrhea. [] : Denies dysuria. [] Musculoskeletal: Denies back pain or joint pain. [] Integument: Denies rash. [] Neurologic: Denies headache, focal weakness or sensory changes. [] Psychiatric: Denies depression or anxiety. [] Heart Score: Risk Factors: Risk Factors: DM, Current or recent (<one month) smoker, HTN, HLP, family history of CAD, obesity. Risk Scores: Score 0 - 3: 2.5% MACE over next 6 weeks - Discharge Home Score 4 - 6: 20.3% MACE over next 6 weeks - Admit for Clinical Observation Score 7 - 10: 72.7% MACE over next 6 weeks - Early Invasive Strategies Allergies: Allergies: Allergies Coded Allergies Type Severity Reaction Last Updated Verified povidone-iodine Allergy Intermediate Rash 04/19/20 Yes Physical Exam: PE: Constitutional: Well developed, well nourished, no acute distress, non-toxic appearance. [] HENT: Normocephalic, atraumatic, bilateral external ears normal, oropharynx moist, no oral exudates, nose normal. [] Eyes: PERRLA, EOMI, conjunctiva normal, no discharge. [] Neck: Normal range of motion, no tenderness, supple, no stridor. [] Cardiovascular:Heart rate regular rhythm, no murmur [] Lungs & Thorax: Bilateral breath sounds clear to auscultation [] Abdomen: Rounded abdomen. Bowel sounds normal, soft, no tenderness, no masses, no pulsatile masses. [] Skin: Warm, dry, no erythema, no rash. [] Back: No tenderness, no CVA tenderness. [] Extremities: No tenderness, no cyanosis, no clubbing, ROM intact, no edema. [] Neurologic: Alert and oriented X 3, normal motor function, normal sensory function, no focal deficits noted. [] Psychologic: Affect normal, judgement normal, mood normal. [] EKG: EK interpreted by Dr. Avalos sinus rhythm HR 58 no STEMI[] Radiology/Procedures: Radiology/Procedures: []PROCEDURE: PORTABLE CHEST 1V AP chest. HISTORY: Short of air Patient has a moderate right pleural effusion. There is hazy atelectasis or infiltrates in the lung bases. Heart is normal in size. IMPRESSION: 1. Right pleural effusion. 2. Basilar atelectasis or infiltrates. Electronically signed by: Maxi San MD (05/17/2020 6:18 PM) [id number] DICTATED and SIGNED BY: MAXI SAN MD DATE: 05/17/20 [id number] 0 Course & Med Decision Making: Course & Med Decision Making Pertinent Labs and Imaging studies reviewed. (See chart for details) This is a 55-year-old male patient presenting to the ED today requesting to have paracentesis. He states is currently in rehab and since is positive for Covid it complicated when the procedure can be done. He is complaining of shortness of breath as well. CBC with a WBC of 1.9, this is lower than patient's normal. Platelets 49, CMP with no acute findings. Chest x-ray interpreted by radiologist was noted for right pleural effusion as well as basilar atelectasis or infiltrates. Spoke with Dr. Hunt who accepted patient for admission and ordered interventional radiology for paracentesis. Paola Disclaimer: Paola Disclaimer: This electronic medical record was generated, in whole or in part, using a voice recognition dictation system. Departure Departure Impression: Primary Impression: Ascites Qualified Codes: R18.8 - Other ascites Additional Impressions: Thrombocytopenia Neutropenia Qualified Codes: D70.9 - Neutropenia, unspecified COVID-19 Disposition: 09 ADMITTED INPT THIS HOSP Condition: STABLE Referrals: WESLEY RED DO (PCP) SE TORRES CHOIR DIRECTOR May 17, 2020 17:54
[2020-05-17 17:58] LABS: CALCIUM 8.5 mg/dL (8.5-10.1); CREATININE 1.3 mg/dL (0.7-1.3); GFR 56.9
[2020-05-17 18:02] LABS: WHITE BLOOD COUNT 1.9 x10^3/uL (4.0-11.0)
[2020-05-17 18:06] LABS: ALBUMIN 2.9 g/dL (3.4-5.0); ALBUMIN/GLOBULIN RATIO 0.8 (1.0-1.7); MAGNESIUM 1.6 mg/dL (1.8-2.4); TOTAL BILIRUBIN 0.6 mg/dL (0.2-1.0); TOTAL PROTEIN 6.4 g/dL (6.4-8.2)
--- NOTE | 2020-05-17 18:21 | RAD ---
AP chest. HISTORY: Short of air Patient has a moderate right pleural effusion. There is hazy atelectasis or infiltrates in the lung b ases. Heart is normal in size. IMPRESSION: 1. Right pleural effusion. 2. Basilar atelectasis or infiltrates. Electronically signed by: Maxi San MD (05/17/2020 6:18 PM) [id number]
--- NOTE | 2020-05-17 21:39 | PDOC1 ---
History and Physical Date of Admission Date of Admission DATE: 05/17/20 TIME: 21:33 Source Source: Chart review, Patient History of Present Illness History of Present Illness Mr. Landon, is a 55 year old man complains of weakness and cough and abd pain, he is asking to be drained/paracentisis for his abd distention and fluid, which gets normally done every 10 days and is late. . Patient states is currently at rehab after having a head injury. + COVID-19 and this complicated with routine of paracentesis. he has cough and weakness, but isnt markedly worse than prior, prior admits here. Past Medical History Past Medical History COPD, dementia, diabetes type 2, heart disease, VT, liver disease with ascites, paracentesis, who presents the Cardiovascular: HTN, [place] Pulmonary: COPD, Other Psych: Depression Musculoskeletal: low back pain, Osteoarthritis Endocrine: Diabetes Past Surgical History Past Surgical History: Cataract Removal, Tonsillectomy Family History Family History: Alcohol Abuse, High Cholestrol, Hypertension Social History ALCOHOL: none Drugs: None Current Problem List Problem List Problems Medical Problems: (1) Ascites Status: Acute (2) Neutropenia Status: Acute Current Medications Current Medications Active Scripts Active Tylenol (Acetaminophen) 325 Mg Tablet 650 Mg PO PRN Q4HRS PRN 14 Days Proair Hfa (Albuterol Sulfate) 8.5 Gm Hfa.aer.ad 2.5 Mg NEB PRN Q4HRS PRN 30 Days Furosemide 20 Mg Tablet 1 Tab PO DAILY 90 Days Aldactone (Spironolactone) 25 Mg Tablet 100 Mg PO DAILY 30 Days Ativan (Lorazepam) 0.5 Mg Tablet 0.5 Mg PO PRN BID PRN 6 Days Levemir Flextouch (Insulin Detemir) 300 Units/3 Ml Insuln.pen 20 Units SQ QHS Reported Zyrtec (Cetirizine Hcl) 10 Mg Tablet 5 Mg PO DAILY Tums Dual Action Tablet Chew (Famotidine/Ca Carb/Mag Hydrox) 1 Each Tab.chew 2 E ach PO TID Psoriasin (Alleghany Tar) 21.25 Gm Gel..gram. 21.25 Gm TP TID Prilosec Otc (Omeprazole Magnesium) 20 Mg Tablet.dr 20 Mg PO DAILY Melatonin 5 Mg Tab.rapdis 1 Tab PO QHS 30 Days Lidocaine PATCH (Lidocaine) 1 Each Adh..patch 1 Each TP DAILY REMOVE AFTER 12 HOURS Gabapentin 600 Mg Tablet 600 Mg PO TID Flonase Allergy Relief (Fluticasone Propionate) 9.9 Ml [place].susp 2 Sprays NS DAILY Ferrous Sulfate 325 Mg Tablet 1 Tab PO DAILY Docusate Sodium 100 Mg Capsule 1 Cap PO DAILY 30 Days Vitamin C (Ascorbic Acid) 500 Mg Capsule.er 1 Cap PO DAILY 30 Days Citalopram Hbr (Citalopram Hydrobromide) 20 Mg Tablet 1 Tab PO DAILY Aripiprazole 1 Mg/1 Ml Solution 15 Ml PO DAILY 30 Days Pantoprazole Sodium (Pantoprazole Sodium) 40 Mg Tablet.dr 40 Mg PO DAILYAC Flomax (Tamsulosin Hcl) 0.4 Mg Cap.er.24h 2 Cap PO DAILY Buspirone Hcl 10 Mg Tablet 1 Tab PO BID Oxycodone Hcl Immed.release (Oxycodone Hcl) 30 Mg Tablet 30 Mg PO HS PRN Otezla (Apremilast) 30 Mg Tablet 30 Mg PO BID Daily Value (Multivitamin) 1 Each Tablet 1 Each PO DAILY Novolog Flexpen (Insulin Aspart) 100 Unit/1 Ml Insuln.pen 0-7 Unit SQ QID Carvedilol (Carvedilol) 6.25 Mg Tablet 6.25 Mg PO BIDWMEALS Allergies Allergies: Coded Allergies: povidone-iodine (Verified Allergy, Intermediate, Rash, 04/19/20) ROS General: YES: Chills, Fatigue, Malaise; No: Night Sweats, Appetite, Other PSYCHOLOGICAL ROS: No: Anxiety, Behavioral Disorder, Concentration difficultie, Decreased libido, Depression, Disorientation, Hallucinations, Hostility, Irritablity, Memory difficulties, Mood Swings, Obsessive thoughts, Physical abuse, Sexual abuse, Sleep disturbances, Suicidal ideation, Other Eyes: No Blurry vision, No Decreased vision, No Double vision, No Dry eyes, No Excessive tearing, No Eye Pain, No Itchy Eyes, No Loss of vision, No Photophobia, No Scotomata, No Uses contacts, No Uses glasses, No Other HEENT: YES: Heacaches; No: Visual Changes, Hearing change, Nasal congestion, Nasal discharge, Oral lesions, Sinus pain, Sore Throat, Epistaxis, Sneezing, Snoring, Tinnitus, Vertigo, Vocal changes, Other Respiratory: No: Cough, Hemoptysis, Orthopnea, Pleuritic Pain, Shortness of breath, SOB with excertion, Sputum Changes, Stridor, Tachypnea, Wheezing, Other Cardiovascular: No Chest Pain, No Palpitations, No Orthopnea, No Paroxysmal Noc. Dyspnea, No Edema, No Lt Headedness, No Other Gastrointestinal: Yes Nausea, Yes Abdominal Pain Genitourinary: No Dysuria, No Frequency, No Incontinence, No Hematuria, No Retention, No Discharge, No Urgency, No Pain, No Flank Pain, No Other, No , No , No , No , No , No , No Musculoskeletal: Yes Joint Pain, Yes Joint Stiffness Neurological: No Behavorial Changes, No Bowel/Bladder ControlChng, No Confusion, No Dizziness, No Gait Disturbance, No Headaches, No Impaired Coord/balance, No Memory Loss, No Numbness/Tingling, No Seizures, No Speech Problems, No Tremors, No Visual Changes, No Weakness, No Other Skin: Yes Dry Skin, Yes Other; No Eczema, No Hair Changes, No Lumps, No Mole Changes, No Mottling, No Nail Changes, No Pruritus, No Rash, No Skin Lesion Changes, No Acne Physical Exam General: Alert, Cooperative, mild distress HEENT: PERRLA Lungs: Clear to auscultation, Normal air movement Heart: S1S2, no murmurs Abdomen: Soft (distended, tender, fluid) Extremities: No clubbing, Normal pulses, Other (1+ edema) Skin: No rashes, No significant lesion Neuro: Normal speech, Sensation intact, Cranial nerves 3-12 NL Vitals Vitals Vital Signs Date Time Temp Pulse Resp B/P (MAP) Pulse Ox O2 Delivery O2 Flow Rate FiO2 05/17/20 21:07 76 156/67 (96) 97 Room Air 05/17/20 17:07 98.7 16 98.7 Labs Labs Laboratory Tests Test 05/17/20 17:10 05/17/20 18:02 White Blood Count 1.9 x10^3/uL (4.0-11.0) Red Blood Count 4.52 x10^6/uL (4.30-5.70) Hemoglobin 13.5 g/dL (13.0-17.5) Hematocrit 41.4 % (39.0-53.0) Mean Corpuscular Volume 92 fL (79-100) Mean Corpuscular Hemoglobin 30 pg (25-35) Mean Corpuscular Hemoglobin Concent 33 g/dL (31-37) Red Cell Distribution Width 16.6 % (11.5-14.5) Platelet Count 49 x10^3/uL (140-400) Neutrophils (%) (Auto) 61 % (31-73) Lymphocytes (%) (Auto) 26 % (24-48) Monocytes (%) (Auto) 10 % (0-9) Eosinophils (%) (Auto) 3 % (0-3) Basophils (%) (Auto) 0 % (0-3) Neutrophils # (Auto) 1.2 x10^3/uL (1.8-7.7) Lymphocytes # (Auto) 0.5 x10^3/uL (1.0-4.8) Monocytes # (Auto) 0.2 x10^3/uL (0.0-1.1) Eosinophils # (Auto) 0.1 x10^3/uL (0.0-0.7) Basophils # (Auto) 0.0 x10^3/uL (0.0-0.2) Sodium Level 141 mmol/L (136-145) Potassium Level 4.0 mmol/L (3.5-5.1) Chloride Level 106 mmol/L (98-107) Carbon Dioxide Level 30 mmol/L (21-32) Anion Gap 5 (6-14) Blood Urea Nitrogen 15 mg/dL (8-26) Creatinine 1.3 mg/dL (0.7-1.3) Estimated GFR (Cockcroft-Gault) 56.9 BUN/Creatinine Ratio 12 (6-20) Glucose Level 147 mg/dL (70-99) Calcium Level 8.5 mg/dL (8.5-10.1) Magnesium Level 1.6 mg/dL (1.8-2.4) Total Bilirubin 0.6 mg/dL (0.2-1.0) Aspartate Amino Transf (AST/SGOT) 44 U/L (15-37) Alanine Aminotransferase (ALT/SGPT) 26 U/L (16-63) Alkaline Phosphatase 178 U/L (46-116) Troponin I Quantitative < 0.017 ng/mL (0.000-0.055) LR-Rkw-X-Type Natriuretic Peptide 252 pg/mL (0-124) Total Protein 6.4 g/dL (6.4-8.2) Albumin 2.9 g/dL (3.4-5.0) Albumin/Globulin Ratio 0.8 (1.0-1.7) Lipase 143 U/L (73-393) Ammonia 26 mcmol/L (11-34) Laboratory Tests Test 05/17/20 17:10 05/17/20 18:02 White Blood Count 1.9 x10^3/uL (4.0-11.0) Red Blood Count 4.52 x10^6/uL (4.30-5.70) Hemoglobin 13.5 g/dL (13.0-17.5) Hematocrit 41.4 % (39.0-53.0) Mean Corpuscular Volume 92 fL (79-100) Mean Corpuscular Hemoglobin 30 pg (25-35) Mean Corpuscular Hemoglobin Concent 33 g/dL (31-37) Red Cell Distribution Width 16.6 % (11.5-14.5) Platelet Count 49 x10^3/uL (140-400) Neutrophils (%) (Auto) 61 % (31-73) Lymphocytes (%) (Auto) 26 % (24-48) Monocytes (%) (Auto) 10 % (0-9) Eosinophils (%) (Auto) 3 % (0-3) Basophils (%) (Auto) 0 % (0-3) Neutrophils # (Auto) 1.2 x10^3/uL (1.8-7.7) Lymphocytes # (Auto) 0.5 x10^3/uL (1.0-4.8) Monocytes # (Auto) 0.2 x10^3/uL (0.0-1.1) Eosinophils # (Auto) 0.1 x10^3/uL (0.0-0.7) Basophils # (Auto) 0.0 x10^3/uL (0.0-0.2) Sodium Level 141 mmol/L (136-145) Potassium Level 4.0 mmol/L (3.5-5.1) Chloride Level 106 mmol/L (98-107) Carbon Dioxide Level 30 mmol/L (21-32) Anion Gap 5 (6-14) Blood Urea Nitrogen 15 mg/dL (8-26) Creatinine 1.3 mg/dL (0.7-1.3) Estimated GFR (Cockcroft-Gault) 56.9 BUN/Creatinine Ratio 12 (6-20) Glucose Level 147 mg/dL (70-99) Calcium Level 8.5 mg/dL (8.5-10.1) Magnesium Level 1.6 mg/dL (1.8-2.4) Total Bilirubin 0.6 mg/dL (0.2-1.0) Aspartate Amino Transf (AST/SGOT) 44 U/L (15-37) Alanine Aminotransferase (ALT/SGPT) 26 U/L (16-63) Alkaline Phosphatase 178 U/L (46-116) Troponin I Quantitative < 0.017 ng/mL (0.000-0.055) VI-Bib-N-Type Natriuretic Peptide 252 pg/mL (0-124) Total Protein 6.4 g/dL (6.4-8.2) Albumin 2.9 g/dL (3.4-5.0) Albumin/Globulin Ratio 0.8 (1.0-1.7) Lipase 143 U/L (73-393) Ammonia 26 mcmol/L (11-34) VTE Prophylaxis Ordered VTE Prophylaxis Devices: No VTE Pharmacological Prophylaxi: Yes Assessment/Plan Assessment/Plan COVID 19 with cough and dyspnea, LE edema, abd distention and ascites, liver cirrhosis, known he is asking for therapeutic paracentesis. obese, BMI 32 weakness, debility cognitive decline malnutrition, moderate Justifications for Admission Other Justification ESTRELLA GREENFIELD MD May 17, 2020 21:39
[2020-05-17] MEDS ORDERED: MAGNESIUM SULFATE 2GM 50 ML IV ONE (22:00)
[2020-05-17] MEDS ORDERED: guaiFENesin/CODEINE 100mg/10mg 5 ML LIQUID PO PRN (22:15)
[2020-05-17] MEDS: BENZONATATE 100 MG CAPSULE. PO SCH (22:27)
[2020-05-17] MEDS: ENOXAPARIN 40 MG/0.4 ML SYRINGE. SQ SCH (22:27)
[2020-05-17 22:43] LABS: BILIRUBIN,URINE NEGATIVE (NEG); CLARITY,URINE CLEAR; COLOR,URINE AMBER; NITRITE,URINE NEGATIVE (NEG); PH,URINE 5.5 (<5.0-8.0); PROTEIN,URINE NEGATIVE (NEG-TRACE); UROBILINOGEN,URINE 0.2 mg/dL (0.2 mg/dL)
[2020-05-17 22:48] LABS: BACTERIA,URINE 0 /HPF (0-FEW); RBC,URINE 0 /HPF (0-2); WBC,URINE OCC /HPF (0-4)
[2020-05-17] MEDS ORDERED: ONDANSETRON PF 4 MG/2 ML VIAL. IV PRN (23:45)
[2020-05-18] MEDS: MORPHINE SULFATE 4 MG/ML VIAL. IV PRN ×5 (00:13→14:29)
[2020-05-18 04:41] VITALS: BP 155/68
[2020-05-18] MEDS ORDERED: ALBU2.5V8 IH (06:36)
[2020-05-18] MEDS ORDERED: LORA10TA3 PO (06:36)
[2020-05-18] MEDS ORDERED: TRAZ300T2 PO (06:36)
[2020-05-18] MEDS ORDERED: MECL-75 PO (06:36)
[2020-05-18] MEDS ORDERED: ARIP5TAB13 PO (06:36)
[2020-05-18] MEDS ORDERED: ACET-1871 PO (06:36)
[2020-05-18] MEDS ORDERED: INSU100I53 SQ (06:36)
[2020-05-18] MEDS ORDERED: LORA0.5T96 PO (06:36)
[2020-05-18] MEDS ORDERED: CHOL500021 PO (06:45)
[2020-05-18] MEDS ORDERED: ONDA4TAB7 PO (06:45)
[2020-05-18] MEDS ORDERED: ZINC220T3 PO (06:45)
[2020-05-18 07:00] VITALS: BP 154/76
--- NOTE | 2020-05-18 07:43 | PDOC ---
[employer] PROGRESS NOTE Date of Service DOS: DATE: 05/18/20 TIME: 07:37 Chief Complaint Chief Complaint Assessment/Plan COVID 19 with cough and dyspnea, LE edema, abd distention and ascites, liver cirrhosis, known he is asking for therapeutic paracentesis. obese, BMI 32 weakness, debility cognitive decline malnutrition, moderate History of Present Illness History of Present Illness 55 year old man complains of weakness and cough and abd pain, he is asking to be drained/paracentisis for his abd distention and fluid, which gets normally done every 10 days and is late. . Patient states is currently at rehab after having a head injury. + COVID-19 and this complicated with routine of paracentesis. he has cough and weakness, but isn't markedly worse than prior admits here. 05/18: Consult placed to IR for therapeutic paracentesis. He is known to be Covid positive. He is breathing on room air, afebrile. He receives paracentesis with improvement of his normal pain. He was stable for discharge back to his long-term care facility. Greater than 30 minutes was spent managing discharge this patient. Vitals/I&O Vitals/I&O: Vital Signs Date Time Temp Pulse Resp B/P (MAP) Pulse Ox O2 Delivery O2 Flow Rate FiO2 05/18/20 04:41 97.7 77 20 155/68 (97) 93 97.7 05/18/20 01:01 Room Air I & O 05/17/20 05/17/20 05/18/20 15:00 23:00 07:00 Intake Total 420 ml Balance 420 ml Physical Exam General: Alert, Cooperative, mild distress Lungs: Clear Abdomen: Soft (distended, tender, fluid), Other (Distended) Extremities: No clubbing, Normal pulses, Other (1+ edema) Skin: No rashes, No significant lesion Labs Labs: Laboratory Tests Test 05/17/20 17:10 05/17/20 18:02 05/17/20 22:33 White Blood Count 1.9 x10^3/uL (4.0-11.0) Red Blood Count 4.52 x10^6/uL (4.30-5.70) Hemoglobin 13.5 g/dL (13.0-17.5) Hematocrit 41.4 % (39.0-53.0) Mean Corpuscular Volume 92 fL (79-100) Mean Corpuscular Hemoglobin 30 pg (25-35) Mean Corpuscular Hemoglobin Concent 33 g/dL (31-37) Red Cell Distribution Width 16.6 % (11.5-14.5) Platelet Count 49 x10^3/uL (140-400) Neutrophils (%) (Auto) 61 % (31-73) Lymphocytes (%) (Auto) 26 % (24-48) Monocytes (%) (Auto) 10 % (0-9) Eosinophils (%) (Auto) 3 % (0-3) Basophils (%) (Auto) 0 % (0-3) Neutrophils # (Auto) 1.2 x10^3/uL (1.8-7.7) Lymphocytes # (Auto) 0.5 x10^3/uL (1.0-4.8) Monocytes # (Auto) 0.2 x10^3/uL (0.0-1.1) Eosinophils # (Auto) 0.1 x10^3/uL (0.0-0.7) Basophils # (Auto) 0.0 x10^3/uL (0.0-0.2) Sodium Level 141 mmol/L (136-145) Potassium Level 4.0 mmol/L (3.5-5.1) Chloride Level 106 mmol/L (98-107) Carbon Dioxide Level 30 mmol/L (21-32) Anion Gap 5 (6-14) Blood Urea Nitrogen 15 mg/dL (8-26) Creatinine 1.3 mg/dL (0.7-1.3) Estimated GFR (Cockcroft-Gault) 56.9 BUN/Creatinine Ratio 12 (6-20) Glucose Level 147 mg/dL (70-99) Calcium Level 8.5 mg/dL (8.5-10.1) Magnesium Level 1.6 mg/dL (1.8-2.4) Total Bilirubin 0.6 mg/dL (0.2-1.0) Aspartate Amino Transf (AST/SGOT) 44 U/L (15-37) Alanine Aminotransferase (ALT/SGPT) 26 U/L (16-63) Alkaline Phosphatase 178 U/L (46-116) Troponin I Quantitative < 0.017 ng/mL (0.000-0.055) < 0.017 ng/mL (0.000-0.055) JY-Qtk-T-Type Natriuretic Peptide 252 pg/mL (0-124) Total Protein 6.4 g/dL (6.4-8.2) Albumin 2.9 g/dL (3.4-5.0) Albumin/Globulin Ratio 0.8 (1.0-1.7) Lipase 143 U/L (73-393) Ammonia 26 mcmol/L (11-34) Urine Collection Type Unknown Urine Color Zenia Urine Clarity Clear Urine pH 5.5 (<5.0-8.0) Urine Specific [place] >=1.030 (1.000-1.030) Urine Protein Negative mg/dL (NEG-TRACE) Urine Glucose (UA) Negative mg/dL (NEG) Urine Ketones (Stick) Negative mg/dL (NEG) Urine Blood Negative (NEG) Urine Nitrite Negative (NEG) Urine Bilirubin Negative (NEG) Urine Urobilinogen Dipstick 0.2 mg/dL (0.2 mg/dL) Urine Leukocyte Esterase Negative (NEG) Urine RBC 0 /HPF (0-2) Urine WBC Occ /HPF (0-4) Urine Squamous Epithelial Cells Mod /LPF Urine Bacteria 0 /HPF (0-FEW) Urine Mucus Slight /LPF Review of Systems Review of Systems: Denies abdominal pain, denies fever, denies chest pain. Assessment and Plan Assessmemt and Plan Problems Medical Problems: (1) Ascites Status: Acute (2) Neutropenia Status: Acute Comment Review of Relevant I have reviewed the following items miguel (where applicable) has been applied. Medications: Current Medications Medications (Trade) Dose Ordered Sig/Sb Route PRN Reason Start Time Stop Time Status Last Admin Dose Admin Benzonatate (Tessalon Perle) 100 mg TID PO 05/17/20 22:00 05/17/20 22:27 Magnesium Sulfate 50 ml @ 25 mls/hr 1X ONCE IV 05/17/20 22:00 05/17/20 23:59 DC 05/17/20 22:26 Enoxaparin Sodium (Lovenox 40mg Syringe) 40 mg BID SQ 05/17/20 22:00 05/17/20 22:27 Morphine Sulfate (Morphine Sulfate) 4 mg PRN Q2HR PRN IV SEVERE PAIN 7-10 05/17/20 23:45 05/18/20 23:44 05/18/20 00:13 Justifications for Admission Other Justification MAXWELL BROWN MD May 18, 2020 07:43
[2020-05-18] MEDS: BENZONATATE 100 MG CAPSULE. PO SCH ×2 (08:25→14:20)
[2020-05-18] MEDS: ENOXAPARIN 40 MG/0.4 ML SYRINGE. SQ SCH (08:26)
[2020-05-18 11:00] VITALS: BP 140/65
[2020-05-18 11:20] VITALS: BP 148/60
[2020-05-18] MEDS ORDERED: LIDOCAINE WITH 8.4% SOD BICARB 3 ML DISP.SYRIN. INJ ONE (11:30)
[2020-05-18 11:35] VITALS: BP 148/62
[2020-05-18 11:45] VITALS: BP 135/55
--- NOTE | 2020-05-18 12:38 | RAD ---
Ultrasound-guided paracentesis 05/18/2020 10:34 AM Procedure: The risks and benefits of the procedure were discussed the patient. Informed consent was obtained. A timeout procedure was performed. Sonographic evaluation of the abdomen was performed demonstrating ascites . The right lower quadrant was prepped and draped using maximum sterile barrier technique. 1% lidocaine without epinephrine was administered for local anesthesia. Real-time ultrasonographic guidance was used in passing a 5 Ethiop[place] Yueh catheter into the fluid collection. 4.8 L of serous ascites was removed. The catheter was removed and pressure held to achieve hemostasis. A sterile dressing was applied. Impression: Successful ultrasound-guided paracentesis
--- NOTE | 2020-05-18 13:05 | NUR ---
SW following for discharge planning. Spoke with RN and reviewed chart. Pt from LTC with [facility]. Pt COVID positive. Pt had paracentesis and will discharge back to LTC today, 05/18 at 1500 per Sergio at the facility. SW awaiting final discharge orders. Clinicals ready to be sent with pt and RN to call report. Addendum: 05/18/20 at 1349 by ROSHNI FOWLER SW SNU discharge orders faxed. No additional SW needs at this time.
--- NOTE | 2020-05-18 13:20 | SNU/HH DC ---
DISCHARGE ORDERS DISCHARGE INFORMATION: DISCHARGE DATE: May 18, 2020 FINAL DIAGNOSIS Problems Medical Problems: (1) Ascites Status: Acute (2) Neutropenia Status: Acute CONDITION ON DISCHARGE: Stable CODE STATUS: Code Status: Full SENIOR LIVING: SNF STAY <30 DAYS: Yes POST DISCHARGE ORDERS: ACTIVITY ORDERS: Activity as tolerated WEIGHT BEARING STATUS: No restrictions BATHING ORDERS: Shower-keep dressing dry DIET AFTER DISCHARGE: Low Sodium 2 gm WOUND/INCISION CARE: Keep wound/cast CDI CHECKS AFTER DISCHARGE: CHECKS AFTER DISCHARGE: Check blood press - daily, Check blood sugar, ac/hs, Check your Temp as needed FOLLOW-UP: LAB ORDERS FOR FOLLOW-UP: BMP weekly TREATMENT/EQUIPMENT ORDERS: ADAPTIVE EQUIPMENT NEEDED: None Physical Therapy For: Evalulation/Treatment Occupational Therapy For: Evaluation/Treatment DISCHARGE MEDICATIONS: Home Meds Active Scripts Albuterol Sulfate (Proair Hfa) 8.5 Gm Hfa.aer.ad, 2.5 MG NEB PRN Q4HRS PRN for SHORTNESS OF BREATH for 30 Days, #2 INHALER Prov:KEITH DOOLEY MD 01/09/20 Furosemide (FUROSEMIDE) 20 Mg Tablet, 1 TAB PO DAILY for CIrrhosis for 90 Days, #90 TAB 1 Refill Prov:CAREN SAMPSON MD 12/17/19 Spironolactone (ALDACTONE) 25 Mg Tablet, 100 MG PO DAILY for CIrrhosis for 30 Days, #120 TAB 2 Refills Prov:CAREN SAMPSON MD 12/17/19 Insulin Detemir (Levemir Flextouch) 300 Units/3 Ml Insuln.pen, 20 UNITS SQ QHS, #2 SYR 3 Refills Prov:HA EDWARDS MD 01/25/15 Reported Medications Ondansetron Hcl (ZOFRAN) 4 Mg Tablet, 1 TAB PO PRN Q4HRS PRN for NAUSEA, #5 TAB 05/18/20 Zinc Sulfate (ZINC SULFATE) 220 Mg Tablet, 1 TAB PO DAILY for supplement for 30 Days, #30 TAB 0 Refills 05/18/20 Cholecalciferol (Vitamin D3) (D3-50) 50,000 Unit Capsule, 1 TAB PO DAILY for covid, CAP 05/18/20 Trazodone Hcl (TRAZODONE HCL) 300 Mg Tablet, 1 TAB PO QHS for sleeplessness, #30 TAB 1 Refill 05/18/20 Albuterol Sulfate (Proair Hfa) 8.5 Gm Hfa.aer.ad, 2 PUFF IH PRN Q4-6HRS PRN for wheezing for 21 Days, #1 INHALER 0 Refills 05/18/20 Meclizine Hcl (MECLIZINE HCL) 25 Mg Tablet, 1 TAB PO TID for vertigo, #90 TAB 05/18/20 Lorazepam (ATIVAN) 0.5 Mg Tablet, 0.5 MG PO DAILYWSUP for anxiety, TAB 05/18/20 Loratadine (LORATADINE) 10 Mg Tablet, 1 TAB PO DAILY for allergies, #30 TAB 5 Refills 05/18/20 Insulin Aspart (Insulin Aspart Flexpen) 100 Unit/1 Ml Insuln.pen, 100 UNIT SQ TIDAC PRN for sliding scale, EACH 181-220= 2 units 221-260= 4 units 261-300= 6 units 301-350= 8 units 351-400= 10 units 401+ = 12 units notify MD if <70 or >400 05/18/20 Insulin Aspart (Insulin Aspart Flexpen) 100 Unit/1 Ml Insuln.pen, 5 UNIT SQ TIDAC for dm, EACH 05/18/20 Aripiprazole (ABILIFY) 5 Mg Tablet, 1 TAB PO DAILY for depression for 30 Days, #30 TAB 0 Refills 05/18/20 Acetaminophen Er (ACETAMINOPHEN EXT.RELEASE) 650 Mg Tablet.er, 1 TAB PO PRN Q6HRS PRN for PAIN for 21 Days, TAB 0 Refills 05/18/20 Famotidine/Ca Carb/Mag Hydrox (TUMS DUAL ACTION TABLET CHEW) 1 Each Tab.chew, 2 EACH PO TID for gerd, TAB.CHEW 02/13/20 [place] Tar (PSORIASIN) 21.25 Gm Gel..gram., 21.25 GM TP TID for eczema, EACH 02/13/20 Melatonin (MELATONIN) 5 Mg Tab.rapdis, 1 TAB PO QHS for sleep for 30 Days, #30 T AB 0 Refills 02/13/20 Lidocaine (Lidocaine PATCH ) 1 Each Adh..patch, 1 EACH TP DAILY for FOR LOCAL PAIN, PATCH REMOVE AFTER 12 HOURS 02/13/20 Gabapentin (GABAPENTIN) 600 Mg Tablet, 600 MG PO TID for NEUROGENIC PAIN, TAB 02/13/20 Fluticasone Propionate (Flonase Allergy Relief) 9.9 Ml [place].susp, 2 SPRAYS NS DAILY for unknown, BOTTLE 02/13/20 Ferrous Sulfate (FERROUS SULFATE) 325 Mg Tablet, 1 TAB PO DAILY for suppl, #30 T AB 3 Refills 02/13/20 Docusate Sodium (DOCUSATE SODIUM) 100 Mg Capsule, 1 CAP PO DAILY for constipation for 30 Days, #30 CAP 0 Refills 02/13/20 Ascorbic Acid (VITAMIN C) 500 Mg Capsule.er, 1 CAP PO DAILY for suppl for 30 Days, #30 CAP 0 Refills 02/13/20 Citalopram Hydrobromide (CITALOPRAM HBR) 20 Mg Tablet, 1 TAB PO DAILY for anti- depression, #30 TAB 5 Refills 07/30/19 Tamsulosin Hcl (FLOMAX) 0.4 Mg Cap.er.24h, 2 CAP PO DAILY for BPH, #30 CAP 11 Refills 07/30/19 Buspirone Hcl (BUSPIRONE HCL) 10 Mg Tablet, 1 TAB PO BID for HTN, #60 TAB 1 Refill 07/30/19 Oxycodone Hcl (OXYCODONE HCL IMMED.RELEASE ) 30 Mg Tablet, 30 MG PO HS PRN for PAIN, TAB 0 Refills 01/03/17 Multivitamin (DAILY VALUE) 1 Each Tablet, 1 EACH PO DAILY, TAB 01/03/17 Insulin Aspart (NOVOLOG FLEXPEN) 100 Unit/1 Ml Insuln.pen, 0-7 UNIT SQ QID, SYR 01/03/17 Carvedilol (CARVEDILOL ) 6.25 Mg Tablet, 6.25 MG PO BIDWMEALS, TAB 01/03/17 Discontinued Reported Medications Cephalexin (CEPHALEXIN) 500 Mg Capsule, 1 CAP PO BID for uti for 7 Days, #14 CAP 05/18/20 Cetirizine Hcl (ZYRTEC) 10 Mg Tablet, 5 MG PO DAILY for allergies, TAB 02/13/20 Omeprazole Magnesium (PRILOSEC OTC) 20 Mg Tablet.dr, 20 MG PO DAILY for gerd, TAB 02/13/20 Aripiprazole (Aripiprazole) 1 Mg/1 Ml Solution, 15 ML PO DAILY for dementia for 30 Days, #150 ML 0 Refills 07/30/19 Pantoprazole Sodium (PANTOPRAZOLE SODIUM ) 40 Mg Tablet.dr, 40 MG PO DAILYAC for GERD, TAB 07/30/19 Apremilast (Otezla) 30 Mg Tablet, 30 MG PO BID, TAB 01/03/17 MAXWELL BROWN MD May 18, 2020 13:20
--- NOTE | 2020-05-18 13:24 | PDOC3 ---
Discharge Summary Visit Information Date of Admission: May 17, 2020 Date of Discharge: May 18, 2020 Final Diagnosis Problems Medical Problems: (1) Ascites Status: Acute (2) Neutropenia Status: Acute Brief Hospital Course Allergies Allergies Coded Allergies Type Severity Reaction Last Updated Verified povidone-iodine Allergy Intermediate Rash 04/19/20 Yes Vital Signs Vital Signs Date Time Temp Pulse Resp B/P (MAP) Pulse Ox O2 Delivery O2 Flow Rate FiO2 05/18/20 11:45 67 135/55 (81) Room Air 93.0 05/18/20 11:00 98.0 18 98.0 05/18/20 07:00 95 Lab Results Laboratory Tests Test 05/17/20 17:10 05/17/20 18:02 05/17/20 22:33 05/18/20 06:46 White Blood Count 1.9 x10^3/uL (4.0-11.0) Red Blood Count 4.52 x10^6/uL (4.30-5.70) Hemoglobin 13.5 g/dL (13.0-17.5) Hematocrit 41.4 % (39.0-53.0) Mean Corpuscular Volume 92 fL (79-100) Mean Corpuscular Hemoglobin 30 pg (25-35) Mean Corpuscular Hemoglobin Concent 33 g/dL (31-37) Red Cell Distribution Width 16.6 % (11.5-14.5) Platelet Count 49 x10^3/uL (140-400) Neutrophils (%) (Auto) 61 % (31-73) Lymphocytes (%) (Auto) 26 % (24-48) Monocytes (%) (Auto) 10 % (0-9) Eosinophils (%) (Auto) 3 % (0-3) Basophils (%) (Auto) 0 % (0-3) Neutrophils # (Auto) 1.2 x10^3/uL (1.8-7.7) Lymphocytes # (Auto) 0.5 x10^3/uL (1.0-4.8) Monocytes # (Auto) 0.2 x10^3/uL (0.0-1.1) Eosinophils # (Auto) 0.1 x10^3/uL (0.0-0.7) Basophils # (Auto) 0.0 x10^3/uL (0.0-0.2) Sodium Level 141 mmol/L (136-145) Potassium Level 4.0 mmol/L (3.5-5.1) Chloride Level 106 mmol/L (98-107) Carbon Dioxide Level 30 mmol/L (21-32) Anion Gap 5 (6-14) Blood Urea Nitrogen 15 mg/dL (8-26) Creatinine 1.3 mg/dL (0.7-1.3) Estimated GFR (Cockcroft-Gault) 56.9 BUN/Creatinine Ratio 12 (6-20) Glucose Level 147 mg/dL (70-99) Calcium Level 8.5 mg/dL (8.5-10.1) Magnesium Level 1.6 mg/dL (1.8-2.4) Total Bilirubin 0.6 mg/dL (0.2-1.0) Aspartate Amino Transf (AST/SGOT) 44 U/L (15-37) Alanine Aminotransferase (ALT/SGPT) 26 U/L (16-63) Alkaline Phosphatase 178 U/L (46-116) Troponin I Quantitative < 0.017 ng/mL (0.000-0.055) < 0.017 ng/mL (0.000-0.055) < 0.017 ng/mL (0.000-0.055) LE-Fhu-Y-Type Natriuretic Peptide 252 pg/mL (0-124) Total Protein 6.4 g/dL (6.4-8.2) Albumin 2.9 g/dL (3.4-5.0) Albumin/Globulin Ratio 0.8 (1.0-1.7) Lipase 143 U/L (73-393) Ammonia 26 mcmol/L (11-34) Urine Collection Type Unknown Urine Color Zenia Urine Clarity Clear Urine pH 5.5 (<5.0-8.0) Urine Specific [place] >=1.030 (1.000-1.030) Urine Protein Negative mg/dL (NEG-TRACE) Urine Glucose (UA) Negative mg/dL (NEG) Urine Ketones (Stick) Negative mg/dL (NEG) Urine Blood Negative (NEG) Urine Nitrite Negative (NEG) Urine Bilirubin Negative (NEG) Urine Urobilinogen Dipstick 0.2 mg/dL (0.2 mg/dL) Urine Leukocyte Esterase Negative (NEG) Urine RBC 0 /HPF (0-2) Urine WBC Occ /HPF (0-4) Urine Squamous Epithelial Cells Mod /LPF Urine Bacteria 0 /HPF (0-FEW) Urine Mucus Slight /LPF Laboratory Tests Test 05/17/20 17:10 05/17/20 18:02 05/17/20 22:33 05/18/20 06:46 White Blood Count 1.9 x10^3/uL (4.0-11.0) Red Blood Count 4.52 x10^6/uL (4.30-5.70) Hemoglobin 13.5 g/dL (13.0-17.5) Hematocrit 41.4 % (39.0-53.0) Mean Corpuscular Volume 92 fL (79-100) Mean Corpuscular Hemoglobin 30 pg (25-35) Mean Corpuscular Hemoglobin Concent 33 g/dL (31-37) Red Cell Distribution Width 16.6 % (11.5-14.5) Platelet Count 49 x10^3/uL (140-400) Neutrophils (%) (Auto) 61 % (31-73) Lymphocytes (%) (Auto) 26 % (24-48) Monocytes (%) (Auto) 10 % (0-9) Eosinophils (%) (Auto) 3 % (0-3) Basophils (%) (Auto) 0 % (0-3) Neutrophils # (Auto) 1.2 x10^3/uL (1.8-7.7) Lymphocytes # (Auto) 0.5 x10^3/uL (1.0-4.8) Monocytes # (Auto) 0.2 x10^3/uL (0.0-1.1) Eosinophils # (Auto) 0.1 x10^3/uL (0.0-0.7) Basophils # (Auto) 0.0 x10^3/uL (0.0-0.2) Sodium Level 141 mmol/L (136-145) Potassium Level 4.0 mmol/L (3.5-5.1) Chloride Level 106 mmol/L (98-107) Carbon Dioxide Level 30 mmol/L (21-32) Anion Gap 5 (6-14) Blood Urea Nitrogen 15 mg/dL (8-26) Creatinine 1.3 mg/dL (0.7-1.3) Estimated GFR (Cockcroft-Gault) 56.9 BUN/Creatinine Ratio 12 (6-20) Glucose Level 147 mg/dL (70-99) Calcium Level 8.5 mg/dL (8.5-10.1) Magnesium Level 1.6 mg/dL (1.8-2.4) Total Bilirubin 0.6 mg/dL (0.2-1.0) Aspartate Amino Transf (AST/SGOT) 44 U/L (15-37) Alanine Aminotransferase (ALT/SGPT) 26 U/L (16-63) Alkaline Phosphatase 178 U/L (46-116) Troponin I Quantitative < 0.017 ng/mL (0.000-0.055) < 0.017 ng/mL (0.000-0.055) < 0.017 ng/mL (0.000-0.055) GU-Eiu-E-Type Natriuretic Peptide 252 pg/mL (0-124) Total Protein 6.4 g/dL (6.4-8.2) Albumin 2.9 g/dL (3.4-5.0) Albumin/Globulin Ratio 0.8 (1.0-1.7) Lipase 143 U/L (73-393) Ammonia 26 mcmol/L (11-34) Urine Collection Type Unknown Urine Color Zenia Urine Clarity Clear Urine pH 5.5 (<5.0-8.0) Urine Specific [place] >=1.030 (1.000-1.030) Urine Protein Negative mg/dL (NEG-TRACE) Urine Glucose (UA) Negative mg/dL (NEG) Urine Ketones (Stick) Negative mg/dL (NEG) Urine Blood Negative (NEG) Urine Nitrite Negative (NEG) Urine Bilirubin Negative (NEG) Urine Urobilinogen Dipstick 0.2 mg/dL (0.2 mg/dL) Urine Leukocyte Esterase Negative (NEG) Urine RBC 0 /HPF (0-2) Urine WBC Occ /HPF (0-4) Urine Squamous Epithelial Cells Mod /LPF Urine Bacteria 0 /HPF (0-FEW) Urine Mucus Slight /LPF Brief Hospital Course Mr. Bridges is a 55 old male who presented with ascites. He was unable to receive weekly paracentesis outpatient. Consultations were placed to IR. He received paracentesis with improvement of symptoms and was stable for discharge back to his long-term care facility. Discharge Information Condition at Discharge: Improved Disposition/Orders: D/C to Another Facility Scheduled Aripiprazole (Abilify) 5 Mg Tablet, 1 TAB PO DAILY for depression for 30 Days, #30 Ref 0 (Reported) Entered as Reported by: Garth Ventura on 05/18/20635 Last Action: New Order on 05/18/20635 by Garth Ventura Ascorbic Acid (Vitamin C) 500 Mg Capsule.er, 1 CAP PO DAILY for suppl for 30 Days, #30 Ref 0 (Reported) Entered as Reported by: YANDY WOODS on 02/13/201918 Buspirone Hcl (Buspirone Hcl) 10 Mg Tablet, 1 TAB PO BID for HTN, #60 Ref 1 (Reported) Entered as Reported by: NOHELIA GILLILAND RN on 07/30/191946 Carvedilol (Carvedilol ) 6.25 Mg Tablet, 6.25 MG PO BIDWMEALS, (Reported) Entered as Reported by: MIS SIMMONS on 01/03/1731 Cholecalciferol (Vitamin D3) (D3-50) 50,000 Unit Capsule, 1 TAB PO DAILY for covid, (Reported) Entered as Reported by: Garth Ventura on 05/18/20644 Last Action: New Order on 05/18/20644 by Garth Ventura Citalopram Hydrobromide (Citalopram Hbr) 20 Mg Tablet, 1 TAB PO DAILY for anti- depression, #30 Ref 5 (Reported) Entered as Reported by: NOHELIA GILLILAND RN on 07/30/191953 [place] Tar (Psoriasin) 21.25 Gm Gel..gram., 21.25 GM TP TID for eczema, (Reported) Entered as Reported by: YANDY WOODS on 02/13/201918 Docusate Sodium (Docusate Sodium) 100 Mg Capsule, 1 CAP PO DAILY for constipation for 30 Days, #30 Ref 0 (Reported) Entered as Reported by: YANDY WOODS on 02/13/201918 Famotidine/Ca Carb/Mag Hydrox (Tums Dual Action Tablet Chew) 1 Each Tab.chew, 2 EACH PO TID for gerd, (Reported) Entered as Reported by: YANDY WOODS on 02/13/201918 Ferrous Sulfate (Ferrous Sulfate) 325 Mg Tablet, 1 TAB PO DAILY for suppl, #30 Ref 3 (Reported) Entered as Reported by: YANDY WOODS on 02/13/201918 Fluticasone Propionate (Flonase Allergy Relief) 9.9 Ml [place].susp, 2 SPRAYS NS DAILY for unknown, (Reported) Entered as Reported by: YANDY WOODS on 02/13/201918 Furosemide (Furosemide) 20 Mg Tablet, 1 TAB PO DAILY for CIrrhosis for 90 Days, #90 Ref 1 Prescribed by: CAREN SAMPSON MD on 12/17/19 1335 Gabapentin (Gabapentin) 600 Mg Tablet, 600 MG PO TID for NEUROGENIC PAIN, (Reported) Entered as Reported by: YANDY WOODS on 02/13/201918 Insulin Aspart (Novolog Flexpen) 100 Unit/1 Ml Insuln.pen, 0-7 UNIT SQ QID, (Reported) Entered as Reported by: MIS SIMMONS on 01/03/17 0731 Insulin Aspart (Insulin Aspart Flexpen) 100 Unit/1 Ml Insuln.pen, 5 UNIT SQ TIDAC for dm, (Reported) Entered as Reported by: Garth Ventura on 05/18/20635 Last Action: New Order on 05/18/20635 by Garth Ventura Insulin Detemir (Levemir Flextouch) 300 Units/3 Ml Insuln.pen, 20 UNITS SQ QHS, #2 Ref 3 Prescribed by: HA EDWARDS on 01/25/15 1329 Lidocaine (Lidocaine PATCH ) 1 Each Adh..patch, 1 EACH TP DAILY for FOR LOCAL PAIN, (Reported) REMOVE AFTER 12 HOURS Entered as Reported by: YANDY WOODS on 02/13/201918 Loratadine (Loratadine) 10 Mg Tablet, 1 TAB PO DAILY for allergies, #30 Ref 5 (Reported) Entered as Reported by: Garth Ventura on 05/18/20635 Last Action: New Order on 05/18/20635 by Garth Ventura Lorazepam (Ativan) 0.5 Mg Tablet, 0.5 MG PO DAILYWSUP for anxiety, (Reported) Entered as Reported by: Garth Ventura on 05/18/20635 Last Action: New Order on 05/18/20635 by Garth Ventura Meclizine Hcl (Meclizine Hcl) 25 Mg Tablet, 1 TAB PO TID for vertigo, #90 (Reported) Entered as Reported by: Garth Ventura on 05/18/20635 Last Action: New Order on 05/18/20635 by Garth Ventura Melatonin (Melatonin) 5 Mg Tab.rapdis, 1 TAB PO QHS for sleep for 30 Days, #30 Ref 0 (Reported) Entered as Reported by: YANDY WOODS on 02/13/201918 Multivitamin (Daily Value) 1 Each Tablet, 1 EACH PO DAILY, (Reported) Entered as Reported by: MIS SIMMONS on 01/03/17 0731 Spironolactone (Aldactone) 25 Mg Tablet, 100 MG PO DAILY for CIrrhosis for 30 Days, #120 Ref 2 Prescribed by: CAREN SAMPSON MD on 12/17/19 1335 Tamsulosin Hcl (Flomax) 0.4 Mg Cap.er.24h, 2 CAP PO DAILY for BPH, #30 Ref 11 (Reported) Entered as Reported by: NOHELIA GILLILAND RN on 07/30/191953 Trazodone Hcl (Trazodone Hcl) 300 Mg Tablet, 1 TAB PO QHS for sleeplessness, #30 Ref 1 (Reported) Entered as Reported by: Garth Ventura on 05/18/20635 Last Action: New Order on 05/18/20635 by Garth Ventura Zinc Sulfate (Zinc Sulfate) 220 Mg Tablet, 1 TAB PO DAILY for supplement for 30 Days, #30 Ref 0 (Reported) Entered as Reported by: Garth Ventura on 05/18/20644 Last Action: New Order on 05/18/20644 by Garth Ventura Scheduled PRN Acetaminophen Er (Acetaminophen Ext.release) 650 Mg Tablet.er, 1 TAB PO PRN Q6HRS PRN for PAIN for 21 Days, Ref 0 (Reported) Entered as Reported by: Garth Ventura on 05/18/20635 Last Action: New Order on 05/18/20635 by Garth Ventura Albuterol Sulfate (Proair Hfa) 8.5 Gm Hfa.aer.ad, 2.5 MG NEB PRN Q4HRS PRN for SHORTNESS OF BREATH for 30 Days, #2 Prescribed by: KEITH DOOLEY MD on 01/09/20 1306 Albuterol Sulfate (Proair Hfa) 8.5 Gm Hfa.aer.ad, 2 PUFF IH PRN Q4-6HRS PRN for wheezing for 21 Days, #1 Ref 0 (Reported) Entered as Reported by: Garth Ventura on 05/18/20635 Last Action: New Order on 05/18/20635 by Garth Ventura Insulin Aspart (Insulin Aspart Flexpen) 100 Unit/1 Ml Insuln.pen, 100 UNIT SQ TIDAC PRN for sliding scale, (Reported) 181-220= 2 units 221-260= 4 units 261-300= 6 units 301-350= 8 units 351-400= 10 units 401+ = 12 units notify MD if <70 or >400 Entered as Reported by: Garth Ventura on 05/18/20635 Last Action: [facility] on 05/18/20635 by Garth Ventura Ondansetron Hcl (Zofran) 4 Mg Tablet, 1 TAB PO PRN Q4HRS PRN for NAUSEA, #5 (Reported) Entered as Reported by: Garth Ventura on 05/18/20644 Last Action: [facility] on 05/18/20644 by Garth Ventura Oxycodone Hcl (Oxycodone Hcl Immed.release ) 30 Mg Tablet, 30 MG PO HS PRN for PAIN, Ref 0 (Reported) Entered as Reported by: MIS SIMMONS on 01/03/17730 Discontinued Medications Apremilast (Otezla) 30 Mg Tablet, 30 MG PO BID, (Reported) Entered as Reported by: MIS SIMMONS on 01/03/17730 Last Action: Discontinued on 05/18/20635 by Garth Ventura Aripiprazole (Aripiprazole) 1 Mg/1 Ml Solution, 15 ML PO DAILY for dementia for 30 Days, #150 Ref 0 (Reported) Entered as Reported by: NOHELAI GILLILAND RN on 07/30/191953 Last Action: Discontinued on 05/18/20635 by Garth Ventura Cephalexin (Cephalexin) 500 Mg Capsule, 1 CAP PO BID for uti for 7 Days, #14 (Reported) Entered as Reported by: Garth Ventura on 05/18/20635 Last Action: [facility] on 05/18/20635 by Garht Ventura Cetirizine Hcl (Zyrtec) 10 Mg Tablet, 5 MG PO DAILY for allergies, (Reported) Entered as Reported by: YANDY WOODS on 02/13/201918 Last Action: Discontinued on 05/18/20635 by Garth Ventura Omeprazole Magnesium (Prilosec Otc) 20 Mg Tablet., 20 MG PO DAILY for gerd, (Reported) Entered as Reported by: YANDY WOODS on 02/13/201918 Pantoprazole Sodium (Pantoprazole Sodium ) 40 Mg Tablet.dr, 40 MG PO DAILYAC for GERD, (Reported) Entered as Reported by: NOHELIA GILLILAND RN on 07/30/191953 Justicifation of Admission Dx: Justifications for Admission: Justification of Admission Dx: Yes MAXWELL BROWN MD May 18, 2020 13:24
--- NOTE | 2020-05-18 15:30 | NUR ---
Pt got discharged today and was read discharge packet, and went over medication reconciliation. Pt got IV taken out. Pt's labs and VS were WNL when leaving the unit.
== END 2020-05-18 15:20 | DRG 432 ==
LOC: ER 16:57 → ED HOLD 20:00 → 6 SOUTH 05-18
PROVIDERS: ADMIT Internal Medicine; ATTEND Internal Medicine
PROC: 0W9G3ZZ Drainage of Peritoneal Cavity, Percutaneous Approach (ICD-10-PCS; principal; 2020-05-18)
DX: K74.60 Unspecified cirrhosis of liver (principal); U07.1 COVID-19; E44.0 Moderate protein-calorie malnutrition; J90 Pleural effusion, not elsewhere classified; R18.8 Other ascites; D69.6 Thrombocytopenia, unspecified; D70.9 Neutropenia, unspecified; E11.9 Type 2 diabetes mellitus without complications; E66.9 Obesity, unspecified; F03.90 Unspecified dementia, unspecified severity, without behavioral disturbance, psychotic disturbance, mood disturbance, and anxiety; F32.9 Major depressive disorder, single episode, unspecified; I10 Essential (primary) hypertension; J44.9 Chronic obstructive pulmonary disease, unspecified; K21.9 Gastro-esophageal reflux disease without esophagitis; R53.81 Other malaise; M06.9 Rheumatoid arthritis, unspecified; Z68.32 Body mass index [BMI] 32.0-32.9, adult; Z79.4 Long term (current) use of insulin; Z79.899 Other long term (current) drug therapy; Z82.49 Family history of ischemic heart disease and other diseases of the circulatory system; I25.2 Old myocardial infarction; Z91.041 Radiographic dye allergy status
CPT/HCPCS: 36415; 49083; 71045; 80053; 81001; 82140; 83690; 83735; 83880; 84484; 85025; 93005; C1892; J1650; J2270; J3475; J3490

== ENCOUNTER 2020-05-31 07:02 | Outpatient (CLI) | payer MEDICARE, OTHER ==
[~2020-05-31] VITALS: Ht 175.3 cm; Wt 99.3 kg
[~2020-05-31 07:02] MED LIST changes: +ACET-1871 PO; +ALBU2.5V8 IH; +ARIP5TAB13 PO; +CHOL500021 PO; +INSU100I53 SQ; +LORA10TA3 PO; +MECL-75 PO; +ONDA4TAB7 PO; +TRAZ300T2 PO; +ZINC220T3 PO
[2020-05-31 08:30] VITALS: BP 120/53
[2020-05-31] MEDS ORDERED: LIDOCAINE WITH 8.4% SOD BICARB 3 ML DISP.SYRIN. ONE (08:38)
[2020-05-31 08:48] LABS: BASO % 1 % (0-3); EOS # 0.1 x10^3/uL (0.0-0.7); EOS % 2 % (0-3); HEMATOCRIT 42.6 % (39.0-53.0); HEMOGLOBIN 13.9 g/dL (13.0-17.5); LYMPH # 0.6 x10^3/uL (1.0-4.8); LYMPH % 14 % (24-48); MEAN CORPUSCULAR HEMOGLOBIN 30 pg (25-35); MEAN CORPUSCULAR HGB CONC 33 g/dL (31-37); MEAN CORPUSCULAR VOLUME 92 fL (79-100); MONO # 0.3 x10^3/uL (0.0-1.1); MONO % 7 % (0-9); NEUT # 2.9 x10^3/uL (1.8-7.7); NEUT % 76 % (31-73); PLATELET COUNT 52 x10^3/uL (140-400); RED BLOOD COUNT 4.61 x10^6/uL (4.30-5.70); RED CELL DISTRIBUTION WIDTH 16.5 % (11.5-14.5); WHITE BLOOD COUNT 3.8 x10^3/uL (4.0-11.0)
[2020-05-31 08:56] LABS: POTASSIUM 3.9 mmol/L (3.5-5.1)
[2020-05-31 09:00] LABS: PROTHROMBIN TIME PATIENT 14.9 SEC (11.7-14.0)
[2020-05-31 09:10] VITALS: BP 125/46
--- NOTE | 2020-05-31 09:12 | NUR ---
ascites drainage was cloudy Addendum: 05/31/20 at 0913 by JHONY CURTIS RN Amended: Links added.
[2020-05-31 09:15] VITALS: BP 134/63
[2020-05-31] MEDS ORDERED: LIDOCAINE WITH 8.4% SOD BICARB 3 ML DISP.SYRIN. INJ ONE (09:15)
[2020-05-31 09:30] VITALS: BP 133/50
[2020-05-31 10:00] VITALS: BP 117/48
--- NOTE | 2020-05-31 13:14 | RAD ---
Ultrasound-guided paracentesis 05/31/2020 11:10 AM Procedure: The risks and benefits of the procedure were discussed the patient. Informed consent was obtained. A timeout procedure was performed. Sonographic evaluation of the abdomen was performed demonstrating ascites . The right lower quadrant was prepped and draped using maximum sterile barrier technique. 1% lidocaine without epinephrine was administered for local anesthesia. Real-time ultrasonographic guidance was used in passing a 5 Setswana Yueh catheter into the fluid collection. 5 L of serous ascites was removed. The catheter was removed and pressure held to achieve hemostasis. A sterile dressing was applied. Impression: Successful ultrasound-guided paracentesis
== END 2020-05-31 10:45 ==
LOC: INTRAD 07:02
PROVIDERS: ATTEND Internal Medicine Gastroenterology
DX: K70.31 Alcoholic cirrhosis of liver with ascites (principal); I25.2 Old myocardial infarction; E66.01 Morbid (severe) obesity due to excess calories; I10 Essential (primary) hypertension; E11.42 Type 2 diabetes mellitus with diabetic polyneuropathy; F41.9 Anxiety disorder, unspecified; F32.9 Major depressive disorder, single episode, unspecified; J44.9 Chronic obstructive pulmonary disease, unspecified; F11.20 Opioid dependence, uncomplicated; I25.10 Atherosclerotic heart disease of native coronary artery without angina pectoris; K21.00 Gastro-esophageal reflux disease with esophagitis, without bleeding; G47.33 Obstructive sleep apnea (adult) (pediatric); M06.9 Rheumatoid arthritis, unspecified; M79.10 Myalgia, unspecified site; E78.00 Pure hypercholesterolemia, unspecified; Z79.899 Other long term (current) drug therapy; Z79.4 Long term (current) use of insulin; Z88.8 Allergy status to other drugs, medicaments and biological substances; Z88.1 Allergy status to other antibiotic agents; Z98.49 Cataract extraction status, unspecified eye; Z88.3 Allergy status to other anti-infective agents; Z88.6 Allergy status to analgesic agent; Z79.82 Long term (current) use of aspirin; Z79.01 Long term (current) use of anticoagulants; Z91.19 Patient's noncompliance with other medical treatment and regimen; Z91.041 Radiographic dye allergy status; Z83.49 Family history of other endocrine, nutritional and metabolic diseases; Z87.442 Personal history of urinary calculi; Z87.440 Personal history of urinary (tract) infections; Z90.49 Acquired absence of other specified parts of digestive tract; Z90.89 Acquired absence of other organs; Z68.32 Body mass index [BMI] 32.0-32.9, adult; Z82.49 Family history of ischemic heart disease and other diseases of the circulatory system; Z72.89 Other problems related to lifestyle; Z98.52 Vasectomy status
CPT/HCPCS: 36415; 49083; 80048; 85025; 85610; C1892; J3490